=== PATIENT | male | born 1970 | race Caucasian/White ===

== ENCOUNTER 2017-10-02 14:09 | Emergency (ER) | payer OTHER ==
[~2017-10-02] VITALS: Ht 175.3 cm; Wt 104.3 kg
[~2017-10-02 14:09] MED LIST: ALBU90OI INH; AMOCLA875 PO; ASPI81CH PO; ASPI81EC PO; ATOR10 PO; Augmentin 875-1 EACH PO; BENZ100A PO; Bactrim Ds Tab1 EACH PO; CEPH500 PO; CHOLESTEROL MED; CLOP75; CLOP75 PO; CYCL10 PO; Cyclobenzaprine5 MG PO; DELTASONE20 MG PO; DOXY100 PO; FAMO20 PO; FOLI1 PO; HYDACE5 PO; HYDR1TAB94 PO; HYDSUL200 PO; IBUP600 PO; IBUP800 PO; LISI10 PO; LISI5; LISI5 PO; LOVA40 PO; METO25; METO25ER; METO25ER PO; METO50 PO; METOPROLOL ER-1 EAC1 PO; Mobic15 MG PO; Monodox100 MG PO; NAPR500 PO; NITR.6SL SL; Naprosyn500 MG PO; Norco 5-325 Ta1 EACH PO; OXYACE5T PO; PRAV20 PO; Prednisone20 MG PO; Protonix40 MG PO; Pulmicort Flex90 MCG INH; Robaxin-750750 MG PO; THERA M PLUS T1 EACH PO; THIA100 PO; TIOT18 INH; TRAM50 PO; Ultram50 MG PO
[2017-10-02 14:55] LABS: BASOPHILS ABSOLUTE AUTO 0.07 K/mm3 (0.00-0.23); BASOPHILS PERCENT AUTO 1 % (0-2); EOSINOPHILS PERCENT AUTO 6 % (0-6); Hematocrit 46.7 % (37.0-53.0); Hemoglobin 15.6 g/dL (13.5-17.5); IMMATURE GRAN ABSOLUTE AUTO 0.07 K/mm3 (0.00-0.10); IMMATURE GRAN PERCENT AUTO 1 % (0-1); LYMPHOCYTES ABSOLUTE AUTO 2.85 K/mm3 (0.84-5.20); LYMPHOCYTES PERCENT AUTO 22 % (21-46); MONOCYTES ABSOLUTE AUTO 1.03 K/mm3 (0.16-1.47); MONOCYTES PERCENT AUTO 8 % (4-13); Mean Corpuscular HGB 31.3 pg (26.0-34.0); Mean Corpuscular HGB Conc 33.4 g/dL (31.5-36.5); Mean Corpuscular Volume 94 fL (80-100); Mean Platelet Volume 9.7 fL (9.1-12.4); NEUTROPHILS ABSOLUTE AUTO 8.11 K/mm3 (1.96-9.15); NEUTROPHILS PERCENT AUTO 63 % (41-73); Platelet Count 353 K/mm3 (150-400); RDW Coefficient Variation 13.9 % (11.7-14.2); RDW Standard Deviation 47.6 fL (35.1-46.3); Red Blood Cell Count 4.99 M/mm3 (4.30-5.90); White Blood Cell Count 12.93 K/mm3 (4.00-11.30)
[2017-10-02 15:04] LABS: Alanine Aminotransfer (ALT/SGP 27 U/L (12-78); Albumin, Blood 3.5 g/dL (3.4-5.0); Albumin/Globulin Ratio 0.9 (0.8-1.8); Alk Phos 82 U/L (50-136); Anion Gap 8 mmol/L (6-16); Aspartate Aminotrans (AST/SGOT 14 U/L (12-37); Bilirubin, Total 0.2 mg/dL (0.1-1.0); Blood Urea Nitrogen 28 mg/dL (8-24); Bun/Creatinine Ratio 26.9 (12.0-20.0); CO2, Blood 26 mmol/L (21-32); Calcium, Blood 8.7 mg/dL (8.5-10.1); Chloride, Blood 105 mmol/L (98-108); Creatinine, Blood 1.04 mg/dL (0.60-1.20); Globulin, Blood 4.1 g/dL (2.2-4.0); Glomerular Filtration Rate >60 (60-); Glucose, Blood 95 mg/dL (70-99); Potassium, Blood 4.8 mmol/L (3.5-5.5); Sodium, Blood 139 mmol/L (136-145); Total Protein, Blood 7.6 g/dL (6.4-8.2); Troponin I <0.015 ng/mL (0.000-0.040)
[2017-10-02 15:20] LABS: International Normalized Ratio 0.97; Prothrombin Time Results 10.1 Sec (9.7-11.5)
[2018-02-01] MEDS ORDERED: CRUTCH3 XX (16:52)
[2018-02-01] MEDS ORDERED: Norco 5-325 Ta1 EACH PO (16:52)
[2018-02-10] MEDS ORDERED: Acetaminophen-1 EAC1 PO (21:34)
[2018-02-10] MEDS ORDERED: Robaxin-750750 MG PO (21:34)
[2018-02-10] MEDS ORDERED: CRUTCH3 XX (21:37)
[2018-07-03] MEDS ORDERED: METO25ER (16:17)
[2018-07-03] MEDS ORDERED: KETO10 PO (18:42)
[2018-07-03] MEDS ORDERED: Zofran Odt4 MG SL (18:42)
[2018-07-11] MEDS ORDERED: CLOP75 PO (23:56)
[2018-07-11] MEDS ORDERED: Toprol Xl25 MG PO (23:57)
[2018-07-11] MEDS ORDERED: NITR.6SL SL (23:58)
[2018-07-11] MEDS ORDERED: ASPI81CH PO (23:58)
[2018-07-15] MEDS ORDERED: DULERA 100 MCG/13 GM INH (15:41)
[2018-07-15] MEDS ORDERED: Rocephin 1g1 G/50 ML IV (15:41)
[2018-07-15] MEDS ORDERED: PRAV20 PO (15:42)
[2018-07-15] MEDS ORDERED: OXYC5 PO (15:42)
[2018-08-03] MEDS ORDERED: CEFP200 PO (13:31)
[2018-08-03] MEDS ORDERED: ACET325 PO (13:38)
[2018-08-03] MEDS ORDERED: ALBU90OI INH (13:39)
[2018-08-03] MEDS ORDERED: CALCA400CH PO (13:40)
[2018-08-03] MEDS ORDERED: NICO21TP TOP (13:41)
[2018-08-03] MEDS ORDERED: ONDA4ODT PO (13:44)
[2018-08-03] MEDS ORDERED: PANT40 PO (13:45)
[2018-08-03] MEDS ORDERED: SACC250C PO (13:46)
[2018-08-09] MEDS ORDERED: IBUP800 PO (19:06)
[2018-08-18] MEDS ORDERED: OXYC5 PO (21:47)
[2018-08-18] MEDS ORDERED: ALBU90OI INH (22:07)
[2018-08-18] MEDS ORDERED: TIOT18 INH (22:07)
[2018-08-18] MEDS ORDERED: Prednisone50 MG PO (22:07)
[2018-08-18] MEDS ORDERED: LEVO750 PO (22:07)
[2018-08-18] MEDS ORDERED: BENZ100A PO (23:07)
== END 2017-10-02 17:51 | disposition left against medical advice (07) ==
LOC: ER 14:09
PROVIDERS: Emergency Medicine
DX: R07.2 Precordial pain (principal); I10 Essential (primary) hypertension; I25.10 Atherosclerotic heart disease of native coronary artery without angina pectoris; I25.2 Old myocardial infarction; F17.200 Nicotine dependence, unspecified, uncomplicated; Z79.899 Other long term (current) drug therapy; Z79.82 Long term (current) use of aspirin; Z79.52 Long term (current) use of systemic steroids; Z86.73 Personal history of transient ischemic attack (TIA), and cerebral infarction without residual deficits; Z95.5 Presence of coronary angioplasty implant and graft
CPT/HCPCS: 36415; 71046; 80053; 84484; 85025; 85610; 93005; 93010; 99283

== ENCOUNTER 2017-10-08 21:13 | Emergency (ER) | payer OTHER ==
[~2017-10-08] VITALS: Ht 177.8 cm; Wt 77.1 kg
[2018-02-01] MEDS ORDERED: CRUTCH3 XX (16:52)
[2018-02-01] MEDS ORDERED: Norco 5-325 Ta1 EACH PO (16:52)
[2018-02-10] MEDS ORDERED: Robaxin-750750 MG PO (21:34)
[2018-02-10] MEDS ORDERED: Acetaminophen-1 EAC1 PO (21:34)
[2018-02-10] MEDS ORDERED: CRUTCH3 XX (21:37)
[2018-07-03] MEDS ORDERED: METO25ER (16:17)
[2018-07-03] MEDS ORDERED: Zofran Odt4 MG SL (18:42)
[2018-07-03] MEDS ORDERED: KETO10 PO (18:42)
[2018-07-11] MEDS ORDERED: CLOP75 PO (23:56)
[2018-07-11] MEDS ORDERED: Toprol Xl25 MG PO (23:57)
[2018-07-11] MEDS ORDERED: NITR.6SL SL (23:58)
[2018-07-11] MEDS ORDERED: ASPI81CH PO (23:58)
[2018-07-15] MEDS ORDERED: Rocephin 1g1 G/50 ML IV (15:41)
[2018-07-15] MEDS ORDERED: DULERA 100 MCG/13 GM INH (15:41)
[2018-07-15] MEDS ORDERED: OXYC5 PO (15:42)
[2018-07-15] MEDS ORDERED: PRAV20 PO (15:42)
[2018-08-03] MEDS ORDERED: CEFP200 PO (13:31)
[2018-08-03] MEDS ORDERED: ACET325 PO (13:38)
[2018-08-03] MEDS ORDERED: ALBU90OI INH (13:39)
[2018-08-03] MEDS ORDERED: CALCA400CH PO (13:40)
[2018-08-03] MEDS ORDERED: NICO21TP TOP (13:41)
[2018-08-03] MEDS ORDERED: ONDA4ODT PO (13:44)
[2018-08-03] MEDS ORDERED: PANT40 PO (13:45)
[2018-08-03] MEDS ORDERED: SACC250C PO (13:46)
[2018-08-09] MEDS ORDERED: IBUP800 PO (19:06)
[2018-08-18] MEDS ORDERED: OXYC5 PO (21:47)
[2018-08-18] MEDS ORDERED: LEVO750 PO (22:07)
[2018-08-18] MEDS ORDERED: Prednisone50 MG PO (22:07)
[2018-08-18] MEDS ORDERED: ALBU90OI INH (22:07)
[2018-08-18] MEDS ORDERED: TIOT18 INH (22:07)
[2018-08-18] MEDS ORDERED: BENZ100A PO (23:07)
== END 2017-10-08 22:54 | disposition home or self-care (01) ==
LOC: ER 21:13
DX: S20.212A Contusion of left front wall of thorax, initial encounter (principal); S09.90XA Unspecified injury of head, initial encounter; I25.2 Old myocardial infarction; F17.200 Nicotine dependence, unspecified, uncomplicated; Z79.899 Other long term (current) drug therapy; Z79.82 Long term (current) use of aspirin; Z79.52 Long term (current) use of systemic steroids; Z86.73 Personal history of transient ischemic attack (TIA), and cerebral infarction without residual deficits; Z95.5 Presence of coronary angioplasty implant and graft; Z98.52 Vasectomy status; W01.0XXA Fall on same level from slipping, tripping and stumbling without subsequent striking against object, initial encounter
CPT/HCPCS: 70450; 71101; 99284

== ENCOUNTER 2017-10-11 10:53 | Emergency (ER) | payer OTHER ==
[~2017-10-11] VITALS: Ht 175.3 cm; Wt 117.9 kg
[2017-10-11 12:46] LABS: BASOPHILS ABSOLUTE AUTO 0.07 K/mm3 (0.00-0.23); BASOPHILS PERCENT AUTO 1 % (0-2); EOSINOPHILS ABSOLUTE AUTO 0.36 K/mm3 (0.00-0.68); EOSINOPHILS PERCENT AUTO 3 % (0-6); Hemoglobin 15.7 g/dL (13.5-17.5); IMMATURE GRAN ABSOLUTE AUTO 0.05 K/mm3 (0.00-0.10); IMMATURE GRAN PERCENT AUTO 0 % (0-1); LYMPHOCYTES ABSOLUTE AUTO 1.53 K/mm3 (0.84-5.20); LYMPHOCYTES PERCENT AUTO 13 % (21-46); MONOCYTES ABSOLUTE AUTO 1.08 K/mm3 (0.16-1.47); MONOCYTES PERCENT AUTO 9 % (4-13); Mean Corpuscular HGB 31.2 pg (26.0-34.0); Mean Corpuscular HGB Conc 33.4 g/dL (31.5-36.5); Mean Corpuscular Volume 93 fL (80-100); Mean Platelet Volume 9.9 fL (9.1-12.4); NEUTROPHILS ABSOLUTE AUTO 8.94 K/mm3 (1.96-9.15); NEUTROPHILS PERCENT AUTO 74 % (41-73); Platelet Count 344 K/mm3 (150-400); RDW Coefficient Variation 13.7 % (11.7-14.2); RDW Standard Deviation 47.2 fL (35.1-46.3); Red Blood Cell Count 5.04 M/mm3 (4.30-5.90); White Blood Cell Count 12.03 K/mm3 (4.00-11.30)
[2017-10-11 13:12] LABS: Alanine Aminotransfer (ALT/SGP 28 U/L (12-78); Albumin, Blood 3.9 g/dL (3.4-5.0); Alk Phos 79 U/L (50-136); Anion Gap 9 mmol/L (6-16); Aspartate Aminotrans (AST/SGOT 21 U/L (12-37); Bilirubin, Total 0.6 mg/dL (0.1-1.0); Blood Urea Nitrogen 21 mg/dL (8-24); Bun/Creatinine Ratio 17.2 (12.0-20.0); CO2, Blood 26 mmol/L (21-32); Calcium, Blood 8.8 mg/dL (8.5-10.1); Chloride, Blood 106 mmol/L (98-108); Creatinine, Blood 1.22 mg/dL (0.60-1.20); Globulin, Blood 3.9 g/dL (2.2-4.0); Glomerular Filtration Rate >60 (60-); Glucose, Blood 88 mg/dL (70-99); Potassium, Blood 4.3 mmol/L (3.5-5.5); Sodium, Blood 141 mmol/L (136-145); Total Protein, Blood 7.8 g/dL (6.4-8.2); Troponin I <0.015 ng/mL (0.000-0.040)
[2017-10-11 15:09] LABS: Source, Urine Clean Catch
[2017-10-11 15:17] LABS: Appearance, Urine Clear (Clear); Bilirubin, Urine Neg (Neg); Blood, Urine 1+ (Neg); Color, Urine Amber (P-Yellow); Glucose Qualitative, Urine Neg (Neg); Ketones, Urine 1+ (Neg); Leukocyte Esterase, Urine 1+ (Neg); Nitrite, Urine Neg (Neg); Protein, Urine 1+ (Neg); Specific Gravity, Urine 1.025 (1.003-1.022); Urobilinogen, Urine 1+ (Normal)
[2017-10-11 15:37] LABS: Bacteria Few /hpf; Hyaline Casts 0-2 /lpf (0-2); Mucus Light (0-Heavy); Squamous Epithelial Cells Rare /hpf (Few)
[2017-10-11 15:52] LABS: U Amphetamine Screen DETECTED; U Barbituate Screen Not Detected; U Benzodiazapine Screen Not Detected; U Buprenorphine Screen Not Detected; U Cannabinoids Screen Not Detected; U Cocaine Screen Not Detected; U Methadone Screen Not Detected; U Methamphetamine Screen DETECTED; U Opiates Screen Not Detected; U Oxycodone Screen Not Detected; U Phencyclidine Screen Not Detected; U Propoxyphene Screen Not Detected
[2017-10-11 15:59] LABS: Troponin I <0.015 ng/mL (0.000-0.040)
[2018-02-01] MEDS ORDERED: Norco 5-325 Ta1 EACH PO (16:52)
[2018-02-01] MEDS ORDERED: CRUTCH3 XX (16:52)
[2018-02-10] MEDS ORDERED: Robaxin-750750 MG PO (21:34)
[2018-02-10] MEDS ORDERED: Acetaminophen-1 EAC1 PO (21:34)
[2018-02-10] MEDS ORDERED: CRUTCH3 XX (21:37)
[2018-07-03] MEDS ORDERED: METO25ER (16:17)
[2018-07-03] MEDS ORDERED: Zofran Odt4 MG SL (18:42)
[2018-07-03] MEDS ORDERED: KETO10 PO (18:42)
[2018-07-11] MEDS ORDERED: CLOP75 PO (23:56)
[2018-07-11] MEDS ORDERED: Toprol Xl25 MG PO (23:57)
[2018-07-11] MEDS ORDERED: ASPI81CH PO (23:58)
[2018-07-11] MEDS ORDERED: NITR.6SL SL (23:58)
[2018-07-15] MEDS ORDERED: Rocephin 1g1 G/50 ML IV (15:41)
[2018-07-15] MEDS ORDERED: DULERA 100 MCG/13 GM INH (15:41)
[2018-07-15] MEDS ORDERED: PRAV20 PO (15:42)
[2018-07-15] MEDS ORDERED: OXYC5 PO (15:42)
[2018-08-03] MEDS ORDERED: CEFP200 PO (13:31)
[2018-08-03] MEDS ORDERED: ACET325 PO (13:38)
[2018-08-03] MEDS ORDERED: ALBU90OI INH (13:39)
[2018-08-03] MEDS ORDERED: CALCA400CH PO (13:40)
[2018-08-03] MEDS ORDERED: NICO21TP TOP (13:41)
[2018-08-03] MEDS ORDERED: ONDA4ODT PO (13:44)
[2018-08-03] MEDS ORDERED: PANT40 PO (13:45)
[2018-08-03] MEDS ORDERED: SACC250C PO (13:46)
[2018-08-09] MEDS ORDERED: IBUP800 PO (19:06)
[2018-08-18] MEDS ORDERED: OXYC5 PO (21:47)
[2018-08-18] MEDS ORDERED: ALBU90OI INH (22:07)
[2018-08-18] MEDS ORDERED: TIOT18 INH (22:07)
[2018-08-18] MEDS ORDERED: Prednisone50 MG PO (22:07)
[2018-08-18] MEDS ORDERED: LEVO750 PO (22:07)
[2018-08-18] MEDS ORDERED: BENZ100A PO (23:07)
== END 2017-10-11 16:55 | disposition home or self-care (01) ==
LOC: ER 10:53
PROVIDERS: Emergency Medicine
DX: R07.89 Other chest pain (principal); Z91.19 Patient's noncompliance with other medical treatment and regimen; Z79.899 Other long term (current) drug therapy; Z79.82 Long term (current) use of aspirin; Z79.52 Long term (current) use of systemic steroids; F17.200 Nicotine dependence, unspecified, uncomplicated
CPT/HCPCS: 36415; 71046; 80053; 81001; 83690; 84484; 85025; 87086; 93005; 93010; 96361; 96374; 99283; J1885; J7030

== ENCOUNTER 2017-10-13 10:42 | Emergency (ER) | payer OTHER ==
[~2017-10-13] VITALS: Ht 175.3 cm; Wt 90.7 kg
[2017-10-13 11:06] LABS: BASOPHILS ABSOLUTE AUTO 0.08 K/mm3 (0.00-0.23); BASOPHILS PERCENT AUTO 1 % (0-2); EOSINOPHILS ABSOLUTE AUTO 0.89 K/mm3 (0.00-0.68); EOSINOPHILS PERCENT AUTO 9 % (0-6); Hematocrit 47.8 % (37.0-53.0); Hemoglobin 15.9 g/dL (13.5-17.5); IMMATURE GRAN ABSOLUTE AUTO 0.02 K/mm3 (0.00-0.10); IMMATURE GRAN PERCENT AUTO 0 % (0-1); LYMPHOCYTES ABSOLUTE AUTO 2.04 K/mm3 (0.84-5.20); LYMPHOCYTES PERCENT AUTO 21 % (21-46); MONOCYTES ABSOLUTE AUTO 0.88 K/mm3 (0.16-1.47); MONOCYTES PERCENT AUTO 9 % (4-13); Mean Corpuscular HGB 31.3 pg (26.0-34.0); Mean Corpuscular HGB Conc 33.3 g/dL (31.5-36.5); Mean Corpuscular Volume 94 fL (80-100); Mean Platelet Volume 9.5 fL (9.1-12.4); NEUTROPHILS ABSOLUTE AUTO 5.78 K/mm3 (1.96-9.15); NEUTROPHILS PERCENT AUTO 60 % (41-73); Platelet Count 309 K/mm3 (150-400); RDW Coefficient Variation 13.6 % (11.7-14.2); RDW Standard Deviation 47.6 fL (35.1-46.3); Red Blood Cell Count 5.08 M/mm3 (4.30-5.90); White Blood Cell Count 9.69 K/mm3 (4.00-11.30)
[2017-10-13 11:27] LABS: Alanine Aminotransfer (ALT/SGP 24 U/L (12-78); Albumin, Blood 3.5 g/dL (3.4-5.0); Albumin/Globulin Ratio 0.9 (0.8-1.8); Alk Phos 81 U/L (50-136); Anion Gap 4 mmol/L (6-16); Aspartate Aminotrans (AST/SGOT 17 U/L (12-37); Bilirubin, Total 0.3 mg/dL (0.1-1.0); Blood Urea Nitrogen 11 mg/dL (8-24); Bun/Creatinine Ratio 12.4 (12.0-20.0); CO2, Blood 29 mmol/L (21-32); Calcium, Blood 8.5 mg/dL (8.5-10.1); Chloride, Blood 106 mmol/L (98-108); Creatinine, Blood 0.89 mg/dL (0.60-1.20); Globulin, Blood 3.9 g/dL (2.2-4.0); Glomerular Filtration Rate >60 (60-); Glucose, Blood 87 mg/dL (70-99); Potassium, Blood 4.1 mmol/L (3.5-5.5); Sodium, Blood 139 mmol/L (136-145); Total Protein, Blood 7.4 g/dL (6.4-8.2); Troponin I <0.015 ng/mL (0.000-0.040)
[2017-10-13 11:29] LABS: Influenza A Negative (NEGATIVE); Influenza B Negative (NEGATIVE)
[2017-10-13] MEDS ORDERED: Prednisone20 MG PO (13:10)
[2017-10-13] MEDS ORDERED: ALBU90OI INH (13:10)
[2017-10-13] MEDS ORDERED: AZIT250 PO (13:10)
[2018-02-01] MEDS ORDERED: Norco 5-325 Ta1 EACH PO (16:52)
[2018-02-01] MEDS ORDERED: CRUTCH3 XX (16:52)
[2018-02-10] MEDS ORDERED: Robaxin-750750 MG PO (21:34)
[2018-02-10] MEDS ORDERED: Acetaminophen-1 EAC1 PO (21:34)
[2018-02-10] MEDS ORDERED: CRUTCH3 XX (21:37)
[2018-07-03] MEDS ORDERED: METO25ER (16:17)
[2018-07-03] MEDS ORDERED: Zofran Odt4 MG SL (18:42)
[2018-07-03] MEDS ORDERED: KETO10 PO (18:42)
[2018-07-11] MEDS ORDERED: CLOP75 PO (23:56)
[2018-07-11] MEDS ORDERED: Toprol Xl25 MG PO (23:57)
[2018-07-11] MEDS ORDERED: NITR.6SL SL (23:58)
[2018-07-11] MEDS ORDERED: ASPI81CH PO (23:58)
[2018-07-15] MEDS ORDERED: Rocephin 1g1 G/50 ML IV (15:41)
[2018-07-15] MEDS ORDERED: DULERA 100 MCG/13 GM INH (15:41)
[2018-07-15] MEDS ORDERED: OXYC5 PO (15:42)
[2018-07-15] MEDS ORDERED: PRAV20 PO (15:42)
[2018-08-03] MEDS ORDERED: CEFP200 PO (13:31)
[2018-08-03] MEDS ORDERED: ACET325 PO (13:38)
[2018-08-03] MEDS ORDERED: ALBU90OI INH (13:39)
[2018-08-03] MEDS ORDERED: CALCA400CH PO (13:40)
[2018-08-03] MEDS ORDERED: NICO21TP TOP (13:41)
[2018-08-03] MEDS ORDERED: ONDA4ODT PO (13:44)
[2018-08-03] MEDS ORDERED: PANT40 PO (13:45)
[2018-08-03] MEDS ORDERED: SACC250C PO (13:46)
[2018-08-09] MEDS ORDERED: IBUP800 PO (19:06)
[2018-08-18] MEDS ORDERED: OXYC5 PO (21:47)
[2018-08-18] MEDS ORDERED: ALBU90OI INH (22:07)
[2018-08-18] MEDS ORDERED: LEVO750 PO (22:07)
[2018-08-18] MEDS ORDERED: TIOT18 INH (22:07)
[2018-08-18] MEDS ORDERED: Prednisone50 MG PO (22:07)
[2018-08-18] MEDS ORDERED: BENZ100A PO (23:07)
== END 2017-10-13 13:32 | disposition home or self-care (01) ==
LOC: ER 10:42
PROVIDERS: Emergency Medicine
DX: S20.219A Contusion of unspecified front wall of thorax, initial encounter (principal); J44.1 Chronic obstructive pulmonary disease with (acute) exacerbation; I25.2 Old myocardial infarction; F17.210 Nicotine dependence, cigarettes, uncomplicated; Z95.5 Presence of coronary angioplasty implant and graft; Z86.73 Personal history of transient ischemic attack (TIA), and cerebral infarction without residual deficits; Y08.89XA Assault by other specified means, initial encounter
CPT/HCPCS: 36415; 71046; 80053; 84484; 85025; 87804; 93005; 93010; 94640; 96361; 96374; 99284; J2930; J7030

== ENCOUNTER 2017-10-21 05:26 | Observation (INO) | payer OTHER ==
[~2017-10-21] VITALS: Ht 177.8 cm; Wt 75.9 kg
[~2017-10-21 05:26] MED LIST changes: +AZIT250 PO
[2017-10-21 06:44] LABS: BASOPHILS ABSOLUTE AUTO 0.07 K/mm3 (0.00-0.23); BASOPHILS PERCENT AUTO 0 % (0-2); EOSINOPHILS ABSOLUTE AUTO 0.02 K/mm3 (0.00-0.68); EOSINOPHILS PERCENT AUTO 0 % (0-6); Hematocrit 44.2 % (37.0-53.0); IMMATURE GRAN ABSOLUTE AUTO 0.16 K/mm3 (0.00-0.10); IMMATURE GRAN PERCENT AUTO 1 % (0-1); LYMPHOCYTES ABSOLUTE AUTO 1.74 K/mm3 (0.84-5.20); LYMPHOCYTES PERCENT AUTO 8 % (21-46); MONOCYTES ABSOLUTE AUTO 1.46 K/mm3 (0.16-1.47); MONOCYTES PERCENT AUTO 7 % (4-13); Mean Corpuscular HGB 31.4 pg (26.0-34.0); Mean Corpuscular HGB Conc 33.9 g/dL (31.5-36.5); Mean Corpuscular Volume 93 fL (80-100); Mean Platelet Volume 9.9 fL (9.1-12.4); NEUTROPHILS ABSOLUTE AUTO 17.28 K/mm3 (1.96-9.15); NEUTROPHILS PERCENT AUTO 83 % (41-73); Platelet Count 363 K/mm3 (150-400); RDW Coefficient Variation 13.5 % (11.7-14.2); RDW Standard Deviation 46.4 fL (35.1-46.3); Red Blood Cell Count 4.78 M/mm3 (4.30-5.90); White Blood Cell Count 20.73 K/mm3 (4.00-11.30)
[2017-10-21 06:45] LABS: Calcium, Ionized (POC) 1.08 mmol/L (1.10-1.46); Chloride (POC) 99 mmol/L (98-108); Glucose (ISTAT POC) 93 mg/dL (70-99); Hemoglobin (POC) 13.9 g/dL (13.5-17.5); Potassium (POC) 4.8 mmol/L (3.5-5.5); Sodium (POC) 134 mmol/L (135-148); Total CO2 (POC) 25 mmol/L (21-32)
[2017-10-21 06:55] LABS: Alanine Aminotransfer (ALT/SGP 31 U/L (12-78); Albumin, Blood 3.7 g/dL (3.4-5.0); Albumin/Globulin Ratio 0.8 (0.8-1.8); Alk Phos 111 U/L (50-136); Anion Gap 10 mmol/L (6-16); Aspartate Aminotrans (AST/SGOT 32 U/L (12-37); Bilirubin, Total 0.7 mg/dL (0.1-1.0); Blood Urea Nitrogen 25 mg/dL (8-24); CO2, Blood 24 mmol/L (21-32); Calcium, Blood 8.9 mg/dL (8.5-10.1); Chloride, Blood 99 mmol/L (98-108); Creatinine, Blood 0.93 mg/dL (0.60-1.20); Ethanol (Alcohol), Blood, Med <3 mg/dL; Globulin, Blood 4.6 g/dL (2.2-4.0); Glomerular Filtration Rate >60 (60-); Glucose, Blood 90 mg/dL (70-99); Potassium, Blood 4.5 mmol/L (3.5-5.5); Sodium, Blood 133 mmol/L (136-145); Total Protein, Blood 8.3 g/dL (6.4-8.2)
[2017-10-21 08:57] LABS: Cryptococcus Neoformans/Gattii Not Detected (NOT DETECT); Enterovirus Not Detected (NOT DETECT); Escherichia Coli K1 Not Detected (NOT DETECT); Haemophilus Influenza Not Detected (NOT DETECT); Herpes Simplex Virus 1 Not Detected (NOT DETECT); Herpes Simplex Virus 2 Not Detected (NOT DETECT); Human Herpesvirus 6 Not Detected (NOT DETECT); Human Parechovirus Not Detected (NOT DETECT); Listeria Monocytogenes Not Detected (NOT DETECT); Neisseria Meningitidis Not Detected (NOT DETECT); Streptococcus Agalactiae Not Detected (NOT DETECT); Streptococcus Pneumoniae Not Detected (NOT DETECT); Varicella Zoster Virus Not Detected (NOT DETECT)
[2017-10-21 09:10] LABS: Appearance, CSF Clear (Clear); Color, CSF No Color (No Color)
[2017-10-21 09:14] LABS: Appearance, CSF Clear (Clear); Color, CSF No Color (No Color)
[2017-10-21 09:15] LABS: WBC Count, CSF 0 /mm3 (0-5)
[2017-10-21 09:16] LABS: RBC Count, CSF 0 /mm3 (0-0)
[2017-10-21 09:17] LABS: RBC Count, CSF 502 /mm3 (0-0); WBC Count, CSF 2 /mm3 (0-5)
[2017-10-21 09:28] LABS: Glucose, CSF 57 mg/dL (40-70)
[2017-10-21 10:29] LABS: Source, Urine Catheter
[2017-10-21 10:51] LABS: Bilirubin, Urine Neg (Neg); Blood, Urine 2+ (Neg); Glucose Qualitative, Urine Neg (Neg); Ketones, Urine 3+ (Neg); Leukocyte Esterase, Urine Neg (Neg); Nitrite, Urine Neg (Neg); Protein, Urine Neg (Neg); Specific Gravity, Urine 1.025 (1.003-1.022); Urobilinogen, Urine NORM (Normal)
[2017-10-21 11:06] LABS: U Amphetamine Screen Not Detected; U Barbituate Screen Not Detected; U Benzodiazapine Screen Not Detected; U Buprenorphine Screen Not Detected; U Cannabinoids Screen Not Detected; U Cocaine Screen Not Detected; U Methadone Screen Not Detected; U Methamphetamine Screen Not Detected; U Opiates Screen Not Detected; U Oxycodone Screen Not Detected; U Phencyclidine Screen Not Detected; U Propoxyphene Screen Not Detected
[2017-10-21 11:17] LABS: Appearance, Urine Clear (Clear); Bacteria Not Seen /hpf; Color, Urine Yellow (P-Yellow); Hyaline Casts 0-2 /lpf (0-2); Squamous Epithelial Cells Few /hpf (Few); White Blood Cells, Urine Not Seen /hpf (0-5)
[2017-10-21] MEDS ORDERED: PRAV20 PO (13:37)
[2017-10-22 05:55] LABS: Hematocrit 41.6 % (37.0-53.0); Hemoglobin 14.2 g/dL (13.5-17.5); Mean Corpuscular HGB 31.3 pg (26.0-34.0); Mean Corpuscular HGB Conc 34.1 g/dL (31.5-36.5); Mean Corpuscular Volume 92 fL (80-100); Mean Platelet Volume 9.7 fL (9.1-12.4); Platelet Count 299 K/mm3 (150-400); RDW Coefficient Variation 13.7 % (11.7-14.2); RDW Standard Deviation 46.8 fL (35.1-46.3); Red Blood Cell Count 4.53 M/mm3 (4.30-5.90); White Blood Cell Count 16.34 K/mm3 (4.00-11.30)
[2017-10-22 06:17] LABS: Anion Gap 7 mmol/L (6-16); Blood Urea Nitrogen 16 mg/dL (8-24); Bun/Creatinine Ratio 21.6 (12.0-20.0); CO2, Blood 25 mmol/L (21-32); Calcium, Blood 8.4 mg/dL (8.5-10.1); Chloride, Blood 106 mmol/L (98-108); Creatinine, Blood 0.74 mg/dL (0.60-1.20); Glomerular Filtration Rate >60 (60-); Glucose, Blood 119 mg/dL (70-99); Potassium, Blood 3.9 mmol/L (3.5-5.5); Sodium, Blood 138 mmol/L (136-145)
[2017-10-23] MEDS ORDERED: AMOX875 PO (10:31)
[2017-10-23] MEDS ORDERED: ASPI81CH PO (10:32)
[2017-10-23] MEDS ORDERED: CLOP75 PO (10:32)
[2017-10-23] MEDS ORDERED: Q-Tussin100 MG/5 M PO (10:33)
[2017-10-23] MEDS ORDERED: DULERA 100 MCG/13 GM INH (10:34)
[2017-10-23] MEDS ORDERED: Thera-M1 EACH PO (10:35)
[2017-10-23] MEDS ORDERED: DELTASONE20 MG PO (10:35)
[2018-02-01] MEDS ORDERED: CRUTCH3 XX (16:52)
[2018-02-01] MEDS ORDERED: Norco 5-325 Ta1 EACH PO (16:52)
[2018-02-10] MEDS ORDERED: Acetaminophen-1 EAC1 PO (21:34)
[2018-02-10] MEDS ORDERED: Robaxin-750750 MG PO (21:34)
[2018-02-10] MEDS ORDERED: CRUTCH3 XX (21:37)
[2018-07-03] MEDS ORDERED: METO25ER (16:17)
[2018-07-03] MEDS ORDERED: KETO10 PO (18:42)
[2018-07-03] MEDS ORDERED: Zofran Odt4 MG SL (18:42)
[2018-07-11] MEDS ORDERED: CLOP75 PO (23:56)
[2018-07-11] MEDS ORDERED: Toprol Xl25 MG PO (23:57)
[2018-07-11] MEDS ORDERED: ASPI81CH PO (23:58)
[2018-07-11] MEDS ORDERED: NITR.6SL SL (23:58)
[2018-07-15] MEDS ORDERED: DULERA 100 MCG/13 GM INH (15:41)
[2018-07-15] MEDS ORDERED: Rocephin 1g1 G/50 ML IV (15:41)
[2018-07-15] MEDS ORDERED: PRAV20 PO (15:42)
[2018-07-15] MEDS ORDERED: OXYC5 PO (15:42)
[2018-08-03] MEDS ORDERED: CEFP200 PO (13:31)
[2018-08-03] MEDS ORDERED: ACET325 PO (13:38)
[2018-08-03] MEDS ORDERED: ALBU90OI INH (13:39)
[2018-08-03] MEDS ORDERED: CALCA400CH PO (13:40)
[2018-08-03] MEDS ORDERED: NICO21TP TOP (13:41)
[2018-08-03] MEDS ORDERED: ONDA4ODT PO (13:44)
[2018-08-03] MEDS ORDERED: PANT40 PO (13:45)
[2018-08-03] MEDS ORDERED: SACC250C PO (13:46)
[2018-08-09] MEDS ORDERED: IBUP800 PO (19:06)
[2018-08-18] MEDS ORDERED: OXYC5 PO (21:47)
[2018-08-18] MEDS ORDERED: ALBU90OI INH (22:07)
[2018-08-18] MEDS ORDERED: TIOT18 INH (22:07)
[2018-08-18] MEDS ORDERED: Prednisone50 MG PO (22:07)
[2018-08-18] MEDS ORDERED: LEVO750 PO (22:07)
[2018-08-18] MEDS ORDERED: BENZ100A PO (23:07)
== END 2017-10-23 13:49 | disposition home or self-care (01) ==
LOC: ER 05:26 → MEDS 05:27 → ENPENDDIS 10-22 10:39 → EDPENDDISTM 10-23 09:55 → EDPENDDISDT 10-23 09:55 → MEDS 10-23 13:49
PROVIDERS: Emergency Medicine; Internal Medicine
DX: G93.40 Encephalopathy, unspecified (principal); J18.9 Pneumonia, unspecified organism; I25.10 Atherosclerotic heart disease of native coronary artery without angina pectoris; J44.9 Chronic obstructive pulmonary disease, unspecified; D72.829 Elevated white blood cell count, unspecified; A41.9 Sepsis, unspecified organism; I25.2 Old myocardial infarction; F17.200 Nicotine dependence, unspecified, uncomplicated; I10 Essential (primary) hypertension; Z79.01 Long term (current) use of anticoagulants; Z79.52 Long term (current) use of systemic steroids; Z79.02 Long term (current) use of antithrombotics/antiplatelets; Z86.73 Personal history of transient ischemic attack (TIA), and cerebral infarction without residual deficits; Z95.5 Presence of coronary angioplasty implant and graft; Z98.52 Vasectomy status; Z79.82 Long term (current) use of aspirin; Z79.1 Long term (current) use of non-steroidal anti-inflammatories (NSAID); Z79.899 Other long term (current) drug therapy
CPT/HCPCS: 36415; 51701; 62270; 70450; 71046; 80047; 80048; 80053; 81001; 82945; 83605; 84157; 85014; 85025; 85027; 87040; 87070; 87205; 87483; 89051; 93005; 93010; 96361; 96365; 96366; 96367; 96372; 99285; G0378; G0480; J0456; J0696; J1650; J3370; J7030; J7050; J8499

== ENCOUNTER 2017-10-26 18:38 | Emergency (ER) | payer OTHER ==
[~2017-10-26] VITALS: Ht 175.3 cm; Wt 104.3 kg
[~2017-10-26 18:38] MED LIST changes: +AMOX875 PO; +DULERA 100 MCG/13 GM INH; +Q-Tussin100 MG/5 M PO; +Thera-M1 EACH PO
[2017-10-26 19:43] LABS: BASOPHILS PERCENT AUTO 1 % (0-2); EOSINOPHILS ABSOLUTE AUTO 0.68 K/mm3 (0.00-0.68); EOSINOPHILS PERCENT AUTO 6 % (0-6); Hemoglobin 14.5 g/dL (13.5-17.5); IMMATURE GRAN ABSOLUTE AUTO 0.09 K/mm3 (0.00-0.10); IMMATURE GRAN PERCENT AUTO 1 % (0-1); LYMPHOCYTES ABSOLUTE AUTO 3.35 K/mm3 (0.84-5.20); LYMPHOCYTES PERCENT AUTO 27 % (21-46); MONOCYTES ABSOLUTE AUTO 1.02 K/mm3 (0.16-1.47); MONOCYTES PERCENT AUTO 8 % (4-13); Mean Corpuscular HGB 31.3 pg (26.0-34.0); Mean Corpuscular HGB Conc 33.7 g/dL (31.5-36.5); Mean Corpuscular Volume 93 fL (80-100); Mean Platelet Volume 9.2 fL (9.1-12.4); NEUTROPHILS ABSOLUTE AUTO 7.08 K/mm3 (1.96-9.15); NEUTROPHILS PERCENT AUTO 58 % (41-73); Platelet Count 438 K/mm3 (150-400); RDW Coefficient Variation 13.2 % (11.7-14.2); RDW Standard Deviation 45.7 fL (35.1-46.3); Red Blood Cell Count 4.64 M/mm3 (4.30-5.90); White Blood Cell Count 12.32 K/mm3 (4.00-11.30)
[2017-10-26 19:53] LABS: Alanine Aminotransfer (ALT/SGP 44 U/L (12-78); Albumin, Blood 3.1 g/dL (3.4-5.0); Albumin/Globulin Ratio 0.7 (0.8-1.8); Alk Phos 95 U/L (50-136); Anion Gap 8 mmol/L (6-16); Aspartate Aminotrans (AST/SGOT 30 U/L (12-37); Bilirubin, Total 0.2 mg/dL (0.1-1.0); Blood Urea Nitrogen 26 mg/dL (8-24); Bun/Creatinine Ratio 28.8 (12.0-20.0); CO2, Blood 27 mmol/L (21-32); Calcium, Blood 8.8 mg/dL (8.5-10.1); Chloride, Blood 107 mmol/L (98-108); Globulin, Blood 4.3 g/dL (2.2-4.0); Glomerular Filtration Rate >60 (60-); Glucose, Blood 97 mg/dL (70-99); Sodium, Blood 142 mmol/L (136-145); Total Protein, Blood 7.4 g/dL (6.4-8.2)
[2017-10-26] MEDS ORDERED: Prednisone20 MG PO (22:27)
[2018-02-01] MEDS ORDERED: CRUTCH3 XX (16:52)
[2018-02-01] MEDS ORDERED: Norco 5-325 Ta1 EACH PO (16:52)
[2018-02-10] MEDS ORDERED: Robaxin-750750 MG PO (21:34)
[2018-02-10] MEDS ORDERED: Acetaminophen-1 EAC1 PO (21:34)
[2018-02-10] MEDS ORDERED: CRUTCH3 XX (21:37)
[2018-07-03] MEDS ORDERED: METO25ER (16:17)
[2018-07-03] MEDS ORDERED: Zofran Odt4 MG SL (18:42)
[2018-07-03] MEDS ORDERED: KETO10 PO (18:42)
[2018-07-11] MEDS ORDERED: CLOP75 PO (23:56)
[2018-07-11] MEDS ORDERED: Toprol Xl25 MG PO (23:57)
[2018-07-11] MEDS ORDERED: ASPI81CH PO (23:58)
[2018-07-11] MEDS ORDERED: NITR.6SL SL (23:58)
[2018-07-15] MEDS ORDERED: DULERA 100 MCG/13 GM INH (15:41)
[2018-07-15] MEDS ORDERED: Rocephin 1g1 G/50 ML IV (15:41)
[2018-07-15] MEDS ORDERED: OXYC5 PO (15:42)
[2018-07-15] MEDS ORDERED: PRAV20 PO (15:42)
[2018-08-03] MEDS ORDERED: CEFP200 PO (13:31)
[2018-08-03] MEDS ORDERED: ACET325 PO (13:38)
[2018-08-03] MEDS ORDERED: ALBU90OI INH (13:39)
[2018-08-03] MEDS ORDERED: CALCA400CH PO (13:40)
[2018-08-03] MEDS ORDERED: NICO21TP TOP (13:41)
[2018-08-03] MEDS ORDERED: ONDA4ODT PO (13:44)
[2018-08-03] MEDS ORDERED: PANT40 PO (13:45)
[2018-08-03] MEDS ORDERED: SACC250C PO (13:46)
[2018-08-09] MEDS ORDERED: IBUP800 PO (19:06)
[2018-08-18] MEDS ORDERED: OXYC5 PO (21:47)
[2018-08-18] MEDS ORDERED: LEVO750 PO (22:07)
[2018-08-18] MEDS ORDERED: Prednisone50 MG PO (22:07)
[2018-08-18] MEDS ORDERED: TIOT18 INH (22:07)
[2018-08-18] MEDS ORDERED: ALBU90OI INH (22:07)
[2018-08-18] MEDS ORDERED: BENZ100A PO (23:07)
== END 2017-10-26 22:48 | disposition home or self-care (01) ==
LOC: ER 18:38
PROVIDERS: Emergency Medicine
DX: J44.1 Chronic obstructive pulmonary disease with (acute) exacerbation (principal); I25.2 Old myocardial infarction; Z79.82 Long term (current) use of aspirin; Z79.02 Long term (current) use of antithrombotics/antiplatelets; Z79.899 Other long term (current) drug therapy; Z95.5 Presence of coronary angioplasty implant and graft; Z79.51 Long term (current) use of inhaled steroids
CPT/HCPCS: 36415; 71046; 80053; 85025; 96374; 99283; J2930

== ENCOUNTER 2018-03-18 19:36 | Emergency (ER) | payer MEDICAID ==
[~2018-03-18] VITALS: Ht 175.3 cm; Wt 90.7 kg
[~2018-03-18 19:36] MED LIST changes: +Acetaminophen-1 EAC1 PO; +CRUTCH3 XX
[2018-03-18] MEDS ORDERED: IBUP600 PO (20:38)
== END 2018-03-18 20:45 | disposition home or self-care (01) ==
LOC: ER 19:36
DX: S82.001A Unspecified fracture of right patella, initial encounter for closed fracture (principal); W01.0XXA Fall on same level from slipping, tripping and stumbling without subsequent striking against object, initial encounter; Z79.899 Other long term (current) drug therapy; Z79.82 Long term (current) use of aspirin; I25.2 Old myocardial infarction; F17.210 Nicotine dependence, cigarettes, uncomplicated
CPT/HCPCS: 29505; 73502; 73560-RT; 99283-25

== ENCOUNTER 2018-09-04 20:08 | Inpatient (IN) | payer OTHER ==
[~2018-09-04] VITALS: Ht 175.3 cm; Wt 71.9 kg
[~2018-09-04 20:08] MED LIST changes: +ACET325 PO; +CALCA400CH PO; +CEFP200 PO; +KETO10 PO; +LEVO750 PO; +NICO21TP TOP; +ONDA4ODT PO; +OXYC5 PO; +PANT40 PO; +Prednisone50 MG PO; +Rocephin 1g1 G/50 ML IV; +SACC250C PO; +Toprol Xl25 MG PO; +Zofran Odt4 MG SL
[2018-09-04] MEDS ORDERED: LISI5 PO (20:19)
[2018-09-04] MEDS ORDERED: CLOP75 PO (20:19)
[2018-09-04] MEDS ORDERED: NITR.6SL SL (20:20)
[2018-09-04] MEDS ORDERED: METO25 PO (20:21)
[2018-09-04 20:32] LABS: BASOPHILS ABSOLUTE AUTO 0.07 K/mm3 (0.00-0.23); BASOPHILS PERCENT AUTO 1 % (0-2); EOSINOPHILS PERCENT AUTO 3 % (0-6); Hematocrit 39.8 % (37.0-53.0); Hemoglobin 13.1 g/dL (13.5-17.5); IMMATURE GRAN ABSOLUTE AUTO 0.04 K/mm3 (0.00-0.10); IMMATURE GRAN PERCENT AUTO 0 % (0-1); LYMPHOCYTES ABSOLUTE AUTO 3.06 K/mm3 (0.84-5.20); LYMPHOCYTES PERCENT AUTO 28 % (21-46); MONOCYTES ABSOLUTE AUTO 0.91 K/mm3 (0.16-1.47); MONOCYTES PERCENT AUTO 8 % (4-13); Mean Corpuscular HGB 31.9 pg (26.0-34.0); Mean Corpuscular HGB Conc 32.9 g/dL (31.5-36.5); Mean Corpuscular Volume 97 fL (80-100); NEUTROPHILS ABSOLUTE AUTO 6.52 K/mm3 (1.96-9.15); NEUTROPHILS PERCENT AUTO 60 % (41-73); Platelet Count 376 K/mm3 (150-400); RDW Standard Deviation 53.7 fL (35.1-46.3); Red Blood Cell Count 4.11 M/mm3 (4.30-5.90)
[2018-09-04 20:48] LABS: Alanine Aminotransfer (ALT/SGP 23 U/L (12-78); Albumin/Globulin Ratio 0.7 (0.8-1.8); Alk Phos 99 U/L (50-136); Anion Gap 6 mmol/L (6-16); Aspartate Aminotrans (AST/SGOT 26 U/L (12-37); Bilirubin, Total 0.3 mg/dL (0.1-1.0); Blood Urea Nitrogen 14 mg/dL (8-24); Bun/Creatinine Ratio 17.9 (12.0-20.0); CO2, Blood 25 mmol/L (21-32); Calcium, Blood 8.3 mg/dL (8.5-10.1); Chloride, Blood 109 mmol/L (98-108); Creatinine, Blood 0.78 mg/dL (0.60-1.20); Globulin, Blood 4.4 g/dL (2.2-4.0); Glomerular Filtration Rate >60 (60-); Glucose, Blood 113 mg/dL (70-99); Potassium, Blood 4.2 mmol/L (3.5-5.5); Sodium, Blood 140 mmol/L (136-145); Total Protein, Blood 7.4 g/dL (6.4-8.2)
[2018-09-05 00:51] LABS: International Normalized Ratio 0.94; Prothrombin Time Results 9.7 Sec (9.7-11.5)
--- NOTE | 2018-09-05 06:47 | NUR ---
SHIFT SUMMARY PT HAS BEEN SLEEPING WELL SINCE ROUGHLY 0300. AOX4. VSS. DENIES SOB, N/V. REPORTS 10/10 PAIN IN R. KNEE, MEDICATED 1X W/25 FENTANYL PER ORDERS. CIWA HAS RANGED 6-7 T/O NIGHT DUE TO NOTICABLE TREMORS, MILD HEADACHE & PT FEELING A LITTLE AGITATED. LUNGS HAVE INSPIRATORY WHEEZES T/O W/ E/U BREATHING. KEVEN FROM LAB CALLED ROUGHLY AROUND 0600 & STATED THEY STILL HAD FLUID FROM DRAINAGE & WAS WONDERING IF PHYSICIAN WANTED CULTURES DRAWN. TALKED TO DR. BANG & HE ORDERED A GRAM STAIN & BACTERIAL CULTURE. CALL LIGHT IS IN REACH & BED IS IN LOWEST POSITION.
--- NOTE | 2018-09-05 08:00 | NUR ---
PT IRRITABLE RE NO FOOD YET. EXPLAINED IN CAREFUL DETAIL ASPIRATION RISK RELATES TO PENDING SURGERY. CONTINUED TO USE ABUSIVE LANGUAGE WITH ME. EXPLAINED HIS OPTIONS. IF EATS, CAN ASPIRATE UNDER ANESTHESIA. EXPLAINED IF DR AWARE, WILL NOT DO SURGERY, RISK TOO HIGH. IF HE DOES NOT LIKE, HE MAY EAT AND DR WOULD NOT DO SURGERY. LIKELY DISCHARGE. IF WANTS, MAY GO AMA AND EXPECT TWO POSSIBILITES. MAY LOSE LEG FROM INFECTION, AND MAY FROM INFECTION. PT STILL LOUDLY COMPLAINING. OPTIONS TO LEAVE GIVEN. PT AGREED TO STAY AND ACCEPT DR ORDERS.
--- NOTE | 2018-09-05 08:00 | NUR ---
PT IRRITABLE ABOUT NPO. AGREEABLE TO STAY. SEE PRIOR NOTES. PAIN IN LEG, BUT SO TIRED, CAN BARELY STAY AWAKE. FELL ASLEEP DURING EACH AND EVERY QUESTION AND ANSWER OF ASSESSMENT. MOST QUESTIONS NEEDING TWO AND THREE TRIES TO ANSWER THEN FALLS ASLEEP AGAIN. MUST CONTINUOUSLY ROUSE TO CONTINUE. DISCUSSED WITH DR ROBERSON WHEN IN ROOM. PT DENIES ANY ILLICIT DRUGS. STATES ONLY ONE OR TWO BEERS DAILY. STATES NEVER HAD WITHDRAWLS BEFORE. STATES HAND TREMORS ALL THE TIME. H/R REG, NO MURMER NOTED. PER TELE: NSR AT 72. LUNGS DIM WHEEZY BILAT LOWER. RESP EASY, UNLABORED. ON R/A. VSS. BT X4 LST BM TODAY. VOIDS URINAL AND SBA TO BATHROOM. BED IN LOW POSITION, CALL LITE IN REACH, CALLS APPROP LITE TREMORS, NORM FOR PT. NO HALUCINATINS, NO ANXIETY OR DISTRESS NOTED.
[2018-09-05 08:27] LABS: Hemoglobin 12.5 g/dL (13.5-17.5); Mean Corpuscular HGB 31.3 pg (26.0-34.0); Mean Corpuscular HGB Conc 32.9 g/dL (31.5-36.5); Mean Corpuscular Volume 95 fL (80-100); Platelet Count 356 K/mm3 (150-400); RDW Coefficient Variation 14.9 % (11.7-14.2); RDW Standard Deviation 52.8 fL (35.1-46.3); Red Blood Cell Count 3.99 M/mm3 (4.30-5.90); White Blood Cell Count 8.06 K/mm3 (4.00-11.30)
[2018-09-05 09:04] LABS: U Amphetamine Screen Not Detected; U Barbituate Screen Not Detected; U Benzodiazapine Screen Not Detected; U Buprenorphine Screen Not Detected; U Cannabinoids Screen Not Detected; U Cocaine Screen Not Detected; U Methadone Screen Not Detected; U Methamphetamine Screen Not Detected; U Opiates Screen Not Detected; U Oxycodone Screen Not Detected; U Phencyclidine Screen Not Detected; U Propoxyphene Screen Not Detected
[2018-09-05 09:05] LABS: Alanine Aminotransfer (ALT/SGP 16 U/L (12-78); Albumin, Blood 2.8 g/dL (3.4-5.0); Albumin/Globulin Ratio 0.8 (0.8-1.8); Alk Phos 82 U/L (50-136); Anion Gap 7 mmol/L (6-16); Aspartate Aminotrans (AST/SGOT 14 U/L (12-37); Bilirubin, Total 0.4 mg/dL (0.1-1.0); Blood Urea Nitrogen 11 mg/dL (8-24); Bun/Creatinine Ratio 13.2 (12.0-20.0); CO2, Blood 24 mmol/L (21-32); Chloride, Blood 110 mmol/L (98-108); Creatinine, Blood 0.83 mg/dL (0.60-1.20); Globulin, Blood 3.6 g/dL (2.2-4.0); Glomerular Filtration Rate >60 (60-); Glucose, Blood 82 mg/dL (70-99); Potassium, Blood 4.2 mmol/L (3.5-5.5); Sodium, Blood 141 mmol/L (136-145); Total Protein, Blood 6.4 g/dL (6.4-8.2)
--- NOTE | 2018-09-05 10:28 | NUR ---
CALLED DR ROBERSON FOR CONSULT VERIFICATION, ANS SVC, ANS SVC STATES DID TET AT 11:27 LAST NITE. REQUESTED CALL ME RE NPO STATUS. CALLED BACK WIRE COILER MACHINE OPERATOR. KEEP NPO.
--- NOTE | 2018-09-05 14:35 | NUR ---
PT STATES PAIN QUITE MANAGABLE NOW.
--- NOTE | 2018-09-05 15:51 | NUR ---
PT IN WHEELCHAIR. STATES DOES NOT KNOW HOW IV DISCONNECTED. PUMP STOPPED, BUT BEEPING. PT STATES IV LINE LAYING LOOSE, SO PUT ON BEDSIDE STAND. IS IN WHEELCHAIR TO GO SMOKE. PRESENTS A/O , BUT STATES WANTS TO GO SMOKE. WILL TAKE WHEELCHAIR. LET HIM GO.
--- NOTE | 2018-09-05 15:55 | NUR ---
REPLACED ALL IV LINES IN PREPARATION FOR USE WHEN PT BACK FROM SMOKING
--- NOTE | 2018-09-05 17:03 | NUR ---
PT RESTINGAT THIS TIME. EYES CLOSED. DID NOT AWAKEN. HAS BEEN OUT TO SMOKE 4 TIMES TODAY. STATES WILL BE COOP TOMORROW FOR NPO AND PROCEDURE. AWARE WILL NOT BE ABLE TO GET PROCEDURE IF NOT NPO. PT TURNED OFF PUMP EARLIER THIS AFT, HAVE LOCKED OUT CONTROLS. NO OTHER CONCERNS AT THIS TIME. BED IN LOW POSITIN, CALL LITE IN REACH, CALLS APPROP
--- NOTE | 2018-09-06 05:42 | NUR ---
SHIFT SUMMARY PT HAS BEEN SLEEPING SOUNDLY SINCE 0130. AOX4. VSS. PT DENIES SOB. REPORTS 6/10 PAIN IN R. KNEE/HIP, MEDICATED 1X W/5MG NORCO & 1X W/TYLENOL PER ORDERS. NO FURTHER REPORTS OF PAIN/DISCOMFORT @THIS TIME. R. KNEE IS WARM TO TOUCH, RED & SWOLLEN. REPORTS MILD NAUSEA & WAS MEDICATED 1X W/ZOFRAN PER ORDERS. CIWA SCORE HAS RANGED 0-2 T/O SHIFT. PT HAS BEEN NPO SINCE MIDNIGHT EXCEPT FOR A SIP OF WATER W/MEDICATION. CALL LIGHT IS IN REACH.
--- NOTE | 2018-09-06 11:05 | NUR ---
PATIENT RETURNED FROM SURGERY. ABLE TO MAKE HIS NEEDS KNOWN A&OX3. GIVEN COFFEE, CHEESE AND CRACKERS.
[2018-09-06 12:08] LABS: Vancomycin, Trough 9.6 ug/mL (5.0-10.0)
--- NOTE | 2018-09-06 18:32 | NUR ---
SHIFT SUMMARY PATIENT WOUND VAC IN PLACE. MEDICATED PER EMAR FOR KNEE/THIGH PAIN. CURRENTLY IN BED READING HIS BIBLE. ABLE TO MAKE HIS NEEDS KNOWN. INDEPENDENT IN THE ROOM. GOES OUT TO SMOKE.
[2018-09-07 05:12] LABS: BASOPHILS ABSOLUTE AUTO 0.04 K/mm3 (0.00-0.23); BASOPHILS PERCENT AUTO 0 % (0-2); EOSINOPHILS ABSOLUTE AUTO 0.14 K/mm3 (0.00-0.68); EOSINOPHILS PERCENT AUTO 1 % (0-6); Hematocrit 37.8 % (37.0-53.0); Hemoglobin 12.3 g/dL (13.5-17.5); IMMATURE GRAN ABSOLUTE AUTO 0.06 K/mm3 (0.00-0.10); IMMATURE GRAN PERCENT AUTO 1 % (0-1); LYMPHOCYTES ABSOLUTE AUTO 3.34 K/mm3 (0.84-5.20); LYMPHOCYTES PERCENT AUTO 26 % (21-46); MONOCYTES ABSOLUTE AUTO 1.09 K/mm3 (0.16-1.47); MONOCYTES PERCENT AUTO 8 % (4-13); Mean Corpuscular HGB 30.8 pg (26.0-34.0); Mean Corpuscular HGB Conc 32.5 g/dL (31.5-36.5); Mean Corpuscular Volume 95 fL (80-100); Mean Platelet Volume 9.3 fL (9.1-12.4); NEUTROPHILS ABSOLUTE AUTO 8.31 K/mm3 (1.96-9.15); NEUTROPHILS PERCENT AUTO 64 % (41-73); Platelet Count 371 K/mm3 (150-400); RDW Coefficient Variation 14.6 % (11.7-14.2); RDW Standard Deviation 51.2 fL (35.1-46.3); White Blood Cell Count 12.98 K/mm3 (4.00-11.30)
[2018-09-07 05:35] LABS: Alanine Aminotransfer (ALT/SGP 18 U/L (12-78); Albumin, Blood 2.8 g/dL (3.4-5.0); Albumin/Globulin Ratio 0.7 (0.8-1.8); Alk Phos 74 U/L (50-136); Anion Gap 7 mmol/L (6-16); Aspartate Aminotrans (AST/SGOT 11 U/L (12-37); Bilirubin, Total 0.3 mg/dL (0.1-1.0); Blood Urea Nitrogen 15 mg/dL (8-24); Bun/Creatinine Ratio 17.2 (12.0-20.0); CO2, Blood 26 mmol/L (21-32); Calcium, Blood 8.6 mg/dL (8.5-10.1); Chloride, Blood 107 mmol/L (98-108); Creatinine, Blood 0.87 mg/dL (0.60-1.20); Globulin, Blood 3.9 g/dL (2.2-4.0); Glomerular Filtration Rate >60 (60-); Glucose, Blood 92 mg/dL (70-99); Potassium, Blood 4.1 mmol/L (3.5-5.5); Sodium, Blood 140 mmol/L (136-145); Total Protein, Blood 6.7 g/dL (6.4-8.2)
--- NOTE | 2018-09-07 06:27 | NUR ---
SHIFT SUMMARY: PATIENT IS A&OX4, VS ARE STABLE. TOOK A SHOWER LAST EVENING, AND TOLERATED ACTIVITY WELL. REPORTS PAIN IN R THIGH, MEDICATED WITH HYDROCODONE 1 TAB X 1 AND IV FENTANYL 50 MCG WITH GOOD EFFECT. PATIENT IS ABLE TO DO ALL ADLS, WITH ONLY SETUP.
--- NOTE | 2018-09-07 07:27 | NUR ---
GI: PATIENT IS INC. OF LOOSE STOOL. SAMPLE FOR C-DIFF IS SENT, PATIENT IS NOW IS CONTACT ISO TO R/O C-DIFF.
--- NOTE | 2018-09-07 14:31 | NUR ---
SPOKE TO DR COLE- PT HAS C/O NUMBNESS AND TINGLING THAT HE DID NOT STATE DURRING SHIFT ASSESSMENT. MEDICATED WITH NORCO TIBIAL AND PEDAL PULSES PALPABLE, DR EDUARDO.
--- NOTE | 2018-09-07 18:19 | NUR ---
SHIFT SUMMARY- PT HAS HAD ONE DOSE OF PAIN MEDICATION TODAY, ASKED ABOUT THE PAIN ON LAST ROUNDS AND PT STATED "IT'S OK I GUESS" ASKED IF THE PT NEEDED PAIN MEDICATION FOR IT HE STATED "NOT RIGHT NOW." WILL CONTINUE TO MONITOR. PT HAS TWO IVS AC IV IS SL RFA IV IS CURRENTLY RUNNING ABX. PT WANTS TO GO OUTSIDE FOR A SMOKE, ASKED HIM TO WAIT FOR ABX TO INFUSE. PT IS WAITING PATIENTLY AT THIS TIME, WILL PASS ON IN BEDSIDE REPORT TO NIGHT RN.
--- NOTE | 2018-09-08 06:37 | NUR ---
SHIFT SUMMARY: PATIENT IS A&OX4, CONTINUES TO REPORT PAIN IN RIGHT LEG FROM KNEE TO THIGH 7-9/10 A BURNING PAIN. TYLENOL AND HYDROCODONE ARE EFFECTIVE PAIN CONTROL. PATIENT REPEATEDLY REQUEST TO GO OUT SIDE TO SMOKE. MD DID MENTION TO PATIENT THAT OVER ACTIVITY MAY BE CAUSING PAIN IN RIGHT LEG TO INTENSIFY. PATIENT WAS IRRITATED WHEN HAVING THIS CONVERSATION. CYLINDER BLOCK MECHANIC SUGGESTED POSSIBLY GETTING AND ORDER FOR NICOTINE PATCH AND PATIENT AGREED. VEHICLE ASSEMBLER AMANDA SHEETMETAL PATTERNMAKER WAS CALLED AND ORDER WAS OBTAINED. PATIENT WAS TOLD NOT TO SMOKE WITH PATCH ON DUE TO POSSIBILITY OF ADVERSED SIDE EFFECTS. PATIENT VERBAILAZED UNDERSTANDING BUT CONTINUED TO GO OUT AFTER PATCH WAS PLACED. AT O400 PATIENT WAS MET AT DOOR OF ROOM, CYLINDER BLOCK MECHANIC WAS ENTERING TO DO VS AND THEY WERE DONE. PATIENT WAS ASKED IF HE HAD ANY BM DURING THE NIGHT, PATIENT STATED "YES IN THE BATHRROM AND IT WAS SOLID". PATIENT THEN LEFT UNIT IN WHEEL CHAIR TO GO OUT AND SMOKE. CYLINDER BLOCK MECHANIC THEN ENTERED ROOM TO FIND PATIENT HAS USEWD THE URINAL TO URINATE AND HAVE A LOOSE BM! THERE WAS STOOL ALL OVER FLOOR, BEDDING AND BEDSIDE TABLE. ENVIRONMENTAL SERVICES WERE CALLED AND FLOOR WAS CLEANED AND BEDDING CHANGED. WHEN PATIENT CAME BACK TO ROOM HE WAS ASKED AGAIN IF HE HAD ANY LOOSE OR LIQUID STOOL THRU THE NIGHT AND HE CONTINUED TO SAY NO.
--- NOTE | 2018-09-08 08:33 | NUR ---
PATIENT OUTSIDE FROM 0700 TILL ABOUT 5 MINUTES AGO.
--- NOTE | 2018-09-08 08:40 | NUR ---
DISCUSS WITH PATIENT NOT SMOKING WHILE ON NICOTINE PATCH. WRAPPED ALL 4 PORTS TO IV WITH TAMPER RESISTENT TAPE.
--- NOTE | 2018-09-08 11:48 | NUR ---
PATIENT WAS OUT AGAIN AROUND 9 SILVESTRE. HAS BEEN SLEEPING SINCE. WHEN THIS RN WENT IN TO DIRECTOR PRISON IV ANTIBIOTICS ONE CAP DID NOT HAVE ANY TAPE ON IT. WHEN ASKED PATIENT WHERE IT WENT, STS "I DON'T KNOW." ASKED PATIENT IF HE PUT ANYTHING IN IT, STS "WHAT WOULD I PUT IN IT?" ADVISED PATIENT IF HE PUT ANYTHING IN IT AND IT DID NOT DISOLVE AND I FLUSH IT , IT COULD KILL HIM. PATIENT DOES NOT SAY ANYTHING.
--- NOTE | 2018-09-08 12:07 | NUR ---
IV THAT WAS MISSING TAMPER RESISTENT TAPE TAKEN OUT PATIENT C/O PAIN WHEN FLUSHED.
--- NOTE | 2018-09-08 12:22 | NUR ---
NOTIFIED ABOUT IV TAPE NOT ON IV HUB. REQUEST URINE DRUG.
[2018-09-08 14:30] LABS: U Amphetamine Screen Not Detected; U Barbituate Screen Not Detected; U Benzodiazapine Screen Not Detected; U Buprenorphine Screen Not Detected; U Cannabinoids Screen Not Detected; U Cocaine Screen Not Detected; U Methadone Screen Not Detected; U Methamphetamine Screen Not Detected; U Opiates Screen DETECTED; U Oxycodone Screen Not Detected; U Phencyclidine Screen Not Detected; U Propoxyphene Screen Not Detected
--- NOTE | 2018-09-08 16:59 | NUR ---
PATIENT ALERT AND ORIENTED. PATIENT HAS GONE OUT TO SMOKE (?) ABOUT 3 TIMES ON THIS SHIFT. HAS DENIED PAIN. WAS MEDICATED FOR PAIN LATE ON MOBILE PATROL OFFICER. PATIENT INW/C AT THIS TIME AND STS "JUST BE BOPPING AROUND." IV PATENT. WOUND VAC W/GOOD SUCTION AND DRAINING RED FLUID. UNLABORED RESPIRATIONS. COOPERATIVE. AWARE WILL BE NPO AFTER MIDNITE FOR POSS SURGERY TO THIGH AGAIN. BED IN LOW POSITION. TELE ON AND PER TECH HAS BEEN SR. WILL CONTINUE TO MONITOR.
[2018-09-09 04:54] LABS: BASOPHILS PERCENT AUTO 1 % (0-2); EOSINOPHILS ABSOLUTE AUTO 0.51 K/mm3 (0.00-0.68); EOSINOPHILS PERCENT AUTO 5 % (0-6); Hematocrit 40.8 % (37.0-53.0); Hemoglobin 13.2 g/dL (13.5-17.5); IMMATURE GRAN ABSOLUTE AUTO 0.09 K/mm3 (0.00-0.10); IMMATURE GRAN PERCENT AUTO 1 % (0-1); LYMPHOCYTES ABSOLUTE AUTO 3.23 K/mm3 (0.84-5.20); LYMPHOCYTES PERCENT AUTO 31 % (21-46); MONOCYTES ABSOLUTE AUTO 1.17 K/mm3 (0.16-1.47); MONOCYTES PERCENT AUTO 11 % (4-13); Mean Corpuscular HGB 30.9 pg (26.0-34.0); Mean Corpuscular HGB Conc 32.4 g/dL (31.5-36.5); Mean Corpuscular Volume 96 fL (80-100); NEUTROPHILS ABSOLUTE AUTO 5.39 K/mm3 (1.96-9.15); NEUTROPHILS PERCENT AUTO 51 % (41-73); Platelet Count 418 K/mm3 (150-400); RDW Coefficient Variation 14.9 % (11.7-14.2); RDW Standard Deviation 52.2 fL (35.1-46.3); Red Blood Cell Count 4.27 M/mm3 (4.30-5.90); White Blood Cell Count 10.49 K/mm3 (4.00-11.30)
[2018-09-09 05:28] LABS: Anion Gap 8 mmol/L (6-16); Blood Urea Nitrogen 18 mg/dL (8-24); Bun/Creatinine Ratio 17.6 (12.0-20.0); CO2, Blood 24 mmol/L (21-32); Calcium, Blood 8.7 mg/dL (8.5-10.1); Chloride, Blood 108 mmol/L (98-108); Creatinine, Blood 1.02 mg/dL (0.60-1.20); Glomerular Filtration Rate >60 (60-); Glucose, Blood 88 mg/dL (70-99); Potassium, Blood 4.1 mmol/L (3.5-5.5); Sodium, Blood 140 mmol/L (136-145)
--- NOTE | 2018-09-09 07:23 | NUR ---
SHIFT SUMMARY: TELESHOWS NSR @ 92 BPM PER CALENDAR CONTROL CLERK BLOOD BANK. PT DOES C/O OF FEVER; CHILLS ONCE THIS SHIFT, HOWEVER VITALS DO NOT INDICATE EARLY SEPSIS. VITAL SIGNS ARE FOLLOWS AT TIME OF COMPLAINT: 97.5, 70 BPM, 16 RR, 119/85, AND 99% ON RA. PT C/O PAIN TO R LEG 2X THIS SHIFT, WELL CONTROLLED c PRN NORCO 10MG. NPO SINCE 09/09 0000 FOR IMPENDING I & D LATER TODAY, OF WHICH PT IS COOPERATIVE AND TOLERATES WELL. WOUND VAC TO R LEG ABSCESS DRAINING SMALL AMOUNT OF SEROSANG DRAINAGE. DRESSING C/D/I. NO OTHER ACUTE CHANGES TO REPORT. WILL CONT TO MONITOR AND PROVIDE CARE UNTIL PRESUMED BY ONCOMING RN.
--- NOTE | 2018-09-09 09:18 | NUR ---
PER DR.JAIN PARDO LOPRESSOR AND ZESTRIL BLD PRESS 103 SYSTOLIC. WILL RECHECK IN ABOUT ONE HOUR AND MAY GIVE IF B.P. IS HIGHER.
--- NOTE | 2018-09-09 10:43 | NUR ---
PATIENT BACK FROM OUTSIDE AT ABOUT 1020 WITH MOTOR TESTER TAKING V.S. RN WENT TO CHECK ON PATIENT TO TAKE OUT IV IN RT F.A. AT 1040 AND PATIENT AND W/C NOT IN ROOM.
--- NOTE | 2018-09-09 11:48 | NUR ---
History, Chart, Medications and Allergies reviewed before start of procedure. Patient confirms NPO status and agrees with scheduled surgery. Pre-Op teaching done. Pt verbalizes understanding. Lungs clear T/O to Auscultation.
--- NOTE | 2018-09-09 14:43 | NUR ---
PATIENT LEFT FLOOR FOR DAY SURGERY BETWEEN 11:15 AND 11:30AM. SCHEDULED 1200 AND 1400 MEDS SENT TO DAY SURGERY.
--- NOTE | 2018-09-09 15:42 | NUR ---
09/09/18 1542 Tamica Kapadia PATIENT IS ON SCHEDULED ANTIBIOTICS
--- NOTE | 2018-09-09 17:09 | NUR ---
PATIENT RETURNS FROM DAY SURGERY AND V.S. TAKEN. PUTS JACKET ON AND WANTS TO GO OUTSIDE. STS "NOT GOING TOO FAR." WHEN ADVISED HE SHOULD STAY IN HE JUST HAD ANESTHESIA. WHEELS HIMSELF OUT THE DOOR.
--- NOTE | 2018-09-09 17:56 | NUR ---
PATIENT BACK IN ROOM AFTER BEING TOLD NEEDED V.S. AT 540 PM.
--- NOTE | 2018-09-09 18:37 | NUR ---
WOUND VAC TAKEN OFF IN O.R. AND NOT BROUGHT BACK TO ROOM 304. ENVIRONMENTAL SERVICES NOTIFIED AND ALSO TOLD CORD FOR WOUND VAC IS IN SOILED UTILITY ROOM BY NURSES STATTION.
[2018-09-10 05:15] LABS: BASOPHILS ABSOLUTE AUTO 0.04 K/mm3 (0.00-0.23); BASOPHILS PERCENT AUTO 0 % (0-2); EOSINOPHILS ABSOLUTE AUTO 0.12 K/mm3 (0.00-0.68); EOSINOPHILS PERCENT AUTO 1 % (0-6); Hematocrit 38.8 % (37.0-53.0); Hemoglobin 12.9 g/dL (13.5-17.5); IMMATURE GRAN ABSOLUTE AUTO 0.06 K/mm3 (0.00-0.10); IMMATURE GRAN PERCENT AUTO 0 % (0-1); LYMPHOCYTES ABSOLUTE AUTO 2.51 K/mm3 (0.84-5.20); LYMPHOCYTES PERCENT AUTO 18 % (21-46); MONOCYTES ABSOLUTE AUTO 1.08 K/mm3 (0.16-1.47); MONOCYTES PERCENT AUTO 8 % (4-13); Mean Corpuscular HGB 31.5 pg (26.0-34.0); Mean Corpuscular HGB Conc 33.2 g/dL (31.5-36.5); Mean Corpuscular Volume 95 fL (80-100); Mean Platelet Volume 9.1 fL (9.1-12.4); NEUTROPHILS ABSOLUTE AUTO 9.97 K/mm3 (1.96-9.15); NEUTROPHILS PERCENT AUTO 72 % (41-73); Platelet Count 437 K/mm3 (150-400); RDW Coefficient Variation 14.7 % (11.7-14.2); White Blood Cell Count 13.78 K/mm3 (4.00-11.30)
[2018-09-10 05:42] LABS: Vancomycin, Trough 28.9 ug/mL (5.0-10.0)
--- NOTE | 2018-09-10 06:11 | NUR ---
SHIFT SUMMARY: CRITICAL LAB RECIEVED THIS AM @ 0531. CRITICAL HIGH VANCO TROUGH OF 28.9, CALL PLACED TO PHARMACY TO RE-AVALUATE CURRENT VANCO REGIMEN. SEE EMAR. R LEG ABSCESS TO R KNEE HAD I & D EARLIER IN THE DAY, HUSEYIN DRAIN IN PLACE. VERY LOW OUTPUT OF >15 mL BRIGHT RED BLOOD. TREATED 1X c 10 MG NORCO, WITH APPROPRIATE RELIEF. VSS. DENIES SOB. TELE NSR @ 86 BPM. INDEPENDENT IN ROOM, USING W/C FOR AMBULATION. WEIGHT BEARING ON R LEG TOLERATED. NO OTHER ACUTE CHANGES TO REPORT. WILL CONT TO MONITOR AND PROVIDE CARE UNTIL PRESUMED BY ONCOMING RN.
--- NOTE | 2018-09-10 08:27 | NUR ---
ADVISED DR. FLORES THAT NEXT AVAILABLE [facility] VISIT WAS 09/24. NO NEW ORDERS.
--- NOTE | 2018-09-10 08:30 | NUR ---
PATIENT IN W/C GOING OUTSIDE
--- NOTE | 2018-09-10 15:06 | NUR ---
Initial visit: Palliative Consult for readmission. Pt resting in bed and is A&O X 4. He reports 6/10 pain on his right leg and knee. He expresses concerns about becoming addicted to pain medication and states he waits until absolutely necassary to take pain medication. He reports tylenol intermittently will manage his pain. Pt states his pain is most severe at night and the pain interfers with his sleep. Pt reports when he does take norco the pain is well managed. Pt reports being homeless at this time and when discharged from the hospital he plans to stay with a friend. He reports he has plenty of support with his friends and are reliable to transport him to [facility] as needed. Discussion was made about advanced directives and Pt expresses interest. Delivered advance directive information to Pt and he states he will read it and fill out at his leisure. Instructed Pt this RN will be available for any questions or concerns about filling information out. Pt expressess his wishes to be transfered to SNF for rehabilitation. Spoke with Pt's nurse Purvi and she reports only concern at this time is pain management. Spoke with physical therapy and was given report that Pt does not meet criteria for physical therapy. Plan is monitor effectiveness of pain regimen and will remain available. Will address new symptoms or concerns as needed.
[2018-09-10 16:01] LABS: Vancomycin, Random 11.5 ug/mL
--- NOTE | 2018-09-10 18:01 | NUR ---
PATIENT ALERT AND ORIENTED. MEDICATED FOR PAIN WITH GOOD RESULTS. GOES IN W/C AND STS WHEELS HIMSELF AROUND TO LOOK AT THE PICTURES. DR. ROBERSON WAS IN TO LOOK AT WOUND AND DRAIN. ADVISED PATIENT HE WILL NEED TO CONTINUE TO USE WILBERT WRAP AROUND THIGH AND KNEE WHEN HE LEAVES. PER , WILL SEE PATIENT NEXT FEW DAYS. IV CHANGED TO POWERGLIDE OTHER ONE WAS LOOKING RED/IRRITATED. UNLABORED RESPIRATIONS. COOPERATIVE. GOOD APPETITE. J DRAIN EMPTIED Q 4 HOURS. MORE DRAINAGE DURING DAY THAN AT NIGHT W/ AWARE. BED IN LOW POSITION. CALL LIGHT WITHIN REACH. WILL CONTINUE TO MONITOR.
[2018-09-11 04:54] LABS: BASOPHILS ABSOLUTE AUTO 0.07 K/mm3 (0.00-0.23); BASOPHILS PERCENT AUTO 1 % (0-2); EOSINOPHILS ABSOLUTE AUTO 0.42 K/mm3 (0.00-0.68); EOSINOPHILS PERCENT AUTO 4 % (0-6); Hematocrit 38.3 % (37.0-53.0); Hemoglobin 12.6 g/dL (13.5-17.5); IMMATURE GRAN ABSOLUTE AUTO 0.08 K/mm3 (0.00-0.10); IMMATURE GRAN PERCENT AUTO 1 % (0-1); LYMPHOCYTES ABSOLUTE AUTO 3.19 K/mm3 (0.84-5.20); LYMPHOCYTES PERCENT AUTO 29 % (21-46); MONOCYTES ABSOLUTE AUTO 0.82 K/mm3 (0.16-1.47); MONOCYTES PERCENT AUTO 7 % (4-13); Mean Corpuscular HGB 31.2 pg (26.0-34.0); Mean Corpuscular HGB Conc 32.9 g/dL (31.5-36.5); Mean Corpuscular Volume 95 fL (80-100); Mean Platelet Volume 8.8 fL (9.1-12.4); NEUTROPHILS ABSOLUTE AUTO 6.43 K/mm3 (1.96-9.15); NEUTROPHILS PERCENT AUTO 59 % (41-73); Platelet Count 440 K/mm3 (150-400); RDW Coefficient Variation 14.7 % (11.7-14.2); RDW Standard Deviation 51.9 fL (35.1-46.3); Red Blood Cell Count 4.04 M/mm3 (4.30-5.90); White Blood Cell Count 11.01 K/mm3 (4.00-11.30)
[2018-09-11 05:20] LABS: Anion Gap 7 mmol/L (6-16); Blood Urea Nitrogen 24 mg/dL (8-24); Bun/Creatinine Ratio 23.5 (12.0-20.0); CO2, Blood 23 mmol/L (21-32); Calcium, Blood 8.7 mg/dL (8.5-10.1); Chloride, Blood 108 mmol/L (98-108); Creatinine, Blood 1.02 mg/dL (0.60-1.20); Glomerular Filtration Rate >60 (60-); Glucose, Blood 113 mg/dL (70-99); Potassium, Blood 4.2 mmol/L (3.5-5.5); Sodium, Blood 138 mmol/L (136-145)
--- NOTE | 2018-09-11 07:19 | NUR ---
SHIFT SUMMARY: PT A&O T/O THE SHIFT, VSS. WBC WNL c THIS AM LABS. INDEPENDENT IN ROOM, AMBULATES c W/C FOR HOURS AROUND THE HOSPITAL. HUSEYIN DRAIN MEASURMENTS Q4H. +/- 20 mL OF BLOODY OUTPUT EVERY 4 HRS. PT C/O PAIN 1X THIS SHIFT, TREATED c 10MG NORCO c RELIEF. SCDs APPLIED FOR DVT PROPHYLAXIS, PT TOLERATING WELL. PG TO SANDRA FLUSHING + PATENT, NO REDNESS, SWELLING, OR PAIN NOTED. PT STOPPED BY SECURITY FOR POTENTIAL STOLEN SWEATER FROM OTHER PT IN HOSPITAL. PT ADMITS TO STEALING SWEATER AND RETURNS IT TO SECURITY c LITTLE RESISTANCE. PT IS CALM AND COOPERATIVE c CARE WHILE ON UNIT. NO OTHER ACUTE CHANGES TO REPORT. WILL CONT TO MONITOR AND PROVIDE CARE UNTIL PRESUMED BY ONCOMING RN.
--- NOTE | 2018-09-11 08:15 | NUR ---
PT. RETURNED TO ROOM IN
--- NOTE | 2018-09-11 09:00 | NUR ---
pt. gone out of room again
[2018-09-11 15:28] LABS: Vancomycin, Trough 11.3 ug/mL (5.0-10.0)
--- NOTE | 2018-09-11 19:08 | NUR ---
PT. HAS BEEN IN AND OUT OF ROOM ALL DAY TODAY. TOTAL OF 50 CC OF SS FLUID OUT OF HUSEYIN DRAIN FOR THIS DAY SHIFT. NO NOTEABLE CHANGES THIS SHIFT.
--- NOTE | 2018-09-12 04:53 | NUR ---
*SHIFT SUMMARY* PATIENT ALERT AND ORIENTED TO TIME AND PLACE. PATIENT APPEARS ANXIOUS THROUGHOUT NIGHT, PACING BACK AND FORTH IN ROOM. PATIENT FREQUENTLY GOES OUTSIDE TO SMOKE. PATIENT USES WHEELCHAIR. PATIENT HAS HUSEYIN DRAIN. HUSEYIN DRAINING SERO SANGINOUS FLUID. PATIENT STATED HE DID NOT NEED HIS MIDNIGHT ANTIBIOTICS. THIS RN EDUCATED PATIENT TO WHY IT WAS IMPORTANT TO CONTINUE IV ANTIBIOTICS ORDERED. PATIENT THEN STATED HE WOULD LET ME GIVE THEM. I ASKED PATIENT WHY HE DID NOT WANT TO TAKE THEM. PATIENT STATED HE JUST DIDN'T NEED THEM ANYMORE. PATIENT IS COOPERATIVE IN CARE AT TIMES BUT NEEDS REORIENTING. PATIENT DID NOT SLEEP AT ALL DURING SHIFT. CALL LIGHT WITHIN REACH, BED LOWERED AND LOCKED. THIS RN ASKED PATIENT SEVERAL TIMES IF HE WAS IN PAIN HE STATED NO. ASKED PATIENT IF HE WAS FEELING OKAY, PATIENT STATED HE WAS FINE.
--- NOTE | 2018-09-12 05:20 | NUR ---
PATIENT DISCONNECTED HIMSELF FROM IV ANTIBIOTICS FROM POWER GLIDE. THIS NURSE ASKED IF HE OR A NURSE DISCONNECTED HIM PATIENT STATED SOMEONE ELSE DID. IV CORD WAS LEFT IN THE SINK WITH FLUIDS STILL RUNNING. NO NURSES REPORTED DISCONNECTING HIM. -THIS OCCURED AT MIDNIGHT. AT 0430 PATIENT RECONNECT WITH NEW ANTIBIOTIC AND EDUCATED THAT THIS RN WOULD DISCONNECT HIM FROM THE IV ONCE THE INFUSION IS COMPLETE. PATIENT STATES HE UNDERSTANDS. 10 MINUTES LATER PATIENT COMES TO THE POLISHER AND BUFFER ASKING FOR A SANDWICH, PATIENT WAS NOT CONNECTED TO IV ANTIBIOTICS. THIS RN ASKED PATIENT IF HE DISCONNECTED HIMSELF FROM THE IV. PATIENT STATES THAT "IT POPPED OFF". THIS RN CALLED HOSPITALIST TO NOTIFY HIM THAT THE PATIENT HAS CONTINUED TO DISCONTINUE HIMSELF FROM THE ANTIBIOTICS AND IS LETTING THEM RUN INTO THE SINK. WILL PASS ALONG TO DAYSHIFT RN THAT PATIENT HAS NOT RECIEVED ALL OF HIS ANTIBIOTICS.
--- NOTE | 2018-09-12 16:46 | NUR ---
WAS GOING TO HANG PT.S ANTIBIOTIC AND HE TOOK OFF AGAIN OUTSIDE WHILE I WAS GETTING THE ANTIBIOTIC AND PAIN MEDS WHICH HE REQUESTED.
--- NOTE | 2018-09-12 19:13 | NUR ---
PT. BACK IN ROOM AFTER GOING OUTSIDE WITH GIRLFRIEND. PT. SLEPT UNTIL AROUND 1130 AT WHICH TIME HE WANTED TO GO OUTSIDE. LET HIM KNOW HIS ANTIBIOTIC HAD TO FINISH FIRST. BECAME ANGRY AND STARTE TO CURSE. WAS DEMANDING TO BE UNHOOKED AND HED SAID HED ONLY BE GONE 15 MINUTES. I TOLD HIM THERE WAS ONLY 15 MINUTES LEFT ON THE IV AND I REFUSED TO UNHOOK HIM. SAID HE HAD RIGHTS. I ASKED HIM WHY HE WAS HERE AND HE SAID TO HEAL HIS KNEE, ASKED HIM WHAT WAS GOING TO HEAL HIS KNEE AND HE INDICATED THE ANTIBIOTIC, LET HIM KNOW IT WAS VERY IMPORTANT HE LET THE ANTIBIOTIC FINISH, STILL WANTED TO GO OUT. I CALLED JUSTUS PEÑA EVENTS TRAFFIC CONTROLLER TO COME TALK TO HIM. BY THE TIME SHE ARRIVED AND TALKED TO HIM THE ANTIBIOTIC WAS FINISHED. THIS MORNING WHEN CHECKING THE HUSEYIN DRAIN THE WILBERT WRAP AND COTTON UNDERNEATH WERE DOWN AROUNF THE PT'S ANKLE. REPLACED THE COTTON AND REWRAPPED THE WILBERT WRAP WHILE PT. WAS SLEEPING. PT.'S GIRLFRIEND NOW IN THE ROOM AND WANTS THE SAME BENEFITS THE PT. IS GETTING, WENT TO [place] AND TOLD THEM SHE WANTED FOOD ONLY TO FIND OUT SHE WOULD HAVE TO PAY FOR IT. ENDED UP GOING TO ER BECAUSE SHE THOUGHT SHE COULD GET ADMITTED AND GET HER OWN BED AND MEALS. PT, NOW STAYING IN PT.'S ROOM THEY DID NOT ADMIT HER.
--- NOTE | 2018-09-13 04:57 | NUR ---
*SHIFT SUMMARY* PATIENT IS ALERT AND ORIENTED. PATIENT INDEPENDENT IN ROOM. PATIENT'S GIRLFRIEND SLEPT IN PATIENTS BED THROUGHOUT THE NIGHT. PATIENT SAT IN THE CHAIR AND WENT OUTSIDE FREQUENTLY. PATIENT DID RECIEVE ANTIBIOTICS ORDERED. PATIENT CONTINUOUSLY ASKS FOR SANDWICHES AND FOOD THROUGHOUT SHIFT. WHEN PT IS TOLD HE CANNOT HAVE MULTIPLE SANDWICHES, CRACKERS AND CHEESE, AND CHOCOLATE MILK AND PEPSI PATIENT GETS UPSET. PATIENT PACES BACK AND FORTH IN ROOM, [facility] EYE CONTACT. PATIENT HAS A HUSEYIN DRAIN THAT IS DRAINING WELL WITH SEROSANGUINEOUS FLUID. CALL LIGHT WITHIN REACH.
[2018-09-13 08:56] LABS: BASOPHILS ABSOLUTE AUTO 0.07 K/mm3 (0.00-0.23); BASOPHILS PERCENT AUTO 1 % (0-2); EOSINOPHILS ABSOLUTE AUTO 0.47 K/mm3 (0.00-0.68); EOSINOPHILS PERCENT AUTO 5 % (0-6); Hematocrit 37.9 % (37.0-53.0); Hemoglobin 12.4 g/dL (13.5-17.5); IMMATURE GRAN ABSOLUTE AUTO 0.03 K/mm3 (0.00-0.10); IMMATURE GRAN PERCENT AUTO 0 % (0-1); LYMPHOCYTES ABSOLUTE AUTO 2.72 K/mm3 (0.84-5.20); LYMPHOCYTES PERCENT AUTO 30 % (21-46); MONOCYTES ABSOLUTE AUTO 0.99 K/mm3 (0.16-1.47); MONOCYTES PERCENT AUTO 11 % (4-13); Mean Corpuscular HGB 31.1 pg (26.0-34.0); Mean Corpuscular HGB Conc 32.7 g/dL (31.5-36.5); Mean Corpuscular Volume 95 fL (80-100); Mean Platelet Volume 8.9 fL (9.1-12.4); NEUTROPHILS ABSOLUTE AUTO 4.67 K/mm3 (1.96-9.15); NEUTROPHILS PERCENT AUTO 52 % (41-73); Platelet Count 441 K/mm3 (150-400); RDW Coefficient Variation 14.5 % (11.7-14.2); RDW Standard Deviation 50.5 fL (35.1-46.3); Red Blood Cell Count 3.99 M/mm3 (4.30-5.90); White Blood Cell Count 8.95 K/mm3 (4.00-11.30)
[2018-09-13 09:07] LABS: Anion Gap 7 mmol/L (6-16); Blood Urea Nitrogen 13 mg/dL (8-24); Bun/Creatinine Ratio 12.5 (12.0-20.0); CO2, Blood 24 mmol/L (21-32); Calcium, Blood 8.7 mg/dL (8.5-10.1); Chloride, Blood 109 mmol/L (98-108); Creatinine, Blood 1.04 mg/dL (0.60-1.20); Glomerular Filtration Rate >60 (60-); Glucose, Blood 88 mg/dL (70-99); Sodium, Blood 140 mmol/L (136-145)
[2018-09-13 09:32] LABS: Vancomycin, Trough 18.3 ug/mL (5.0-10.0)
--- NOTE | 2018-09-13 19:34 | NUR ---
PT. HAS BEEN MORE COOPERATIVE TODAY AND HAS ALLOWED IV ANTIBIOTICS TO RUN. HAS BEEN IN AND OUT WITH GIRLFRIEND SEVERAL TIMES TODAY BUT HAS BEEN COMPLIANT WITH MEDS.
--- NOTE | 2018-09-14 06:41 | NUR ---
*SHIFT SUMMARY* PATIENT ALERT AND ORIENTED. PATIENT GOES OUTSIDE FREQUENTLY, SOMETIMES HE WALKS OUTSIDE AND USES WHEELCHAIR. PATIENT RECIEVED ALL ORDERED ANTIBIOTICS. ANTIBIOTICS WERE GIVEN LATE, PATIENT INSISTED HE GO OUT TO SMOKE BEFORE. NO NEW CHANGES TO PATIENTS STATUS. HUSEYIN DRAINING SEROSANGUINEOUS FLUID. CALL LIGHT WITHIN REACH, BED LOWERED AND LOCKED.
--- NOTE | 2018-09-14 11:14 | NUR ---
Pt known from previous admittance. Pt laying in bed with covers. He appeared to be attempting to sleep. Greetings were exchanged and I explored pt's overall well-being. Pt unsure if or when he will be having a procedure. I excused this person to allow him rest. I will remain available.
--- NOTE | 2018-09-14 18:20 | NUR ---
SHIFT SUMMARY PT WAS OUTSIDE A LOT OF THE SHIFT AND THIS RN UNABLE TO ADMINISTER IV ANTIBIOTICS ON TIME FOR THIS REASON. NO COMPLAINTS OF PAIN THIS SHIFT. DR. KAN IN TO SEE PT THIS AFTERNOON AND CHANGED DRESSING TO RIGHT KNEE. HUSEYIN DRAIN STILL IN DUE TO THE AMOUNT OF DRAINAGE. NO ACUTE CHANGES THIS SHIFT. PT SLEEPING AT THIS TIME. CALL LIGHT IN REACH. WILL CONTINUE TO MONITOR AND REPORT TO ONCOMING RN.
--- NOTE | 2018-09-15 07:08 | NUR ---
up adlib dispite pain to knee, drained tube, ss clear red liquid, abx infused well with no s/sx of infection or infiltration at site, room air call light in reach able to make needs known
[2018-09-15 09:38] LABS: Vancomycin, Trough 14.3 ug/mL (5.0-10.0)
--- NOTE | 2018-09-15 18:21 | NUR ---
SHIFT SUMMARY PT HAS BEEN OUTSIDE OR NOT IN ROOM A LOT OF THE SHIFT. PT HAS BEEN ANGRY MOST OF THE SHIFT AND WOULD NOT ALLOW THIS RN TO START HIS AFTERNOON IV ANTIBIOTIC. THIS RN WOULD TRY TO AND PT WOULD STATE "NOT YET." THIS RN EXPLAINED IMPORTANCE OF RECEIVING ALL OF HIS ANTIBIOTICS BUT PT WANTED TO GO OUTSIDE. PT HAS BEEN MORE COOPERATIVE THIS EVENING. IV ANTIBIOTIC INFUSING. PT TOOK SHOWER THIS AFTERNOON. HUSEYIN DRAIN CONTINUES TO HAVE QUITE A BIT OF DRAINAGE. 60 ML WAS EMPTIED THIS AFTERNOON. NO COMPLAINTS OF PAIN THIS SHIFT. NO ACUTE CHANGES THIS SHIFT. WILL CONTINUE TO MONITOR AND REPORT TO ONCOMING RN. CALL LIGHT IN REACH.
[2018-09-16 06:41] LABS: BASOPHILS PERCENT AUTO 1 % (0-2); EOSINOPHILS ABSOLUTE AUTO 0.62 K/mm3 (0.00-0.68); EOSINOPHILS PERCENT AUTO 6 % (0-6); Hematocrit 39.3 % (37.0-53.0); Hemoglobin 12.9 g/dL (13.5-17.5); IMMATURE GRAN ABSOLUTE AUTO 0.07 K/mm3 (0.00-0.10); IMMATURE GRAN PERCENT AUTO 1 % (0-1); LYMPHOCYTES ABSOLUTE AUTO 2.77 K/mm3 (0.84-5.20); LYMPHOCYTES PERCENT AUTO 26 % (21-46); MONOCYTES ABSOLUTE AUTO 0.89 K/mm3 (0.16-1.47); MONOCYTES PERCENT AUTO 8 % (4-13); Mean Corpuscular HGB 31.4 pg (26.0-34.0); Mean Corpuscular HGB Conc 32.8 g/dL (31.5-36.5); Mean Corpuscular Volume 96 fL (80-100); Mean Platelet Volume 8.8 fL (9.1-12.4); NEUTROPHILS ABSOLUTE AUTO 6.32 K/mm3 (1.96-9.15); NEUTROPHILS PERCENT AUTO 59 % (41-73); Platelet Count 462 K/mm3 (150-400); RDW Coefficient Variation 14.6 % (11.7-14.2); RDW Standard Deviation 51.4 fL (35.1-46.3); Red Blood Cell Count 4.11 M/mm3 (4.30-5.90); White Blood Cell Count 10.77 K/mm3 (4.00-11.30)
[2018-09-16 06:59] LABS: Anion Gap 6 mmol/L (6-16); Blood Urea Nitrogen 17 mg/dL (8-24); Bun/Creatinine Ratio 18.6 (12.0-20.0); CO2, Blood 24 mmol/L (21-32); Calcium, Blood 8.8 mg/dL (8.5-10.1); Chloride, Blood 111 mmol/L (98-108); Creatinine, Blood 0.91 mg/dL (0.60-1.20); Glomerular Filtration Rate >60 (60-); Glucose, Blood 99 mg/dL (70-99); Potassium, Blood 4.2 mmol/L (3.5-5.5); Sodium, Blood 141 mmol/L (136-145)
--- NOTE | 2018-09-16 07:19 | NUR ---
out of room frequently, no s/sx of tampering with picc line, medicatied as prescribed but it requires a finesse, luck and timing to keep the meds coming on time since he states he does not want them, have discussed importance of medication but he states he has heard it all before and is tired of it, saline locked, room air, out of room during SBAR handoff to day shift
--- NOTE | 2018-09-16 09:16 | NUR ---
TALKING TO SELF PT HAS BEEN MUMBLING TO HIMSELF IN HIS ROOM THIS MORNING. JOSE DANIEL OCAMPO SAID THIS WAS DIFFERENT THAT YESTERDAY. WILL CONTINUE TO MONITOR.
--- NOTE | 2018-09-16 17:30 | NUR ---
SHIFT SUMMARY NO CHANGES IN ASSESSMENT AT THIS TIME. PT ACCEPTED IV ANTIBIOTICS AND POWERGLIDE DRESSING CHANGE. VSS. PT CONTINUES TO WALK OUTSIDE FREQUENTLY & MUMBLES TO SELF IN ROOM. DR ZULETA AWARE. HUSEYIN DRAINING CLEAR/RED TINGED FLUID. KNEE DRESSING C/D/I. NO OTHER COMPLAINTS AT THIS TIME. PT MEDICATED FOR PAIN TWICE THIS SHIFT. WILL CONTINUE TO MONITOR UNTIL TURNOVER IS COMPLETE.
--- NOTE | 2018-09-17 07:18 | NUR ---
up adlib, frequently out to smoke, cooperative mostly, call lightin reach, saline locked, room air, walks with cane, walking rounds completed with day staff
--- NOTE | 2018-09-17 17:58 | NUR ---
SHIFT SUMMARY. A&OX4, PLEASANT, INDEPENDENT IN ROOM. PT DENIES NEED FOR PAIN MEDICATION, ALTHOUGH PAINFULL AT TIMES. NO N/V, SOB. CONTINUES TO GO OUTSIDE TO SMOKE PERIODICALLY WHICH MAKES IV ABX ADMINISTRATION ON TIME DIFFICULT TO MANAGE. HUSEYIN DRAIN TO R KNEE CONTINUES TO DRAIN SEROSANGANEOUS FLUID, 60ML IN 24 HOURS. PT SHOWERED. ORTHO IN TO EVALUATE PT TODAY. NO NEW CHANGES.
--- NOTE | 2018-09-17 18:07 | NUR ---
KNEE IMMOBILIZER IN PLACE PER ORDERS.
--- NOTE | 2018-09-17 21:25 | NUR ---
PT AGITATED, REFUSING TO WEAR KNEE IMMOBILZER. PT TOOK IMMOBILIZER OFF AND WENT OUTSIDE.
--- NOTE | 2018-09-18 04:26 | NUR ---
SHIFT SUMMARY PT HAS NOT SLEPT MUCH DURING THE NIGHT, HAS GONE OUTSIDE SEVERAL TIMES TO SMOKE. NO ACUTE CHANGES NOTED, WILL CONTINUE TO MONITOR.
[2018-09-18 09:31] LABS: Creatinine, Blood 0.96 mg/dL (0.60-1.20); Vancomycin, Trough 17.5 ug/mL (5.0-10.0)
--- NOTE | 2018-09-18 16:08 | NUR ---
SHIFT SUMMARY. A&OX4, INDEPENDENT IN ROOM. PT CONTINUES TO HAVE GREATER THAN 60ML/24 HOUR DRAINAGE FROM HUSEYIN DRAIN. ORTHO IN TO SEE PT THIS AM. PT REQUESTED TO GO OUT TO SMOKE THIS AFTERNOON SHORTLY AFTER ZOSYN WAS STARTED. PT DID NOT RETURN FOR ALMOST TWO HOURS. PT SOON DEPARTED AGAIN ABOUT 45 LATER. DOSE NOT GIVEN. NO NEW CHANGES.
--- NOTE | 2018-09-19 00:42 | NUR ---
PT HAS BEEN OUT OF HIS ROOM MOST OF THE SHIFT, WHILE IN STAFF PRESENCE PT MUMBLING AND TALKING TO SELF. WAVING HIS FINGERS IN THE AIR WHILE LOOKING IN THE WINDOWS BY THE ELEVATORS WAITING TO GO DOWN. ALSO HAS ASKED TO BE UNHOOKED EARLY FROM [facility] SO THAT HE CAN GO OUTSIDE. WILL CONTINE TO MONITOR THE BEHAVIOURS.
--- NOTE | 2018-09-19 01:31 | NUR ---
PT WILBERT WRAP ON RIGHT LEG SATURATED WITH BLOODY DRAINAGE, HUSEYIN DRAIN APPEARS TO BE IN PLACE AND WAS EMPTIED OF 30ML'S BLOODY DRAINAGE. STERILE 4X4'S PLACED AND NEW WILBERT WRAP APPLIED. WILL CONTINUE TO MONITOR.
--- NOTE | 2018-09-19 04:45 | NUR ---
SHIFT SUMMARY NO NEW CHANGES SINCE LAST NOTE. PT HAS STAYED IN ROOM FOR A LITTLE OVER AN HOUR TRYING TO SLEEP. AWAKE AT THIS TIME PREPARING TO GO BACK OUTSIDE. WILL CONTINUE TO MONITOR.
--- NOTE | 2018-09-19 17:00 | NUR ---
SUMMARY PT IS A/O X3, SOMEWHAT IRRITABLE THIS AM, BECOME ANGRY WHEN ASK FOR URINE SAMPLE, STATE THAT DR & SOME STAFF JUDGEMENTAL R/T HIM GOING OUTSIDE TO SMOKE, REFUSES. DR CRUMP IN WHILE PT OUTSIDE THIS AM, STATE WE WILL CONTINUE HUSEYIN DRAIN, GIVE INSTRUCT TO CLEANSE INSERT SITE WITH PEROXIDE & WRAP WITH WILBERT BANDAGE. INSERT SITE R KNEE AREA IS DRY, SURG SITE R THIGH WITH STERI STRIPS, APPEARS TO BE HEALING WELL, DRY, NO REDNESS. EMPTIED 50 ML LIGHT RED SERSANGUINOUS FLUID FROM HUSEYIN DRAIN THIS AM. SM AMT DRAINAGE IN BULB THIS AFTERNOON. PT HAS AMBULATED IN & OUT INTERMITTANTLY TODAY TO SMOKE. AFFECT HAS BEEN SOMEWHAT FLAT, @ X'S PT APPEARS TO BE TALKING TO HIMSELF OR UNSEEN OTHERS, WHEN ASKED IF HE IS HEARING VOICES HE RESPONDS EMPHATICALLY "NO", WILL CONTINUE TO MX. VSS.
--- NOTE | 2018-09-20 04:55 | NUR ---
SHIFT SUMMARY NO CHANGES THIS SHIFT. PT MOOD FLAT AND WITHDRAWN CONVERSES MINIMALLY WITH STAFF. PT FOUND TO BE POCKETING MEDS THIS SHIFT. FOUND WHAT LOOK TO BE A LACTOBACILLUS ON BEDSIDE TABLE HOURS AFTER 2100 MEDICATION ADMINISTRATION. ESTHETICIAN/SPA COORDINATOR MADE AWARE OF THIS. IV ABX INFUSED ORDERED. HUSEYIN DRAIN IN PLACE. ASSESSMENT HAS REMAINED UNCHANGED. PT SLEEPS FOR MOST OF THE SHIFT. WILL CONTINUE TO MONITOR AND REPORT TO ONCOMING RN.
--- NOTE | 2018-09-20 16:48 | NUR ---
SUMMARY PT CONTINUES TO GO OUTSIDE FREQUENTLY DELAYING ADMINISTRATION OF IV ANTIBX. HE IS COMPLIANT WITH MEDS & WOUND CARE LONG IT DOES NOT INTERFERE WITH HIS FREQUENT TRIPS OUTSIDE. THIS AM DR CRUMP ATTEMPTED TO ASSESS & PROVIDE WOUND CARE HOWEVER PT BECAME IRRITATED/ANGRY BECAUSE HE WANTED TO GO OUT, STORMED PAST OUT OF ROOM. AFFECT IS SOMEWHAT FLAT, DEFENSIVE TOWARDS STAFF, INDIFFERENT TO SCHEDULED ANTIBX TIMES, NON REDIRECTABLE. HAVE NOTED THAT HE @ X'S APPEARS TO BE TALKING TO UNSEEN OTHERS, HOWEVER DENIES VOICES. HAVE REPORTED THIS BEHAVIOR TO DR ZULETA. H&P DOES NOT REVEAL PSYCHE HX OR MEDS. WILL CONTINUE TO MX. DR ZULETA STATE TO AVOID CONFRONTATION. WOUND CARE TO HUSEYIN INSERT SITE PROVIDED/DR CRUMP INSTRUCT. DRAINAGE LIGHT PINK SEROSANGUINOUS, SO FAR THIS SHIFT 65ML OUTPUT. GOOD APPETITE, VSS. AMBULATES WITH LIMP, GAIT STEADY.
--- NOTE | 2018-09-21 04:39 | NUR ---
SHIFT SUMMARY NO CHANGES THIS SHIFT. PT REMAINS AT HIS BASELINE. AFFECT IS LABILE. PT IS AGIATED ABOUT BEING HOOKED UP TO THE IV FOR HIS ABX. STATES THAT "KARINA BEEN HOOKED TO THAT ALL DAY". PT TAKES LONG SMOKE BREAKS AND ANGRILY REQUEST TO GO OUT TO SMOKE BEFORE HE HIS HOOKED UP TO HIS ABX. HUSEYIN DRAIN IN PLACE WITH SMALL TO MODERATE AMOUNTS OF SEROSANGINOUS DRAINAGE. PT MEDICATED FOR PAIN X1. PT MUMBLES TO HIMSELF IF HE IS HEARING VOICES. ASSESSMENT AT BASELINE. WILL CONTINUE TO MONITOR AND REPORT TO ONCOMING.
[2018-09-21 10:11] LABS: Hematocrit 41.9 % (37.0-53.0); Hemoglobin 13.8 g/dL (13.5-17.5); Mean Corpuscular HGB 31.4 pg (26.0-34.0); Mean Corpuscular HGB Conc 32.9 g/dL (31.5-36.5); Mean Corpuscular Volume 95 fL (80-100); Mean Platelet Volume 9.2 fL (9.1-12.4); Platelet Count 454 K/mm3 (150-400); RDW Coefficient Variation 14.6 % (11.7-14.2); RDW Standard Deviation 51.6 fL (35.1-46.3); Red Blood Cell Count 4.39 M/mm3 (4.30-5.90); White Blood Cell Count 9.28 K/mm3 (4.00-11.30)
[2018-09-21 10:28] LABS: Creatinine, Blood 1.05 mg/dL (0.60-1.20); Vancomycin, Trough 15.6 ug/mL (5.0-10.0)
[2018-09-21 10:34] LABS: Anion Gap 6 mmol/L (6-16); Blood Urea Nitrogen 20 mg/dL (8-24); CO2, Blood 27 mmol/L (21-32); Chloride, Blood 107 mmol/L (98-108); Creatinine, Blood 1.05 mg/dL (0.60-1.20); Glomerular Filtration Rate >60 (60-); Glucose, Blood 83 mg/dL (70-99); Sodium, Blood 140 mmol/L (136-145)
--- NOTE | 2018-09-21 18:39 | NUR ---
SHIFT SUMMARY GENE COMPLAINED OF MILD PAIN FROM HIS LEG BUT DECLINED PAIN MEDS. WALKED OFF FLOOR FREQUENTLY FOR SMOKE BREAK. WHEN I COMMUNICATED CLEARLY ABOUT WHAT TIME HIS NEXT ABX WAS DUE, HE USUALLY WAS BACK IN TIME. R POWERGLIDE NOT DRAWING BLOOD. SECOND PIV STARTED. DR KAN CAME BY BUT PT NOT IN ROOM AT THAT TIME. HUSEYIN DRAIN PUT OUT QUITE A BIT --ABOUT 60ML THIS SHIFT. REFUSES TO WEAR LEG BRACE. SOMETIMES VERY ANGRY AND CURSES IF HE FEELS LIKE HE IS BEING FORCED INTO DOING THINGS. WCTM
--- NOTE | 2018-09-21 20:06 | NUR ---
09/21/182004 RT THIGH DRESSING CHANGED AFTER CLEANSED SITE WITH SALINE AND GAUZE. RE-WRAPPED WILBERT WRAP AROUND SITE. INCISION WITH STERISTRIPS INTACT. HUSEYIN DRAIN WITH 1 ML CLEAR YELLOW DRAINAGE AND EMPTIED. SITE BENIGN.
--- NOTE | 2018-09-21 22:25 | NUR ---
09/21/18 3851 PT NOT IN ROOM FOR IV ANTIBIOTIC EVEN WHEN RN HAD ASKED HIM TO BE THERE EARLIER. PT OUTSIDE TO SMOKE.
--- NOTE | 2018-09-22 00:02 | NUR ---
09/21/18 2350 PT CONTINUES TO BE UP IN W/C ROAMING THE HALLS AND STATES HE IS GOING FOR "ANOTHER SMOKE". STRESSED IMPORTANCE OF TIMELY IV ANTIBIOTICS BUT HE INSISTS ON SMOKING NOW. FEMALE FRIEND IS FRUSTRATED BY THIS BEHAVIOR WELL AND TRYS TO CONVINCE HIM TO GET MEDS NOW BUT IS UNABLE.
--- NOTE | 2018-09-22 05:10 | NUR ---
09/22/18 0510 PT OUT OF ROOM AGAIN TO SMOKE VIA W/C. VITALS REMAIN STABLE. MED ADMINISTRATION IS HAMPERED BY HIS FREQUENT VENTURES OUTSIDE TO SMOKE. HAS GOOD APPETITE. HUSEYIN DRAIN WITH MINIMAL DRAINAGE.
--- NOTE | 2018-09-22 07:29 | NUR ---
09/22/17 0705 PT INSISTED TO HAVE IV DISCONNECTED IN MIDDLE OF IV ANTIBIOTIC INFUSING SO HE COULD HAVE BM AND THEN SMOKE. IV DISCONNECTED. NOTIFIED DAY SHIFT RN OF EVENTS.
--- NOTE | 2018-09-22 09:07 | NUR ---
IN GOOD SPIRITS THIS AM. COOPERATIVE WITH CARE. GOES OUT TO SMOKE FREQUENTLY SO ENCOURAGING PT TO STAY IN ROOM FOR IV ABX.
--- NOTE | 2018-09-22 11:43 | NUR ---
AT THIS TIME PT IRRITABLE/ARGUMENTATIVE. HE'S REFUSING TO BE HOOKED UP TO HIS IV ABX. HE'S BEHIND ON ABX. DEMANDS TO BE DISCONNECTED FROM IV ABX WITHIN A FEW MINUTES OF BEING HOOKED UP. ALSO REFUSING RT TREATMENTS/INHALERS. HE GOES OUTDOORS FOR LONG PERIODS. HE GOES OUT AND UPON RETURNING IS RESISTANT TO BEING PLACED BACK ON IV MEDS. I WILL LET THE KNOW OF NON-COMPLIANCE TO CARE.
--- NOTE | 2018-09-22 11:49 | NUR ---
LAB IS NOW IN ROOM AND PATIENT REFUSING TO HAVE LABS DRAWN.
--- NOTE | 2018-09-22 11:56 | NUR ---
CHANGED ALL IV TO PO ABX. ORTHO TO SEE AND EVALUATE FOR REMOVAL OF HUSEYIN DRAIN AND PLANS TO DISCHARGE SOON POSSIBLE R/T NON-COMPLIANCE TO CARE.
--- NOTE | 2018-09-22 15:23 | NUR ---
Royal was alert, fidgety, and distracted. No indications physical discomfort or pain noted, and no concerns expressed. Stephenie social output was limited and suspicious. His responses were terse and guarged. No pastoral service or attention was desired at this time. He requests that I check in tomorrow. I agreed.
--- NOTE | 2018-09-22 16:20 | NUR ---
COOPERATIVE T/O AFTERNOON. HUSEYIN DRAIN REMOVED BY AND NEW DRESSING PLACED. SHOWERED. MOVING ABOUT ROOM. REQUESTED OYSTER BUYER VISIT. ALL MEDS NOW PO.
--- NOTE | 2018-09-22 18:24 | NUR ---
A/O/MUCH MORE COOPERATIVE T/O DAY. PT PLEASED THAT MEDS ARE PO AND HUSEYIN DRAIN OUT. POSSIBLE D/C TOMORROW. AFEBRILE AND VSS.
--- NOTE | 2018-09-23 06:53 | NUR ---
09/23/18 0630 PT C/O RT LEG DISCOMFORT AND MEDICATED PER NOV. PT NOW OUTSIDE SMOKING. SLEPT WELL THIS SHIFT. VITALS STABLE.
--- NOTE | 2018-09-23 09:51 | NUR ---
PATIENT UPSET ABOUT BEING D/C, DR. SINGH IS AWARE. PATIENT HAS BEEN OUT OF HIS ROOM MOST OF THE MORNING GOING OUTSIDE TO SMOKE. AMBULATION IS WEAK, BUT STEADY. PATIENT STATES "I HAVE AN WALLPAPER INSPECTOR COMING." DISCUSSED WITH PATIENT THAT HE IS STABLE AND NOW ON ORAL ABX AND THE DOCTOR FEELS THAT HE IS READY FOR D/C.
[2018-09-23] MEDS ORDERED: CEPH500 PO ×2 (10:47→19:10)
--- NOTE | 2018-09-23 11:30 | NUR ---
PATIENT REFUSED TO REVIEW D/C INSTRUCTIONS OR TAKE COPIES. TOLD PATIENT BEFORE HE LEFT THAT HIS MEDICATIONS WERE FAXED TO [facility] AND THAT HE WOULD NEED TO TAKE HIS ABX 4 TIMES DAILY X4 WEEKS AND ESTABLISH A PRIMARY CARE DOCTOR. PATIENT STORMED OUT OF ROOM SAYING THAT HE WOULD BE BACK IN 10 MINUTES WITH A CAMP RECREATION SPECIALIST. POWERGLIDE AND IV REMOVED PRIOR TO D/C.
[2018-10-12] MEDS ORDERED: ASPI81CH PO (16:30)
== END 2018-09-23 11:37 | disposition home or self-care (01) | DRG 488 ==
LOC: ER 20:08 → MEDS 09-05 00:23 → ENPENDDIS 09-23 11:03 → MEDS 09-23 11:37
PROVIDERS: Emergency Medicine; Internal Medicine; Orthopaedic Surgery; Pharmacist; Pharmacist Pharmacotherapy; ADMIT Internal Medicine
PROC: 0Y9 Anatomical Regions, Lower Extremities, Drainage (ICD-10-PCS; 2018-09-04)
PROC: 0JDL0ZZ Extraction of Right Upper Leg Subcutaneous Tissue and Fascia, Open Approach (ICD-10-PCS; 2018-09-06)
PROC: 0SBC0ZZ Excision of Right Knee Joint, Open Approach (ICD-10-PCS; principal; 2018-09-06 09:00)
PROC: 0JDL0ZZ Extraction of Right Upper Leg Subcutaneous Tissue and Fascia, Open Approach (ICD-10-PCS; 2018-09-09)
PROC: 0JQL0ZZ Repair Right Upper Leg Subcutaneous Tissue and Fascia, Open Approach (ICD-10-PCS; 2018-09-09)
PROC: 0KBQ0ZZ Excision of Right Upper Leg Muscle, Open Approach (ICD-10-PCS; 2018-09-12)
DX: M00.9 Pyogenic arthritis, unspecified (principal); J44.1 Chronic obstructive pulmonary disease with (acute) exacerbation; L03.115 Cellulitis of right lower limb; M72.8 Other fibroblastic disorders; I10 Essential (primary) hypertension; F17.210 Nicotine dependence, cigarettes, uncomplicated; I25.10 Atherosclerotic heart disease of native coronary artery without angina pectoris; D72.829 Elevated white blood cell count, unspecified; I73.9 Peripheral vascular disease, unspecified; S82.041 Displaced comminuted fracture of right patella; W19.XXXD Unspecified fall, subsequent encounter; I25.2 Old myocardial infarction; S70.11XD Contusion of right thigh, subsequent encounter; Z28.20 Immunization not carried out because of patient decision for unspecified reason; Z91.19 Patient's noncompliance with other medical treatment and regimen; Z79.899 Other long term (current) drug therapy; Z79.01 Long term (current) use of anticoagulants; Z86.73 Personal history of transient ischemic attack (TIA), and cerebral infarction without residual deficits; Z95.5 Presence of coronary angioplasty implant and graft; Z87.01 Personal history of pneumonia (recurrent); Z59.0 Homelessness
CPT/HCPCS: 20610; 36415; 73701; 80048; 80053; 80202; 82565; 83605; 84145; 85025; 85027; 85610; 85651; 86140; 87040; 87070; 87071; 87075; 87205; 94640; 94760; 96361; 96365; 96367; 96375; 99285-25; J1100; J1885; J2250; J2370; J2405; J2543; J3010; J3370; J7030; J7050; J7120; Q9967

== ENCOUNTER 2018-09-23 17:37 | Emergency (ER) | payer OTHER ==
[~2018-09-23] VITALS: Ht 175.3 cm; Wt 95.2 kg
[~2018-09-23 17:37] MED LIST changes: +METO25 PO
[2018-09-23] MEDS ORDERED: CEPH500 PO (19:10)
[2018-10-12] MEDS ORDERED: ASPI81CH PO (16:30)
== END 2018-09-23 19:11 | disposition home or self-care (01) ==
LOC: ER 17:37
DX: M79.669 Pain in unspecified lower leg (principal); M00.9 Pyogenic arthritis, unspecified; J44.9 Chronic obstructive pulmonary disease, unspecified; I10 Essential (primary) hypertension; F17.200 Nicotine dependence, unspecified, uncomplicated; Z86.73 Personal history of transient ischemic attack (TIA), and cerebral infarction without residual deficits
CPT/HCPCS: 99283

== ENCOUNTER 2018-10-12 13:21 | Inpatient (IN) | payer OTHER ==
[~2018-10-12] VITALS: Ht 175.3 cm; Wt 80.8 kg
[2018-10-12 13:59] LABS: BASOPHILS ABSOLUTE AUTO 0.05 K/mm3 (0.00-0.23); BASOPHILS PERCENT AUTO 0 % (0-2); EOSINOPHILS ABSOLUTE AUTO 0.11 K/mm3 (0.00-0.68); EOSINOPHILS PERCENT AUTO 1 % (0-6); Hematocrit 43.1 % (37.0-53.0); Hemoglobin 14.4 g/dL (13.5-17.5); IMMATURE GRAN ABSOLUTE AUTO 0.06 K/mm3 (0.00-0.10); IMMATURE GRAN PERCENT AUTO 0 % (0-1); LYMPHOCYTES ABSOLUTE AUTO 1.75 K/mm3 (0.84-5.20); LYMPHOCYTES PERCENT AUTO 11 % (21-46); MONOCYTES ABSOLUTE AUTO 1.88 K/mm3 (0.16-1.47); MONOCYTES PERCENT AUTO 12 % (4-13); Mean Corpuscular HGB 30.7 pg (26.0-34.0); Mean Corpuscular HGB Conc 33.4 g/dL (31.5-36.5); Mean Corpuscular Volume 92 fL (80-100); Mean Platelet Volume 10.2 fL (9.1-12.4); NEUTROPHILS ABSOLUTE AUTO 11.46 K/mm3 (1.96-9.15); NEUTROPHILS PERCENT AUTO 75 % (41-73); Platelet Count 316 K/mm3 (150-400); RDW Coefficient Variation 13.5 % (11.7-14.2); RDW Standard Deviation 45.4 fL (35.1-46.3); Red Blood Cell Count 4.69 M/mm3 (4.30-5.90); White Blood Cell Count 15.31 K/mm3 (4.00-11.30)
[2018-10-12 14:17] LABS: Alanine Aminotransfer (ALT/SGP 26 U/L (12-78); Albumin, Blood 3.5 g/dL (3.4-5.0); Albumin/Globulin Ratio 0.8 (0.8-1.8); Alk Phos 102 U/L (50-136); Anion Gap 7 mmol/L (6-16); Aspartate Aminotrans (AST/SGOT 11 U/L (12-37); Bilirubin, Total 0.7 mg/dL (0.1-1.0); Blood Urea Nitrogen 13 mg/dL (8-24); Bun/Creatinine Ratio 13.1 (12.0-20.0); CO2, Blood 25 mmol/L (21-32); Calcium, Blood 8.8 mg/dL (8.5-10.1); Chloride, Blood 103 mmol/L (98-108); Creatinine, Blood 0.99 mg/dL (0.60-1.20); Globulin, Blood 4.4 g/dL (2.2-4.0); Glomerular Filtration Rate >60 (60-); Glucose, Blood 110 mg/dL (70-99); Potassium, Blood 3.9 mmol/L (3.5-5.5); Sodium, Blood 135 mmol/L (136-145); Total Protein, Blood 7.9 g/dL (6.4-8.2)
[2018-10-12] MEDS ORDERED: ASPI81CH PO ×2 (16:30)
[2018-10-12 18:57] LABS: Appearance, Synovial Fluid Cloudy (Clear); Color, Synovial Fluid Yellow (None-P Yel)
[2018-10-12 19:13] LABS: BODY FLUID RBC 0.008 (0-0); RBC Count, Synovial Fluid 8000 /mm3 (0-0)
[2018-10-12 19:19] LABS: Lymphs, Synovial Fluid 2 % (0-15); Monocytes/Macrophages, Synovia 5 % (0-65); Neutrophils, Synovial Fluid 93 % (0-24)
[2018-10-12 19:21] LABS: WBC Count, Synovial Fluid 32055 /mm3 (0-180)
[2018-10-13 01:47] LABS: U Amphetamine Screen Not Detected; U Barbituate Screen Not Detected; U Benzodiazapine Screen Not Detected; U Buprenorphine Screen Not Detected; U Cannabinoids Screen Not Detected; U Cocaine Screen Not Detected; U Methadone Screen Not Detected; U Methamphetamine Screen Not Detected; U Opiates Screen DETECTED; U Oxycodone Screen Not Detected; U Phencyclidine Screen Not Detected; U Propoxyphene Screen Not Detected
[2018-10-13 05:03] LABS: Hematocrit 39.2 % (37.0-53.0); Hemoglobin 13.2 g/dL (13.5-17.5); Mean Corpuscular HGB 31.4 pg (26.0-34.0); Mean Corpuscular HGB Conc 33.7 g/dL (31.5-36.5); Mean Corpuscular Volume 93 fL (80-100); Mean Platelet Volume 10.5 fL (9.1-12.4); Platelet Count 314 K/mm3 (150-400); RDW Coefficient Variation 13.5 % (11.7-14.2); RDW Standard Deviation 45.8 fL (35.1-46.3); Red Blood Cell Count 4.21 M/mm3 (4.30-5.90)
--- NOTE | 2018-10-13 05:19 | NUR ---
RN NOC SHIFT SUMMARY THIS PT WAS ADMITTED IN THE NIGHT. HE HAS BEEN LARGELY COMPLIANT WITH CARE AND LISTENS TO INSTRUCTIONS. HE IS AAOX4, RESP EVEN AND UNLABORED. HAS HAD QUITE A LOT OF PAIN IN THE RIGHT KNEE/THY AREA FOR WHICH THE FENTYNAL WAS NOT ENTIRELY EFFECTVIE. CALL TO DR. NG AND RECIEVED ORDER FOR PRN DILAUDID. PT RESTED WELL AFTER RECIEVINGN DILAUDED. HE DID AWAKEN EARLY THIS MORNING AROUND 0500 AND WANTED TO GO OUTSIDE. FRANCHESCA WAS BROUGHT TO HIM AND HE HAS WHEELED HIMSELF OUT. PAIN STILL CONTROLABLE AT THIS TIME. PT ADFISED TO [facility]URN TO [facility]. /TEA
[2018-10-13 05:35] LABS: Alanine Aminotransfer (ALT/SGP 21 U/L (12-78); Albumin, Blood 3.1 g/dL (3.4-5.0); Albumin/Globulin Ratio 0.7 (0.8-1.8); Alk Phos 91 U/L (50-136); Anion Gap 10 mmol/L (6-16); Aspartate Aminotrans (AST/SGOT 16 U/L (12-37); Bilirubin, Total 0.8 mg/dL (0.1-1.0); Blood Urea Nitrogen 13 mg/dL (8-24); Bun/Creatinine Ratio 12.9 (12.0-20.0); CO2, Blood 24 mmol/L (21-32); Calcium, Blood 8.6 mg/dL (8.5-10.1); Chloride, Blood 104 mmol/L (98-108); Creatinine, Blood 1.01 mg/dL (0.60-1.20); Globulin, Blood 4.4 g/dL (2.2-4.0); Glomerular Filtration Rate >60 (60-); Glucose, Blood 98 mg/dL (70-99); Potassium, Blood 4.5 mmol/L (3.5-5.5); Sodium, Blood 138 mmol/L (136-145); Total Protein, Blood 7.5 g/dL (6.4-8.2)
--- NOTE | 2018-10-13 10:49 | NUR ---
Patient was sitting in a wheel chair in his room when I walked in and after I introduced myself and the department I am from, he welcomed me in. Therapeutic alliance was easily established and so patient shared freely about his addiction, family unit complications and plans for change in the future. Patient stated that he was 10 months clean and sober. I listened empathically, provided spiritual direction, encouraged self-care, reinforced helpful attitudes and practices and provided prayer. Patient was clearly moved by the prayer and displayed evidence of catharsis and restored boston. Patient expressed gratitude for my time and care.
--- NOTE | 2018-10-13 12:54 | NUR ---
RECEIVED REPORT FROM RO OG. PT INTO SDS VIA [facility]. HISTORY AND ALLERGIES REVIEWED. NPO STATUS CONFIRMED. LUNGS DIMNINSHED IN BASES, BUT SATS>90% ON RA. PT APPEARS TO SLEEP INTERMITTENTLY WHEN NOT DISTURBED. HOWEVER, PT REPORTS RIGHT THIGH AND KNEE PAIN 9/10 WHEN ASKED.
[2018-10-13 15:49] LABS: BODY FLUID RBC 0.217 (0-0); RBC Count, Synovial Fluid 217000 /mm3 (0-0)
[2018-10-13 16:45] LABS: WBC Count, Synovial Fluid 45470 /mm3 (0-180)
[2018-10-13 16:58] LABS: Lymphs, Synovial Fluid 1 % (0-15); Neutrophils, Synovial Fluid 99 % (0-24)
[2018-10-13 16:59] LABS: Appearance, Synovial Fluid Bloody (Clear); Color, Synovial Fluid Red (None-P Yel)
--- NOTE | 2018-10-13 17:19 | NUR ---
SHIFT SUMMARY PT HAD AN I&D ON RIGHT THIGH THIS AFTERNOON WITH WOUND VAC PLACED. PT HAS BEEN BACK SINCE LATE AFTERNOON AND VERY SLEEPY, CONFUSED. VITAL SIGNS WNL. ICE PLACED TO RIGHT THIGH PER MD ORDERS. NO ACUTE DISTRESS AT THIS TIME. CALL LIGHT IN REACH AND BED ALARM ON FOR SAFETY. WILL CONTINUE TO MONITOR FOR CHANGES.
[2018-10-13 20:27] LABS: Vancomycin, Random 13.6 ug/mL
[2018-10-14 04:28] LABS: BASOPHILS ABSOLUTE AUTO 0.05 K/mm3 (0.00-0.23); BASOPHILS PERCENT AUTO 1 % (0-2); EOSINOPHILS ABSOLUTE AUTO 0.21 K/mm3 (0.00-0.68); EOSINOPHILS PERCENT AUTO 2 % (0-6); Hematocrit 33.7 % (37.0-53.0); Hemoglobin 11.1 g/dL (13.5-17.5); IMMATURE GRAN ABSOLUTE AUTO 0.02 K/mm3 (0.00-0.10); IMMATURE GRAN PERCENT AUTO 0 % (0-1); LYMPHOCYTES ABSOLUTE AUTO 1.25 K/mm3 (0.84-5.20); LYMPHOCYTES PERCENT AUTO 13 % (21-46); MONOCYTES ABSOLUTE AUTO 1.22 K/mm3 (0.16-1.47); MONOCYTES PERCENT AUTO 13 % (4-13); Mean Corpuscular HGB 31.3 pg (26.0-34.0); Mean Corpuscular HGB Conc 32.9 g/dL (31.5-36.5); Mean Corpuscular Volume 95 fL (80-100); Mean Platelet Volume 10.3 fL (9.1-12.4); NEUTROPHILS ABSOLUTE AUTO 7.01 K/mm3 (1.96-9.15); NEUTROPHILS PERCENT AUTO 72 % (41-73); Platelet Count 262 K/mm3 (150-400); RDW Coefficient Variation 13.5 % (11.7-14.2); RDW Standard Deviation 47.7 fL (35.1-46.3); Red Blood Cell Count 3.55 M/mm3 (4.30-5.90); White Blood Cell Count 9.76 K/mm3 (4.00-11.30)
[2018-10-14 04:46] LABS: Anion Gap 7 mmol/L (6-16); Blood Urea Nitrogen 18 mg/dL (8-24); Bun/Creatinine Ratio 14.4 (12.0-20.0); CO2, Blood 25 mmol/L (21-32); Chloride, Blood 105 mmol/L (98-108); Creatinine, Blood 1.25 mg/dL (0.60-1.20); Glomerular Filtration Rate >60 (60-); Glucose, Blood 85 mg/dL (70-99); Magnesium, Blood 2.2 mg/dL (1.6-2.4); Potassium, Blood 4.1 mmol/L (3.5-5.5); Sodium, Blood 137 mmol/L (136-145)
--- NOTE | 2018-10-14 06:31 | NUR ---
SHIFT SUMMARY PT IS A 48 Y/O MALE, ADMITTED FOR AN ABSCESS ON HIS R THIGH. HE HAD A SURGICAL I&D OF THE SITE YESTERDAY, WITH A WOUND VAC CURRENTLY ON THE SITE DRAINING RED DRAINAGE. THE PT DID REPORT BURNING PAIN IN THE SITE, AND WAS MEDICATED ONCE WITH PRN TORADOL. HE IS CURRENTLY ON A FULL LIQUID DIET, AND TRIED TO ADVANCE TO A REGULAR DIET, BUT REPORTED SOME NAUSEA DURING THE NIGHT, FOR WHICH HE WAS MEDICATED ONCE WITH PRN ZOFRAN. VITAL SIGNS STABLE. NO OTHER ACUTE CHANGES IN PT CONDITION NOTED. WILL CONTINUE TO MONITOR AND TREAT PER EMAR UNTIL HAND OFF TO DAY SHIFT.
--- NOTE | 2018-10-14 16:31 | NUR ---
10/14/18 1631 Kelly Queen VERIFICATIONS, EDITS.
--- NOTE | 2018-10-14 17:38 | NUR ---
SHIFT SUMMARY PT HAS BEEN OUT TO SMOKE TWICE TODAY BUT HAS RETURNED IN REASONABLE TIMES. SHOWER TAKEN THIS AFTERNOON AND REPORTS HE FEELS BETTER. WOUND VAC IN PLACE AND FUNCTIONING WELL WITH SEROSANGUINESS DRAINAGE. INDEPENDENT IN ROOM. DR. CRUMP IN TO SEE PT THIS MORNING. BP AT NOONTIME LOW AND MD NOTIFIED WITH FLUID BOLUS GIVEN. IMPROVED BP AFTER BOLUS. WAS SYMPTOMATIC OF HYPOTENSION.
--- NOTE | 2018-10-15 05:01 | NUR ---
SHIFT SUMMARY PT RESTING QUIETLY WATCHING TV DURING SHIFT REPORT. PER DAY SHIFT REPORT, PT WAS A LITTLE MORE PLEASANT AND CO-OP IN THE AFTERNOON. PT HAS CONTINUED TO BE COMPLIANT WITH CARE THRU OUT THE SHIFT. WENT OUT TO [facility] ONCE BEFORE HS AND REPORTED DIFFICULTY GETTING BACK TO [facility]. PT STATED THAT WOULD BE HIS LAST TIME OUT AND WOULD LIKE A NICOTINE PATCH FROM NOW ON. AMANDA ENAMEL SPRAYER NOTIFIED AND NEW ORDERS RECEIVED. NEW IV PLACED TO LFA LAST NIGHT, D/T RW LEAKING. PT C/O NAUSEA AFTER DINNER LAST NIGHT; ZOFRAN GIVEN AND PT REPORTED IT EFFECTIVE. WOUND VAC TO R THIGH, PATENT AND DRAINING SEROSANGUINOUS FLUID. WOUND VAC CANISTER BECAME FULL @ 500cc DURING THE SHIFT AND THEREFORE, CHANGED EARLIER TONIGHT. MEDICATED X1 WITH TORADOL PER PT REQUEST. PT THEN ABLE TO GO TO SLEEP FOR A WHILE. HX OF ETOH, METH, CAD, PVD, AND HTN. PT HAS NOT NEEDED BP MEDICATION RECENTLY. USES URINAL AT BS. ABLE TO TX SELF TO W/C AND BED SELF. HAS REQUESTED BROTH AND SANDWICHES THRU OUT THE SHIFT. CALL LT IN REACH. ABLE TO MAKE NEEDS KNOWN.
[2018-10-15 09:12] LABS: Vancomycin, Trough 16.1 ug/mL (5.0-10.0)
[2018-10-15 09:13] LABS: Anion Gap 8 mmol/L (6-16); Blood Urea Nitrogen 18 mg/dL (8-24); CO2, Blood 25 mmol/L (21-32); Calcium, Blood 8.1 mg/dL (8.5-10.1); Chloride, Blood 108 mmol/L (98-108); Creatinine, Blood 1.06 mg/dL (0.60-1.20); Glomerular Filtration Rate >60 (60-); Glucose, Blood 82 mg/dL (70-99); Potassium, Blood 4.1 mmol/L (3.5-5.5); Sodium, Blood 141 mmol/L (136-145)
--- NOTE | 2018-10-15 18:08 | NUR ---
SHIFT SUMMARY PT TO BE NPO AT [facility] FOR FURTHER SURGICAL TREATMENT OF R THIGH WOUND. HAS BEEN UP IN W/C AND MOVING ABOUT IN HOSPITAL WHEN ANTIBIOTICS NOT BEING GIVEN. DR. SPANGLER IN TO SEE PT THIS AFTERNOON. REPORTS R THIGH IS BEGINNING TO FEEL BETTER. REQUESTING TO USE SCDS FOR DVT PROPHOLAXIS RATHER THAN LOVENOX DUE TO ANXIETY WITH NEEDLES. AGREEABLE.
--- NOTE | 2018-10-16 06:34 | NUR ---
SHIFT SUMMARY: PT NPO SINCE MIDNIGHT FOR IMPENDING I&D TODAY c DR SPANGLER. WOUND VAC IN PLACE TO R THIGH; CANNISTER CHANGED AND OUTPUT OF OTHER CANNISTER CHARTED. 375 mL OF SS DRAINAGE. PT DENIES PAIN. INDEPENDENT IN ROOM, W/C BOUND AT THIS TIME FOR LONG DISTANCES. NICOTINE PATCH IN PALCE AND PT DENIES GOING OUTSIDE TO SMOKE. A&O X 4, RESPIRATIONS E/U ON ROOM AIR. PT FLAT AND WITHDRAWN TONIGHT. NO OTHER ACUTE CHANGES TO REPORT. WILL CONT TO MONITOR AND PROVIDE CARE UNTIL PRESUMED BY ONCOMING RN.
--- NOTE | 2018-10-16 10:18 | NUR ---
Patient was lying in bed and alert when I entered the room. Patient is known to me from prior visits. Patient shared his concern for upcoming surgery that is scheduled for this day. Patient was showing signs of stress and was not very conversive. I listened empathically, provided inspirational quotes that are in-line with patient's belief system and provided prayer. Patient responded well to all interventions and showed signs of reduced stress.
--- NOTE | 2018-10-16 11:11 | NUR ---
PATIENT WENT DOWN TO DAY SURGERY FOR I&D.
--- NOTE | 2018-10-16 11:15 | NUR ---
History, Chart, Medications and Allergies reviewed before start of procedure. Patient confirms NPO status and agrees with scheduled surgery. Lungs clear T/O to Auscultation.
--- NOTE | 2018-10-16 11:16 | NUR ---
PATIENT DECLINES ANALGESIC AT THIS TIME.
--- NOTE | 2018-10-16 13:22 | NUR ---
RECEIVED PATIENT TO PACU VIA GURNEY IN STABLE CONDITION, VERY SLEEPY. FACE TENT PLACED. PATIENT WITH SLIGHT OBSTRUCTION, CHIN LIFT FOR SUPPORT, REPOSITIONED AND HOB TO 30 DEGREES WITH GOOD RESULT. BREATHING EVEN AND UNLABORED, RESTING WELL WITH 100% ON FACE TENT 10 L WHILE SLEEPY.
--- NOTE | 2018-10-16 14:12 | NUR ---
PATIENT ARRIVED BACK FROM PACU. VSS. PATIENT REMAINS VERY DROWSY, BUT DENIES ANY PAIN. MAINTAINING SATS ON RA. WOUND VAC WITH SEROSANG DRAINAGE. KNEE IMMOBILIZER IN PLACE. FALL PRECAUTIONS IN PLACE PER UNIT PROTOCOL. INSTRUCTED PATIENT TO CALL FOR ASSISTANCE.
--- NOTE | 2018-10-16 22:11 | NUR ---
PT INSISTING ON GOING OUTSIDE TO SMOKE REGARDLESS OF ADVISING TO STAY IN ROOM AND REST. REFUSING THIS ADVISE, AND GOING OUTSIDE.
--- NOTE | 2018-10-16 22:19 | NUR ---
WOUND VAC POCKET OF BLOOD/CLOT AROUND WOUND VAC SEAL; SEAL IS STILL INTACT. REINFORCED DRESSING OVER THE CLOT. NOTIFIED MECHANICAL ENERGY ENGINEER. MECHANICAL ENERGY ENGINEER ADVISED TO REINFORCE AND CONT TO MONITOR.
[2018-10-17 04:56] LABS: BASOPHILS ABSOLUTE AUTO 0.02 K/mm3 (0.00-0.23); BASOPHILS PERCENT AUTO 0 % (0-2); EOSINOPHILS ABSOLUTE AUTO 0.03 K/mm3 (0.00-0.68); EOSINOPHILS PERCENT AUTO 0 % (0-6); Hematocrit 32.7 % (37.0-53.0); Hemoglobin 10.7 g/dL (13.5-17.5); IMMATURE GRAN ABSOLUTE AUTO 0.05 K/mm3 (0.00-0.10); IMMATURE GRAN PERCENT AUTO 0 % (0-1); LYMPHOCYTES PERCENT AUTO 14 % (21-46); MONOCYTES PERCENT AUTO 6 % (4-13); Mean Corpuscular HGB 30.8 pg (26.0-34.0); Mean Corpuscular HGB Conc 32.7 g/dL (31.5-36.5); Mean Corpuscular Volume 94 fL (80-100); Mean Platelet Volume 9.8 fL (9.1-12.4); NEUTROPHILS PERCENT AUTO 79 % (41-73); Platelet Count 396 K/mm3 (150-400); RDW Coefficient Variation 13.7 % (11.7-14.2); Red Blood Cell Count 3.47 M/mm3 (4.30-5.90)
--- NOTE | 2018-10-17 06:09 | NUR ---
SHIFT SUMMARY: PT OUT TO SMOKE SEVERAL TIMES TONIGHT REGARDLESS OF ADVICE TO NOT AMBULATE AND PROVIDE REST FOR R LEG, AND THE EFFECTS OF SMOKING ON WOUND HEALING. PT DECLINES AND GOES OUTSIDE. WOUND VAC IN PLACE TO R THIGH; SEE PRIOR NOTES. CANNISTER CHANGED 1X FOR BRIGHT RED, BLOODY OUTPUT OF 325 ML. PT OBSERVED HAVING CONVERSATIONS c SELF IN ROOM. PT USES W/C TO AMBULATE LONG DISTANCE. NS RUNNING @ 80 ML/HR. NO OTHER ACUTE CHANGES TO REPORT. WILL CONT TO MONITOR AND PROVIDE CARE UNTIL PRESUMED BY ONCOMING RN.
--- NOTE | 2018-10-17 17:57 | NUR ---
NO ACUTE CHANGES THIS SHIFT. WOUND VAC TO RLE HAS A GOOD SEAL, MODERATE AMOUNT OF SEROSANG DRAINAGE. VSS. PAIN WELL CONTROLLED WITH NORCO. 18G IV TO L HAND AND 20G IV TO L AC WNL. NS INFUSING AT 80ML/HR. TOLERATING DIET. UP TO W/C INDEPENDENTLY. WHEELS HIMSELF OUTSIDE TO SMOKE. LUNGS CLEAR/DIM, NO COUGH, ON RA. CALLS APPROPRIATELY FOR ASSISTANCE.
--- NOTE | 2018-10-18 07:03 | NUR ---
SHIFT SUMMARY: NO ACUTE CHANGES THIS SHIFT. DRESSING C/D/I TO R UPPER THIGH AND SEAL INTACT. SMALL AMOUNT OF RED DRAINAGE. PT INDEPENDENT IN ROOM AND WHEELS SELF OUTSIDE TO SMOKE. PT TOOK A SHOWER THIS SHIFT. NO OTHER ACUTE CHANGES TO REPORT. WILL CONT TO MONITOR AND PROVIDE CARE UNTIL PRESUMED BY ONCOMING RN.
--- NOTE | 2018-10-18 17:34 | NUR ---
PATIENT A/OX3, UP INDEPENDENTLY TO W/C. CONTINUES TO WHEEL SELF OUTSIDE TO SMOKE. WOUND VAC TO R LEG WNL, CANISTER CHANGED. MEDICATING WITH NORCO TO TREAT PAIN. TOLEATING REGULAR DIET. VOIDS IN URINAL. PATIENT ON RA, LUNGS WITH WHEEZES IN BASES, NO COUGH. 2 IV SITES WNL AND SL BETWEEN ABX. SCD'S FOR DVT PROPHYLAXIS. NO ACUTE CHANGES THIS SHIFT.
--- NOTE | 2018-10-19 07:26 | NUR ---
SHIFT SUMMARY: NO ACUTE CHANGES. WOUND VAC TO R LEG PATENT AND SEAL INTACT. DENIES PAIN. S/O AT BEDSIDE, STAYED OVER NIGHT WITH PT. PT INDEPENDENT IN ROOM, USES W/C FOR AMBULATION. WILL CONT TO MONITOR AND PROVIDE CARE UNTIL PRESUMED BY ONCOMING RN.
--- NOTE | 2018-10-19 15:00 | NUR ---
Spiritual care visit conducted. I provided companionship, emotional support and prayer. Patient engaged well and verbalized appreciation. Patient displayed evidence of stabilization.
--- NOTE | 2018-10-19 18:19 | NUR ---
SHIFT SUMMARY GENE WAS IN HIS WHEELCHAIR FOR MOST OF THE DAY. WENT OFF FLOOR TO SMOKE OCCASIONALLY. WOUND VAC DRESSING CHANGED BY DR SPANGLER, NOW WILL NEED CHANGED M, W, F PER ORDER. DENIED PAIN MEDS. GF IN ROOM IN THE MORNING. HR WAS IN 120S IN THE AFTERNOON WITH A COUPLE OF CHECKS, CALLED DR FLORES AND SHE ORDERED 1L BOLUS WITH TELE BOX. AFTER 1L BOLUS, TELE IS SHOWING NSR. PT ASYMPTOMATIC THE ENTIRE TIME. VOIDS IN URINAL. WCTM
[2018-10-20 05:32] LABS: BASOPHILS ABSOLUTE AUTO 0.08 K/mm3 (0.00-0.23); BASOPHILS PERCENT AUTO 1 % (0-2); EOSINOPHILS ABSOLUTE AUTO 0.58 K/mm3 (0.00-0.68); EOSINOPHILS PERCENT AUTO 4 % (0-6); Hematocrit 34.1 % (37.0-53.0); IMMATURE GRAN ABSOLUTE AUTO 0.12 K/mm3 (0.00-0.10); IMMATURE GRAN PERCENT AUTO 1 % (0-1); LYMPHOCYTES ABSOLUTE AUTO 3.39 K/mm3 (0.84-5.20); LYMPHOCYTES PERCENT AUTO 24 % (21-46); MONOCYTES ABSOLUTE AUTO 1.01 K/mm3 (0.16-1.47); MONOCYTES PERCENT AUTO 7 % (4-13); Mean Corpuscular HGB 30.8 pg (26.0-34.0); Mean Corpuscular HGB Conc 32.3 g/dL (31.5-36.5); Mean Corpuscular Volume 96 fL (80-100); Mean Platelet Volume 9.1 fL (9.1-12.4); NEUTROPHILS PERCENT AUTO 63 % (41-73); Platelet Count 537 K/mm3 (150-400); RDW Coefficient Variation 13.6 % (11.7-14.2); RDW Standard Deviation 48.1 fL (35.1-46.3); Red Blood Cell Count 3.57 M/mm3 (4.30-5.90); White Blood Cell Count 13.98 K/mm3 (4.00-11.30)
[2018-10-20 06:05] LABS: Anion Gap 8 mmol/L (6-16); Blood Urea Nitrogen 22 mg/dL (8-24); Bun/Creatinine Ratio 21.4 (12.0-20.0); CO2, Blood 23 mmol/L (21-32); Calcium, Blood 8.4 mg/dL (8.5-10.1); Chloride, Blood 107 mmol/L (98-108); Creatinine, Blood 1.03 mg/dL (0.60-1.20); Glomerular Filtration Rate >60 (60-); Glucose, Blood 94 mg/dL (70-99); Potassium, Blood 4.1 mmol/L (3.5-5.5); Sodium, Blood 138 mmol/L (136-145)
--- NOTE | 2018-10-20 08:21 | NUR ---
NOC SHIFT SUMMARY IT WAS NECCESSARY TO CHANGE PT'S WOUND VAC TWICE THIS NIGHT IT BECAME BLOCKED AND FLUID BEGAN ACCUMULATING UNDER THE DRESSING. THE FIRST TIME WAS AROUND 2200, THE SECOND TIME WAS AT APPROX 0625. WOUND VAC WAS CHANGED FROM A SINGLE TUBE TO DOUBLE WITH A Y CONNECTOR TO HELP IMPROVE FUNTION OF VACCUME. PT LEFT ROOM OFTEN THIS NIGHT TO SMOKE OUTSIDE. AT ONE POINT PT DELAYED ABX ADMINISTRATION IN ORDER TO LEAVE AND SMOKE. OTHER THAN THAN HE HAS BEEN LARGLEY COMPLIANT WITH CARE. DOES NOT NOW APPEAR TO BE IN ANY ACUTE DISTRESS.
--- NOTE | 2018-10-20 13:00 | NUR ---
WOUND VAC REMOVED THIS MORNING APPROX 1130 AND PRESSURE DRESSING APPLIED TO DECREASE BLEEDING TO WOUND SITE PER DR. KAN. SITE HAS HAD NO STRIKE THROUGH DRAINAGE. HAS BEEN KEPT ELEVATED ON PILLOW. PT HAS BEEN SLEEPING MOST OF MORNING EXCEPT WHEN EATING.
--- NOTE | 2018-10-20 18:17 | NUR ---
SHIFT SUMMARY DR. KAN STOPPED BY BRIEFLY BUT PT SLEEPING SO HE DIDN'T WAKE HIM. PT HAS REMANINED IN BED MOST OF DAY SLEEPING WITH LEG ELEVATED. PULSES INTACT AND NO STRIKE THROUGH DRAINAGE. UP TO BATHROOM INDEPENDENTLY WHEN AWAKE AND AWAKE FOR MEALS.
--- NOTE | 2018-10-20 19:59 | NUR ---
Patient gave consent for nursing assoc to care from them on 10/21/2018
--- NOTE | 2018-10-21 04:41 | NUR ---
NOC SHIFT SUMMARY THIS PT HAS BEEN UP AND ABOUT FOR LARGE PORTIONS OF THE NIGHT. HE GETS IN HIS WHEELCHAIR AND GOES OUT. HE HAS BEEN COOPERATIVE WITH CARE. I DID CHANGE THE PRESSURE DRESSING ON HIS R THIGH THE OLD ONE WAS BECOMING SATURATED. HE TOLERATED PROCEEDURE WELL. VS HAVE BEEN STABLE. PT ALTON APPEARS TO BE SLEEPING RESTFULLY IN BED. WILL CONTINUE TO MONITOR.
[2018-10-21 04:55] LABS: BASOPHILS ABSOLUTE AUTO 0.06 K/mm3 (0.00-0.23); BASOPHILS PERCENT AUTO 0 % (0-2); EOSINOPHILS ABSOLUTE AUTO 0.57 K/mm3 (0.00-0.68); EOSINOPHILS PERCENT AUTO 4 % (0-6); Hematocrit 32.2 % (37.0-53.0); Hemoglobin 10.8 g/dL (13.5-17.5); IMMATURE GRAN ABSOLUTE AUTO 0.17 K/mm3 (0.00-0.10); IMMATURE GRAN PERCENT AUTO 1 % (0-1); LYMPHOCYTES ABSOLUTE AUTO 2.92 K/mm3 (0.84-5.20); LYMPHOCYTES PERCENT AUTO 19 % (21-46); MONOCYTES ABSOLUTE AUTO 1.18 K/mm3 (0.16-1.47); MONOCYTES PERCENT AUTO 8 % (4-13); Mean Corpuscular HGB 31.1 pg (26.0-34.0); Mean Corpuscular HGB Conc 33.5 g/dL (31.5-36.5); Mean Corpuscular Volume 93 fL (80-100); Mean Platelet Volume 9.1 fL (9.1-12.4); NEUTROPHILS ABSOLUTE AUTO 10.75 K/mm3 (1.96-9.15); NEUTROPHILS PERCENT AUTO 69 % (41-73); Platelet Count 582 K/mm3 (150-400); RDW Coefficient Variation 13.8 % (11.7-14.2); RDW Standard Deviation 46.7 fL (35.1-46.3); Red Blood Cell Count 3.47 M/mm3 (4.30-5.90); White Blood Cell Count 15.65 K/mm3 (4.00-11.30)
[2018-10-21 05:16] LABS: Anion Gap 7 mmol/L (6-16); Blood Urea Nitrogen 24 mg/dL (8-24); CO2, Blood 26 mmol/L (21-32); Calcium, Blood 8.7 mg/dL (8.5-10.1); Chloride, Blood 105 mmol/L (98-108); Glomerular Filtration Rate >60 (60-); Glucose, Blood 106 mg/dL (70-99); Sodium, Blood 138 mmol/L (136-145)
--- NOTE | 2018-10-21 14:37 | NUR ---
Initial Visit: Palliative Care Consult for goals of care. Pt is sleepy during visit but is A&O. Difficult to carry on a conversation due to Pt drifting off to sleep. He reports 10/10 pain in his right knee. He reports current regimen is managing his pain. Pt reports he is worship and attends yazdanism on a regular bases. He reports his goals are for his knee to heal. Pt lives with a friend and reports the friend is supportive with needs he may have. Discussion was made about the importance of continuing antibiotics if needed and Pt V/U of importance to adhere to any plan the Dr may have. Engaged in discussion about POLST and educated Pt on each section of POLST. Pt reports he will spend some time on deciding his wishes before completing POLST. Plan is to obtain copy of POLST once completed. Will remain available.
--- NOTE | 2018-10-21 14:43 | NUR ---
Spiritual care visit conducted. Patient was lying in bed and alert when I entered the room. I reintroduced myself to the patient (he is known to me from prior visits). Patient expressed a need for spiritual encouragement. I listened empathically to patient, provided companionship and emotional support, I provided spiritual direction and prayer. Patient responded well to all interventions and displayed evidence of resoted boston and an elevated mood.
--- NOTE | 2018-10-21 16:47 | NUR ---
SHIFT SUMMARY PT OUT OF ROOM 2-3 TIMES OF NOW TODAY. THIS MORNING WHEN HE RETURNED AT BREAKFAST TIME HE APPEARED TO BE IN ANOTHER WORLD. WOULD ANSWER QUESTIONS APPROPRIATELY BUT SEEMED OFF AND SLOW WHEN ANSWERING. DRESSING CHANGED APPROX 1140 THIS MORNING AND PT ROLLED OVER AND WENT TO SLEEP AFTERWARD. SLEPT PART OF AFTERNOON AND THEN WENT OUT OF ROOM AGAIN. WHEN HE RETURNED AND LIMPED OVER TO BED APPEARED MORE UNSTEADY THAN HE DID THIS MORNING PRIOR TO TAKING A SHOWER. AFFECT FLAT TODAY.
[2018-10-22 04:36] LABS: BASOPHILS ABSOLUTE AUTO 0.06 K/mm3 (0.00-0.23); BASOPHILS PERCENT AUTO 1 % (0-2); EOSINOPHILS ABSOLUTE AUTO 0.47 K/mm3 (0.00-0.68); EOSINOPHILS PERCENT AUTO 4 % (0-6); IMMATURE GRAN ABSOLUTE AUTO 0.15 K/mm3 (0.00-0.10); IMMATURE GRAN PERCENT AUTO 1 % (0-1); LYMPHOCYTES ABSOLUTE AUTO 2.55 K/mm3 (0.84-5.20); LYMPHOCYTES PERCENT AUTO 21 % (21-46); MONOCYTES ABSOLUTE AUTO 1.11 K/mm3 (0.16-1.47); MONOCYTES PERCENT AUTO 9 % (4-13); Mean Corpuscular HGB 30.9 pg (26.0-34.0); Mean Corpuscular HGB Conc 32.4 g/dL (31.5-36.5); Mean Platelet Volume 8.8 fL (9.1-12.4); NEUTROPHILS ABSOLUTE AUTO 8.08 K/mm3 (1.96-9.15); NEUTROPHILS PERCENT AUTO 65 % (41-73); Platelet Count 570 K/mm3 (150-400); RDW Coefficient Variation 13.7 % (11.7-14.2); RDW Standard Deviation 48.5 fL (35.1-46.3); Red Blood Cell Count 3.56 M/mm3 (4.30-5.90); White Blood Cell Count 12.42 K/mm3 (4.00-11.30)
[2018-10-22 04:38] LABS: Mean Corpuscular Volume 96 fL (80-100)
[2018-10-22 04:57] LABS: Albumin, Blood 2.8 g/dL (3.4-5.0); Anion Gap 7 mmol/L (6-16); Blood Urea Nitrogen 22 mg/dL (8-24); Bun/Creatinine Ratio 21.2 (12.0-20.0); CO2, Blood 26 mmol/L (21-32); Calcium, Blood 8.8 mg/dL (8.5-10.1); Chloride, Blood 105 mmol/L (98-108); Creatinine, Blood 1.04 mg/dL (0.60-1.20); Glomerular Filtration Rate >60 (60-); Glucose, Blood 90 mg/dL (70-99); Phosphorus, Blood 3.2 mg/dL (2.5-4.9); Potassium, Blood 4.3 mmol/L (3.5-5.5); Sodium, Blood 138 mmol/L (136-145)
--- NOTE | 2018-10-22 05:12 | NUR ---
SHIFT SUMMARY PT ONLY OUTSIDE X2 THIS SHIFT, SLEPT WELL. NEW IV PLACED IN LEFT FOREARM, OTHER IV LEAKING. PT TOLERATED WELL. DRESSING REMAINS INTACT ON RIGHT THIGH, NO DRAINAGE NOTED TO BE SEEPING. NO ACUTE CHANGES NOTED, WILL CONTINUE TO MONITOR.
--- NOTE | 2018-10-22 09:44 | NUR ---
Pt visit this AM. Pt states that he plans to complete POLST form today and denies any need for assistance in completing form. He reports 7/10 pain and states he is doing better in managing his pain without pain medications. Spoke with Pt's nurse Cindi and she report that she will contact palliative care when POLST form is complete and signed by hospitalist. Will remain available.
--- NOTE | 2018-10-22 18:07 | NUR ---
SHIFT SUMMARY PT AXO, COOPERATIVE WITH CARE. PT UP TO WHEELCHAIR AND TAKES HIMSELF OUTSIDE TO SMOKE. WOUND VAC APPLIED THIS SHIFT VIA PROCEDURE NURSE RO COOPER. PT MEDICATED FOR LOW-GRADE TEMP PER EMAR. AFEBRILE AT THIS TIME. PT MEDICATED FOR PAIN PER EMAR THOUGH AT THIS TIME RATES HIS PAIN A 6 BUT REQUESTS FENTANYL. BED IN LOW POISITON, CALL LIGHT WITHIN REACH.
[2018-10-23 04:28] LABS: BASOPHILS ABSOLUTE AUTO 0.07 K/mm3 (0.00-0.23); BASOPHILS PERCENT AUTO 1 % (0-2); EOSINOPHILS PERCENT AUTO 5 % (0-6); Hematocrit 34.4 % (37.0-53.0); Hemoglobin 11.4 g/dL (13.5-17.5); IMMATURE GRAN ABSOLUTE AUTO 0.18 K/mm3 (0.00-0.10); IMMATURE GRAN PERCENT AUTO 2 % (0-1); LYMPHOCYTES ABSOLUTE AUTO 2.84 K/mm3 (0.84-5.20); LYMPHOCYTES PERCENT AUTO 24 % (21-46); MONOCYTES ABSOLUTE AUTO 1.08 K/mm3 (0.16-1.47); MONOCYTES PERCENT AUTO 9 % (4-13); Mean Corpuscular HGB 30.8 pg (26.0-34.0); Mean Corpuscular HGB Conc 33.1 g/dL (31.5-36.5); NEUTROPHILS ABSOLUTE AUTO 7.13 K/mm3 (1.96-9.15); NEUTROPHILS PERCENT AUTO 60 % (41-73); Platelet Count 637 K/mm3 (150-400); RDW Coefficient Variation 13.5 % (11.7-14.2); RDW Standard Deviation 46.2 fL (35.1-46.3)
[2018-10-23 04:29] LABS: Mean Corpuscular Volume 93 fL (80-100)
[2018-10-23 04:42] LABS: Albumin, Blood 2.8 g/dL (3.4-5.0); Anion Gap 7 mmol/L (6-16); Blood Urea Nitrogen 19 mg/dL (8-24); Bun/Creatinine Ratio 20.1 (12.0-20.0); CO2, Blood 26 mmol/L (21-32); Calcium, Blood 8.9 mg/dL (8.5-10.1); Chloride, Blood 103 mmol/L (98-108); Creatinine, Blood 0.95 mg/dL (0.60-1.20); Glomerular Filtration Rate >60 (60-); Glucose, Blood 91 mg/dL (70-99); Phosphorus, Blood 2.8 mg/dL (2.5-4.9); Potassium, Blood 4.2 mmol/L (3.5-5.5); Sodium, Blood 136 mmol/L (136-145)
--- NOTE | 2018-10-23 05:21 | NUR ---
SHIFT SUMMARY PT SLEPT FAIR, OUTSIDE A FEW TIMES DURING THE NIGHT. MEDICATED X1 FOR PAIN WITH IV FENTANYL. WOUND VAC IN PLACE. NO ACUTE CHANGES NOTED, WILL CONTINUE TO MONITOR.
--- NOTE | 2018-10-23 18:02 | NUR ---
SHIFT SUMMARY NO CHANGES IN ASSESSMENT AT THIS TIME. VSS. PT HAS BEEN IND IN ROOM & TO THE BATHROOM. PT HAS REFUSED TO VOID FOR A UA THIS SHIFT. PT HAS BEEN OUT TO SMOKE THROUGHTOUT THE SHIFT. WOUND VAC SECURE WITH SCANT DRAINAGE. NO LEAKAGE INDICATED. PT MEDICATED FOR PAIN ONE THIS SHIFT. WILL CONTINUE TO MONITOR UNTIL TURNOVER IS COMPLETE.
--- NOTE | 2018-10-24 07:35 | NUR ---
a+o motates in own wc, call light in reach when in room, walking rounds completed with day staff, dawson lord
--- NOTE | 2018-10-24 19:16 | NUR ---
SHIFT SUMMARY: NO ACUTE CHANGES TO REPORT THIS SHIFT. PT A&O; IRRITABLE; COOPERATIVE WITH CARE. PT OUTSIDE TO SMOKE SEVERAL TIMES THIS SHIFT. WOUND VAC IN PLACE TO R ANTERIOR THIGH; DRESSING CHANGE THIS SHIFT; PUMP CHANGE THIS SHIFT; VACUUM @ 125 MMHG. REPORT GIVEN TO ONCOMING RN.
--- NOTE | 2018-10-24 19:58 | NUR ---
PT OUTSIDE TO SMOKE FREQUENTLY. WOUND VAC IS ALARMING THAT THERE IS A LEAK IN THE DRESSING. PT REFUSES TO REMOVE HIS PANTS SO THAT THE DRESSING CAN BE ADJUSTED BECAUSE HE WANTS TO GO BACK OUTSIDE [facility]. CONSEQUENTLY, THE WOUND VAC IS NOT FUNCTIONING AT THIS TIME. PT OUTSIDE DURING ROUTINE VS CHECK AT CHANGE OF SHIFT. PT'S NON-COMPLIANCE AND LACK OF COOPERATION MAKE THIS ADMISSION POINTLESS BECAUSE APPROPRIATE CARE IS NOT POSSIBLE.
--- NOTE | 2018-10-25 05:42 | NUR ---
VSS, AFEBRILE, A/O, USES W/C TO GO OUTSIDE BUT CAN WALK SHORT DISTANCES, WOUND VAC TO R LE, REFUSES MEDS/TREATMENTS AT TIMES, 20G L FA, WITHDRAWN/DEPRESSED, ANXIOUS TO BE OUTSIDE UNTIL ALMOST MIDNOC, SLEPT WELL, NO COMPLAINTS
--- NOTE | 2018-10-25 15:52 | NUR ---
WOUND VAC CANISTER CHANGE: WOUND VAC CANISTER CHANGE ACCOMPLISHED THIS SHIFT AT 1500. SHIFT DRAINAGE DOCUMENTED IN I&Os.
--- NOTE | 2018-10-25 19:08 | NUR ---
SHIFT SUMMARY: NO ACUTE CHANGES TO REPROT THIS SHIFT. PT ALERT; IRRITABLE; APATHETIC; UNCOOPERATIVE WITH CARE. WOUND VAC IN PLACE TO RIGHT ANTERIOR THIGH; DRESSING C/D/I; PT OUTSIDE TO SMOKE WITH WOUND VAC SEVERAL TIMES THIS SHIFT; WOUND VAC DRAINAGE CARTRIDGE CHANGED THIS SHIFT. PT NPO AFTER MIDNIGHT. IV ABX CONTINUING. REPORT GIVEN TO ONCOMING RN.
--- NOTE | 2018-10-26 05:40 | NUR ---
VSS, AFEBRILE, A/O, AMBULATES BUT USES W/C FOR LONG DISTANCES, WOUND VAC ON R LE, OUTSIDE FREQ, NO INTEREST IN COOPERATING WITH TREATMENTS, LEAVES WOUND VAC UNPLUGGED UNTIL MIDNOC, NPO AFTER MIDNOC FOR POSS. SURGICAL INTERVENTION TODAY, FRIEND AT THE BEDSIDE
--- NOTE | 2018-10-26 07:36 | NUR ---
PROCEDURE REFUSED PATIENT INFORMED RN THAT HIS GIRLFRIEND IS HAVING SURGERY OF HER OWN TODAY AND HE WANTS TO POSTPONE HIS OWN PROCEDURE(IRRIGATE AND DEBRIDE) TO A LATER TIME. DR. ZULETA INFORMED, ORDERS TO RESUME REGULAR ADULT DIET GIVEN.
--- NOTE | 2018-10-26 17:32 | NUR ---
SHIFT SUMMARY NO ACUTE CHANGES. PATIENT CAN BE IRRITABLE AND UNCOOPERATIVE WITH CARE THEN APOLOGIZES FOR HIS BEHAVIOR. PATIENT'S WOUND VAC WAS CHANGED TODAY. PATIENT NPO AFTER MIDNIGHT, ATTEMPT TO IRRIGATE AND DEBRIDE WILL BE TRIED AGAIN TOMORROW. PATIENT REFUSED THIS MORNING BUT ASKED TO BE RESCHEDULED. PATIENT'S GIRLFRIEND HAS BEEN STAYING IN THE ROOM WITH HIM. CALL LIGHT IN REACH, WILL CONTINUE TO MONITOR.
--- NOTE | 2018-10-27 06:28 | NUR ---
SHIFT SUMMARY NO ACUTE CHANGES THIS SHIFT. PT AOX4, IRRITABLE @TIMES W/STAFF YET COOPERATIVE. VSS. DENIES SOB OR N/V. REPORTED 9/10 PAIN IN R THIGH & WAS MEDICATED 1X W/NORCO PER ORDERS & HAS HAD NO FURTHER DISCOMFORT SINCE. WOUND VAC DRESSING CHANGED YESTERDAY PER DAY SHIFT RN & DRESSING IS C/D/I. PER DAY SHIFT RN PT WAS SUPPOSE TO BE NPO OF MIDNIGHT DUE TO REFUSAL OF I&D YESTERDAY & PT WAS NPO UNTIL AROUND 0500 THIS AM WHEN I NOTICED DR PASTRANA NOTE STATING "NO NEED FOR SURGERY." PT WHEELS SELF FREQUENTLY OUTSIDE TO SMOKE & GIRLFRIEND HAS BEEN AT BEDSIDE ALL NIGHT. CALL LIGHT IS IN REACH & I WILL CONT TO MONITOR PT UNTIL DAY SHIFT RN ASSUMES CARE.
--- NOTE | 2018-10-27 07:29 | NUR ---
Received permission to care for patient.
[2018-10-27 17:48] LABS: U Amphetamine Screen Not Detected; U Barbituate Screen Not Detected; U Benzodiazapine Screen Not Detected; U Buprenorphine Screen Not Detected; U Cannabinoids Screen Not Detected; U Cocaine Screen Not Detected; U Methadone Screen Not Detected; U Methamphetamine Screen Not Detected; U Opiates Screen Not Detected; U Oxycodone Screen Not Detected; U Phencyclidine Screen Not Detected; U Propoxyphene Screen Not Detected
--- NOTE | 2018-10-27 19:36 | NUR ---
SHIFT SUMMARY NO ACUTE CHANGES. PATIENT MUCH MORE COOPERATIVE WITH CARE TODAY. PATIENT GOES OUTSIDE VIA WHEELCHAIR SEVERAL TIMES A DAY. PATIETN TRANSFERS INDEPENDENTLY. WOUND VAC DRAINING WELL. REPORT GIVEN TO LUZ MARINA STARR.
--- NOTE | 2018-10-27 23:33 | NUR ---
PT UP ROAMING THE HOSPITAL FREQUENTLY. WHEN PT LEAVES HIS ROOM HE UNPLUGS HIS WOUNDVAC FROM THE POWER SOURCE. PT'S WOUND VAC ALARMING IN ROOM DUE TO LOW BATTERY. WENT INTO ROOM AND ASSISTED WITH PLUGGING IT BACK IT. TOLD PT HE NEEDED TO STAY IN HIS ROOM FOR AWHILE TO LET IT RECHARGE. NOT EVEN 5 MINUTES LATER PT SEEN WANDERING THE BHANDARI WITH WOUND VAC ALARMING LOW BATTERY. PT WENT BACK TO ROOM AND PLUGGED IT IN AGAIN. EDUCATED PT ON IMPORTANCE OF WOUND VAC. PT JUST LAUGHED AND SAID, "IM DOING MY THERAPY".
--- NOTE | 2018-10-28 05:44 | NUR ---
SHIFT SUMMARY PT NONCOMPLIANT. OUTSIDE OF ROOM MORE OFTEN THAN IN ROOM. WHEELS SELF AROUND THE HOSPITAL AND OUTSIDE TO SMOKE. UNPLUGS WOUND VAC SEE NOTE. PT TALKS TO SELF FREQUENTLY. WHISPERS THINGS VERY QUIETLY REPEATEDLY AT TIMES. ASKED PT NOT TO LEAVE ROOM AND PT LEFT BEING GONE FOR OVER AN HOUR. MIDNIGHT ANTIBIOTIC LATE DUE TO PT NOT BEING IN HIS ROOM. PANTS ON AND BRACE TO R LEG. PT UNWILLING TO REMOVE PANTS TO VISUALIZE WOUND SITE. OTHERWISE NO ACUTE CHANGES. VSS.
--- NOTE | 2018-10-28 08:27 | NUR ---
pt laying in bed wrapped up in covers, will not respond to questions or waking up, did allow nurse to rigging up worker abx, and partial assessment, but certainly not helping. seems a bit irritable, lungs are dim, but not taking deep breaths, with some possible throat noise, is currently on r/a, resp even and unlabored, no cough noted, hrr, trace edema noted to right ft, ppp+1, cap refill <3sec, vs stable, afebrile, iv site to rfa, site is clear and patent, btx4, abd flat soft nontender, voids without diff, skin has wound vac to rinner thigh, maew, leaves room regularly, call light in reach.
--- NOTE | 2018-10-28 12:04 | NUR ---
pt woke up this afternoon and ate his breakfast, is currently sitting up in a wheelchair looking out the window, states he is doing ok. no complaints. call light in reach.
--- NOTE | 2018-10-28 19:29 | NUR ---
SHIFT SUMMARY NO ACUTE CHANGES. WOUND VAC DRESSING CHANGED TODAY. PATIENT WAS OUT OF ROOM OR NAPPING MOST OF SHIFT. PATIENT DENIED PAIN, NAUSEA, OR SHORTNESS OF BREATH. REPORT GIVEN TO LUZ MARINA STARR.
--- NOTE | 2018-10-29 07:25 | NUR ---
SHIFT SUMMARY A/O X3, ABLE TO MAKE NEEDS KNOWN; SLOW TO RESPOND AT TIMES. COOPERATIVE WITH CARE. ANSWERS QUESTIONS AND CALLS APPROPRIATELY. C/O PAIN X1; MEDICATED PER EMAR. WOUND VAC DRESSING CHANGED 10/28/18 AND PATENT WITHOUT COMPLICATION. OUT TO SMOKE SEVERAL TIMES OVERNIGHT; TRANSFERS SELF TO WHEELCHAIR. NEW IV PLACED; 20G TO R WRIST. VSS/AFEBRILE. DID NOT APPEAR TO REST OVERNIGHT. CONTINUED TO MONITOR. BED IN LOWEST POSITION. CALL LIGHT AND BELONGINGS WITHIN REACH. REPORT GIVEN TO DAY SHIFT RN.
--- NOTE | 2018-10-29 08:31 | NUR ---
PATIENT YELLED AT THIS RN TO DISCONTINUE IV ANTIBIOTICS, STATED THE MACHINE WAS BROKEN AND THE ANTIBIOTICS WERE COMPLETE. COULD NOT EXPLAIN TO PATIENT THAT ANTIBIOTICS WERE STILL RUNNING. REQUESTED TO BE DISCONNECTED TO GO OUT TO SMOKE. PATIENT STATED HIS BREAKFAST TRAY DID NOT HAVE ENOUGH FOOD AND THAT HE REFUSED TO EAT TRAY. THIS RN REMOVED TRAY. PATIENT THEN GOT IN W/C TO GO OUT TO SMOKE.
--- NOTE | 2018-10-29 10:55 | NUR ---
Spiritual care visit conducted. Patient was sitting in a wheel chair when I entered the room. Patient said that today was a very busy day and that he had to go outside immediately. When I asked why he said that he was just very busy today. Patient declined a spiritual care visit and prayer which patient has not ever done with this mobile device engineer. I left the room and allowed patient to continue gathering his things. I will follow up with his nurse.
--- NOTE | 2018-10-29 18:38 | NUR ---
SHIFT SUMMARY DR. SPANGLER CAME TO ROOM. ENCOURAGED USE OF IV ANTIBIOTICS. TOOK EVENING ANTIBIOTICS. PATIENT HAS BEEN IN AND OUT OF THE ROOM TO SMOKE MOST OF THE DAY.
--- NOTE | 2018-10-30 06:11 | NUR ---
SHIFT SUMMARY A/O X3, ABLE TO MAKE NEEDS KNOWN. COOPERATIVE WITH CARE THIS SHIFT. CALLS AND ANSWERS QUESTIONS APPROPRIATELY. APPEARS TO STARE OFF INTO SPACE AT TIMES; RE-ORIENTS QUICKLY. REPLACED SUCTION CUP TO WOUND VAC D/T SEAL LEAK. NO ACUTE CHANGES OVERNIGHT. TRANSFERS FROM WHEELCHAIR TO BED WITHOUT ASSISTANCE. OUT TO SMOKE PERIODICALLY. VSS/AFEBRILE. NO ACUTE CHANGES OVERNIGHT. BED IN LOWEST POSITION. CALL LIGHT IN REACH. WCTM. REPORT TO ONCOMING RN.
[2018-10-30 08:10] LABS: Hematocrit 34.6 % (37.0-53.0); Hemoglobin 11.3 g/dL (13.5-17.5); Mean Corpuscular HGB 30.3 pg (26.0-34.0); Mean Corpuscular HGB Conc 32.7 g/dL (31.5-36.5); Mean Corpuscular Volume 93 fL (80-100); Mean Platelet Volume 8.8 fL (9.1-12.4); Platelet Count 646 K/mm3 (150-400); RDW Coefficient Variation 13.6 % (11.7-14.2); RDW Standard Deviation 46.2 fL (35.1-46.3); Red Blood Cell Count 3.73 M/mm3 (4.30-5.90); White Blood Cell Count 10.79 K/mm3 (4.00-11.30)
[2018-10-30 08:32] LABS: Anion Gap 7 mmol/L (6-16); Blood Urea Nitrogen 24 mg/dL (8-24); Bun/Creatinine Ratio 29.7 (12.0-20.0); CO2, Blood 26 mmol/L (21-32); Calcium, Blood 8.9 mg/dL (8.5-10.1); Chloride, Blood 107 mmol/L (98-108); Creatinine, Blood 0.81 mg/dL (0.60-1.20); Glomerular Filtration Rate >60 (60-); Glucose, Blood 93 mg/dL (70-99); Potassium, Blood 4.2 mmol/L (3.5-5.5); Sodium, Blood 140 mmol/L (136-145)
--- NOTE | 2018-10-30 18:46 | NUR ---
SHIFT SUMMARY: NO ACUTE CHANGES TO REPORT THIS SHIFT. PT A&O; HALLUCINATIONS; IRRITABLE; UNCOOPERATIVE WITH CARE. PT OUTSIDE TO SMOKE FREQUENTLY THIS SHIFT. NO C/O PAIN. WOUND VAC DRESSING CHANGED THIS SHIFT. IV ABX CONTINUING. WCTM.
--- NOTE | 2018-10-30 22:43 | NUR ---
ANTIBIOTICS THE PT CONTINUED REFUSING HIS 1600 DOSE OF ANTIBIOTICS UNTIL 2200, AND PER THE PHARMACY HIS MIDNIGHT DOSE WAS HELD. WHEN THIS RN FLUSHED THE IV, THE PT REPORTED PAIN IN THAT SITE, AND WAS SQUIRMING ON THE BED. THE IV SITE DID LOOK POSSIBLY INFILTRATED, BUT WHEN THIS RN WENT BACK INTO THE PT'S ROOM TO ATTEMPT A NEW IV SITE, HE REFUSED, SAYING THAT THE IV WAS "FINE" AND THAT HE WAS TIRED OF GETTING A NEW IV "EVERY TIME I TURN AROUND". HE THEN INSISTED THAT THE ABX BE ATTACHED TO THE OLD IV SITE. THIS RN KEPT AN EYE ON THE SITE DURING THE INFUSION, BUT THE PT REPEATED THAT HE WAS FINE. THE PT RECEIVED APPROXIMATELY 40 MLS OF THE ABX BEFORE HE INSISTED THAT IT WAS DONE AND THAT HE BE UNHOOKED. THE SITE DID APPEAR MORE SWOLLEN THAN THE PREVIOUS, BUT THE PT IS STILL REFUSING A NEW IV SITE AT THIS TIME.
--- NOTE | 2018-10-31 06:44 | NUR ---
SHIFT SUMMARY PT IS A 48 Y/O MALE, ADMITTED FOR A R THIGH ABSCESS. WOUND VAC IS CURRENTLY IN PLACE. THE PT HAS BEEN VERY IRRITABLE THROUGH THE NIGHT, SNAPPING AT STAFF AND REFUSING TO BE CONNECTED FOR HIS IV ABX (SEE PREVIOUS NOTE). HE ALSO HAD APPARENT HALLUCINATIONS, HE WOULD REACH FOR THINGS AND TALK TO HIMSELF IN THE ROOM. PT DENIED ANY ACUTE PAIN, NAUSEA OR SOB. VITALS WERE STABLE. NO OTHER ACUTE CHANGES IN PT CONDITION NOTED. WILL CONTINUE TO MONITOR.
--- NOTE | 2018-10-31 10:51 | NUR ---
PT'S IV WAS LEAKING THIS MORNING. IV WAS DC'D. RN ATTEMPTED INSERTION TWICE WITH NO LUCK. PT BECAME IRRITABLE WITH IV INSERTION ATTEMPTS. CHARGE NURSE NOTIFIED. WILL NOTIFY PROCEDURE NURSE.
--- NOTE | 2018-10-31 13:59 | NUR ---
PT HAS BEEN OUT OF HIS ROOM ON AND OFF THIS AM, PT HAS BEEN OUT THIS TIME FOR APROX 1.5 HRS. PT REFUSED AN IV CHANGE THROUGHOUT THE NIGHT PER NIGHT NURSE. 2 FAILED IV ATTEMPTS THIS AM WERE ATTEMPTED AND HAVE NOT BEEN ABLE TO GET A NEW IV IN PLACE DUE TO PT NOT IN ROOM. SECURITY CALLED AND FOUND PT, SECURITY REPORTS PT STATED HE WAS GOING TO STAY OUTSIDE AND TO GET OUT OF HIS WAY. DR ZULETA NOTIFIED WHO REPORTS NOTIFY PT OF HOSPITAL POLICY AND THAT IF HE IS OUT OF HIS ROOM LONGER THAN 1HR IT IS CONSIDERED AMA AND HE WILL BE DISCHARGED. NURSING HEAD STRENGTH AND CONDITIONING COACH TASHA ALSO NOTIFIED AND REPORTS THAT PT WILL BE DC'D AMA IF HE IS OUT OF ROOM FOR 1HR OR MORE. PT NOTIFIED OF THIS.
--- NOTE | 2018-10-31 17:59 | NUR ---
PT HAS IV ANTIBIOTICS ORDERED. HE MISSED HIS MORNING DOSE BECAUSE HE SPENT SO MUCH TIME OUT OF HIS ROOM AND REFUSED TO ALLOW IV INSERTIONS UNTIL THE PROCEDURE NURSE CAUGHT UP WITH HIM THIS AFTERNOON. THE PT NOT HAS A POWERGLIDE IN HIS LEFT ARM AND HIS SECOND DOSE OF CEFAZOLIN HAS BEEN ADMINISTERED. THE PT'S GIRLFRIEND IS AT HIS BEDSIDE. WOUND VAC IS IN PLACE. NO ACUTE CHANGES. WILL CONTINUE TO MONITOR.
--- NOTE | 2018-11-01 06:49 | NUR ---
SHIFT SUMMARY PT IS A 48 Y/O MALE, ADMITTED FOR A R THIGH ABSCESS. THE SITE IS CURRENTLY DRESSED WITH A WOUND VAC. PT IS INDEPENDENT IN HIS WHEELCHAIR, AND GOES OUT FREQUENTLY TO SMOKE. HIS S.O. IS IN THE ROOM WITH HIM, AND THE PT HAS BEEN MORE PLEASANT AND COOPERATIVE WITH HIS CARE COMPARED WITH THE PREVIOUS NIGHT. HE COMPLAINED OF PAIN IN HIS R THIGH, AND WAS MEDICATED X 1 WITH PRN TYLENOL. VITALS REMAINED STABLE. NO OTHER ACUTE CHANGES IN PT CONDITION NOTED. WILL CONITNUE TO MONITOR AND TREAT.
--- NOTE | 2018-11-01 17:50 | NUR ---
PT'S GIRLFRIEND HAS BEEN AT THE BEDSIDE ALL DAY. PT HAS BEEN IN AND OUT OF HIS ROOM. MORNING AND EVENING DOSES OF ANTIBIOTICS WERE ADMINISTERED. WOUND VAC IN PLACE. PT IS ON A REGULAR DIET. HE IS INDEPENDENT IN HIS ROOM, USES HIS WHEELCHAIR TO GET AROUND. A [facility] CONSULT WAS ORDERED BY DR. ZULETA, AND NEEDS TO BE RESENT ON 11/02/18. WILL CONTINUE TO MONITOR.
--- NOTE | 2018-11-02 06:46 | NUR ---
SHIFT SUMMARY PT IS A 48 Y/O MALE, ADMITTED FOR A R THIGH ABSCESS. WOUND VAC IS STILL IN PLACE. THE PT DID REPORT PAIN IN HIS THIGH, FOR WHICH HE WAS MEDICATED X 1 WIHT PRN TYLENOL. HE DENIED ANY SOB OR NAUSEA. THE PT DID GO OUT OF THE ROOM SEVERAL TIMES IN THE WHEELCHAIR TO SMOKE. VITAL SIGNS REMAINED STABLE. NO OTHER ACUTE CHANGES IN PT CONDITION NOTED. WILL CONTINUE TO MONITOR AND TREAT. THE PT'S S.O. REMAINED IN THE ROOM DURING THE NIGHT, AND APPEARED TO AGGRAVATE THE PT DURING THE NIGHT SEVERAL ARGUMENTS WERE HEARD BY STAFF. SHE ALSO CONTINUED TO ASK FOR FOOD AND DURING THE NIGHT, EVEN AFTER SHE WAS SPOKEN WITH BY STAFF AND TOLD THAT IT WAS NOT APPROPRIATE.
--- NOTE | 2018-11-02 09:50 | NUR ---
PT KEEPS LEAVING ROOM AND WILL NOT AT THIS POINT LET THIS MOTOR OPERATOR SET UP HIS IV ANTIBOTIC. MULTIPLE TIMES HE BEEN ASKED GO INTO ROOM SO IT CAN BE STARTED. PT JUST WHEELS AWAY. WILL CONTINUE TO TRY TO GET HIM TO LET ANTIBOTICS BE RUN.
--- NOTE | 2018-11-02 18:09 | NUR ---
PT AOX4 AND WAS NOT COOPERATIVE MOST OF THE DAY WITH HIS CARE. PT REFUSED ALL AM MEDICATION AND REQUESTED TO HAVE THIS WIND ENERGY MECHANIC FIRED FROM HIS CARE. THIS WIND ENERGY MECHANIC SPOKE WITH CHARGE AND IS WAS FELT WITH HIS HISTORY NO CHANGE IN HIS NURSE WOULD BENEFIT PT HE WAS BEING TREATED KINDLY. PT CONTINUED TO BE VERBALLY ANGRY ANY TIME CONVERSATION WAS ATTEMPTED. LATE IN THE AFTERNOON CHARGE NURSE CHANGED WOUND VAC, PT HAD A SHOWER AND HE ALLOWED ANTIBOTIC TO BE RUN. BEHAVIOR AT THIS TIME WAS POLITE AND KIND. WILL CONTINUE TO MONITOR. WOUND VAC RUNNING WELL.
--- NOTE | 2018-11-03 07:05 | NUR ---
self transfering to and traveling off floor, forgets to plug in wound vac when in room even when it is alarming, cooperative with staff, abx infused with no s/sx of infection or infiltration at site, room air, walking rounds completed with returning day staff
--- NOTE | 2018-11-03 17:32 | NUR ---
PT AOX4 TODAY AND PLEASANT WITH ALL CARE. PT HAS MADE PLEASANT REQUEST. PT HAS ALLOWED ALL NEEDED CARE TODAY. PT STILL GOES OUT TO SMOKE INDEPENDENTLY. NO DISTRESS NOTED AT THIS TIME.
--- NOTE | 2018-11-04 07:24 | NUR ---
up and moving in wc, wound vac working well, cooperative with staff, call light in reach, picc saline locked, room air, walking rounds completed with day staff
--- NOTE | 2018-11-04 19:21 | NUR ---
SHIFT SUMMARY PT OUT TO SMOKE SEVERAL TIMES TODAY BUT RETURNS IN REASONABLE TIME. WOUND VAC DRESSING CHANGED AND MEDICATED FOR PAIN. WAS DEMANDING A CULTURE OF WOUND STATING IT WASN'T IMPROVING AND HE WANTED IT CHECKED FOR CANCER AND ANYTHING ELSE THAT COULD BE WRONG WITH A CULTURE. STATED HE KNEW HIS RIGHTS AND HE WANTED IT DONE. WHILE ATTEMPTING TO SPEAK WITH PT ABOUT HIS REQUESTS HE KEPT INTERUPTING AND SAYING I KNOW MY RIGHTS. SHOWED PT PICTURES OF THE PROGRESS OF HIS HEALING AND HE SAID FINE TAKE A PICTURE OF THE WOUND. TOOK AN UPDATED PICTURE AND GAVE HIM PICTURES FROM TODAY AND A COPY FROM 10/24. PT CALMER AND MORE REASONABLE AFTER PAIN MEDS GIVEN. STATES HE IS SO TIRED OF BEING HERE AND NOT KNOWING WHEN HE MAY LEAVE.
--- NOTE | 2018-11-05 06:14 | NUR ---
SHIFT SUMMARY: NO ACUTE CHANGES THIS SHIFT. PT IS A&O, COOPERATIVE/PLEASANT. INDEPENDENT c W/C. TREATED FOR PAIN 1X c 5 MG NORCO. WOUND VAC TO R THIGH; SUCTION SEAL INTACT. PURULENT DRAINAGE. NO OTHER CHANGES TO REPORT. WILL CONT TO MONITOR AND PROVIDE CARE UNTIL PRESUMED BY ONCOMING RN.
--- NOTE | 2018-11-05 18:16 | NUR ---
SHIFT SUMMARY PT OUT TO SMOKE SEVERAL TIMES TODAY. HAS BEEN AGREEABLE AND CHATTY WITH STAFF. POWERGLIDE NO LONGER FUNCTIONING AND REMOVED THIS A.M. WITH PERIPHERAL PLACED. WOUND VAC FUNCTIONING WELL THROUGH DAY. GOOD APPETITE.
--- NOTE | 2018-11-06 06:17 | NUR ---
SHIFT SUMMARY: NO ACUTE CHANGES THIS SHIFT. PT A&O, COOPERATIVE/PLEASANT c CARE, INDEPENDENT IN RM. OUT TO SMOKE SEVERAL TIMES THIS SHIFT. IV PATENT & SALINE LOCKED AT THIS TIME. C/O PAIN 1X; ADMINISTERED 5MG PRN NORCO. NO OTHER CHANGES TO REPORT. WILL CONT TO MONITOR AND PROVIDE CARE UNTIL PRESUMED BY ONCOMING RN.
--- NOTE | 2018-11-06 17:21 | NUR ---
SUMMARY PT HAS BEEN IN AND OUT OF HIS ROOM T/O THE DAY, OFTEN DELAYING CARE, AND OFTEN REFUSING CARE, PT REFUSED AFTERNOON VITAL SIGNS, PT OCC TALKING TO HIMSELF, PT MED FOR PAIN PER EMAR, WOUND VAC CHANGED BY THIS RN AND DR SPANGLER, WOUND BED IS PINK WITH BEEFY RED GRANULATION, EDGES ARE NOT REDDENDED AND THERE ARE NO SIGNS OF INFECTION, NO PURULENT DRAINAGE, JUST SCANT SEROUS DRAINAGE, CULTURE SENT, PT SANAM WELL, WILL CONT TO MONITOR
--- NOTE | 2018-11-06 20:11 | NUR ---
brief supportive visit with patient.
--- NOTE | 2018-11-07 04:33 | NUR ---
SHIFT SUMMARY NO ACUTE CHANGES. PATIENT PLEASANT AND COOPERATIVE. PATIENT WENT OUTSIDE IN [facility]. NEW IV PLACED. PATIENT RESTED IN BED MOST OF NIGHT. NO COMPLAINTS OF PAIN, NAUSEA, OR SHORTNESS OF BREATH. CALL LIGHT IN REACH, WILL CONTINUE TO MONITOR.
--- NOTE | 2018-11-07 18:45 | NUR ---
PT. SLEEPING HAS BEEN IN AND OUT TO SMOKE SEVERAL TIMES TO DAY. HAS REQUESTED PAIN MEDS ONCE TODAY. NO NOTEABLE CHANGES THIS SHIFT
--- NOTE | 2018-11-08 05:48 | NUR ---
SHIFT SUMMARY PT ADMITTED TO ED WITH ABCESS TO R THIGH. FULL CODE. REGULAR DIET. WEIGHT BEARING TOLLERATED TO R LEG. AMBULATE WITH ASSIST 3 TIMES PER DAY WITH KNEE IMMOBILIZER ON R KNEE AT ALL TIMES. SCDS. DRAIN MANAGMENT Q 12HRS. R THIGH WOUND VAC CHANGE Q MON, WE, AND FRI. BLACK FOAM, 125 MMHG CONT THERAPY. 20G IV TO R WRIST. INDEPENDENT WITH WC. MEDS WHOLE WITH WATER. NO APPARENT ACUTE CHANGES. APPRENTLY PT HAS BEEN IN PATIENT FOR QUITE A WHILE SECONDARY TO NON-COMPLIANT MANAGEMENT OF INFECTION OUTPATIENT. THE PT COMES AND GOES FROM ROOM FOR MUCH OF THE SHIFT AND IS GONE AT TIMES OVER AN HR. IT IS VERY DIFFICULT TO PROVIDE ADEQUATE CARE FOR PT IT IS DIFFICULT TO TIME PT IN ROOM. THIS NURSE SPOKE WITH PT TO DISCUSS TIME TO ADMINISTER 0000 DOSE OF ANTIBIOTIC AND THE PT AGREED THAT 2300 WOULD BE THE BEST TIME TO START THIS BUT PT OUT OF ROOM FROM 2230 UNTIL AFTER 0000. STILL ABLE TO ADMINISTER MEDICATION AND ON TIME, BUT UNABLE TO PLAN CARE AROUND PTS OUTINGS. THE PT IS AGAIN NOT IN ROOM AT THIS TIME. HAS PRESENTED WITH NO APPARENT ACUTE SIGNS OF DISTRESS. ABLE TO MAKE NEEDS KNOWN AND CALL LIGHT IN REACH.
--- NOTE | 2018-11-08 19:13 | NUR ---
PT. BACK IN ROOM AFTEER GOING OUT TO SMOKE. NEED TO WATCH AND MAKE SURE WOUND VAC IS PLUGGED IN. NO NOTEABLE CHANGES THIS SHIFT.
--- NOTE | 2018-11-09 04:27 | NUR ---
SHIFT SUMMARY NO APPARENT ACUTE CHANGES NOTED SO FAR THIS SHIFT. THE PT WENT OUTSIDE TO SMOKE SEVERAL TIMES AND SPOKE OF HOW NICE THE SNOW WAS. AFTER THE POWER WENT OUT AND THE DOORS BEGAN TO CLOSE THE PT BECAME PARANOID THAT THE HOSPITAL WAS ATTEMPTING TO LOCK THE PT IN ROOM. THE PT ALSO STATED THAT HE WOULD BE CONTACTING A STEREOTYPE CASTER IN THE AM BECAUSE WE WERE HOLDING THE PT HOSTAGE. THE PT WAS EDUCATED REGARDING THE ELEVATORS NOT WORKING DURING A POWER OUTAGE AND THAT IT WAS OUT OF THE CONTROL OF STAFF. THE PT WAS EDUCATED THAT HE WOULD NEED TO WAIT TO GO SMOKE UNTIL ELEVATORS WERE WORKING AGAIN. THE PT IS VERY AGITATED BY THIS. THE PT APPEARS TO BE SLEEPING COMFORTABLY AT THIS TIME WITH NO APPARENT SIGNS OF ACUTE DISTRESS. ABLE TO MAKE NEEDS KNOWN AND CALL LIGHT IN REACH.
--- NOTE | 2018-11-10 03:56 | NUR ---
SHIFT SUMMARY NO ACUTE CHANGES TO PRESENT THIS SHIFT. PT SLEEPING, RESTING QUIETLY DURING SHIFT REPORT WITH IV ABX INFUSING. PT LATER WOKE, WANTING TO GO OUTSIDE TO [facility]. PT INDEPENDANT IN RM WITH WOUND VAC TO R THIGH, BUT NONCOMPLIANT WITH PLUGGING IT BACK IN WHEN HE RETURNS. REPORTS WOUND IS MUCH BETTER. PT CAN BE SOMEWHAT CO-OP WITH SOME CARE AT TIMES, BUT IS ALSO VERY RUDE, MEAN, AND DEMANDING AT OTHER TIMES. PT VERY ANGRY ABOUT POWER BEING OUT AND NOT BEING ABLE TO HAVE PEPSI WITH ICE AND REGULAR HOT MEALS AROUND THE CLOCK. PT CAN BE VERY SELFISH AND FOUL MOUTHED. PICKS AND CHOOSES WHEN SOME CARE CAN BE DONE. CALL LT IN REACH.
--- NOTE | 2018-11-10 15:34 | NUR ---
SHIFT SUMMARY NO ACUTE CHANGES. PATIENT IN BETTER SPIRITS TODAY NOW THAT POWER HAS BEEN RESTORED. PATIENT INDEPENDENT IN ROOM AND GOES OUTSIDE IN WHEELCHAIR. PATIENT COOPERATIVE WITH CARE TODAY. NO COMPLAINTS OF PAIN, NAUSEA, OR DIFFICULTY BREATHING. CALL LIGHT IN REACH, WILL CONTINUE TO MONTIOR.
--- NOTE | 2018-11-11 06:39 | NUR ---
SHIFT SUMMARY NO ACUTE CHANGES TO PRESENT THIS SHIFT. PT HAS BEEN AMBULATING IN RM AND OUT IN HALLS MORE TONIGHT, CARRYING HIS WOUND VAC. PT WAS TAKING HIMSELF OUT TO SMOKE IN A WHEEL CHAIR, BUT IS NOW AMBULATING OUT AT TIMES AND JUST CARRIES WOUND VAC. MEDICATED FOR C/O PAIN PER EMAR. DRINKING LOTS OF COFFEE AND PEPSI. WOUND VAC CANISTER CHANGED; 450cc DISCARDED. NEW IV PLACED TO RFA D/T DRSG COMING OFF LW, FROM PT PULLING COAT ON AND OFF FREQUENTLY. LW IV NO LONGER PATENT. INDEPENDANT IN AND TO [facility]. CALL LT IN REACH.
--- NOTE | 2018-11-11 11:25 | NUR ---
WOUND VAC CHANGED WOULD VAC CHANGED. DR. SPANGLER AT BEDSIDE TO CLEAN & EVALUATE WOUND. NEW PICTURES OF WOUND TAKEN & IN CHART. PT TOLERATED WELL. PRESENT WOULD VAC SEALING WELL.
--- NOTE | 2018-11-11 16:40 | NUR ---
SHIFT SUMMARY PT WOUND VAC CHANGED & SEALED WELL. NO OTHER CHANGES IN ASSESSMENT AT THIS TIME. PT HAS BEEN IND IN ROOM & OUT TO SMOKE SEVERAL TIMES THIS SHIFT. VSS. WILL CONTINUE TO MONITOR UNTIL TURNOVER IS COMPLETE.
--- NOTE | 2018-11-12 05:19 | NUR ---
SHIFT SUMMARY NO ACUTE CHANGES TO PRESENT THIS SHIFT. PT IN AND OUT OF RM TO GO OUT TO [facility]; SOMETIMES AMBULATES WHILE CARRYING HIS WOUND VAC AND OTHER TIMES GOES OUT IN W/C BY HIMSELF. MEDICATED FOR C/O PAIN REQUESTED. CALLS FOR COFFEE, PEPSI, AND SNACKS; SOMETIMES FREQUENTLY. CALL LT IN REACH.
--- NOTE | 2018-11-12 15:19 | NUR ---
Spiritual care visit conducted. Patient was standing by the window in the hallway and so I stopped and spent some time with him. We discussed the long struggle the healing process has been and the struggle still to come. I listened empathically, provided companionship and encourage self care. Patient responded well and appeared to be more hopeful after the visit.
--- NOTE | 2018-11-12 16:46 | NUR ---
SHIFT SUMMARY NO CHANGES IN ASSESSMENT AT THIS TIME. VSS. PT HAS BEEN OUTSIDE TO SMOKE MULTIPLE TIMES THROUGHOUT THE DAY. PT MEDICATED FOR PAIN ONCE THIS SHIFT. PT WOUND VAC INTACT & DRAINING WELL. NO LEAKS DETECTED. WOUND VAC TO BE CHANGED 11/13/18. WILL CONTINUE TO MONITOR UNTIL TURNOVER IS COMPLETE
--- NOTE | 2018-11-12 21:57 | NUR ---
ASSUMED CARE OF PT D/T PRIOR NURSE HAS NO COMPUTER ACCESS.
--- NOTE | 2018-11-13 03:49 | NUR ---
SHIFT SUMMARY: PT OUT AND ABOUT T/O SHIFT PUSHING HIMSELF IN A WHEELCHAIR OR AMBULATING CARRYING HIS WOUND VAC. MEDICATED X 2 WITH NORCO FOR PAIN. REINFORCED WOUND VAC TO RIGHT KNEE AREA D/T IT WAS OOZING. NO ACUTE CHANGES. WILL CONTINUED TO MONITOR AND PROVIDE CARE UNTIL SHIFT REPORT.
--- NOTE | 2018-11-13 16:53 | NUR ---
SHIFT SUMMARY PT COOPERATIVE MOST THE SHIFT. PT BECAME ANGRY & IRRITATED DURING WOUND VAC CHANGE. PT GAVE THIS RN PERMISSION TO CHANGE WOUND VAC WHILE HE WAS IN BED. THE WOUND VAC DRESSING WAS BEING TAKEN OFF, PT STARTED YELLING AND PULLING AWAY SO THAT CARE COULD NOT BE COMPLETED. RO COOPER ASKED TO ASSIST WITH WOUND VAC. PT CURSED AT RO COOPER & DENAMDED SHE LEAVE THE ROOM. DR. SPANGLER CAME TO BEDSIDE TO EVALUATE WOUND AND CALM PT. PT THEN ALLOWED FOR WOUND VAC TO BE CHANGED. NO OTHER CHANGES IN ASSESSMENT AT THIS TIME. NEW WOUND VAC SEALED WELL & DRAINING. VSS. WILL CONTINUE TO MONITOR UNTIL TURNOVER IS COMPLETE.
--- NOTE | 2018-11-14 20:19 | NUR ---
SUMM- PT A/O. INDEPENDANT IN ROOM WITH WHEELCHAIR. HAS CONT WOUND VAC, PUTTING OUT SMALL AMOUNT SEROUS. MEDICATED FOR PAIN ONCE THIS AM AND STATED PAIN RELEIF. PT DISAPPOINTED IN BREAKFAST THAT HE DIDN'T GET WHAT HE ORDERED AND THAT LATE TRAY NEVER CAME. ORDER FOR DIET CONSULT TO HELP PT GET MEALS HE WANTS. PT IS IRRITABLE AND UPSET HE'S BEEN IN THE HOSPITAL SO LONG. GIVEN A LISTENING EAR AND PT SEEMED TO DE ESCELATE AFTER RN AND SITE RELIABILITY ENGINEER ENCOURAGED HIM THIS AM. PT DISCONNECTED WOUND VAC X2 AFTER ADVISED STRONGLY TO NOT DO SO OR THERAPY WOULD LOSE SEEL AND ALSO RISK OF INFECTION. REPORTED TO NOC RN.
[2018-11-15 05:28] LABS: BASOPHILS ABSOLUTE AUTO 0.08 K/mm3 (0.00-0.23); BASOPHILS PERCENT AUTO 1 % (0-2); EOSINOPHILS ABSOLUTE AUTO 0.66 K/mm3 (0.00-0.68); EOSINOPHILS PERCENT AUTO 6 % (0-6); Hematocrit 37.5 % (37.0-53.0); Hemoglobin 12.2 g/dL (13.5-17.5); IMMATURE GRAN ABSOLUTE AUTO 0.05 K/mm3 (0.00-0.10); IMMATURE GRAN PERCENT AUTO 0 % (0-1); LYMPHOCYTES ABSOLUTE AUTO 2.66 K/mm3 (0.84-5.20); LYMPHOCYTES PERCENT AUTO 24 % (21-46); MONOCYTES ABSOLUTE AUTO 1.06 K/mm3 (0.16-1.47); MONOCYTES PERCENT AUTO 9 % (4-13); Mean Corpuscular HGB Conc 32.5 g/dL (31.5-36.5); Mean Corpuscular Volume 92 fL (80-100); Mean Platelet Volume 9.4 fL (9.1-12.4); NEUTROPHILS ABSOLUTE AUTO 6.77 K/mm3 (1.96-9.15); NEUTROPHILS PERCENT AUTO 60 % (41-73); Platelet Count 423 K/mm3 (150-400); RDW Coefficient Variation 13.6 % (11.7-14.2); RDW Standard Deviation 46.7 fL (35.1-46.3); Red Blood Cell Count 4.06 M/mm3 (4.30-5.90); White Blood Cell Count 11.28 K/mm3 (4.00-11.30)
[2018-11-15 05:52] LABS: Anion Gap 7 mmol/L (6-16); Blood Urea Nitrogen 32 mg/dL (8-24); Bun/Creatinine Ratio 35.4 (12.0-20.0); CO2, Blood 26 mmol/L (21-32); Calcium, Blood 9.1 mg/dL (8.5-10.1); Chloride, Blood 104 mmol/L (98-108); Glomerular Filtration Rate >60 (60-); Glucose, Blood 84 mg/dL (70-99); Phosphorus, Blood 3.8 mg/dL (2.5-4.9); Sodium, Blood 137 mmol/L (136-145)
--- NOTE | 2018-11-15 19:36 | NUR ---
SUMMARY- PT UP INDEPENDANT IN ROOM WITH WHEELCHAIR. OUTSIDE TO SMOKE THROUGHOUT THE DAY. TOLERATING FOOD AND FLUIDS. PAIN CONTROLLED WITH VICODIN. STATED BM 3-2 02AM. WOUND VAC PULLED APART AT THE SUCTION PORT, RN CLEANSED AND APPLIED SKIN PREP, REAPPLIED SUCTION PORT AND REGAINED SUCTION. WOUND VAC DUE TO BE CHANGED ON FRI.
--- NOTE | 2018-11-16 06:25 | NUR ---
Rn summary: Patient has not rested at all this shift. He has been out to smoke at least once. He has wheeled himself up and down the hallway by his room, he has also walked x2 in the hallway. Pt was medicated x1 with [place] 1 tab at 2204 for rt leg pain. Pt states he had fair to poor relief. IV was DC'd due to not needing it, order was recieved yesterday. When this fiction and nonfiction writer prose picked up the coban roll to secure the gauze on his arm, inside the roll was several white pills that had obviously been in a mouth with water then spit out. Patient states they belonged to his "friend" that was staying here last week and that she had left them behind. Pills were disposed of. Pt has not asked for any more pain pills. Will pass on to charge and day shift RN for the need to check his mouth after taking pills. Pt has had a lot of coffee and snacks during the night. He is independant. He sometimes talks to people who are not there, she can be distant and then friendly. Will continue to monitor. Call light in reach.
--- NOTE | 2018-11-16 17:03 | NUR ---
NOTIFIED DR. LEAVITT DISABILITIES CAREGIVER RN REPORTS PT POCKETING PILLS. NOTIFIED DR. LEAVITT PT SPIT OUT NORCO IN TO HIS HAND THIS AM. WHEN I TOLD PT PILL WAS IN HIS HAND AND HE NEEDED TO TAKE IT HE PUT IT IN HIS MOUTH AND GOT UP AND DARTED INTO THE BATHROOM STATING "I'M GOING TO BE SICK." DR. LEAVITT SAID TO D/C NORCO. NO OTHER NEW ORDERS AT THIS TIME.
--- NOTE | 2018-11-16 17:06 | NUR ---
PT OUT OF HIS ROOM FOR OVER TWO HOURS. INDUSTRIAL HYGIENIST ALFA NOTIFIED. SECURITY CALLED.
--- NOTE | 2018-11-16 19:24 | NUR ---
SHIFT SUMMARY- PT AXO X3. PT WHISPERING TO HIMSELF IN ROOM. DR. LEAVITT D/C NARCOTICS. SEE PREVIOUS NOTE. PT LEFT ROOM AND DID NOT RETURN FOR OVER TWO HOURS. SECURITY CALLED. SEE PREVIOUS NOTE. ANOTHER NURSE CHANGED PT'S WOUND VAC DRESSING TODAY. WHEN I WENT TO CHECK ON PT WITH SECURITY CONSULTANT RN TO GIVE REPORT THE PT WAS OUT OF THE ROOM AGAIN. WHEELCHAIR AND WOUND VAC STILL IN THE ROOM. SECURITY CONSULTANT RN NOTIFIED SECURITY CONSULTANT RN CASE MANAGER HOSPICE. NO OTHER SIGNIFICANT CHANGES THIS SHIFT.
--- NOTE | 2018-11-16 21:31 | NUR ---
PAIN MEDICATIONS DC THE NURSE ENTERED PTS ROOM TO ASK IF THE PT WOULD LIKE HIS AGUILAR DOSE OF STOOL SOFTENER AND THE PT STATED THAT HE WOULD AND WOULD ALSO LIKE "A COUPLE OF PAIN PILLS." THIS NURSE ADVISED PT THAT THE ONLY PAIN MEDICATION AVAILABLE AT THIS TIME IS TYLENOL. THE PT STATED "YOU CAN TAKE YOUR TYLENOL AND SHOVE IT UP YOUR GOD FABRIZIOYuniel BOB AND YOU CAN TELL THAT THAT I'M GONNA SHABNAM." THIS NURSE ADVISED PT THAT IT IS NOT APPROPRIATE TO SPEAK TO THIS NURSE THAT WAY AND ADVISED PT THE TYLENOL WILL STILL ASSIST WITH PAIN MANAGMENT. THE PT STATED "I AIN'T TAKEN THE TYLENOL IT DOESN'T DO ANYTHING AND YOU AINT KICKING ME OUT OF HERE TOMORROW EITHER." THIS NURSE THEN AGAIN ASKED IF THE PT WANTED THE STOOL SOFTENER AND THE PT REFUSED. THIS NURSE EXITED THE ROOM.
--- NOTE | 2018-11-17 04:18 | NUR ---
SHIFT SUMMARY NO APPARENT ACUTE CHANGES NOTED. PT CONTINUES TO GO OUT TO SMOKE AND REMAIN GONE FOR SEVERAL HOURS. PT CONTINUES TO USE VULGAR LANGUAGE, THREATENING TONE WITH THREATS OF SUEING STAFF AND GETTING STAFF FIRED. PT ANGRY DUE TO NARCOTIC DC BUT PT REFUSES TYLENOL STILL. PT EDUCATED REGARDING ZERO TOLLERANCE FOR TREATING STAFF AND ADVISED THAT STAFF WOULD LEAVE ROOM AND COME BACK LATER WHILE PT IS CURSING AND THREATENING STAFF. ABLE TO MAKE NEEDS KNOWN AND CALL LIGHT IN REACH.
--- NOTE | 2018-11-17 18:21 | NUR ---
SHIFT SUMMARY PT HAS HAD NO ACUTE CHANGES THIS SHIFT, HAS BEEN COOPERATIVE W/CARE, OUTSIDE IN W/C SEVERAL TIMES DURING SHIFT, UP IN CHAIR EATING DINNER AT THIS TIME, WILL CONT TO MONITOR UNTIL REPORT GIVEN TO LUZ MARINA RN.
--- NOTE | 2018-11-18 04:02 | NUR ---
SHIFT SUMMARY THE PT HAS BEEN VERY PLEASENT AND COOPERATIVE WITH CARE SO FAR THIS SHIFT. THE PT CONTINUES TO GO OUTSIDE TO SMOKE BUT DOES NOT REMAIN OUTSIDE FOR LONG PERIODS OF TIME. THE PT IS UP IN ROOM AT THIS TIME. NO APPARENT SIGNS OF ACUTE DISTRESS. ABLE TO MAKE NEEDS KNOWN AND CALL LIGHT IN REACH.
--- NOTE | 2018-11-18 11:37 | NUR ---
Spiritual care visit attempted. Patient was cold and distant. I attempted to engage patient in coversation but he avoided any discussion. He fianally cut me off mid sentence and said, "Well, thanks for coming" and turned his wheelchair away from me so I was facing his back. I left the room but remain available to patient.
--- NOTE | 2018-11-18 16:21 | NUR ---
SHIFT SUMMARY PT HAS HAD NO ACUTE CHANGES THIS SHIFT, NO COMPLAINTS OF ANY KIND, PLEASANT AND COOPERATIVE WITH CARE, PT IS BEDRESTING AT THIS TIME, WILL CONT TO MONITOR UNTIL REPORT GIVEN TO NOC RN.
--- NOTE | 2018-11-19 04:24 | NUR ---
SHIFT SUMMARY NO APPARENT ACUTE CHANGES NOTED. PT NOTED TO BE WALKING IN HALLWAY HOLDING WOUND VAC AND APPEARS STEADY. LATER PT WENT OUT TO SMOKE IN W/C. PT HAS BEEN VERY PLEASENT AND COOPERATIVE AGAIN THIS NIGHT. NO APPARENT SIGNS OF ACUTE DISTRESS. ABLE TO MAKE NEEDS KNOWN AND CALL LIGHT IN REACH.
--- NOTE | 2018-11-19 18:24 | NUR ---
SHIFT SUMMARY PT HAS HAD NO ACUTE CHANGES THIS SHIFT, NO COMPLAINTS OF ANY KIND. PT OUT OF ROOM IN W/C AT THIS TIME, WILL CONT TO MONITOR UNTIL REPORT GIVEN TO LUZ MARINA STARR.
--- NOTE | 2018-11-20 03:55 | NUR ---
SHIFT SUMMARY NO ACUTE CHANGES TO PRESENT THIS SHIFT. PT IN AND OUT OF RM ALL SHIFT, OUT TO SMK. SOMETIMES WALKING AND SOMETIMES IN A W/C. PT NONCOMPLIANT WITH CARE. DOES NOT LEAVE WOUND VAC PLUGGED IN OR COMPLETELY REMOVES IT AND LEAVES IT IN RM. OTHERWISE PLEASANT. NO C/O. DOES NOT APPEAR TO BE IN ANY DISTRESS. CALL LT IN REACH.
--- NOTE | 2018-11-20 13:15 | NUR ---
Case conference with Mami Cutler (Business Administration Professor) regarding the discharge disposition of Royal (the principal). Discussion ensued around the ethicality of discharging the patient given his high risk of readmission and low expectation of wound recovery potential outside the hospital. This latter point revolves chiefly around Stephenie' history of non-compliance, care plan deviation, and known drug abuse tendencies. I vetted the case with broad representation from the bioethics panel and then facilitated a conversation with Royal and his girlfriend to discuss the concerns and risks patterns. Jacob Ibarra RN also participated in the interaction and made substantive contributions to the content and flow of the meeting. The plan proposed to care management and found agreeable to Royal and Selin is for Royal to be discharged home with his significant other, to pursue tobacco cessation, and to continue treatment as an outpatient. Mami Cutler is presently investigating the issue of providing him with a portable wound vac for home management. Thank you for this consult! Israel Penny DMin
--- NOTE | 2018-11-20 18:27 | NUR ---
Late entyr. Review of patient risks and needs with Israel Penny for ethical care plan and discussion Of [facility] directives of care.
--- NOTE | 2018-11-20 19:52 | NUR ---
WOUND VAC DRESSING CHANGED TODAY. MORE DC PLANNING AND ETHICS COMMITTEE WERE WITH HIM TODAY. WOUND VAC MACHINE WAS CHARGED AND WORKS FINE. HE WAS COOPERATIVE WITH ME. TYLENOL GIVEN X1 FOR PAIN IN HIS THIGH.
--- NOTE | 2018-11-21 04:27 | NUR ---
SHIFT SUMMARY NO ACUTE CHANGES TO PRESENT THIS SHIFT. R THIGH WOUND VAC DRSG CHANGED AGAIN ON FRIDAY. WOUND CONTINUES TO IMPROVE/HEAL. PT WAS SUPPOSE TO D/C SEVERAL TIMES THIS WEEK, BUT YELLS AND SCREAMS AT D/C BEAUTY DIRECTOR AND IS NOT HELPFUL IN ASSISTING WITH NEEDED CARE. PT'S S/O HERE TONIGHT, SLEEPING IN PT'S BED. PT IN AND OUT OF W/C AND BED. PT HAS STAYED IN RM MORE TONIGHT THAN FRIDAY NIGHT. CO-OP WITH CARE GIVEN TONIGHT. HAS LEFT WOUND VAC ON AND PLUGGED IN WHEN IN RM. CALL LT IN REACH.
--- NOTE | 2018-11-21 18:53 | NUR ---
NO CHANGES THIS SHIFT.
--- NOTE | 2018-11-22 06:29 | NUR ---
SHIFT SUMMARY WENT OUT TO SMOKE A COUPLE TIMES T/O NIGHT. SLEPT ON AND OFF T/O NIGHT C SO IN BED. REINFORCED WOUND VAC.
--- NOTE | 2018-11-22 16:44 | NUR ---
NO CHANGES TO PATIENTS CONDITION. HE STILL COMPLAINS REGARDING HIS FOOD CHOICES AND DEMANDS STAFF TO BRING HIM MORE AND BETTER FOOD. HIS MOODS ARE LABILE . NURSE HAS HAD TO REMIND HIM TO NOT CURSE AT OR ATTACK THE AIDES VERBALLY. OR GIRLFRIEND CONTINUES TO SLEEP OVER ALL NIGHT AND DAY.
--- NOTE | 2018-11-23 06:46 | NUR ---
SHIFT SUMMARY PT WALKED OUTSIDE COUPLE TIMES C SO. SLEPT ON AND OFF T/O NOC. BOTH HIM AND SO IN BED. WOUND VAC DRAINING APPROX A TOTAL OF 375 IN CANISTER SEROUS FLUID. CALL LIGHT IN REACH
--- NOTE | 2018-11-23 15:43 | NUR ---
Spiritual care visit. I stopped by patient's room as he was in the process of being discharged. Patient said he was happy to leave but unsure about having a place that will work when he leaves. I listened empathically, provided prayer and gave patient one of my Bibles (because he was asking for a large print [employer] Version). Patient said thank you.
[2018-11-23] MEDS ORDERED: BENADRYL25 MG PO ×2 (15:58)
[2018-11-23] MEDS ORDERED: ACET325 PO ×2 (15:58)
[2018-11-23] MEDS ORDERED: DOCU100 PO ×2 (16:00)
--- NOTE | 2018-11-23 16:42 | NUR ---
PATIENT D/C'D TO [place] [facility]IA [facility]. D/C INSTRUCTIONS AND EDUCATION DISCUSSED WITH PATIENT PRIOR TO D/C AND COPY PROVIDED. RX MEDICATIONS CALLED INTO [facility] ON [address]. WOUND VAC CHANGED AND PATIENT INSTRUCTED ON HOW TO CHANGE CANISTER. PATIENT HAS HIS NEXT WOUND VAC CHANGE AT WOUND CLINIC ON FRIDAY AND TRANSPORTATION HAS ALREADY BEEN SET UP.
[2018-11-30] MEDS ORDERED: LEVFLO500 PO (14:02)
== END 2018-11-23 16:36 | disposition home or self-care (01) | DRG 854 ==
LOC: ER 13:21 → MEDS 20:14
PROVIDERS: Emergency Medicine; Family Medicine; Internal Medicine; Orthopaedic Surgery; Physician Assistant; ADMIT Internal Medicine
PROC: 0S9C0ZX Drainage of Right Knee Joint, Open Approach, Diagnostic (ICD-10-PCS; principal; 2018-10-13 12:30)
PROC: 0SBC0ZZ Excision of Right Knee Joint, Open Approach (ICD-10-PCS; 2018-10-16)
DX: A41.9 Sepsis, unspecified organism (principal); M00.061 Staphylococcal arthritis, right knee; L02.415 Cutaneous abscess of right lower limb; B95.61 Methicillin susceptible Staphylococcus aureus infection as the cause of diseases classified elsewhere; I25.10 Atherosclerotic heart disease of native coronary artery without angina pectoris; I10 Essential (primary) hypertension; I73.9 Peripheral vascular disease, unspecified; D64.9 Anemia, unspecified; J44.9 Chronic obstructive pulmonary disease, unspecified; F17.210 Nicotine dependence, cigarettes, uncomplicated; Z59.0 Homelessness; Z86.73 Personal history of transient ischemic attack (TIA), and cerebral infarction without residual deficits; I25.2 Old myocardial infarction; Z79.82 Long term (current) use of aspirin; F19.10 Other psychoactive substance abuse, uncomplicated; Z91.14 Patient's other noncompliance with medication regimen
CPT/HCPCS: 10160; 36415; 73562-RT; 73700; 73701; 80048; 80053; 80069; 80202; 83605; 83735; 85025; 85027; 85651; 86140; 87015; 87040; 87070; 87071; 87075; 87077; 87102; 87116; 87147; 87186; 87205; 87206; 89051; 90686; 94664; 94760; 96365; 96367; 96375; 98960; 99285-25; 99407; A9270-GY; C1751; G0480; J0690; J1100; J1170; J1650; J1885; J2250; J2370; J2405; J2543; J3010; J3370; J7030; J7050; J7120; Q9967

== ENCOUNTER 2018-11-26 10:52 | Emergency (ER) | payer OTHER ==
[~2018-11-26] VITALS: Ht 172.7 cm; Wt 72.6 kg
[~2018-11-26 10:52] MED LIST changes: +BENADRYL25 MG PO; +DOCU100 PO
[2018-11-26 11:37] LABS: BASOPHILS ABSOLUTE AUTO 0.02 K/mm3 (0.00-0.23); BASOPHILS PERCENT AUTO 0 % (0-2); EOSINOPHILS ABSOLUTE AUTO 0.29 K/mm3 (0.00-0.68); EOSINOPHILS PERCENT AUTO 3 % (0-6); Hematocrit 38.5 % (37.0-53.0); Hemoglobin 12.4 g/dL (13.5-17.5); IMMATURE GRAN ABSOLUTE AUTO 0.05 K/mm3 (0.00-0.10); IMMATURE GRAN PERCENT AUTO 1 % (0-1); LYMPHOCYTES ABSOLUTE AUTO 1.91 K/mm3 (0.84-5.20); LYMPHOCYTES PERCENT AUTO 21 % (21-46); MONOCYTES ABSOLUTE AUTO 1.14 K/mm3 (0.16-1.47); MONOCYTES PERCENT AUTO 12 % (4-13); Mean Corpuscular HGB 29.2 pg (26.0-34.0); Mean Corpuscular HGB Conc 32.2 g/dL (31.5-36.5); Mean Corpuscular Volume 91 fL (80-100); Mean Platelet Volume 9.2 fL (9.1-12.4); NEUTROPHILS ABSOLUTE AUTO 5.85 K/mm3 (1.96-9.15); NEUTROPHILS PERCENT AUTO 63 % (41-73); Platelet Count 455 K/mm3 (150-400); RDW Coefficient Variation 13.7 % (11.7-14.2); RDW Standard Deviation 44.6 fL (35.1-46.3); Red Blood Cell Count 4.25 M/mm3 (4.30-5.90); White Blood Cell Count 9.26 K/mm3 (4.00-11.30)
[2018-11-26 11:55] LABS: Alanine Aminotransfer (ALT/SGP 19 U/L (12-78); Albumin, Blood 2.7 g/dL (3.4-5.0); Albumin/Globulin Ratio 0.6 (0.8-1.8); Alk Phos 99 U/L (50-136); Anion Gap 9 mmol/L (6-16); Aspartate Aminotrans (AST/SGOT 26 U/L (12-37); Bilirubin, Total 0.3 mg/dL (0.1-1.0); Blood Urea Nitrogen 11 mg/dL (8-24); Bun/Creatinine Ratio 15.9 (12.0-20.0); CO2, Blood 24 mmol/L (21-32); Calcium, Blood 8.4 mg/dL (8.5-10.1); Chloride, Blood 107 mmol/L (98-108); Creatinine, Blood 0.69 mg/dL (0.60-1.20); Globulin, Blood 4.7 g/dL (2.2-4.0); Glomerular Filtration Rate >60 (60-); Glucose, Blood 92 mg/dL (70-99); Potassium, Blood 4.6 mmol/L (3.5-5.5); Sodium, Blood 140 mmol/L (136-145); Total Protein, Blood 7.4 g/dL (6.4-8.2)
[2018-11-30] MEDS ORDERED: LEVFLO500 PO (14:02)
== END 2018-11-26 13:03 | disposition home or self-care (01) ==
LOC: ER 10:52
PROVIDERS: Emergency Medicine
DX: Z48.817 Encounter for surgical aftercare following surgery on the skin and subcutaneous tissue (principal); I25.2 Old myocardial infarction; Z79.899 Other long term (current) drug therapy
CPT/HCPCS: 36415; 80053; 85025; 96374; 99283-25; J3010

== ENCOUNTER 2018-11-28 15:37 | Emergency (ER) | payer OTHER ==
[~2018-11-28] VITALS: Ht 175.3 cm; Wt 90.7 kg
[2018-11-28 16:15] LABS: BASOPHILS ABSOLUTE AUTO 0.02 K/mm3 (0.00-0.23); BASOPHILS PERCENT AUTO 0 % (0-2); EOSINOPHILS ABSOLUTE AUTO 0.24 K/mm3 (0.00-0.68); EOSINOPHILS PERCENT AUTO 2 % (0-6); Hematocrit 34.9 % (37.0-53.0); Hemoglobin 11.8 g/dL (13.5-17.5); IMMATURE GRAN ABSOLUTE AUTO 0.04 K/mm3 (0.00-0.10); IMMATURE GRAN PERCENT AUTO 0 % (0-1); LYMPHOCYTES ABSOLUTE AUTO 1.99 K/mm3 (0.84-5.20); LYMPHOCYTES PERCENT AUTO 17 % (21-46); MONOCYTES PERCENT AUTO 11 % (4-13); Mean Corpuscular HGB 29.9 pg (26.0-34.0); Mean Corpuscular HGB Conc 33.8 g/dL (31.5-36.5); Mean Corpuscular Volume 89 fL (80-100); NEUTROPHILS ABSOLUTE AUTO 8.24 K/mm3 (1.96-9.15); NEUTROPHILS PERCENT AUTO 70 % (41-73); Platelet Count 499 K/mm3 (150-400); RDW Coefficient Variation 13.3 % (11.7-14.2); RDW Standard Deviation 43.6 fL (35.1-46.3); Red Blood Cell Count 3.94 M/mm3 (4.30-5.90); White Blood Cell Count 11.83 K/mm3 (4.00-11.30)
[2018-11-28 16:31] LABS: International Normalized Ratio 0.93; Prothrombin Time Results 9.8 Sec (9.7-11.5)
[2018-11-28 16:34] LABS: Alanine Aminotransfer (ALT/SGP 17 U/L (12-78); Albumin, Blood 2.8 g/dL (3.4-5.0); Albumin/Globulin Ratio 0.6 (0.8-1.8); Alk Phos 99 U/L (50-136); Anion Gap 7 mmol/L (6-16); Aspartate Aminotrans (AST/SGOT 14 U/L (12-37); Bilirubin, Total 0.2 mg/dL (0.1-1.0); Blood Urea Nitrogen 13 mg/dL (8-24); Bun/Creatinine Ratio 19.2 (12.0-20.0); CO2, Blood 22 mmol/L (21-32); Calcium, Blood 8.6 mg/dL (8.5-10.1); Chloride, Blood 109 mmol/L (98-108); Creatinine, Blood 0.68 mg/dL (0.60-1.20); Globulin, Blood 4.6 g/dL (2.2-4.0); Glomerular Filtration Rate >60 (60-); Glucose, Blood 98 mg/dL (70-99); Potassium, Blood 3.7 mmol/L (3.5-5.5); Sodium, Blood 138 mmol/L (136-145); Total Protein, Blood 7.4 g/dL (6.4-8.2)
[2018-11-30] MEDS ORDERED: LEVFLO500 PO (14:02)
== END 2018-11-28 21:19 | disposition home or self-care (01) ==
LOC: ER 15:37
PROVIDERS: Physician Assistant
DX: S81.001A Unspecified open wound, right knee, initial encounter (principal); S71.101A Unspecified open wound, right thigh, initial encounter; X58.XXXA Exposure to other specified factors, initial encounter; Z79.899 Other long term (current) drug therapy; Z79.82 Long term (current) use of aspirin; Z86.73 Personal history of transient ischemic attack (TIA), and cerebral infarction without residual deficits; F17.210 Nicotine dependence, cigarettes, uncomplicated
CPT/HCPCS: 36415; 80053; 83605; 85025; 85610; 85730; 93005; 93010; 96374; 99284-25; J1885

== ENCOUNTER 2018-12-02 00:57 | Emergency (ER) | payer OTHER ==
[~2018-12-02] VITALS: Ht 175.3 cm; Wt 90.7 kg
[~2018-12-02 00:57] MED LIST changes: +LEVFLO500 PO
[2018-12-02 02:31] LABS: BASOPHILS PERCENT AUTO 1 % (0-2); EOSINOPHILS PERCENT AUTO 4 % (0-6); Hematocrit 35.9 % (37.0-53.0); Hemoglobin 11.7 g/dL (13.5-17.5); IMMATURE GRAN ABSOLUTE AUTO 0.13 K/mm3 (0.00-0.10); IMMATURE GRAN PERCENT AUTO 1 % (0-1); LYMPHOCYTES ABSOLUTE AUTO 3.66 K/mm3 (0.84-5.20); LYMPHOCYTES PERCENT AUTO 28 % (21-46); MONOCYTES ABSOLUTE AUTO 1.15 K/mm3 (0.16-1.47); MONOCYTES PERCENT AUTO 9 % (4-13); Mean Corpuscular HGB 30.1 pg (26.0-34.0); Mean Corpuscular HGB Conc 32.6 g/dL (31.5-36.5); Mean Corpuscular Volume 92 fL (80-100); Mean Platelet Volume 8.6 fL (9.1-12.4); NEUTROPHILS ABSOLUTE AUTO 7.42 K/mm3 (1.96-9.15); NEUTROPHILS PERCENT AUTO 57 % (41-73); Platelet Count 616 K/mm3 (150-400); RDW Coefficient Variation 13.9 % (11.7-14.2); Red Blood Cell Count 3.89 M/mm3 (4.30-5.90); White Blood Cell Count 12.96 K/mm3 (4.00-11.30)
[2018-12-02 02:50] LABS: Alanine Aminotransfer (ALT/SGP 22 U/L (12-78); Albumin, Blood 2.6 g/dL (3.4-5.0); Albumin/Globulin Ratio 0.5 (0.8-1.8); Alk Phos 96 U/L (50-136); Anion Gap 6 mmol/L (6-16); Aspartate Aminotrans (AST/SGOT 18 U/L (12-37); Bilirubin, Total <0.1 mg/dL (0.1-1.0); Blood Urea Nitrogen 15 mg/dL (8-24); Bun/Creatinine Ratio 12.3 (12.0-20.0); CO2, Blood 29 mmol/L (21-32); Calcium, Blood 8.5 mg/dL (8.5-10.1); Chloride, Blood 108 mmol/L (98-108); Creatinine, Blood 1.22 mg/dL (0.60-1.20); Globulin, Blood 4.8 g/dL (2.2-4.0); Glomerular Filtration Rate >60 (60-); Glucose, Blood 76 mg/dL (70-99); Potassium, Blood 4.3 mmol/L (3.5-5.5); Sodium, Blood 143 mmol/L (136-145); Total Protein, Blood 7.4 g/dL (6.4-8.2)
== END 2018-12-02 04:47 | disposition home or self-care (01) ==
LOC: ER 00:57
PROVIDERS: Emergency Medicine
DX: Z48.00 Encounter for change or removal of nonsurgical wound dressing (principal); I25.2 Old myocardial infarction; F17.200 Nicotine dependence, unspecified, uncomplicated; Z79.82 Long term (current) use of aspirin; Z79.899 Other long term (current) drug therapy
CPT/HCPCS: 36415; 80053; 85025; 99283

== ENCOUNTER 2018-12-03 19:14 | Emergency (ER) | payer OTHER ==
[~2018-12-03] VITALS: Ht 175.3 cm; Wt 90.7 kg
[2018-12-03 20:27] LABS: BASOPHILS ABSOLUTE AUTO 0.07 K/mm3 (0.00-0.23); BASOPHILS PERCENT AUTO 0 % (0-2); EOSINOPHILS ABSOLUTE AUTO 0.15 K/mm3 (0.00-0.68); EOSINOPHILS PERCENT AUTO 1 % (0-6); Hematocrit 38.4 % (37.0-53.0); Hemoglobin 12.6 g/dL (13.5-17.5); IMMATURE GRAN ABSOLUTE AUTO 0.14 K/mm3 (0.00-0.10); IMMATURE GRAN PERCENT AUTO 1 % (0-1); LYMPHOCYTES ABSOLUTE AUTO 1.83 K/mm3 (0.84-5.20); LYMPHOCYTES PERCENT AUTO 11 % (21-46); MONOCYTES ABSOLUTE AUTO 1.28 K/mm3 (0.16-1.47); MONOCYTES PERCENT AUTO 8 % (4-13); Mean Corpuscular HGB 29.7 pg (26.0-34.0); Mean Corpuscular HGB Conc 32.8 g/dL (31.5-36.5); Mean Corpuscular Volume 91 fL (80-100); Mean Platelet Volume 8.5 fL (9.1-12.4); NEUTROPHILS ABSOLUTE AUTO 13.42 K/mm3 (1.96-9.15); NEUTROPHILS PERCENT AUTO 80 % (41-73); Platelet Count 663 K/mm3 (150-400); RDW Coefficient Variation 13.5 % (11.7-14.2); RDW Standard Deviation 45.2 fL (35.1-46.3); Red Blood Cell Count 4.24 M/mm3 (4.30-5.90); White Blood Cell Count 16.89 K/mm3 (4.00-11.30)
[2018-12-03 20:57] LABS: Alanine Aminotransfer (ALT/SGP 26 U/L (12-78); Albumin, Blood 2.7 g/dL (3.4-5.0); Albumin/Globulin Ratio 0.5 (0.8-1.8); Alk Phos 100 U/L (50-136); Anion Gap 5 mmol/L (6-16); Aspartate Aminotrans (AST/SGOT 17 U/L (12-37); Bilirubin, Total 0.2 mg/dL (0.1-1.0); Blood Urea Nitrogen 21 mg/dL (8-24); Bun/Creatinine Ratio 21.6 (12.0-20.0); CO2, Blood 28 mmol/L (21-32); Calcium, Blood 8.6 mg/dL (8.5-10.1); Chloride, Blood 103 mmol/L (98-108); Creatinine, Blood 0.97 mg/dL (0.60-1.20); Glomerular Filtration Rate >60 (60-); Glucose, Blood 150 mg/dL (70-99); Potassium, Blood 3.9 mmol/L (3.5-5.5); Sodium, Blood 136 mmol/L (136-145); Total Protein, Blood 7.7 g/dL (6.4-8.2)
== END 2018-12-04 00:27 | disposition home or self-care (01) ==
LOC: ER 19:14
PROVIDERS: Physician Assistant
DX: L97.119 Non-pressure chronic ulcer of right thigh with unspecified severity (principal); Z91.19 Patient's noncompliance with other medical treatment and regimen; Z79.82 Long term (current) use of aspirin; Z79.899 Other long term (current) drug therapy; I25.2 Old myocardial infarction; Z86.73 Personal history of transient ischemic attack (TIA), and cerebral infarction without residual deficits; F17.200 Nicotine dependence, unspecified, uncomplicated
CPT/HCPCS: 36415; 80053; 83605; 84145; 85025; 99283

== ENCOUNTER 2018-12-14 07:23 | Emergency (ER) | payer OTHER ==
[~2018-12-14] VITALS: Ht 175.3 cm; Wt 95.2 kg
[2018-12-14 08:36] LABS: BASOPHILS ABSOLUTE AUTO 0.07 K/mm3 (0.00-0.23); BASOPHILS PERCENT AUTO 1 % (0-2); EOSINOPHILS ABSOLUTE AUTO 0.26 K/mm3 (0.00-0.68); EOSINOPHILS PERCENT AUTO 2 % (0-6); Hematocrit 35.3 % (37.0-53.0); Hemoglobin 11.4 g/dL (13.5-17.5); IMMATURE GRAN ABSOLUTE AUTO 0.05 K/mm3 (0.00-0.10); IMMATURE GRAN PERCENT AUTO 1 % (0-1); LYMPHOCYTES ABSOLUTE AUTO 1.94 K/mm3 (0.84-5.20); LYMPHOCYTES PERCENT AUTO 18 % (21-46); MONOCYTES ABSOLUTE AUTO 1.01 K/mm3 (0.16-1.47); MONOCYTES PERCENT AUTO 10 % (4-13); Mean Corpuscular HGB 28.9 pg (26.0-34.0); Mean Corpuscular HGB Conc 32.3 g/dL (31.5-36.5); Mean Corpuscular Volume 90 fL (80-100); Mean Platelet Volume 8.5 fL (9.1-12.4); NEUTROPHILS ABSOLUTE AUTO 7.35 K/mm3 (1.96-9.15); NEUTROPHILS PERCENT AUTO 69 % (41-73); Platelet Count 613 K/mm3 (150-400); RDW Coefficient Variation 13.9 % (11.7-14.2); RDW Standard Deviation 46.1 fL (35.1-46.3); Red Blood Cell Count 3.94 M/mm3 (4.30-5.90); White Blood Cell Count 10.68 K/mm3 (4.00-11.30)
[2018-12-14 09:24] LABS: Alanine Aminotransfer (ALT/SGP 21 U/L (12-78); Albumin, Blood 2.8 g/dL (3.4-5.0); Albumin/Globulin Ratio 0.5 (0.8-1.8); Alk Phos 102 U/L (50-136); Anion Gap 5 mmol/L (6-16); Aspartate Aminotrans (AST/SGOT 19 U/L (12-37); Bilirubin, Total <0.1 mg/dL (0.1-1.0); Blood Urea Nitrogen 15 mg/dL (8-24); Bun/Creatinine Ratio 18.3 (12.0-20.0); CO2, Blood 27 mmol/L (21-32); Calcium, Blood 8.8 mg/dL (8.5-10.1); Chloride, Blood 106 mmol/L (98-108); Creatinine, Blood 0.82 mg/dL (0.60-1.20); Globulin, Blood 5.1 g/dL (2.2-4.0); Glomerular Filtration Rate >60 (60-); Glucose, Blood 88 mg/dL (70-99); Potassium, Blood 4.2 mmol/L (3.5-5.5); Sodium, Blood 138 mmol/L (136-145); Total Protein, Blood 7.9 g/dL (6.4-8.2)
[2018-12-14] MEDS ORDERED: Bactrim Ds Tab1 EACH PO (11:05)
[2018-12-14] MEDS ORDERED: LEVO750 PO (11:05)
== END 2018-12-14 15:08 | disposition home or self-care (01) ==
LOC: ER 07:23
PROVIDERS: Emergency Medicine
DX: T81.49XA Infection following a procedure, other surgical site, initial encounter (principal); L08.9 Local infection of the skin and subcutaneous tissue, unspecified; Z91.19 Patient's noncompliance with other medical treatment and regimen; I25.2 Old myocardial infarction; Z86.73 Personal history of transient ischemic attack (TIA), and cerebral infarction without residual deficits; I10 Essential (primary) hypertension; J44.9 Chronic obstructive pulmonary disease, unspecified; F17.210 Nicotine dependence, cigarettes, uncomplicated; Z79.82 Long term (current) use of aspirin; Z79.899 Other long term (current) drug therapy
CPT/HCPCS: 73701; 80053; 85025; 96365-59; 96367-59; 96375-59; 99284-25; J2405; J2543; J3010; J3370; Q9967

== ENCOUNTER 2018-12-15 01:16 | Day surgery (SDC) | payer OTHER | END 2018-12-15 23:18 | disposition home or self-care (01) | LOC: WOUND 01:16 | DX: L97.115 Non-pressure chronic ulcer of right thigh with muscle involvement without evidence of necrosis (principal); L97.811 Non-pressure chronic ulcer of other part of right lower leg limited to breakdown of skin; I10 Essential (primary) hypertension; I25.10 Atherosclerotic heart disease of native coronary artery without angina pectoris; I25.2 Old myocardial infarction; J44.9 Chronic obstructive pulmonary disease, unspecified; E78.5 Hyperlipidemia, unspecified; Z86.73 Personal history of transient ischemic attack (TIA), and cerebral infarction without residual deficits; Z59.0 Homelessness ==

== ENCOUNTER 2018-12-16 02:03 | Emergency (ER) | payer OTHER ==
[~2018-12-16] VITALS: Ht 172.7 cm; Wt 59.0 kg
== END 2018-12-16 03:10 | disposition home or self-care (01) ==
LOC: ER 02:03
DX: Z48.89 Encounter for other specified surgical aftercare (principal); Z79.899 Other long term (current) drug therapy; Z79.82 Long term (current) use of aspirin; I25.2 Old myocardial infarction; Z86.73 Personal history of transient ischemic attack (TIA), and cerebral infarction without residual deficits; F17.210 Nicotine dependence, cigarettes, uncomplicated
CPT/HCPCS: 99283

== ENCOUNTER 2018-12-17 10:53 | Day surgery (SDC) | payer OTHER | END 2018-12-17 22:46 | disposition home or self-care (01) | LOC: WOUND | DX: L97.113 Non-pressure chronic ulcer of right thigh with necrosis of muscle (principal); J44.9 Chronic obstructive pulmonary disease, unspecified; I10 Essential (primary) hypertension; I25.10 Atherosclerotic heart disease of native coronary artery without angina pectoris; I25.2 Old myocardial infarction; Z95.5 Presence of coronary angioplasty implant and graft; Z86.73 Personal history of transient ischemic attack (TIA), and cerebral infarction without residual deficits ==

== ENCOUNTER 2018-12-24 09:09 | Day surgery (SDC) | payer OTHER | END 2018-12-24 23:46 | disposition home or self-care (01) | LOC: WOUND 09:09 | DX: L97.113 Non-pressure chronic ulcer of right thigh with necrosis of muscle (principal); L97.819 Non-pressure chronic ulcer of other part of right lower leg with unspecified severity; I10 Essential (primary) hypertension; E78.5 Hyperlipidemia, unspecified; I25.10 Atherosclerotic heart disease of native coronary artery without angina pectoris; J44.9 Chronic obstructive pulmonary disease, unspecified; I25.2 Old myocardial infarction; Z59.0 Homelessness; Z95.5 Presence of coronary angioplasty implant and graft; Z86.73 Personal history of transient ischemic attack (TIA), and cerebral infarction without residual deficits ==

== ENCOUNTER 2018-12-25 00:22 | Day surgery (SDC) | payer OTHER | END 2018-12-25 23:37 | disposition home or self-care (01) | LOC: WOUND 00:22 | DX: L97.113 Non-pressure chronic ulcer of right thigh with necrosis of muscle (principal); I10 Essential (primary) hypertension; I25.2 Old myocardial infarction; I25.10 Atherosclerotic heart disease of native coronary artery without angina pectoris; J44.9 Chronic obstructive pulmonary disease, unspecified; E78.5 Hyperlipidemia, unspecified; Z86.73 Personal history of transient ischemic attack (TIA), and cerebral infarction without residual deficits; Z59.0 Homelessness ==

== ENCOUNTER 2019-01-03 16:06 | Emergency (ER) | payer OTHER ==
[~2019-01-03] VITALS: Ht 177.8 cm; Wt 104.3 kg
== END 2019-01-03 17:37 | disposition home or self-care (01) ==
LOC: ER 16:06
DX: L97.119 Non-pressure chronic ulcer of right thigh with unspecified severity (principal); Z91.19 Patient's noncompliance with other medical treatment and regimen; I10 Essential (primary) hypertension; J44.9 Chronic obstructive pulmonary disease, unspecified; Z86.73 Personal history of transient ischemic attack (TIA), and cerebral infarction without residual deficits
CPT/HCPCS: 99283

== ENCOUNTER 2019-01-11 13:11 | Emergency (ER) | payer OTHER ==
[~2019-01-11] VITALS: Ht 175.3 cm; Wt 86.2 kg
[2019-01-11] MEDS ORDERED: Sulfamethoxazo1 EAC4 PO (15:44)
== END 2019-01-11 17:16 | disposition home or self-care (01) ==
LOC: ER 13:11
DX: L97.919 Non-pressure chronic ulcer of unspecified part of right lower leg with unspecified severity (principal); Z91.19 Patient's noncompliance with other medical treatment and regimen; Z86.73 Personal history of transient ischemic attack (TIA), and cerebral infarction without residual deficits; I10 Essential (primary) hypertension; J44.9 Chronic obstructive pulmonary disease, unspecified; F17.210 Nicotine dependence, cigarettes, uncomplicated; Z79.899 Other long term (current) drug therapy; Z79.82 Long term (current) use of aspirin
CPT/HCPCS: 99283

== ENCOUNTER 2019-01-22 10:00 | Day surgery (SDC) | payer OTHER ==
[~2019-01-22 10:00] MED LIST changes: +Sulfamethoxazo1 EAC4 PO
[2019-01-22] MEDS ORDERED: IBUP400 PO (17:02)
== END 2019-01-23 22:56 | disposition home or self-care (01) ==
LOC: WOUND 10:00
DX: L97.113 Non-pressure chronic ulcer of right thigh with necrosis of muscle (principal); I10 Essential (primary) hypertension; Z59.0 Homelessness; E78.5 Hyperlipidemia, unspecified; I25.10 Atherosclerotic heart disease of native coronary artery without angina pectoris
CPT/HCPCS: G0463

== ENCOUNTER 2019-01-27 00:11 | Day surgery (SDC) | payer OTHER ==
[~2019-01-27 00:11] MED LIST changes: +IBUP400 PO
[2019-01-27] MEDS ORDERED: IBUP400 PO (19:26)
== END 2019-01-27 22:42 | disposition home or self-care (01) ==
LOC: WOUND 00:11
DX: L97.113 Non-pressure chronic ulcer of right thigh with necrosis of muscle (principal); I10 Essential (primary) hypertension; E78.5 Hyperlipidemia, unspecified; I25.10 Atherosclerotic heart disease of native coronary artery without angina pectoris; J44.9 Chronic obstructive pulmonary disease, unspecified; I25.2 Old myocardial infarction; Z95.5 Presence of coronary angioplasty implant and graft; Z59.0 Homelessness; Z86.73 Personal history of transient ischemic attack (TIA), and cerebral infarction without residual deficits
CPT/HCPCS: G0463

== ENCOUNTER 2019-01-27 16:47 | Inpatient (IN) | payer OTHER ==
[~2019-01-27] VITALS: Ht 175.3 cm; Wt 76.7 kg
[2019-01-27 18:17] LABS: BASOPHILS ABSOLUTE AUTO 0.05 K/mm3 (0.00-0.23); BASOPHILS PERCENT AUTO 1 % (0-2); EOSINOPHILS ABSOLUTE AUTO 0.32 K/mm3 (0.00-0.68); EOSINOPHILS PERCENT AUTO 3 % (0-6); Hematocrit 37.1 % (37.0-53.0); Hemoglobin 11.7 g/dL (13.5-17.5); IMMATURE GRAN ABSOLUTE AUTO 0.04 K/mm3 (0.00-0.10); IMMATURE GRAN PERCENT AUTO 0 % (0-1); LYMPHOCYTES ABSOLUTE AUTO 2.75 K/mm3 (0.84-5.20); LYMPHOCYTES PERCENT AUTO 29 % (21-46); MONOCYTES ABSOLUTE AUTO 0.88 K/mm3 (0.16-1.47); MONOCYTES PERCENT AUTO 9 % (4-13); Mean Corpuscular HGB 26.8 pg (26.0-34.0); Mean Corpuscular HGB Conc 31.5 g/dL (31.5-36.5); Mean Corpuscular Volume 85 fL (80-100); Mean Platelet Volume 8.7 fL (9.1-12.4); NEUTROPHILS PERCENT AUTO 57 % (41-73); Platelet Count 487 K/mm3 (150-400); RDW Coefficient Variation 15.9 % (11.7-14.2); RDW Standard Deviation 49.7 fL (35.1-46.3); Red Blood Cell Count 4.36 M/mm3 (4.30-5.90); White Blood Cell Count 9.44 K/mm3 (4.00-11.30)
[2019-01-27 18:53] LABS: Alanine Aminotransfer (ALT/SGP 18 U/L (12-78); Albumin, Blood 2.6 g/dL (3.4-5.0); Albumin/Globulin Ratio 0.5 (0.8-1.8); Alk Phos 102 U/L (50-136); Anion Gap 5 mmol/L (6-16); Aspartate Aminotrans (AST/SGOT 12 U/L (12-37); Bilirubin, Total 0.2 mg/dL (0.1-1.0); Blood Urea Nitrogen 13 mg/dL (8-24); Bun/Creatinine Ratio 16.5 (12.0-20.0); CO2, Blood 25 mmol/L (21-32); Calcium, Blood 8.7 mg/dL (8.5-10.1); Chloride, Blood 106 mmol/L (98-108); Creatinine, Blood 0.79 mg/dL (0.60-1.20); Globulin, Blood 4.8 g/dL (2.2-4.0); Glomerular Filtration Rate >60 (60-); Glucose, Blood 89 mg/dL (70-99); Potassium, Blood 4.2 mmol/L (3.5-5.5); Sodium, Blood 136 mmol/L (136-145); Total Protein, Blood 7.4 g/dL (6.4-8.2)
[2019-01-27] MEDS ORDERED: IBUP400 PO (19:26)
--- NOTE | 2019-01-28 04:06 | NUR ---
SHIFT SUMMARY: PT IS ALERT AND ORIENTED. PT IS CALM AND COOPERATIVE WITH CARE. PT CALLS APPROPRIATELY. PT IS INDEPENDENT. R. LEG WOUND, PICTURES TAKEN, IN CHART. PT REPORTS R. LEG PAIN, MEDICATING PER EMAR. PT OUTSIDE TO SMOKE ON SEVERAL OCCASIONS. PT DENIES NAUSEA, VOMITING, AND SOB. DRESSING IN PLACE ON LEG WOUND. FLUIDS RUNNING ORDERED. PT SLEPT INTERMITTENTLY THROUGHOUT THE NIGHT. NO ACUTE CHANGES OR COMPLICATIONS THIS SHIFT. BED IN LOW POSITION, CALL LIGHT WITHIN REACH. WILL REPORT TO DAY NURSE.
[2019-01-28 05:09] LABS: International Normalized Ratio 0.93; Prothrombin Time Results 9.7 Sec (9.7-11.5)
--- NOTE | 2019-01-28 18:16 | NUR ---
SHIFT SUMMARY THIS RN ASSUMED CARE OF PT THIS EVENING. PT HAS HAD NO COMPLAINTS OR REQUESTS THIS EVENING. WAITING FOR DR. ROBERSON TO ASSESS PT'S WOUND. NO ACUTE CHANGES AT THIS TIME. PT IS OUT OF THE ROOM A LOT AND TRANSFERS SELF AROUND HOSPITAL IN WHEELCHAIR. WILL REPORT TO ONCOMING RN.
--- NOTE | 2019-01-29 05:59 | NUR ---
SHIFT SUMMARY PATIENT IS ALERT AND ORIENTED. GOES OUTSIDE FREQUENTLY TO SMOKE. PATIENT HAS BEEN COOPERATIVE AND PROACTIVE IN HIS CURRENT CARE. PATIENT SLEPT WELL THROUGHOUT THE NIGHT. COMPLAINED OF PAIN ONCE AND WAS MEDICATED ORDERED. VITALS STABLE.
[2019-01-29 08:39] LABS: Vancomycin, Trough 11.9 ug/mL (5.0-10.0)
[2019-01-29] MEDS ORDERED: NICO21TP TOP (11:55)
--- NOTE | 2019-01-29 13:00 | NUR ---
PATIENT DISCHARGE THE PATIENT WAS DISCHARGED HOME, VIA TAXI, AFTER DISCHARGE INSTRUCTIONS WERE GIVEN TO THE PATIENT. THE WAS TOLD ABOUT HIS FOLLOW UP APPOINTMENT AT AT THE WOUND CLINIC. THE PATIENT LEFT THE HOSPITAL NOT HAPPY WITH HIS DOCTOR FOR SENDING HIM HOME. THE PATIENT LEFT THE HOSPITAL WITHOUT CONCERN.
== END 2019-01-29 12:57 | disposition home or self-care (01) | DRG 550 ==
LOC: ER 16:47 → ERHOLD 20:16 → MEDS 20:16 → ENPENDDIS 01-29 10:50 → MEDS 01-29 12:57
PROVIDERS: Emergency Medicine; Nurse Practitioner Acute Care; ADMIT Internal Medicine
DX: M00.9 Pyogenic arthritis, unspecified (principal); S81.801A Unspecified open wound, right lower leg, initial encounter; I25.10 Atherosclerotic heart disease of native coronary artery without angina pectoris; J44.9 Chronic obstructive pulmonary disease, unspecified; I10 Essential (primary) hypertension; Z91.19 Patient's noncompliance with other medical treatment and regimen; Z86.73 Personal history of transient ischemic attack (TIA), and cerebral infarction without residual deficits; I25.2 Old myocardial infarction; F17.210 Nicotine dependence, cigarettes, uncomplicated; F19.10 Other psychoactive substance abuse, uncomplicated; F10.10 Alcohol abuse, uncomplicated; M00.061 Staphylococcal arthritis, right knee; B95.61 Methicillin susceptible Staphylococcus aureus infection as the cause of diseases classified elsewhere
CPT/HCPCS: 36415; 73701; 80053; 80202; 83605; 85025; 85610; 85651; 86140; 87040; 87070; 87075; 87076; 87077; 87186; 87205; 96361-59; 96365-59; 96367-59; 96375-59; 99284-25; J1885; J2543; J3370; J7030; J7050; Q9967

== ENCOUNTER 2019-02-04 13:54 | Day surgery (SDC) | payer OTHER | END 2019-02-04 22:57 | disposition home or self-care (01) | LOC: WOUND | DX: L97.113 Non-pressure chronic ulcer of right thigh with necrosis of muscle (principal); J44.9 Chronic obstructive pulmonary disease, unspecified; I10 Essential (primary) hypertension; I25.10 Atherosclerotic heart disease of native coronary artery without angina pectoris; I25.2 Old myocardial infarction; M25.561 Pain in right knee; Z95.5 Presence of coronary angioplasty implant and graft; Z86.73 Personal history of transient ischemic attack (TIA), and cerebral infarction without residual deficits; Z59.0 Homelessness | CPT/HCPCS: G0463 ==

== ENCOUNTER 2019-02-05 08:00 | Day surgery (SDC) | payer OTHER | END 2019-02-05 22:45 | disposition home or self-care (01) | LOC: WOUND | DX: L97.113 Non-pressure chronic ulcer of right thigh with necrosis of muscle (principal); I10 Essential (primary) hypertension; E78.5 Hyperlipidemia, unspecified; I25.10 Atherosclerotic heart disease of native coronary artery without angina pectoris; J44.9 Chronic obstructive pulmonary disease, unspecified; I25.2 Old myocardial infarction; Z59.0 Homelessness; Z95.5 Presence of coronary angioplasty implant and graft; Z86.73 Personal history of transient ischemic attack (TIA), and cerebral infarction without residual deficits ==

== ENCOUNTER 2019-02-10 00:12 | Day surgery (SDC) | payer OTHER | END 2019-02-10 22:52 | disposition home or self-care (01) | LOC: WOUND | DX: L97.113 Non-pressure chronic ulcer of right thigh with necrosis of muscle (principal); I10 Essential (primary) hypertension; I25.10 Atherosclerotic heart disease of native coronary artery without angina pectoris; I25.2 Old myocardial infarction; E78.5 Hyperlipidemia, unspecified; Z95.0 Presence of cardiac pacemaker | CPT/HCPCS: G0463 ==

== ENCOUNTER 2019-02-12 14:15 | Day surgery (SDC) | payer OTHER | END 2019-02-12 23:01 | disposition home or self-care (01) | LOC: WOUND 14:15 | DX: L97.113 Non-pressure chronic ulcer of right thigh with necrosis of muscle (principal); I10 Essential (primary) hypertension; E78.5 Hyperlipidemia, unspecified; I25.10 Atherosclerotic heart disease of native coronary artery without angina pectoris; Z59.0 Homelessness | CPT/HCPCS: G0463 ==

== ENCOUNTER 2019-02-20 09:25 | Emergency (ER) | payer OTHER ==
[~2019-02-20] VITALS: Ht 175.3 cm; Wt 90.7 kg
[2019-02-20 10:08] LABS: BASOPHILS ABSOLUTE AUTO 0.08 K/mm3 (0.00-0.23); BASOPHILS PERCENT AUTO 1 % (0-2); EOSINOPHILS ABSOLUTE AUTO 0.23 K/mm3 (0.00-0.68); EOSINOPHILS PERCENT AUTO 2 % (0-6); Hematocrit 39.7 % (37.0-53.0); Hemoglobin 12.7 g/dL (13.5-17.5); IMMATURE GRAN ABSOLUTE AUTO 0.08 K/mm3 (0.00-0.10); IMMATURE GRAN PERCENT AUTO 1 % (0-1); LYMPHOCYTES ABSOLUTE AUTO 1.85 K/mm3 (0.84-5.20); LYMPHOCYTES PERCENT AUTO 13 % (21-46); MONOCYTES ABSOLUTE AUTO 0.97 K/mm3 (0.16-1.47); MONOCYTES PERCENT AUTO 7 % (4-13); Mean Corpuscular HGB 27.1 pg (26.0-34.0); Mean Corpuscular Volume 85 fL (80-100); Mean Platelet Volume 8.5 fL (9.1-12.4); NEUTROPHILS ABSOLUTE AUTO 11.08 K/mm3 (1.96-9.15); NEUTROPHILS PERCENT AUTO 78 % (41-73); Platelet Count 554 K/mm3 (150-400); RDW Standard Deviation 52.6 fL (35.1-46.3); Red Blood Cell Count 4.68 M/mm3 (4.30-5.90); White Blood Cell Count 14.29 K/mm3 (4.00-11.30)
[2019-02-20 10:31] LABS: Alanine Aminotransfer (ALT/SGP 20 U/L (12-78); Albumin, Blood 2.8 g/dL (3.4-5.0); Albumin/Globulin Ratio 0.6 (0.8-1.8); Alk Phos 104 U/L (50-136); Anion Gap 7 mmol/L (6-16); Aspartate Aminotrans (AST/SGOT 15 U/L (12-37); Bilirubin, Total 0.1 mg/dL (0.1-1.0); Blood Urea Nitrogen 13 mg/dL (8-24); Bun/Creatinine Ratio 16.3 (12.0-20.0); CO2, Blood 27 mmol/L (21-32); Chloride, Blood 105 mmol/L (98-108); Globulin, Blood 4.8 g/dL (2.2-4.0); Glomerular Filtration Rate >60 (60-); Glucose, Blood 97 mg/dL (70-99); Sodium, Blood 139 mmol/L (136-145); Total Protein, Blood 7.6 g/dL (6.4-8.2)
== END 2019-02-20 12:24 | disposition home or self-care (01) ==
LOC: ER 09:25
PROVIDERS: Physician Assistant
DX: L02.415 Cutaneous abscess of right lower limb (principal); I25.2 Old myocardial infarction; I10 Essential (primary) hypertension; J44.9 Chronic obstructive pulmonary disease, unspecified; F17.210 Nicotine dependence, cigarettes, uncomplicated; Z79.82 Long term (current) use of aspirin; Z79.899 Other long term (current) drug therapy; Z87.01 Personal history of pneumonia (recurrent)
CPT/HCPCS: 36415; 80053; 85025; 87070; 87075; 87077; 87147; 87186; 87205; 99283

== ENCOUNTER 2019-03-01 11:42 | Emergency (ER) | payer OTHER ==
[~2019-03-01] VITALS: Ht 175.3 cm; Wt 90.7 kg
[2019-03-01] MEDS ORDERED: Bactrim Ds Tab1 EACH PO (15:41)
== END 2019-03-01 16:10 | disposition home or self-care (01) ==
LOC: ER 11:42
DX: L08.9 Local infection of the skin and subcutaneous tissue, unspecified (principal); I25.2 Old myocardial infarction; Z79.82 Long term (current) use of aspirin; Z79.899 Other long term (current) drug therapy; F17.210 Nicotine dependence, cigarettes, uncomplicated; Z86.73 Personal history of transient ischemic attack (TIA), and cerebral infarction without residual deficits
CPT/HCPCS: 99283

== ENCOUNTER 2019-03-03 19:37 | Emergency (ER) | payer OTHER ==
[~2019-03-03] VITALS: Ht 175.3 cm; Wt 90.7 kg
[2019-03-03] MEDS ORDERED: NITR.4SL SL (19:45)
[2019-03-03 20:42] LABS: BASOPHILS ABSOLUTE AUTO 0.05 K/mm3 (0.00-0.23); BASOPHILS PERCENT AUTO 0 % (0-2); EOSINOPHILS ABSOLUTE AUTO 0.24 K/mm3 (0.00-0.68); EOSINOPHILS PERCENT AUTO 2 % (0-6); Hematocrit 36.4 % (37.0-53.0); Hemoglobin 11.7 g/dL (13.5-17.5); IMMATURE GRAN ABSOLUTE AUTO 0.05 K/mm3 (0.00-0.10); IMMATURE GRAN PERCENT AUTO 0 % (0-1); LYMPHOCYTES PERCENT AUTO 19 % (21-46); MONOCYTES ABSOLUTE AUTO 1.21 K/mm3 (0.16-1.47); MONOCYTES PERCENT AUTO 10 % (4-13); Mean Corpuscular HGB 26.9 pg (26.0-34.0); Mean Corpuscular HGB Conc 32.1 g/dL (31.5-36.5); Mean Corpuscular Volume 84 fL (80-100); Mean Platelet Volume 8.5 fL (9.1-12.4); NEUTROPHILS ABSOLUTE AUTO 7.94 K/mm3 (1.96-9.15); NEUTROPHILS PERCENT AUTO 68 % (41-73); Platelet Count 542 K/mm3 (150-400); RDW Coefficient Variation 16.9 % (11.7-14.2); RDW Standard Deviation 51.8 fL (35.1-46.3); Red Blood Cell Count 4.35 M/mm3 (4.30-5.90); White Blood Cell Count 11.69 K/mm3 (4.00-11.30)
[2019-03-03 21:05] LABS: Alanine Aminotransfer (ALT/SGP 17 U/L (12-78); Albumin, Blood 2.6 g/dL (3.4-5.0); Albumin/Globulin Ratio 0.5 (0.8-1.8); Alk Phos 105 U/L (50-136); Anion Gap 6 mmol/L (6-16); Aspartate Aminotrans (AST/SGOT 14 U/L (12-37); Bilirubin, Total 0.3 mg/dL (0.1-1.0); Blood Urea Nitrogen 9 mg/dL (8-24); Bun/Creatinine Ratio 10.7 (12.0-20.0); CO2, Blood 26 mmol/L (21-32); Calcium, Blood 8.6 mg/dL (8.5-10.1); Chloride, Blood 102 mmol/L (98-108); Creatinine, Blood 0.85 mg/dL (0.60-1.20); Globulin, Blood 5.1 g/dL (2.2-4.0); Glomerular Filtration Rate >60 (60-); Glucose, Blood 93 mg/dL (70-99); Potassium, Blood 3.9 mmol/L (3.5-5.5); Sodium, Blood 134 mmol/L (136-145); Total Protein, Blood 7.7 g/dL (6.4-8.2)
== END 2019-03-03 21:30 | disposition home or self-care (01) ==
LOC: ER 19:37
PROVIDERS: Student in an Organized Health Care Education/Training Program
DX: L97.819 Non-pressure chronic ulcer of other part of right lower leg with unspecified severity (principal); I10 Essential (primary) hypertension; Z86.73 Personal history of transient ischemic attack (TIA), and cerebral infarction without residual deficits; J44.9 Chronic obstructive pulmonary disease, unspecified; F17.210 Nicotine dependence, cigarettes, uncomplicated; Z79.899 Other long term (current) drug therapy; Z79.82 Long term (current) use of aspirin
CPT/HCPCS: 36415; 80053; 85025; 93005; 93010; 99283-25

== ENCOUNTER 2019-03-05 15:44 | Emergency (ER) | payer OTHER ==
[~2019-03-05] VITALS: Ht 175.3 cm; Wt 90.7 kg
[~2019-03-05 15:44] MED LIST changes: +NITR.4SL SL
[2019-03-05 16:48] LABS: BASOPHILS ABSOLUTE AUTO 0.05 K/mm3 (0.00-0.23); BASOPHILS PERCENT AUTO 0 % (0-2); EOSINOPHILS ABSOLUTE AUTO 0.04 K/mm3 (0.00-0.68); EOSINOPHILS PERCENT AUTO 0 % (0-6); Hematocrit 39.2 % (37.0-53.0); Hemoglobin 12.8 g/dL (13.5-17.5); IMMATURE GRAN ABSOLUTE AUTO 0.06 K/mm3 (0.00-0.10); IMMATURE GRAN PERCENT AUTO 0 % (0-1); LYMPHOCYTES ABSOLUTE AUTO 1.61 K/mm3 (0.84-5.20); LYMPHOCYTES PERCENT AUTO 11 % (21-46); MONOCYTES ABSOLUTE AUTO 1.39 K/mm3 (0.16-1.47); MONOCYTES PERCENT AUTO 9 % (4-13); Mean Corpuscular HGB 26.8 pg (26.0-34.0); Mean Corpuscular HGB Conc 32.7 g/dL (31.5-36.5); Mean Corpuscular Volume 82 fL (80-100); Mean Platelet Volume 8.4 fL (9.1-12.4); NEUTROPHILS ABSOLUTE AUTO 11.81 K/mm3 (1.96-9.15); NEUTROPHILS PERCENT AUTO 79 % (41-73); Platelet Count 588 K/mm3 (150-400); RDW Coefficient Variation 16.6 % (11.7-14.2); RDW Standard Deviation 49.5 fL (35.1-46.3); Red Blood Cell Count 4.78 M/mm3 (4.30-5.90); White Blood Cell Count 14.96 K/mm3 (4.00-11.30)
[2019-03-05 17:05] LABS: Alanine Aminotransfer (ALT/SGP 17 U/L (12-78); Albumin, Blood 2.9 g/dL (3.4-5.0); Albumin/Globulin Ratio 0.5 (0.8-1.8); Alk Phos 109 U/L (50-136); Anion Gap 7 mmol/L (6-16); Aspartate Aminotrans (AST/SGOT 15 U/L (12-37); Bilirubin, Total 0.4 mg/dL (0.1-1.0); Blood Urea Nitrogen 15 mg/dL (8-24); CO2, Blood 25 mmol/L (21-32); Calcium, Blood 9.3 mg/dL (8.5-10.1); Chloride, Blood 102 mmol/L (98-108); Creatinine, Blood 0.94 mg/dL (0.60-1.20); Globulin, Blood 5.4 g/dL (2.2-4.0); Glomerular Filtration Rate >60 (60-); Glucose, Blood 97 mg/dL (70-99); Potassium, Blood 4.2 mmol/L (3.5-5.5); Sodium, Blood 134 mmol/L (136-145); Total Protein, Blood 8.3 g/dL (6.4-8.2)
== END 2019-03-05 19:40 | disposition home or self-care (01) ==
LOC: ER 15:44
PROVIDERS: Physician Assistant
DX: M25.561 Pain in right knee (principal); L97.119 Non-pressure chronic ulcer of right thigh with unspecified severity; W19.XXXA Unspecified fall, initial encounter; Z79.899 Other long term (current) drug therapy; Z79.82 Long term (current) use of aspirin; Z86.73 Personal history of transient ischemic attack (TIA), and cerebral infarction without residual deficits; F17.210 Nicotine dependence, cigarettes, uncomplicated
CPT/HCPCS: 73562-RT; 80053; 85025; 96374; 99284-25; J1885

== ENCOUNTER 2019-03-09 00:14 | Emergency (ER) | payer OTHER | END 2019-03-09 06:03 | disposition home or self-care (01) | LOC: ER 00:14 | DX: L97.819 Non-pressure chronic ulcer of other part of right lower leg with unspecified severity (principal); Z79.899 Other long term (current) drug therapy; Z79.82 Long term (current) use of aspirin; Z86.73 Personal history of transient ischemic attack (TIA), and cerebral infarction without residual deficits; I25.2 Old myocardial infarction; F17.210 Nicotine dependence, cigarettes, uncomplicated | CPT/HCPCS: 96372; 99283-25; J1885 ==

== ENCOUNTER 2019-03-10 14:56 | Emergency (ER) | payer OTHER ==
[~2019-03-10] VITALS: Ht 175.3 cm; Wt 90.7 kg
== END 2019-03-10 16:23 | disposition home or self-care (01) ==
LOC: ER 14:56
DX: S81.001A Unspecified open wound, right knee, initial encounter (principal); W19.XXXA Unspecified fall, initial encounter; Z86.73 Personal history of transient ischemic attack (TIA), and cerebral infarction without residual deficits; I10 Essential (primary) hypertension; F17.210 Nicotine dependence, cigarettes, uncomplicated
CPT/HCPCS: 73552; 73562-RT; 96372; 99283-25; J1885

== ENCOUNTER 2019-03-12 17:23 | Emergency (ER) | payer OTHER ==
[~2019-03-12] VITALS: Ht 175.3 cm; Wt 90.7 kg
== END 2019-03-12 20:00 | disposition home or self-care (01) ==
LOC: ER 17:23
DX: L97.819 Non-pressure chronic ulcer of other part of right lower leg with unspecified severity (principal); I10 Essential (primary) hypertension; Z86.73 Personal history of transient ischemic attack (TIA), and cerebral infarction without residual deficits; J44.9 Chronic obstructive pulmonary disease, unspecified; F17.210 Nicotine dependence, cigarettes, uncomplicated
CPT/HCPCS: 96372; 99283-25; J1885

== ENCOUNTER 2019-03-17 18:52 | Emergency (ER) | payer OTHER ==
[~2019-03-17] VITALS: Ht 175.3 cm; Wt 90.7 kg
== END 2019-03-17 22:06 | disposition home or self-care (01) ==
LOC: ER 18:52
DX: L97.819 Non-pressure chronic ulcer of other part of right lower leg with unspecified severity (principal); Z86.73 Personal history of transient ischemic attack (TIA), and cerebral infarction without residual deficits; I10 Essential (primary) hypertension; J44.9 Chronic obstructive pulmonary disease, unspecified; F17.210 Nicotine dependence, cigarettes, uncomplicated
CPT/HCPCS: 99283

== ENCOUNTER 2019-03-22 08:00 | Day surgery (SDC) | payer OTHER | END 2019-03-22 23:00 | disposition home or self-care (01) | LOC: WOUND | PROC: 0QB80ZZ Excision of Right Femoral Shaft, Open Approach (ICD-10-PCS; principal; 2019-03-22) | DX: L97.113 Non-pressure chronic ulcer of right thigh with necrosis of muscle (principal); I10 Essential (primary) hypertension; E78.5 Hyperlipidemia, unspecified; I25.10 Atherosclerotic heart disease of native coronary artery without angina pectoris; J44.9 Chronic obstructive pulmonary disease, unspecified; I25.2 Old myocardial infarction; Z59.0 Homelessness; Z95.5 Presence of coronary angioplasty implant and graft; Z86.73 Personal history of transient ischemic attack (TIA), and cerebral infarction without residual deficits ==

== ENCOUNTER 2019-03-24 11:17 | Day surgery (SDC) | payer OTHER | END 2019-03-24 22:59 | disposition home or self-care (01) | LOC: WOUND 11:17 | DX: L97.113 Non-pressure chronic ulcer of right thigh with necrosis of muscle (principal); I10 Essential (primary) hypertension; I25.10 Atherosclerotic heart disease of native coronary artery without angina pectoris; J44.9 Chronic obstructive pulmonary disease, unspecified; I25.2 Old myocardial infarction; Z86.73 Personal history of transient ischemic attack (TIA), and cerebral infarction without residual deficits | CPT/HCPCS: G0463 ==

== ENCOUNTER 2019-03-26 13:06 | Day surgery (SDC) | payer OTHER | END 2019-03-26 23:49 | disposition home or self-care (01) | LOC: WOUND 13:06 | DX: L97.113 Non-pressure chronic ulcer of right thigh with necrosis of muscle (principal); I10 Essential (primary) hypertension; E78.5 Hyperlipidemia, unspecified; I25.10 Atherosclerotic heart disease of native coronary artery without angina pectoris; J44.9 Chronic obstructive pulmonary disease, unspecified; I25.2 Old myocardial infarction; Z59.0 Homelessness; Z95.5 Presence of coronary angioplasty implant and graft; Z86.73 Personal history of transient ischemic attack (TIA), and cerebral infarction without residual deficits | CPT/HCPCS: G0463 ==

== ENCOUNTER 2019-03-29 15:04 | Day surgery (SDC) | payer OTHER | END 2019-03-29 22:42 | disposition home or self-care (01) | LOC: WOUND 15:04 | DX: L97.113 Non-pressure chronic ulcer of right thigh with necrosis of muscle (principal); I10 Essential (primary) hypertension; I25.10 Atherosclerotic heart disease of native coronary artery without angina pectoris; I25.2 Old myocardial infarction; J44.9 Chronic obstructive pulmonary disease, unspecified; E78.5 Hyperlipidemia, unspecified; Z86.73 Personal history of transient ischemic attack (TIA), and cerebral infarction without residual deficits; Z59.0 Homelessness ==

== ENCOUNTER 2019-03-31 00:32 | Day surgery (SDC) | payer OTHER | END 2019-03-31 22:45 | disposition home or self-care (01) | LOC: WOUND 00:32 | DX: L97.113 Non-pressure chronic ulcer of right thigh with necrosis of muscle (principal); I10 Essential (primary) hypertension; I25.10 Atherosclerotic heart disease of native coronary artery without angina pectoris; I25.2 Old myocardial infarction; J44.9 Chronic obstructive pulmonary disease, unspecified; E78.5 Hyperlipidemia, unspecified; Z86.73 Personal history of transient ischemic attack (TIA), and cerebral infarction without residual deficits; Z59.0 Homelessness | CPT/HCPCS: G0463 ==

== ENCOUNTER 2019-04-02 02:41 | Day surgery (SDC) | payer OTHER | END 2019-04-02 23:39 | disposition home or self-care (01) | LOC: WOUND 02:41 | DX: L97.113 Non-pressure chronic ulcer of right thigh with necrosis of muscle (principal); I10 Essential (primary) hypertension; J44.9 Chronic obstructive pulmonary disease, unspecified; I25.10 Atherosclerotic heart disease of native coronary artery without angina pectoris; I25.2 Old myocardial infarction; E78.5 Hyperlipidemia, unspecified; Z86.73 Personal history of transient ischemic attack (TIA), and cerebral infarction without residual deficits; Z59.0 Homelessness ==

== ENCOUNTER 2019-04-04 00:25 | Emergency (ER) | payer OTHER ==
[~2019-04-04] VITALS: Ht 175.3 cm; Wt 90.7 kg
== END 2019-04-04 00:57 | disposition home or self-care (01) ==
LOC: ER 00:25
DX: F15.10 Other stimulant abuse, uncomplicated (principal); Z79.899 Other long term (current) drug therapy; Z79.82 Long term (current) use of aspirin; Z86.73 Personal history of transient ischemic attack (TIA), and cerebral infarction without residual deficits; I10 Essential (primary) hypertension; J44.9 Chronic obstructive pulmonary disease, unspecified; F17.210 Nicotine dependence, cigarettes, uncomplicated
CPT/HCPCS: 93005; 93010; 99283-25

== ENCOUNTER 2019-04-04 20:32 | Emergency (ER) | payer OTHER ==
[~2019-04-04] VITALS: Ht 175.3 cm; Wt 68.0 kg
== END 2019-04-04 20:55 | disposition home or self-care (01) ==
LOC: ER 20:32
DX: L97.119 Non-pressure chronic ulcer of right thigh with unspecified severity (principal); Z79.899 Other long term (current) drug therapy; Z79.82 Long term (current) use of aspirin; Z86.73 Personal history of transient ischemic attack (TIA), and cerebral infarction without residual deficits; I10 Essential (primary) hypertension; J44.9 Chronic obstructive pulmonary disease, unspecified; F17.210 Nicotine dependence, cigarettes, uncomplicated
CPT/HCPCS: 99283

== ENCOUNTER 2019-04-06 21:26 | Emergency (ER) | payer OTHER ==
[~2019-04-06] VITALS: Ht 175.3 cm; Wt 86.2 kg
[2019-04-06 23:04] LABS: BASOPHILS ABSOLUTE AUTO 0.05 K/mm3 (0.00-0.23); BASOPHILS PERCENT AUTO 0 % (0-2); EOSINOPHILS PERCENT AUTO 3 % (0-6); Hematocrit 36.2 % (37.0-53.0); Hemoglobin 11.6 g/dL (13.5-17.5); IMMATURE GRAN ABSOLUTE AUTO 0.06 K/mm3 (0.00-0.10); IMMATURE GRAN PERCENT AUTO 1 % (0-1); LYMPHOCYTES ABSOLUTE AUTO 2.71 K/mm3 (0.84-5.20); LYMPHOCYTES PERCENT AUTO 22 % (21-46); MONOCYTES PERCENT AUTO 8 % (4-13); Mean Corpuscular HGB 26.1 pg (26.0-34.0); Mean Corpuscular Volume 82 fL (80-100); Mean Platelet Volume 8.8 fL (9.1-12.4); NEUTROPHILS PERCENT AUTO 66 % (41-73); Platelet Count 433 K/mm3 (150-400); RDW Coefficient Variation 17.1 % (11.7-14.2); RDW Standard Deviation 50.3 fL (35.1-46.3); Red Blood Cell Count 4.44 M/mm3 (4.30-5.90); White Blood Cell Count 12.42 K/mm3 (4.00-11.30)
[2019-04-06 23:28] LABS: Alanine Aminotransfer (ALT/SGP 13 U/L (12-78); Albumin, Blood 2.7 g/dL (3.4-5.0); Albumin/Globulin Ratio 0.5 (0.8-1.8); Alk Phos 107 U/L (50-136); Anion Gap 7 mmol/L (6-16); Aspartate Aminotrans (AST/SGOT 13 U/L (12-37); Bilirubin, Total 0.2 mg/dL (0.1-1.0); Blood Urea Nitrogen 12 mg/dL (8-24); Bun/Creatinine Ratio 14.8 (12.0-20.0); CO2, Blood 24 mmol/L (21-32); Calcium, Blood 8.7 mg/dL (8.5-10.1); Chloride, Blood 105 mmol/L (98-108); Creatinine, Blood 0.81 mg/dL (0.60-1.20); Globulin, Blood 5.2 g/dL (2.2-4.0); Glomerular Filtration Rate >60 (60-); Glucose, Blood 104 mg/dL (70-99); Potassium, Blood 3.8 mmol/L (3.5-5.5); Sodium, Blood 136 mmol/L (136-145); Total Protein, Blood 7.9 g/dL (6.4-8.2); Troponin I <0.015 ng/mL (0.000-0.040)
[2019-04-06] MEDS ORDERED: BENZ100A PO (23:38)
== END 2019-04-06 23:50 | disposition home or self-care (01) ==
LOC: ER 21:26
PROVIDERS: Physician Assistant
DX: R07.81 Pleurodynia (principal); R07.2 Precordial pain; J06.9 Acute upper respiratory infection, unspecified; Z79.899 Other long term (current) drug therapy; Z79.82 Long term (current) use of aspirin; I25.2 Old myocardial infarction; Z86.73 Personal history of transient ischemic attack (TIA), and cerebral infarction without residual deficits; F17.210 Nicotine dependence, cigarettes, uncomplicated
CPT/HCPCS: 71046; 80053; 84484; 85025; 93005; 93010; 96374; 99284-25; J1885

== ENCOUNTER 2019-04-09 02:46 | Day surgery (SDC) | payer OTHER | END 2019-04-09 22:51 | disposition home or self-care (01) | LOC: WOUND 02:46 | DX: L97.113 Non-pressure chronic ulcer of right thigh with necrosis of muscle (principal); I10 Essential (primary) hypertension; I25.10 Atherosclerotic heart disease of native coronary artery without angina pectoris; E78.5 Hyperlipidemia, unspecified; Z59.0 Homelessness | CPT/HCPCS: G0463 ==

== ENCOUNTER 2019-04-09 13:30 | Inpatient (IN) | payer OTHER ==
[~2019-04-09] VITALS: Ht 177.8 cm; Wt 71.5 kg
[2019-04-09 14:06] LABS: BASOPHILS ABSOLUTE AUTO 0.07 K/mm3 (0.00-0.23); BASOPHILS PERCENT AUTO 1 % (0-2); EOSINOPHILS ABSOLUTE AUTO 0.22 K/mm3 (0.00-0.68); EOSINOPHILS PERCENT AUTO 2 % (0-6); Hematocrit 37.9 % (37.0-53.0); Hemoglobin 12.5 g/dL (13.5-17.5); IMMATURE GRAN ABSOLUTE AUTO 0.06 K/mm3 (0.00-0.10); IMMATURE GRAN PERCENT AUTO 0 % (0-1); LYMPHOCYTES ABSOLUTE AUTO 2.12 K/mm3 (0.84-5.20); LYMPHOCYTES PERCENT AUTO 15 % (21-46); MONOCYTES ABSOLUTE AUTO 0.84 K/mm3 (0.16-1.47); MONOCYTES PERCENT AUTO 6 % (4-13); Mean Corpuscular HGB 27.2 pg (26.0-34.0); Mean Corpuscular Volume 83 fL (80-100); Mean Platelet Volume 8.6 fL (9.1-12.4); NEUTROPHILS ABSOLUTE AUTO 10.76 K/mm3 (1.96-9.15); NEUTROPHILS PERCENT AUTO 76 % (41-73); Platelet Count 510 K/mm3 (150-400); RDW Coefficient Variation 17.2 % (11.7-14.2); RDW Standard Deviation 51.5 fL (35.1-46.3); Red Blood Cell Count 4.59 M/mm3 (4.30-5.90); White Blood Cell Count 14.07 K/mm3 (4.00-11.30)
[2019-04-09 14:26] LABS: Alanine Aminotransfer (ALT/SGP 17 U/L (12-78); Albumin, Blood 2.8 g/dL (3.4-5.0); Albumin/Globulin Ratio 0.5 (0.8-1.8); Alk Phos 105 U/L (50-136); Anion Gap 7 mmol/L (6-16); Aspartate Aminotrans (AST/SGOT 13 U/L (12-37); Bilirubin, Total 0.2 mg/dL (0.1-1.0); Blood Urea Nitrogen 14 mg/dL (8-24); Bun/Creatinine Ratio 14.1 (12.0-20.0); CO2, Blood 24 mmol/L (21-32); Calcium, Blood 8.9 mg/dL (8.5-10.1); Chloride, Blood 102 mmol/L (98-108); Creatinine, Blood 0.99 mg/dL (0.60-1.20); Globulin, Blood 5.9 g/dL (2.2-4.0); Glomerular Filtration Rate >60 (60-); Glucose, Blood 155 mg/dL (70-99); Potassium, Blood 4.2 mmol/L (3.5-5.5); Sodium, Blood 133 mmol/L (136-145); Total Protein, Blood 8.7 g/dL (6.4-8.2); Troponin I <0.015 ng/mL (0.000-0.040)
--- NOTE | 2019-04-09 21:52 | NUR ---
transfer report on PT being admitted with acute bilat PE and MRSA in rt le wound. Recent hospitalization in last month. Reported to have stable VS and acute pain of bilat pulmonary emboli controlled. Await admit. Report was from Alber STARR in ER. Will place PT in isolation for recent mrsa
--- NOTE | 2019-04-09 22:22 | NUR ---
transferred from ER and I reported off on PT to Edmund Medley RN who has rest of group nearer to room 356. Regulatory form used and given to RN who assumed care for admitting PT at 2218. I will not be caring for this PT as planned but primary RN is now Edmund Medley.
[2019-04-09 22:50] LABS: International Normalized Ratio 1.13; Prothrombin Time Results 11.8 Sec (9.7-11.5)
--- NOTE | 2019-04-10 04:46 | NUR ---
SHIFT SUMMARY: 49 Y/O MALE RESTED COMFORTABLY ALL SHIFT; PT C/O INTERMITTENT RIGHT KNEE AND CHEST DISCOMFORT; [id number] STARTED ON HEPARIN AT 21.6ML/HR (NO BOLUS) THIS SHIFT (PT INSTRUCTED ON S/S BLEEDING TO REPORT VIDHI TO STAFF, ALSO INSTRUCTD ON NEED TO AVOID GOING OUTSIDE TO SMOKE DUE TO BLEEDING RISK AND NEED TO OBSERVE TELEMETRY--NSR; AT ALL TIMES WITH PATIENT RELUCTANLY AGREEING). PT VERY DIRTY WITH STRONG BODY ODOR NOTED (PT IS HOMELESS); PT PLACED ON CONTACT PRECAUTIONS FOR MRSA--WOUND, CONTACT). PTS BED IN LOW POSITION, CALL LIGHT AT SIDE.
[2019-04-10 04:58] LABS: Hemoglobin 12.1 g/dL (13.5-17.5); Mean Corpuscular HGB 26.7 pg (26.0-34.0); Mean Corpuscular HGB Conc 32.7 g/dL (31.5-36.5); Mean Corpuscular Volume 82 fL (80-100); Mean Platelet Volume 8.8 fL (9.1-12.4); Platelet Count 472 K/mm3 (150-400); RDW Coefficient Variation 17.2 % (11.7-14.2); Red Blood Cell Count 4.53 M/mm3 (4.30-5.90); White Blood Cell Count 15.43 K/mm3 (4.00-11.30)
--- NOTE | 2019-04-10 05:19 | NUR ---
04/09/19 2250 PT ADMITTED TO ROOM 356 PER CART FROM ER, HEPARIN ON HOLD TILL PHARMACY (SPOKE WITH ROD, PHARMIST WHO ADVISED THIS NURSE THAT PATIENT HAD RECEIVED XARELTO IN THE ER AND THAT HE HAD DO SOME RESEARCH PRIOR AUTHORIZING MEDICATION). THIS NURSE CHANGED RIGHT KNEE DRESSING, WET TO DRY REAPPLIED WITH KERLIX AND COBAN WRAP APPLIED, PT TOLERATED PROCEDURE WELL, PICTURE TAKEN FOR CHART WITH CONSENT OBTAINED BY THIS NURSE.
[2019-04-10 05:35] LABS: Alanine Aminotransfer (ALT/SGP 16 U/L (12-78); Albumin, Blood 2.7 g/dL (3.4-5.0); Albumin/Globulin Ratio 0.5 (0.8-1.8); Alk Phos 100 U/L (50-136); Anion Gap 6 mmol/L (6-16); Aspartate Aminotrans (AST/SGOT 10 U/L (12-37); Bilirubin, Total 0.2 mg/dL (0.1-1.0); Blood Urea Nitrogen 18 mg/dL (8-24); Bun/Creatinine Ratio 22.6 (12.0-20.0); CO2, Blood 25 mmol/L (21-32); Chloride, Blood 101 mmol/L (98-108); Globulin, Blood 5.6 g/dL (2.2-4.0); Glomerular Filtration Rate >60 (60-); Glucose, Blood 106 mg/dL (70-99); Potassium, Blood 4.4 mmol/L (3.5-5.5); Sodium, Blood 132 mmol/L (136-145); Total Protein, Blood 8.3 g/dL (6.4-8.2)
--- NOTE | 2019-04-10 17:10 | NUR ---
PT AOX4. PT IS IRRITATED ABOUT NOT BEING ABLE TO BE DISCONNECTED FROM IV. PT WANTED A SHOWER THEN EXPLAINED HE DIDN'T WANT CLEANED UP HE WANTED WARMTH FOR PAIN. KPAD HAS BEEN WORKING WELL FOR CHEST PAIN. PT HAD HIS BANDAGE CHANGED ON R KNEE WITH A WET TO DRY PLACED. PT TOLERATED WELL. PT HAS BEEN STAYING IN ROOM HE NEEDS TO CONTINUE TO BE HOOKED UP TO HEPRIN. PT IS NOT HAPPY ABOUT THIS, BUT SEEMS TO BE TOLERATING IT. WILL CONTINUE TO MONITOR.
--- NOTE | 2019-04-10 21:39 | NUR ---
PT RESTING COMFORTABLY IN BED WITH GIRLFRIEND AT SIDE TO SPEND NIGHT IN LOUNGE CHAIR AT SIDE.
--- NOTE | 2019-04-11 03:54 | NUR ---
0001 FEMALE AT SIDE IDENTIFIED HERSELF GIRLFRIEND ASKING FOR MEAL VOUCHERS AND TO BE FED FOOD FROM REFRIGATOR (THIS NURSE ADVISED HER THAT HOSPITAL DOES NOT FURNISH ANY OF THESE ITEMS TO GUESTS AND THAT THERE ARE FOOD VENDING MACHINES LOCATED NEAR [place]). PT AND GIRLFRIEND WERE BOTH GIVEN COFFEE UPON THERE REQUESTS WHICH WAS DRANK WITH ONE CUP DUMPED ON FLOOR BESIDE BED.
--- NOTE | 2019-04-11 05:04 | NUR ---
SHIFT SUMMARY: 49 Y/O MALE RESTED COMFORTABLY ALL SHIFT WITH GIRLFRIEND AT SIDE WHOM SPENT NIGHT, RIGHT KNEE DRESSING DRY AND INTACT; C/O CHEST DISCOMFORT RATED 5/10 WITH FENTANYL 25MCG X1 GIVEN WITH RELIEF FELT; ALERT AND ORIENTED X4; HEPARIN INFUSING AT 30.2ML/HR PER PUMP, NO S/S BLEEDING NOTED OR VOICED; BED LOW POSITION, CALL LIGHT AT SIDE.
[2019-04-11 06:08] LABS: BASOPHILS ABSOLUTE AUTO 0.05 K/mm3 (0.00-0.23); BASOPHILS PERCENT AUTO 0 % (0-2); EOSINOPHILS ABSOLUTE AUTO 0.16 K/mm3 (0.00-0.68); EOSINOPHILS PERCENT AUTO 1 % (0-6); Hematocrit 34.7 % (37.0-53.0); Hemoglobin 11.4 g/dL (13.5-17.5); IMMATURE GRAN ABSOLUTE AUTO 0.05 K/mm3 (0.00-0.10); IMMATURE GRAN PERCENT AUTO 0 % (0-1); LYMPHOCYTES ABSOLUTE AUTO 2.27 K/mm3 (0.84-5.20); LYMPHOCYTES PERCENT AUTO 18 % (21-46); MONOCYTES ABSOLUTE AUTO 1.42 K/mm3 (0.16-1.47); MONOCYTES PERCENT AUTO 11 % (4-13); Mean Corpuscular HGB 27.1 pg (26.0-34.0); Mean Corpuscular HGB Conc 32.9 g/dL (31.5-36.5); Mean Corpuscular Volume 82 fL (80-100); Mean Platelet Volume 8.6 fL (9.1-12.4); NEUTROPHILS ABSOLUTE AUTO 8.72 K/mm3 (1.96-9.15); NEUTROPHILS PERCENT AUTO 69 % (41-73); Platelet Count 473 K/mm3 (150-400); RDW Coefficient Variation 16.8 % (11.7-14.2); Red Blood Cell Count 4.21 M/mm3 (4.30-5.90); White Blood Cell Count 12.67 K/mm3 (4.00-11.30)
[2019-04-11 06:36] LABS: Albumin, Blood 2.4 g/dL (3.4-5.0); Anion Gap 8 mmol/L (6-16); Blood Urea Nitrogen 13 mg/dL (8-24); Bun/Creatinine Ratio 17.4 (12.0-20.0); CO2, Blood 24 mmol/L (21-32); Calcium, Blood 8.6 mg/dL (8.5-10.1); Chloride, Blood 101 mmol/L (98-108); Creatinine, Blood 0.75 mg/dL (0.60-1.20); Glomerular Filtration Rate >60 (60-); Glucose, Blood 101 mg/dL (70-99); Phosphorus, Blood 3.3 mg/dL (2.5-4.9); Potassium, Blood 4.1 mmol/L (3.5-5.5); Sodium, Blood 133 mmol/L (136-145)
--- NOTE | 2019-04-11 17:14 | NUR ---
PT AOX4 AND COOPERATIVE OF CARE. PT HAS BEEN TOLERATING JUST STAYING IN ROOM AND HAS DONE WELL TODAY. HEPRIN CONTINUES TO RUN. PT DOING WELL USING HEAT PAD TO HELP RELIEVE PAIN IN CHEST. TREATED PER EMAR WELL FOR PAIN. PT RESTING IN BED AT THIS TIME. WILL CONTINUE TO MONITOR.
--- NOTE | 2019-04-11 23:41 | NUR ---
2300 CIGARETTE SMOKE SMELLED IN HALLWAY COMING FROM ROOM 356, PT ADVISED ABOUT HOSPITAL NON SMOKING POLICY PATIENT DENIED SMOKING AND ONLY USING NICOTINE CHEW WHICH WAS AT SIDE. PT IN AGREEMENT TO PUTTING ON NICOTINE 21MG PATCH TO LEFT SHOULDER FOR NICOTINE CRAVINGS BY THIS NURSE. PT COOPERATIVE AND PLEASANT. PT ALSO GIVEN A COMPLETE BED BATH AND LINEN CHANGE BY ARIEL AND THIS NURSE PATIENT HAD VERY STRONG BODY ODOR AND VOICED HE FELT MUCH BETTER AFTER BED BATH. PTS PTT IS 34.2 WITH NO CHANGES TO HEPARIN GTT AT THIS TIME PER EDY IN PHARMACY.
--- NOTE | 2019-04-12 06:16 | NUR ---
SHIFT SUMMARY: 49 Y/O MALE RESTED COMFORTABLY ALL SHIFT, PT TELEMETRY REFLECTS NSR WITH HEART RATE 84, PATIENT TALKING IN CALM, AUDIBLE VOICE, REQUIRED PAIN MEDICATION X 1 THIS SHIFT CHEST AND RIGHT KNEE PAIN 6/10 WITH RELIEF FELT; RECEIVED BED BATH LAST PM BY NURSING STAFF, HEPARIN ADJUSTED PER PHARMARY INSTRUCTIONS (NO S/S BLEEDING NOTED OR VOICED), WEARING SMOKING PATCH 21 MG TO LEFT SHOULDER (DENIES URGE TO SMOKE AT THIS TIME), PT CURRENTLY HOMELESS; RIGHT KNEE DRESSING DRY AND INTACT, BED IN LOW POSITION, CALL LIGHT AT SIDE. NO SOB NOTED.
[2019-04-12] MEDS ORDERED: ACET325 PO (13:57)
[2019-04-12] MEDS ORDERED: ALBU90OI INH (13:58)
[2019-04-12] MEDS ORDERED: Senna Plus Tab1 EACH PO (13:59)
[2019-04-12] MEDS ORDERED: NICO21TP TOP (14:01)
[2019-04-12] MEDS ORDERED: Hydrocodone-Ap1 EA23 PO (14:01)
[2019-04-12] MEDS ORDERED: MIRALAX17 GM PO (14:03)
[2019-04-12] MEDS ORDERED: XARELTO1 EACH PO (14:05)
--- NOTE | 2019-04-12 15:43 | NUR ---
D/C INSTRUCTIONS PROVIDED AND EXPLAINED TO PT. IV'S AND TELE REMOVED.
== END 2019-04-12 15:25 | disposition home or self-care (01) | DRG 176 ==
LOC: ER 13:30 → MEDS 20:16
PROVIDERS: Internal Medicine; Physician Assistant; ADMIT Internal Medicine
DX: I26.99 Other pulmonary embolism without acute cor pulmonale (principal); F17.220 Nicotine dependence, chewing tobacco, uncomplicated; Z59.0 Homelessness; J44.9 Chronic obstructive pulmonary disease, unspecified; I10 Essential (primary) hypertension; Z86.73 Personal history of transient ischemic attack (TIA), and cerebral infarction without residual deficits; S71.101A Unspecified open wound, right thigh, initial encounter; I25.10 Atherosclerotic heart disease of native coronary artery without angina pectoris; F17.210 Nicotine dependence, cigarettes, uncomplicated
CPT/HCPCS: 36415; 71046; 71260; 80053; 80069; 84484; 85025; 85027; 85379; 85610; 85730; 87081; 93005; 93010; 93971; 94640; 96374-59; 96375; 96376; 99285-25; A9270; G0378; J1644; J2270; J2405; J3010; J7030; Q9967

== ENCOUNTER 2019-04-19 14:59 | Day surgery (SDC) | payer OTHER ==
[~2019-04-19 14:59] MED LIST changes: +Hydrocodone-Ap1 EA23 PO; +MIRALAX17 GM PO; +Senna Plus Tab1 EACH PO; +XARELTO1 EACH PO
== END 2019-04-19 23:11 | disposition home or self-care (01) ==
LOC: WOUND 14:59
DX: L97.113 Non-pressure chronic ulcer of right thigh with necrosis of muscle (principal); I26.99 Other pulmonary embolism without acute cor pulmonale; I10 Essential (primary) hypertension; E78.5 Hyperlipidemia, unspecified; I25.10 Atherosclerotic heart disease of native coronary artery without angina pectoris; I25.2 Old myocardial infarction; Z95.5 Presence of coronary angioplasty implant and graft; Z59.0 Homelessness; Z86.73 Personal history of transient ischemic attack (TIA), and cerebral infarction without residual deficits

== ENCOUNTER 2019-04-21 00:31 | Day surgery (SDC) | payer OTHER | END 2019-04-21 22:40 | disposition home or self-care (01) | LOC: WOUND 00:31 | DX: L97.113 Non-pressure chronic ulcer of right thigh with necrosis of muscle (principal); I10 Essential (primary) hypertension; E78.5 Hyperlipidemia, unspecified; I25.10 Atherosclerotic heart disease of native coronary artery without angina pectoris; I26.99 Other pulmonary embolism without acute cor pulmonale; J44.9 Chronic obstructive pulmonary disease, unspecified; I25.2 Old myocardial infarction; Z59.0 Homelessness; Z95.5 Presence of coronary angioplasty implant and graft; Z86.73 Personal history of transient ischemic attack (TIA), and cerebral infarction without residual deficits | CPT/HCPCS: G0463 ==

== ENCOUNTER 2019-04-23 13:58 | Day surgery (SDC) | payer OTHER | END 2019-04-23 23:12 | disposition home or self-care (01) | LOC: WOUND 13:58 | DX: L97.113 Non-pressure chronic ulcer of right thigh with necrosis of muscle (principal); I10 Essential (primary) hypertension; E78.5 Hyperlipidemia, unspecified; I25.10 Atherosclerotic heart disease of native coronary artery without angina pectoris; J44.9 Chronic obstructive pulmonary disease, unspecified; I25.2 Old myocardial infarction; I26.99 Other pulmonary embolism without acute cor pulmonale; Z59.0 Homelessness; Z95.5 Presence of coronary angioplasty implant and graft; Z86.73 Personal history of transient ischemic attack (TIA), and cerebral infarction without residual deficits | CPT/HCPCS: G0463 ==

== ENCOUNTER 2019-04-26 00:23 | Day surgery (SDC) | payer OTHER ==
[2019-04-26] MEDS ORDERED: XARELTO15 MG PO (21:06)
== END 2019-04-26 22:47 | disposition home or self-care (01) ==
LOC: WOUND 00:23
DX: L97.113 Non-pressure chronic ulcer of right thigh with necrosis of muscle (principal); I26.99 Other pulmonary embolism without acute cor pulmonale; I10 Essential (primary) hypertension; E78.5 Hyperlipidemia, unspecified; I25.10 Atherosclerotic heart disease of native coronary artery without angina pectoris; Z95.5 Presence of coronary angioplasty implant and graft; Z59.0 Homelessness

== ENCOUNTER 2019-04-26 16:41 | Emergency (ER) | payer OTHER ==
[~2019-04-26] VITALS: Ht 175.3 cm; Wt 90.7 kg
[2019-04-26 17:45] LABS: BASOPHILS ABSOLUTE AUTO 0.08 K/mm3 (0.00-0.23); BASOPHILS PERCENT AUTO 1 % (0-2); EOSINOPHILS ABSOLUTE AUTO 0.35 K/mm3 (0.00-0.68); EOSINOPHILS PERCENT AUTO 3 % (0-6); Hematocrit 38.2 % (37.0-53.0); Hemoglobin 12.1 g/dL (13.5-17.5); IMMATURE GRAN PERCENT AUTO 1 % (0-1); LYMPHOCYTES ABSOLUTE AUTO 2.57 K/mm3 (0.84-5.20); LYMPHOCYTES PERCENT AUTO 23 % (21-46); MONOCYTES ABSOLUTE AUTO 0.73 K/mm3 (0.16-1.47); MONOCYTES PERCENT AUTO 7 % (4-13); Mean Corpuscular HGB 26.6 pg (26.0-34.0); Mean Corpuscular HGB Conc 31.7 g/dL (31.5-36.5); Mean Corpuscular Volume 84 fL (80-100); Mean Platelet Volume 8.3 fL (9.1-12.4); NEUTROPHILS ABSOLUTE AUTO 7.48 K/mm3 (1.96-9.15); NEUTROPHILS PERCENT AUTO 66 % (41-73); Platelet Count 668 K/mm3 (150-400); RDW Standard Deviation 52.4 fL (35.1-46.3); Red Blood Cell Count 4.55 M/mm3 (4.30-5.90); White Blood Cell Count 11.31 K/mm3 (4.00-11.30)
[2019-04-26 18:07] LABS: Alanine Aminotransfer (ALT/SGP 27 U/L (12-78); Albumin, Blood 2.9 g/dL (3.4-5.0); Albumin/Globulin Ratio 0.5 (0.8-1.8); Alk Phos 111 U/L (50-136); Anion Gap 4 mmol/L (6-16); Aspartate Aminotrans (AST/SGOT 14 U/L (12-37); Bilirubin, Total 0.2 mg/dL (0.1-1.0); Blood Urea Nitrogen 17 mg/dL (8-24); Bun/Creatinine Ratio 20.3 (12.0-20.0); CO2, Blood 28 mmol/L (21-32); Calcium, Blood 9.3 mg/dL (8.5-10.1); Chloride, Blood 102 mmol/L (98-108); Creatinine, Blood 0.84 mg/dL (0.60-1.20); Globulin, Blood 5.6 g/dL (2.2-4.0); Glomerular Filtration Rate >60 (60-); Glucose, Blood 91 mg/dL (70-99); Potassium, Blood 4.2 mmol/L (3.5-5.5); Sodium, Blood 134 mmol/L (136-145); Total Protein, Blood 8.5 g/dL (6.4-8.2)
[2019-04-26 20:48] LABS: Source, Urine Clean Catch
[2019-04-26 20:51] LABS: Appearance, Urine Clear (Clear); Bilirubin, Urine Neg (Neg); Blood, Urine 1+ (Neg); Color, Urine Yellow (P-Yellow); Glucose Qualitative, Urine Neg (Neg); Ketones, Urine Neg (Neg); Leukocyte Esterase, Urine Neg (Neg); Nitrite, Urine Neg (Neg); Protein, Urine Neg (Neg); Urobilinogen, Urine NORM (Normal)
[2019-04-26 20:59] LABS: Bacteria Not Seen /hpf; Red Blood Cells, Urine 0-2 /hpf (0-2); Squamous Epithelial Cells Not Seen /hpf (Few); White Blood Cells, Urine 0-2 /hpf (0-5)
[2019-04-26] MEDS ORDERED: XARELTO15 MG PO (21:06)
== END 2019-04-26 21:27 | disposition home or self-care (01) ==
LOC: ER 16:41
PROVIDERS: Physician Assistant
DX: R06.02 Shortness of breath (principal); Z91.14 Patient's other noncompliance with medication regimen; Z79.899 Other long term (current) drug therapy; I25.2 Old myocardial infarction; Z86.73 Personal history of transient ischemic attack (TIA), and cerebral infarction without residual deficits; F17.210 Nicotine dependence, cigarettes, uncomplicated
CPT/HCPCS: 36415; 71046; 80053; 81001; 81003; 85025; 93005; 93010; 93971; 96360; 99285-25; J7030

== ENCOUNTER 2019-05-06 20:10 | Observation (INO) | payer OTHER ==
[~2019-05-06] VITALS: Ht 175.3 cm; Wt 71.3 kg
[~2019-05-06 20:10] MED LIST changes: +XARELTO15 MG PO
[2019-05-06 20:56] LABS: BASOPHILS ABSOLUTE AUTO 0.07 K/mm3 (0.00-0.23); BASOPHILS PERCENT AUTO 1 % (0-2); EOSINOPHILS ABSOLUTE AUTO 0.27 K/mm3 (0.00-0.68); EOSINOPHILS PERCENT AUTO 2 % (0-6); Hematocrit 37.5 % (37.0-53.0); Hemoglobin 12.2 g/dL (13.5-17.5); IMMATURE GRAN ABSOLUTE AUTO 0.06 K/mm3 (0.00-0.10); IMMATURE GRAN PERCENT AUTO 0 % (0-1); LYMPHOCYTES ABSOLUTE AUTO 1.88 K/mm3 (0.84-5.20); LYMPHOCYTES PERCENT AUTO 13 % (21-46); MONOCYTES PERCENT AUTO 6 % (4-13); Mean Corpuscular HGB 26.9 pg (26.0-34.0); Mean Corpuscular HGB Conc 32.5 g/dL (31.5-36.5); Mean Corpuscular Volume 83 fL (80-100); Mean Platelet Volume 8.8 fL (9.1-12.4); NEUTROPHILS ABSOLUTE AUTO 10.95 K/mm3 (1.96-9.15); NEUTROPHILS PERCENT AUTO 78 % (41-73); Platelet Count 528 K/mm3 (150-400); RDW Coefficient Variation 17.2 % (11.7-14.2); RDW Standard Deviation 51.3 fL (35.1-46.3); Red Blood Cell Count 4.54 M/mm3 (4.30-5.90); White Blood Cell Count 14.13 K/mm3 (4.00-11.30)
[2019-05-06 21:05] LABS: Alanine Aminotransfer (ALT/SGP 16 U/L (12-78); Albumin, Blood 2.9 g/dL (3.4-5.0); Albumin/Globulin Ratio 0.5 (0.8-1.8); Alk Phos 114 U/L (50-136); Anion Gap 7 mmol/L (6-16); Aspartate Aminotrans (AST/SGOT 9 U/L (12-37); Bilirubin, Total 0.2 mg/dL (0.1-1.0); Blood Urea Nitrogen 15 mg/dL (8-24); Bun/Creatinine Ratio 17.7 (12.0-20.0); CO2, Blood 29 mmol/L (21-32); Chloride, Blood 102 mmol/L (98-108); Creatinine, Blood 0.85 mg/dL (0.60-1.20); Globulin, Blood 5.3 g/dL (2.2-4.0); Glomerular Filtration Rate >60 (60-); Glucose, Blood 111 mg/dL (70-99); Magnesium, Blood 2.1 mg/dL (1.6-2.4); Potassium, Blood 4.2 mmol/L (3.5-5.5); Sodium, Blood 138 mmol/L (136-145); Total Protein, Blood 8.2 g/dL (6.4-8.2)
[2019-05-06 23:30] LABS: Source, Urine Clean Catch
[2019-05-06 23:38] LABS: Bilirubin, Urine Neg (Neg); Blood, Urine Neg (Neg); Glucose Qualitative, Urine Neg (Neg); Ketones, Urine Neg (Neg); Leukocyte Esterase, Urine Neg (Neg); Nitrite, Urine Neg (Neg); Protein, Urine Neg (Neg); Urobilinogen, Urine NORM (Normal)
[2019-05-06 23:42] LABS: Appearance, Urine Clear (Clear); Color, Urine Yellow (P-Yellow)
[2019-05-06 23:43] LABS: U Amphetamine Screen DETECTED; U Barbituate Screen Not Detected; U Benzodiazapine Screen Not Detected; U Buprenorphine Screen Not Detected; U Cannabinoids Screen Not Detected; U Cocaine Screen Not Detected; U Methadone Screen Not Detected; U Methamphetamine Screen Not Detected; U Opiates Screen Not Detected; U Oxycodone Screen Not Detected; U Phencyclidine Screen Not Detected; U Propoxyphene Screen Not Detected
--- NOTE | 2019-05-07 01:59 | NUR ---
0115 PT ADMITTED TO ROOM 336 PER CART FROM ER, PLACED IN CONTACT ISOLATION PENDING RESULTS MRSA RESULTS (MOUTH/NARE), RIGHT KNEE DRESSING REMOVED (PT VOICED HAD NOT BEEN CHANGED SINCE 04/23/19), SLIGHT ODOR NOTED WITH YELLOW SLOUGH AT DISTAL ASPECT WOUND NOTED (MEASURED 13 X 7 X 1), REST OF WOUND BED PINK AND GRANULATING WITH EDGES FIRM, ATE SANDWICH AND PUDDING, PLEASANT AND COOPERATIVE.
--- NOTE | 2019-05-07 03:50 | NUR ---
PT WAS HOSPITALIZED LAST VISIT AT [facility] WITH CHEST PAIN AND DOUBLE PE. THIS NURSE CALLED DR SINGH REQUESTING TELEMETRY WITH DECLINING THIS REQUEST.
--- NOTE | 2019-05-07 04:17 | NUR ---
SHIFT SUMMARY: 49 Y/O MALE RESTED COMFORTABLY IN BED ALL SHIFT, DENIES PAIN, DYSPNEA OR NAUSEA, RIGHT KNEE DRESSING DRY AND INTACT (CHANGED BY THIS NURSE UPON ADMISSION), HAPPY AND COOPERATIVE, BED LOW POSITION, CALL LIGHT AT SIDE.
[2019-05-07 05:13] LABS: BASOPHILS ABSOLUTE AUTO 0.06 K/mm3 (0.00-0.23); BASOPHILS PERCENT AUTO 1 % (0-2); EOSINOPHILS ABSOLUTE AUTO 0.24 K/mm3 (0.00-0.68); EOSINOPHILS PERCENT AUTO 3 % (0-6); Hematocrit 34.4 % (37.0-53.0); Hemoglobin 11.3 g/dL (13.5-17.5); IMMATURE GRAN ABSOLUTE AUTO 0.03 K/mm3 (0.00-0.10); IMMATURE GRAN PERCENT AUTO 0 % (0-1); LYMPHOCYTES ABSOLUTE AUTO 2.33 K/mm3 (0.84-5.20); LYMPHOCYTES PERCENT AUTO 25 % (21-46); MONOCYTES ABSOLUTE AUTO 0.79 K/mm3 (0.16-1.47); MONOCYTES PERCENT AUTO 9 % (4-13); Mean Corpuscular HGB 27.1 pg (26.0-34.0); Mean Corpuscular HGB Conc 32.8 g/dL (31.5-36.5); Mean Corpuscular Volume 83 fL (80-100); Mean Platelet Volume 8.7 fL (9.1-12.4); NEUTROPHILS ABSOLUTE AUTO 5.84 K/mm3 (1.96-9.15); NEUTROPHILS PERCENT AUTO 63 % (41-73); Platelet Count 447 K/mm3 (150-400); RDW Coefficient Variation 17.2 % (11.7-14.2); RDW Standard Deviation 51.3 fL (35.1-46.3); Red Blood Cell Count 4.17 M/mm3 (4.30-5.90); White Blood Cell Count 9.29 K/mm3 (4.00-11.30)
--- NOTE | 2019-05-07 16:45 | NUR ---
PATIENT HAS RESTED MOST OF SHIFT. WAS OUT OF ROOM WHEN LORETA CAME BY TO [facility]. LORETA SAID HE WOULD RETURN ON FRIDAY. PATIENT HAS EITHER SLEPT OR OUTSIDE TO SMOKE. HE HAS BEEN AGREEABLE AND COMPLIANT WITH CARES. WOUND REMAINS WRAPPED. NO ACUTE CHANGES.
--- NOTE | 2019-05-08 02:25 | NUR ---
05/07/191999 PT GOING OUTSIDE FREQUENTLY VIA PERSONAL WHEELCHAIR TO SMOKE CIGARETTES (THIS NURSE CONFIRMED AT PATIENT WAS OBSERVED PERFORMING THIS TASK NEAR SMOKING AREA OUTSIDE OF ER). 2129 PATIENT SHOWERED AFTER DRESSING REMOVED BY THIS NURSE. RIGHT KNEE DRESSING APPLIED ORDERED, DISTAL ASPECT OF WOUND HAS SMALL AMOUNT SLOUGH NOTED, TOLERATED DRESSING CHANGE WELL.
[2019-05-08 04:47] LABS: BASOPHILS ABSOLUTE AUTO 0.04 K/mm3 (0.00-0.23); BASOPHILS PERCENT AUTO 1 % (0-2); EOSINOPHILS ABSOLUTE AUTO 0.29 K/mm3 (0.00-0.68); EOSINOPHILS PERCENT AUTO 4 % (0-6); Hematocrit 36.1 % (37.0-53.0); Hemoglobin 11.7 g/dL (13.5-17.5); IMMATURE GRAN ABSOLUTE AUTO 0.04 K/mm3 (0.00-0.10); IMMATURE GRAN PERCENT AUTO 1 % (0-1); LYMPHOCYTES ABSOLUTE AUTO 1.65 K/mm3 (0.84-5.20); LYMPHOCYTES PERCENT AUTO 23 % (21-46); MONOCYTES ABSOLUTE AUTO 0.95 K/mm3 (0.16-1.47); MONOCYTES PERCENT AUTO 13 % (4-13); Mean Corpuscular HGB 26.4 pg (26.0-34.0); Mean Corpuscular HGB Conc 32.4 g/dL (31.5-36.5); Mean Corpuscular Volume 82 fL (80-100); Mean Platelet Volume 8.7 fL (9.1-12.4); NEUTROPHILS ABSOLUTE AUTO 4.15 K/mm3 (1.96-9.15); NEUTROPHILS PERCENT AUTO 58 % (41-73); Platelet Count 443 K/mm3 (150-400); RDW Coefficient Variation 17.2 % (11.7-14.2); RDW Standard Deviation 50.6 fL (35.1-46.3); Red Blood Cell Count 4.43 M/mm3 (4.30-5.90); White Blood Cell Count 7.12 K/mm3 (4.00-11.30)
--- NOTE | 2019-05-08 04:50 | NUR ---
SHIFT SUMMARY: 49 Y/O MALE HAD RESTLESS NIGHT AT TIMES WITH FREQUENTLY GOING OUTSIDE TO SMOKE VIA PERSONAL WHEELCHAIR TO SMOKE CIGARETTES WITH GIRLFRIEND AT SIDE, RIGHT KNEE DRESSING CHANGED BY THIS NURSE ORDERED BY MD, PT NOTED TO HAVE VERY LIMITED ROM TO EXTREMITY (AROUND 10 DEGREES), RIGHT FOOT PUSH/PULL STRONG, DENIES NEED FOR PAIN MEDICATIONS, DENIES NAUSEA, SHOWERED THIS SHIFT, BED LOW POSITION, CALL LIGHT AT SIDE.
[2019-05-08 05:11] LABS: Alanine Aminotransfer (ALT/SGP 16 U/L (12-78); Albumin, Blood 2.6 g/dL (3.4-5.0); Albumin/Globulin Ratio 0.5 (0.8-1.8); Alk Phos 100 U/L (50-136); Anion Gap 8 mmol/L (6-16); Aspartate Aminotrans (AST/SGOT 6 U/L (12-37); Bilirubin, Total 0.1 mg/dL (0.1-1.0); Blood Urea Nitrogen 15 mg/dL (8-24); Bun/Creatinine Ratio 17.1 (12.0-20.0); CO2, Blood 24 mmol/L (21-32); Calcium, Blood 8.7 mg/dL (8.5-10.1); Chloride, Blood 104 mmol/L (98-108); Creatinine, Blood 0.88 mg/dL (0.60-1.20); Globulin, Blood 4.8 g/dL (2.2-4.0); Glomerular Filtration Rate >60 (60-); Glucose, Blood 85 mg/dL (70-99); Sodium, Blood 136 mmol/L (136-145); Total Protein, Blood 7.4 g/dL (6.4-8.2)
--- NOTE | 2019-05-08 18:22 | NUR ---
SHIFT SUMMARY. A&OX3, INDEPENDENT IN ROOM, PLEASANT AND COOPERATIVE. PT OUT TO SMOKE VIA W/C SEVERAL TIMES THIS SHIFT. PT DENIED THE NEED FOR PAIN MEDICATION. NO N/V, SOB. ORTHO CONSULTED TODAY, WOUND CLEANSED AND REDRESSED AFTER MD ASSESSMENT. PT'S GIRLFRIEND WITH PT ENTIRE SHIFT.
--- NOTE | 2019-05-09 03:26 | NUR ---
SHIFT SUMMARY A/O, ABLE TO MAKE NEEDS KNOWN. COOPERATIVE WITH CARE. ANSWERS QUESTIONS APPROPRIATELY. PT AND S/O HAD MULTIPLE REQUESTS T/O SHIFT. C/O PAIN/DISCOMFORT TO ABDOMEN; MEDICATED PER EMAR. IN AND OUT OF ROOM MULTIPLE TIMES TO SMOKE. NO OTHER ACUTE CHANGES OVERNIGHT. CONTINUES TO USE W/C FOR AMBULATION. RESTING IN RECLINER; STATES HELPS HIS LEG FEEL BETTER. WCTM. CALL LIGHT WITHIN REACH. REPORT TO ONCOMING RN.
[2019-05-09 05:36] LABS: BASOPHILS ABSOLUTE AUTO 0.05 K/mm3 (0.00-0.23); BASOPHILS PERCENT AUTO 1 % (0-2); EOSINOPHILS ABSOLUTE AUTO 0.36 K/mm3 (0.00-0.68); EOSINOPHILS PERCENT AUTO 5 % (0-6); Hematocrit 37.7 % (37.0-53.0); Hemoglobin 12.2 g/dL (13.5-17.5); IMMATURE GRAN ABSOLUTE AUTO 0.05 K/mm3 (0.00-0.10); IMMATURE GRAN PERCENT AUTO 1 % (0-1); LYMPHOCYTES ABSOLUTE AUTO 2.33 K/mm3 (0.84-5.20); LYMPHOCYTES PERCENT AUTO 32 % (21-46); MONOCYTES ABSOLUTE AUTO 0.93 K/mm3 (0.16-1.47); MONOCYTES PERCENT AUTO 13 % (4-13); Mean Corpuscular HGB 27.1 pg (26.0-34.0); Mean Corpuscular HGB Conc 32.4 g/dL (31.5-36.5); Mean Corpuscular Volume 84 fL (80-100); Mean Platelet Volume 8.6 fL (9.1-12.4); NEUTROPHILS ABSOLUTE AUTO 3.58 K/mm3 (1.96-9.15); NEUTROPHILS PERCENT AUTO 49 % (41-73); Platelet Count 466 K/mm3 (150-400); RDW Coefficient Variation 17.6 % (11.7-14.2); RDW Standard Deviation 53.8 fL (35.1-46.3)
[2019-05-09 05:56] LABS: Alanine Aminotransfer (ALT/SGP 15 U/L (12-78); Albumin, Blood 2.7 g/dL (3.4-5.0); Albumin/Globulin Ratio 0.5 (0.8-1.8); Alk Phos 98 U/L (50-136); Anion Gap 7 mmol/L (6-16); Aspartate Aminotrans (AST/SGOT 13 U/L (12-37); Bilirubin, Total 0.1 mg/dL (0.1-1.0); Blood Urea Nitrogen 18 mg/dL (8-24); Bun/Creatinine Ratio 19.2 (12.0-20.0); CO2, Blood 25 mmol/L (21-32); Calcium, Blood 8.9 mg/dL (8.5-10.1); Chloride, Blood 105 mmol/L (98-108); Creatinine, Blood 0.94 mg/dL (0.60-1.20); Glomerular Filtration Rate >60 (60-); Glucose, Blood 89 mg/dL (70-99); Potassium, Blood 4.3 mmol/L (3.5-5.5); Sodium, Blood 137 mmol/L (136-145); Total Protein, Blood 7.7 g/dL (6.4-8.2)
--- NOTE | 2019-05-09 14:14 | NUR ---
PT LEFT HOSPITAL AROUND 1210 TODAY AND WAS SEEN AT [facility] IN HIS WHEELCHAIR WITH HIS GIRLFRIEND. NURSING INDEPENDENT CONTRACTOR AND DR MCNEAL WERE NOTIFIED. DR MCNEAL ORDERED PT TO BE DISCHARGED LEAVING AMA.PT ARRIVED BACK AND 1410 TO HIS ROOM. PT WAS NOTIFIED OF DISCHARGE, IV REMOVED AND ALLOWED TO COLLECT HIS BELONGS. PT LEFT ROOM AT 1415.
== END 2019-05-09 12:10 | disposition left against medical advice (07) ==
LOC: ER 20:10 → MEDS 20:11
PROVIDERS: Emergency Medicine; Family Medicine; ADMIT Hospitalist
DX: S71.101A Unspecified open wound, right thigh, initial encounter (principal); M00.9 Pyogenic arthritis, unspecified; K92.0 Hematemesis; I26.99 Other pulmonary embolism without acute cor pulmonale; R10.30 Lower abdominal pain, unspecified; F19.10 Other psychoactive substance abuse, uncomplicated; J44.9 Chronic obstructive pulmonary disease, unspecified; I25.10 Atherosclerotic heart disease of native coronary artery without angina pectoris; Z86.73 Personal history of transient ischemic attack (TIA), and cerebral infarction without residual deficits; Z79.01 Long term (current) use of anticoagulants; Z79.52 Long term (current) use of systemic steroids; Z79.899 Other long term (current) drug therapy; Z87.891 Personal history of nicotine dependence; Z59.0 Homelessness; X58.XXXA Exposure to other specified factors, initial encounter
CPT/HCPCS: 36415; 73701; 80053; 81003; 83605; 83735; 84145; 85025; 85651; 86140; 87040; 87081; 96361; 96374-59; 96375; 96375-59; 96376; 99285-25; A9270-GY; C9113; G0378; G0480; J1885; J3370; J7030; Q9967

== ENCOUNTER 2019-05-09 14:30 | Emergency (ER) | payer OTHER ==
[~2019-05-09] VITALS: Ht 175.3 cm; Wt 86.2 kg
== END 2019-05-09 17:20 | disposition home or self-care (01) ==
LOC: ER 14:30
DX: L97.119 Non-pressure chronic ulcer of right thigh with unspecified severity (principal); Z59.0 Homelessness; Z79.899 Other long term (current) drug therapy; I10 Essential (primary) hypertension; Z86.73 Personal history of transient ischemic attack (TIA), and cerebral infarction without residual deficits; J44.9 Chronic obstructive pulmonary disease, unspecified; I25.2 Old myocardial infarction; I25.10 Atherosclerotic heart disease of native coronary artery without angina pectoris; F17.210 Nicotine dependence, cigarettes, uncomplicated
CPT/HCPCS: 99282

== ENCOUNTER 2019-05-18 22:36 | Emergency (ER) | payer OTHER ==
[~2019-05-18] VITALS: Ht 175.3 cm; Wt 72.6 kg
[2019-05-18 23:14] LABS: BASOPHILS ABSOLUTE AUTO 0.05 K/mm3 (0.00-0.23); BASOPHILS PERCENT AUTO 1 % (0-2); EOSINOPHILS ABSOLUTE AUTO 0.39 K/mm3 (0.00-0.68); EOSINOPHILS PERCENT AUTO 4 % (0-6); Hematocrit 35.3 % (37.0-53.0); Hemoglobin 11.6 g/dL (13.5-17.5); IMMATURE GRAN ABSOLUTE AUTO 0.05 K/mm3 (0.00-0.10); IMMATURE GRAN PERCENT AUTO 1 % (0-1); LYMPHOCYTES ABSOLUTE AUTO 2.91 K/mm3 (0.84-5.20); LYMPHOCYTES PERCENT AUTO 29 % (21-46); MONOCYTES ABSOLUTE AUTO 0.86 K/mm3 (0.16-1.47); MONOCYTES PERCENT AUTO 9 % (4-13); Mean Corpuscular HGB 27.6 pg (26.0-34.0); Mean Corpuscular HGB Conc 32.9 g/dL (31.5-36.5); Mean Corpuscular Volume 84 fL (80-100); Mean Platelet Volume 9.5 fL (9.1-12.4); NEUTROPHILS ABSOLUTE AUTO 5.91 K/mm3 (1.96-9.15); NEUTROPHILS PERCENT AUTO 58 % (41-73); Platelet Count 473 K/mm3 (150-400); RDW Coefficient Variation 18.6 % (11.7-14.2); RDW Standard Deviation 57.1 fL (35.1-46.3); White Blood Cell Count 10.17 K/mm3 (4.00-11.30)
[2019-05-19 00:11] LABS: Alanine Aminotransfer (ALT/SGP 17 U/L (12-78); Albumin, Blood 2.7 g/dL (3.4-5.0); Albumin/Globulin Ratio 0.6 (0.8-1.8); Alk Phos 94 U/L (50-136); Anion Gap 8 mmol/L (6-16); Aspartate Aminotrans (AST/SGOT 13 U/L (12-37); Bilirubin, Total 0.1 mg/dL (0.1-1.0); Blood Urea Nitrogen 10 mg/dL (8-24); Bun/Creatinine Ratio 11.8 (12.0-20.0); CO2, Blood 24 mmol/L (21-32); Calcium, Blood 8.2 mg/dL (8.5-10.1); Chloride, Blood 108 mmol/L (98-108); Creatinine, Blood 0.84 mg/dL (0.60-1.20); Globulin, Blood 4.6 g/dL (2.2-4.0); Glomerular Filtration Rate >60 (60-); Glucose, Blood 99 mg/dL (70-99); Potassium, Blood 3.6 mmol/L (3.5-5.5); Sodium, Blood 140 mmol/L (136-145); Total Protein, Blood 7.3 g/dL (6.4-8.2)
== END 2019-05-19 01:34 | disposition home or self-care (01) ==
LOC: ER 22:36
PROVIDERS: Emergency Medicine
DX: T81.31XD Disruption of external operation (surgical) wound, not elsewhere classified, subsequent encounter (principal); I10 Essential (primary) hypertension; J44.9 Chronic obstructive pulmonary disease, unspecified; I25.2 Old myocardial infarction; I25.10 Atherosclerotic heart disease of native coronary artery without angina pectoris; F17.210 Nicotine dependence, cigarettes, uncomplicated; Z79.899 Other long term (current) drug therapy; Z79.51 Long term (current) use of inhaled steroids; Z86.73 Personal history of transient ischemic attack (TIA), and cerebral infarction without residual deficits
CPT/HCPCS: 36415; 80053; 85025; 99283

== ENCOUNTER 2019-05-31 15:44 | Emergency (ER) | payer OTHER ==
[~2019-05-31] VITALS: Ht 175.3 cm; Wt 90.7 kg
== END 2019-05-31 17:34 | disposition home or self-care (01) ==
LOC: ER 15:44
DX: S81.001D Unspecified open wound, right knee, subsequent encounter (principal); I25.2 Old myocardial infarction; F17.210 Nicotine dependence, cigarettes, uncomplicated; Z86.73 Personal history of transient ischemic attack (TIA), and cerebral infarction without residual deficits; Z95.5 Presence of coronary angioplasty implant and graft; Z79.899 Other long term (current) drug therapy; Z79.01 Long term (current) use of anticoagulants; X58.XXXD Exposure to other specified factors, subsequent encounter
CPT/HCPCS: 96372; 99283-25; J1885

== ENCOUNTER 2019-06-17 14:02 | Observation (INO) | payer OTHER ==
[~2019-06-17] VITALS: Ht 175.3 cm; Wt 76.2 kg
[2019-06-17 15:14] LABS: BASOPHILS ABSOLUTE AUTO 0.06 K/mm3 (0.00-0.23); BASOPHILS PERCENT AUTO 1 % (0-2); EOSINOPHILS ABSOLUTE AUTO 0.17 K/mm3 (0.00-0.68); EOSINOPHILS PERCENT AUTO 1 % (0-6); Hemoglobin 13.6 g/dL (13.5-17.5); IMMATURE GRAN ABSOLUTE AUTO 0.03 K/mm3 (0.00-0.10); IMMATURE GRAN PERCENT AUTO 0 % (0-1); LYMPHOCYTES ABSOLUTE AUTO 1.25 K/mm3 (0.84-5.20); LYMPHOCYTES PERCENT AUTO 10 % (21-46); MONOCYTES ABSOLUTE AUTO 0.96 K/mm3 (0.16-1.47); MONOCYTES PERCENT AUTO 8 % (4-13); Mean Corpuscular HGB 27.9 pg (26.0-34.0); Mean Corpuscular HGB Conc 33.2 g/dL (31.5-36.5); Mean Corpuscular Volume 84 fL (80-100); Mean Platelet Volume 9.4 fL (9.1-12.4); NEUTROPHILS ABSOLUTE AUTO 10.12 K/mm3 (1.96-9.15); NEUTROPHILS PERCENT AUTO 80 % (41-73); Platelet Count 591 K/mm3 (150-400); RDW Standard Deviation 54.9 fL (35.1-46.3); Red Blood Cell Count 4.88 M/mm3 (4.30-5.90); White Blood Cell Count 12.59 K/mm3 (4.00-11.30)
[2019-06-17 16:16] LABS: Alanine Aminotransfer (ALT/SGP 22 U/L (12-78); Albumin, Blood 3.2 g/dL (3.4-5.0); Albumin/Globulin Ratio 0.6 (0.8-1.8); Alk Phos 116 U/L (50-136); Anion Gap 5 mmol/L (6-16); Aspartate Aminotrans (AST/SGOT 21 U/L (12-37); Bilirubin, Total 0.4 mg/dL (0.1-1.0); Blood Urea Nitrogen 22 mg/dL (8-24); Bun/Creatinine Ratio 21.6 (12.0-20.0); CO2, Blood 27 mmol/L (21-32); Calcium, Blood 9.2 mg/dL (8.5-10.1); Chloride, Blood 105 mmol/L (98-108); Creatinine, Blood 1.02 mg/dL (0.60-1.20); Globulin, Blood 5.5 g/dL (2.2-4.0); Glomerular Filtration Rate >60 (60-); Glucose, Blood 78 mg/dL (70-99); Potassium, Blood 4.7 mmol/L (3.5-5.5); Sodium, Blood 137 mmol/L (136-145); Total Protein, Blood 8.7 g/dL (6.4-8.2)
[2019-06-17 19:18] LABS: U Amphetamine Screen DETECTED; U Barbituate Screen Not Detected; U Benzodiazapine Screen Not Detected; U Buprenorphine Screen Not Detected; U Cannabinoids Screen Not Detected; U Cocaine Screen Not Detected; U Methadone Screen Not Detected; U Methamphetamine Screen DETECTED; U Opiates Screen Not Detected; U Oxycodone Screen Not Detected; U Phencyclidine Screen Not Detected; U Propoxyphene Screen Not Detected
--- NOTE | 2019-06-18 04:53 | NUR ---
SHIFT SUMMARY PATIENT ADMITTED FROM ER. PATIENT LETHARGIC AND UNABLE TO STAY AWAKE DURING QUESTIONING. PICTURES OF WOUND TAKEN AND PLACED IN CHART. WOUND CLEANED AND DRESSING APPLIED. PATIENT COMPLAINS OF PAIN IN LEG BUT ONLY WHEN BEING MOVED. PATIENT STAYED ADLEEP DURING ASSESSMENT AND INTERVIEW. CIWA 3. WILL CONTINUE TO MONITOR AND REPORT TO ONCOMING SHIFT.
[2019-06-18 05:19] LABS: BASOPHILS ABSOLUTE AUTO 0.05 K/mm3 (0.00-0.23); BASOPHILS PERCENT AUTO 1 % (0-2); EOSINOPHILS ABSOLUTE AUTO 0.21 K/mm3 (0.00-0.68); EOSINOPHILS PERCENT AUTO 3 % (0-6); Hematocrit 33.1 % (37.0-53.0); Hemoglobin 10.7 g/dL (13.5-17.5); IMMATURE GRAN ABSOLUTE AUTO 0.03 K/mm3 (0.00-0.10); IMMATURE GRAN PERCENT AUTO 0 % (0-1); LYMPHOCYTES ABSOLUTE AUTO 2.28 K/mm3 (0.84-5.20); LYMPHOCYTES PERCENT AUTO 27 % (21-46); MONOCYTES ABSOLUTE AUTO 0.56 K/mm3 (0.16-1.47); MONOCYTES PERCENT AUTO 7 % (4-13); Mean Corpuscular HGB 27.2 pg (26.0-34.0); Mean Corpuscular HGB Conc 32.3 g/dL (31.5-36.5); Mean Corpuscular Volume 84 fL (80-100); NEUTROPHILS ABSOLUTE AUTO 5.33 K/mm3 (1.96-9.15); NEUTROPHILS PERCENT AUTO 63 % (41-73); Platelet Count 396 K/mm3 (150-400); RDW Coefficient Variation 17.9 % (11.7-14.2); RDW Standard Deviation 54.6 fL (35.1-46.3); Red Blood Cell Count 3.94 M/mm3 (4.30-5.90); White Blood Cell Count 8.46 K/mm3 (4.00-11.30)
[2019-06-18 05:53] LABS: Anion Gap 5 mmol/L (6-16); Blood Urea Nitrogen 11 mg/dL (8-24); Bun/Creatinine Ratio 12.4 (12.0-20.0); CO2, Blood 24 mmol/L (21-32); Calcium, Blood 8.2 mg/dL (8.5-10.1); Chloride, Blood 110 mmol/L (98-108); Creatinine, Blood 0.89 mg/dL (0.60-1.20); Glomerular Filtration Rate >60 (60-); Glucose, Blood 84 mg/dL (70-99); Sodium, Blood 139 mmol/L (136-145)
--- NOTE | 2019-06-18 06:51 | NUR ---
RECEIVED CALL FROM INFECTION PREVENTION WHOM STATED THAT PATIENT HAD BEEN SWABBED ON TWO SEPERATE OCCASIONS AND BEEN NEGATIVE FOR MRSA AND DID NOT REQUIRE ISOLATION AT THIS TIME. ORDER D/Cd. AUTOMATIC TYPEWRITER INSPECTOR NOTIFIED
--- NOTE | 2019-06-18 17:27 | NUR ---
SHIFT SUMMARY NO ACUTE CHANGES. PATIENT DENIES NAUSEA AND HSORTNESS OF BREATH. MEDICATED X1 FOR PAIN. PATIENT UP SBA WITH WALKER. PATIENT USES WHEELCHAIR TO TAKE HIMSELF OUTSIDE TO SMOKE. TAMPER TAPE ON IV'S. PATIENT WAS OUT OF ROOM SEVERAL TIMES WHEN MEDICATION WAS DUE. PATIENT ADVISED HE NEEDS TO BE PRESENT WHEN MEDICATIONS ARE DUE. PATIENT GIVEN MEDICATIONS TIMES IN ADVANCE. PATIENT NAPPING MOST OF DAY. CALL LIGHT IN REACH.
--- NOTE | 2019-06-19 05:00 | NUR ---
SHIFT SUMMARY NO ACUTE EVENTS OVERNIGHT. PATIENT GETS SELF IN WHEELCHAIR AND WENT OUTSIDE TO SMOKE MULTIPLE TIMES THROUGHOUT THE SHIFT. PATIENT ALSO AMBULATED WITH A WALKER OUT IN HALLWAY. BILATERAL ARM IV SECURED WITH TAMPER TAPE AND ORANGE CAPSE. WILL CONTINUE TO MONITOR AND REPORT TO ON COMING RN.
[2019-06-19 07:21] LABS: BASOPHILS ABSOLUTE AUTO 0.05 K/mm3 (0.00-0.23); BASOPHILS PERCENT AUTO 1 % (0-2); EOSINOPHILS ABSOLUTE AUTO 0.38 K/mm3 (0.00-0.68); EOSINOPHILS PERCENT AUTO 5 % (0-6); Hematocrit 35.9 % (37.0-53.0); Hemoglobin 11.6 g/dL (13.5-17.5); IMMATURE GRAN ABSOLUTE AUTO 0.02 K/mm3 (0.00-0.10); IMMATURE GRAN PERCENT AUTO 0 % (0-1); LYMPHOCYTES ABSOLUTE AUTO 2.01 K/mm3 (0.84-5.20); LYMPHOCYTES PERCENT AUTO 27 % (21-46); MONOCYTES ABSOLUTE AUTO 0.67 K/mm3 (0.16-1.47); MONOCYTES PERCENT AUTO 9 % (4-13); Mean Corpuscular HGB 27.6 pg (26.0-34.0); Mean Corpuscular HGB Conc 32.3 g/dL (31.5-36.5); Mean Corpuscular Volume 85 fL (80-100); Mean Platelet Volume 8.9 fL (9.1-12.4); NEUTROPHILS ABSOLUTE AUTO 4.37 K/mm3 (1.96-9.15); NEUTROPHILS PERCENT AUTO 58 % (41-73); Platelet Count 426 K/mm3 (150-400); RDW Coefficient Variation 18.1 % (11.7-14.2); RDW Standard Deviation 55.8 fL (35.1-46.3); Red Blood Cell Count 4.21 M/mm3 (4.30-5.90)
[2019-06-19 07:32] LABS: Albumin, Blood 2.7 g/dL (3.4-5.0); Anion Gap 5 mmol/L (6-16); Blood Urea Nitrogen 14 mg/dL (8-24); Bun/Creatinine Ratio 16.9 (12.0-20.0); CO2, Blood 24 mmol/L (21-32); Calcium, Blood 8.8 mg/dL (8.5-10.1); Chloride, Blood 110 mmol/L (98-108); Creatinine, Blood 0.83 mg/dL (0.60-1.20); Glomerular Filtration Rate >60 (60-); Glucose, Blood 83 mg/dL (70-99); Phosphorus, Blood 3.4 mg/dL (2.5-4.9); Potassium, Blood 4.3 mmol/L (3.5-5.5); Sodium, Blood 139 mmol/L (136-145)
[2019-06-19 07:34] LABS: Vancomycin, Trough 11.4 ug/mL (5.0-10.0)
--- NOTE | 2019-06-19 16:18 | NUR ---
SHIFT SUMMARY NO ACUTE CHANGES. PATIENT MEDICATED X1 FOR PAIN. DENIES NAUSEA AND SHORTNESS OF BREATH. PATIENT UP SBA W/FWW IN ROOM AND USES WHEELCHAIR TO WHEEL HIMSELF OUTSIDE TO SMOKE. CONSULT CALLED TO DR. SPANGLER. PATIENT'S AUNT HUMPHREY CALLED TO INFORM THAT PATIENT MAY COME TO HER HOME AT DISCHARGE BUT HE WANTS THE PATIENT SET UP AT THE WOUND CARE CIN AND FOR THE PATIENT TO AGREE TO ABSTAIN FROM DRUGS AND ALCOHOL IN HE HOME. PATIENT AWARE. CALL LIGHT IN REACH.
--- NOTE | 2019-06-19 20:15 | NUR ---
INFORMED PT THAT HE HAD VANCO DUE AT THIS TIME. PT STATES HE'S GOING OUTSIDE TO SMOKE FIRST. PT USES W/C INDEPENDENTLY.
--- NOTE | 2019-06-19 21:05 | NUR ---
PT BACK IN RM.
--- NOTE | 2019-06-20 02:01 | NUR ---
PT RESTING QUIETLY IN BED LYING ON RIGHT SIDE.
--- NOTE | 2019-06-20 04:57 | NUR ---
SHIFT SUMMARY: MEDICATED ONCE FOR 10/10 PAIN IN HIS RIGHT LEG WITH TORADOL WHICH PROVIDED GOOD PAIN RELIEF. PT WENT OUTSIDE SEVERAL TIMES VIA W/C TO SMOKE. TAMPER TAPE WAS PLACED ON PORTS OF BOTH IV SITES. PT RECEIVED SCHEDULED ABX, RESTED WELL T/O SHIFT, NO ACUTE CHANGES. WILL CONTINUE TO MONITOR AND PROVIDE CARE UNTIL SHIFT REPORT.
--- NOTE | 2019-06-20 16:52 | NUR ---
SHIFT SUMMARY NO ISSUES OR CONCERNS WITH THE PATIENT TODAY. DRESSING CHANGED TO R KNEE PER ORDERS, WET TO DRY. PATIENT TOLERATED PROCEDURE WITHOUT COMPLAINT. PATIENT HAS BEEN COOPERATIVE WITH STAFF. CONTINUES ON IV ABX WITHOUT S/SX OF ADVERSE REACTIONS NOTED OR REPORTED. PATIENT RESTING IN HIS ROOM AT THIS TIME. WILL CONTINUE TO MONITOR AND PROVIDE CARE NEEDED.
--- NOTE | 2019-06-21 04:41 | NUR ---
SHIFT SUMMARY- NO ACUTE CHANGES OVERNIGHT. PT. ASLEEP T/O THE NIGHT. WENT OUTSIDE 1X TO SMOKE, TAMPER TAPE ON BOTH IV PORTS. C/O PAIN OF THE RT KNEE, PAIN MED GIVEN PER EMAR. DENIED ANY OTHER NEEDS T/O THE SHIFT. CALL LIGHT WITHIN REACH AND SIDE RAILS UP X2, WILL CONT TO MONITOR.
[2019-06-21 07:35] LABS: Vancomycin, Trough 13.3 ug/mL (5.0-10.0)
--- NOTE | 2019-06-21 18:37 | NUR ---
SUMMARY- PT A/O, INDEPENDANT IN ROOM FROM W/C TO BED AND BACK, TO TOILET AND W/C. GOES OUTSIDE TO SMOKE T/O THE DAY AND IS COMPLIANT TO BE BACK FOR ABX TX. DRESSING R THIGH CHANGED WITH MOIST TO DRY GAUZE, EXUDRY AND KERLEX COVERED WITH WILBERT. WOUND BED 95^ PINK 5% YELLOW ESCHAR. PT TOLERATING PO FOOD AND FLUIDS. HAD A BM TODAY. PLACED IN ISOLATION FOR MRSA IN LEG WOUND FROM 06/19.
--- NOTE | 2019-06-22 05:00 | NUR ---
SHIFT SUMMARY- NO ACUTE CHANGES OVERNIGHT. PT. A&O, INDEP IN ROOM. GOES OUTSIDE TO SMOKE, TRANSFERS ONTO W/C INDEPENDENTLY. COOPERATIVE WITH CARE. RECEIVING IV ABX'S, TOLERATING WELL. DRESSING TO THE RT LEG C/D/I. DENIED ANY FURTHER NEEDS T/O THE SHIFT. CALL LIGHT WITHIN REACH AND SIDE RAILS UP X2. WILL CONT TO MONITOR.
--- NOTE | 2019-06-22 17:40 | NUR ---
PATIENT IS ALERT AND ORIENTED AND COOPERATIVE WITH CARE. PATIENT IS INDEPENDENT IN HIS ROOM. HE WHEELS HIMSELF OUTSIDE TO SMOKE. HE SLEPT BETWEEN MEALS. DR. COLE PUT IN ORDERS TO DC THE PATIENT. WAITING FOR DR. SARAVIA TO SEE THE PATIENT BEFORE DISCHARGE. WILL CONTINUE TO MONITOR. DRESSING HAS BEEN CHANGED TODAY.
--- NOTE | 2019-06-23 05:15 | NUR ---
SHIFT SUMMARY- PT. SLEPT COMFORTABLY T/O THE NIGHT. NO APPARENT DISTRESS NOTED. RT KNEE WOUND DSG C/D/I. WENT OUTSIDE IN WHEELCHAIR A FEW TIMES TO SMOKE. SCHEDULED IV ABX GIVEN PER EMAR. PT. DENIED ANY NEEDS T/O THE SHIFT. ANTICIPATING DISCHARGE IN THE AM. CALL LIGHT WITHIN REACH AND SIDE RAILS UP X2. WILL CONT TO MONITOR.
--- NOTE | 2019-06-23 17:36 | NUR ---
PATIENT DISCHARGED AT 1736.
== END 2019-06-23 17:30 | disposition home or self-care (01) ==
LOC: ER 14:02 → MEDS 14:03 → ER 17:20 → MEDS 18:45 → ENPENDDIS 06-22 16:40 → MEDS 06-23 17:30
PROVIDERS: Physician Assistant; ADMIT Internal Medicine
DX: A41.9 Sepsis, unspecified organism (principal); M00.9 Pyogenic arthritis, unspecified; M84.48XA Pathological fracture, other site, initial encounter for fracture; J44.9 Chronic obstructive pulmonary disease, unspecified; I10 Essential (primary) hypertension; Z86.73 Personal history of transient ischemic attack (TIA), and cerebral infarction without residual deficits; F17.200 Nicotine dependence, unspecified, uncomplicated; I25.10 Atherosclerotic heart disease of native coronary artery without angina pectoris; Z95.5 Presence of coronary angioplasty implant and graft; Z86.711 Personal history of pulmonary embolism; Z59.0 Homelessness; Z91.19 Patient's noncompliance with other medical treatment and regimen; F19.10 Other psychoactive substance abuse, uncomplicated
CPT/HCPCS: 36415; 73560-RT; 73701; 80048; 80053; 80069; 80202; 83605; 85025; 85651; 86140; 87040; 87070; 87077; 87147; 87186; 87205; 96360-59; 96361; 96361-59; 96365; 96366; 96367; 96372; 96375; 96376; 99285-25; A9270; G0378; J0696; J1650; J1885; J3370; J7030; J7040; J7050; J7120; Q9967

== ENCOUNTER 2019-07-22 16:38 | Inpatient (IN) | payer OTHER ==
[~2019-07-22] VITALS: Ht 175.3 cm; Wt 81.4 kg
[~2019-07-22 16:38] MED LIST changes: +Bactrim 400-801 EACH PO
--- NOTE | 2019-07-23 10:35 | NUR ---
DID NOT PREP RIGHT KNEE, PT IN PAIN 05/24. History, Chart, Medications and Allergies reviewed before start of procedure.Patient confirms NPO status and agrees with scheduled surgery. Patient reports completing Chlorhexadine shower X2 prior to admission to hospital. PT HAS FAMILY AT [facility]. Lungs clear T/O to Auscultation. ALL BLEONINGS STOWED UNDER BED. PT TOLERATED PRE OR CARE WITHOUT DIFFICULTY. ALL BELONINGS PLACED UNDER BED. WARM BLANKETS PROVIDED.
[2019-07-23] MEDS ORDERED: ACET325 ×2 (10:41)
--- NOTE | 2019-07-23 10:54 | NUR ---
"DAY SURGERY RN | ASSUMED CARE FROM JAIME STARR"
--- NOTE | 2019-07-23 12:08 | NUR ---
"JELENA WEBB RN | TO OR BOTH DOCTORS AND JUNK DEALER HAVE SEEN. NO ISSUES. REPORT TO RIGO Mcfadden RN. TO OR."
--- NOTE | 2019-07-23 17:34 | NUR ---
SUMMARY PT ARRIVED TO UNIT FROM PACU THIS AFTERNOON. VSS. WOUND VAC TO RLE DRAINING SMALL AMT SS DRAINAGE. IMMOBILIZER TO RLE. PT MEDICATED PER ORDERS FOR PAIN AND ICE PACK PLACED TO R KNEE FOR COMFORT. TOLERATING PO. PT ANXIOUS TO BE ABLE TO TAKE WC AND "GET OUT OF ROOM." TRIED TO DISSUADE PT, STATING HE NEEDED TO ADHERE TO WB PRECAUTIONS AND HAS WOUND VAC. PT BECAME VERY IRRITABLE, STATING HE "CAN'T LAY AROUND". ADVISED PT NEEDED TO COMPLETE POST OP VS. PT AGREEABLE AT THIS TIME. CALL LIGHT IN REACH.
[2019-07-23 17:42] LABS: BASOPHILS ABSOLUTE AUTO 0.05 K/mm3 (0.00-0.23); BASOPHILS PERCENT AUTO 0 % (0-2); EOSINOPHILS ABSOLUTE AUTO 0.34 K/mm3 (0.00-0.68); EOSINOPHILS PERCENT AUTO 3 % (0-6); Hematocrit 39.1 % (37.0-53.0); Hemoglobin 12.6 g/dL (13.5-17.5); IMMATURE GRAN ABSOLUTE AUTO 0.04 K/mm3 (0.00-0.10); IMMATURE GRAN PERCENT AUTO 0 % (0-1); LYMPHOCYTES ABSOLUTE AUTO 2.52 K/mm3 (0.84-5.20); LYMPHOCYTES PERCENT AUTO 20 % (21-46); MONOCYTES ABSOLUTE AUTO 0.78 K/mm3 (0.16-1.47); MONOCYTES PERCENT AUTO 6 % (4-13); Mean Corpuscular HGB 28.4 pg (26.0-34.0); Mean Corpuscular HGB Conc 32.2 g/dL (31.5-36.5); Mean Corpuscular Volume 88 fL (80-100); Mean Platelet Volume 9.5 fL (9.1-12.4); NEUTROPHILS ABSOLUTE AUTO 9.21 K/mm3 (1.96-9.15); NEUTROPHILS PERCENT AUTO 71 % (41-73); Platelet Count 391 K/mm3 (150-400); RDW Coefficient Variation 17.9 % (11.7-14.2); RDW Standard Deviation 58.6 fL (35.1-46.3); Red Blood Cell Count 4.43 M/mm3 (4.30-5.90); White Blood Cell Count 12.94 K/mm3 (4.00-11.30)
[2019-07-23 18:09] LABS: Magnesium, Blood 2.1 mg/dL (1.6-2.4)
[2019-07-23 18:12] LABS: Anion Gap 3 mmol/L (6-16); Blood Urea Nitrogen 19 mg/dL (8-24); Bun/Creatinine Ratio 21.4 (12.0-20.0); CO2, Blood 27 mmol/L (21-32); Calcium, Blood 8.6 mg/dL (8.5-10.1); Chloride, Blood 106 mmol/L (98-108); Creatinine, Blood 0.89 mg/dL (0.60-1.20); Glomerular Filtration Rate >60 (60-); Glucose, Blood 113 mg/dL (70-99); Potassium, Blood 3.8 mmol/L (3.5-5.5); Sodium, Blood 136 mmol/L (136-145)
[2019-07-24 04:58] LABS: BASOPHILS ABSOLUTE AUTO 0.06 K/mm3 (0.00-0.23); BASOPHILS PERCENT AUTO 1 % (0-2); EOSINOPHILS ABSOLUTE AUTO 0.33 K/mm3 (0.00-0.68); EOSINOPHILS PERCENT AUTO 3 % (0-6); Hematocrit 36.1 % (37.0-53.0); IMMATURE GRAN ABSOLUTE AUTO 0.03 K/mm3 (0.00-0.10); IMMATURE GRAN PERCENT AUTO 0 % (0-1); LYMPHOCYTES PERCENT AUTO 20 % (21-46); MONOCYTES ABSOLUTE AUTO 0.86 K/mm3 (0.16-1.47); MONOCYTES PERCENT AUTO 9 % (4-13); Mean Corpuscular HGB 28.9 pg (26.0-34.0); Mean Corpuscular HGB Conc 33.2 g/dL (31.5-36.5); Mean Corpuscular Volume 87 fL (80-100); Mean Platelet Volume 9.4 fL (9.1-12.4); NEUTROPHILS ABSOLUTE AUTO 6.54 K/mm3 (1.96-9.15); NEUTROPHILS PERCENT AUTO 67 % (41-73); Platelet Count 361 K/mm3 (150-400); RDW Coefficient Variation 17.9 % (11.7-14.2); RDW Standard Deviation 57.6 fL (35.1-46.3); Red Blood Cell Count 4.15 M/mm3 (4.30-5.90); White Blood Cell Count 9.82 K/mm3 (4.00-11.30)
--- NOTE | 2019-07-24 06:31 | NUR ---
SHIFT SUMMARY: CHONG IS POD1 FOR AN I&D OF THE RIGHT KNEE. HE HAS A WOUND VAC AND IMMOBILIZER IN PLACE. PEDAL PULSES STRONG, BRISK CAPILLARY REFILL. SEROSANGEINOUS DRAINAGE IN WOUND VAC. CHNOG HAS GONE OUTSIDE THREE TIMES THIS SHIFT. HE IS USING THE WHEELCHAIR FOR MOBILITY AND HAS DEMONSTRATED CARE WITH TRANSFERS AND WEIGHT BEARING STATUS ON HIS RIGHT LEG. HE IS TOLERAING PO INTAKE WELL. HE REPORTS IMPROVEMENT IN HIS PAIN FROM 8-9/140 TO 6/10 WITH THE USE OF THE NORCO PAIN MEDICATION. HE IS USING THE URINAL, DENIES ANY DIFFICULTIES. IV TO R FOREARM PATENT.
--- NOTE | 2019-07-24 16:01 | NUR ---
SHIFT SUMMARY NO ACUTE CHANGES TODAY. PT RECEIVING 2 NORCO FOR PAIN MANAGEMENT. IV ABX PER ORDERS. SANAM REG DIET. PT USES W/C INDEP TO AND FROM ROOM. USING URINAL TO VOID. WOUND VAC TO R KNEE REMAINS PATENT AND DRESSING IS CDI. IMMOBILIZER IN PLACE. PT USES CALL LIGHT APPROPRIATELY.
--- NOTE | 2019-07-25 04:38 | NUR ---
SHIFT SUMMARY: CHONG IS POD 2 FOR A RIGHT KNEE I&d. WOUND VAC IN PLACE WITH SPONGE COMPRESSED AND SEROSANGEINOUS DRAINAGE, IMMOBILIZER IN PLACE. CHONG FOLLOWS HIS WEIGHT BEARING RESTRICTIONS APPROPRIATELY. HE IS A&O X 4, REQUIRES STANDBY ASSISTANCE FOR TRANSFERS. HE MOVES INDEPEDNENTLY IN THE WHEELCHAIR. HE REPORTS THAT HIS PAIN IS WELL CONTROLLED WITH THE USE OF THE NORCO. HE IS TOLERATING PO INTAKE WELL. VSS. NO ACUTE CHANGES THIS SHIFT. IV TO LEFT FOREARM PATENT. HE IS LYING IN BED WITH HIS CALL LIGHT IN REACH.
[2019-07-25 08:28] LABS: Vancomycin, Trough 14.5 ug/mL (5.0-10.0)
--- NOTE | 2019-07-25 15:57 | NUR ---
SHIFT SUMMARY NO ACUTE CHANGES TODAY. VSS. 2 NORCO FOR PAIN PRN. PT INDEPENDENT IN W/C. WOUND VAC DRESSING IS CDI AND FOAM COMPRESSED. IMMOBILIZER IN PLACE. ENCOURAGING ELEVATION AND REPOSITIONING. CONT IV ABX PER ORDERS. PT USES CALL LIGHT APPROPRIATELY.
--- NOTE | 2019-07-26 04:58 | NUR ---
SHIFT SUMMARY PT TRANSFERS TO WHEELCHAIR IND. IND IN RM. LEG IMMOBILIZER IN PLACE. PULSES STRONG, FEET WARM BILAT. WIGGLES TOES. WOUND VAC INTACT AND SEALED. DRAINING SS FLUID. PAIN MANAGED WITH MED PRN. ASSISTED WITH ADL'S PRN. PT WENT OUTSIDE IND IN WHEELCHAIR SEVERAL TIMES THROUGHOUT SHIFT.
--- NOTE | 2019-07-26 07:35 | NUR ---
Patient gave me permission to participate in his care at 0730 on 07/26/19.
--- NOTE | 2019-07-26 13:13 | NUR ---
Spiritual care visit conducted. Patient is sitting up in bed and alert. Patient tells me about his new attempt to live drug and alcohol free and to rededicate his life to God. I listen empathically reinforce helpful attitudes and practices and provide prayer. Patient responds well and thanks me for the visit.
--- NOTE | 2019-07-26 14:35 | NUR ---
PT OUT TO SMOKE SERVERAL TIMES THIS SHIFT. EDUCATED ON SMOKING CESSATION. REFUSED NICOTINE PATCH AT TIME OFFERED.
[2019-07-26 14:46] LABS: BASOPHILS ABSOLUTE AUTO 0.05 K/mm3 (0.00-0.23); BASOPHILS PERCENT AUTO 1 % (0-2); EOSINOPHILS ABSOLUTE AUTO 0.43 K/mm3 (0.00-0.68); EOSINOPHILS PERCENT AUTO 4 % (0-6); Hematocrit 36.3 % (37.0-53.0); Hemoglobin 11.9 g/dL (13.5-17.5); IMMATURE GRAN ABSOLUTE AUTO 0.04 K/mm3 (0.00-0.10); IMMATURE GRAN PERCENT AUTO 0 % (0-1); LYMPHOCYTES ABSOLUTE AUTO 3.08 K/mm3 (0.84-5.20); LYMPHOCYTES PERCENT AUTO 32 % (21-46); MONOCYTES ABSOLUTE AUTO 0.97 K/mm3 (0.16-1.47); MONOCYTES PERCENT AUTO 10 % (4-13); Mean Corpuscular HGB 28.4 pg (26.0-34.0); Mean Corpuscular HGB Conc 32.8 g/dL (31.5-36.5); Mean Corpuscular Volume 87 fL (80-100); Mean Platelet Volume 9.5 fL (9.1-12.4); NEUTROPHILS ABSOLUTE AUTO 5.17 K/mm3 (1.96-9.15); NEUTROPHILS PERCENT AUTO 53 % (41-73); Platelet Count 407 K/mm3 (150-400); RDW Coefficient Variation 17.8 % (11.7-14.2); RDW Standard Deviation 56.8 fL (35.1-46.3); Red Blood Cell Count 4.19 M/mm3 (4.30-5.90); White Blood Cell Count 9.74 K/mm3 (4.00-11.30)
[2019-07-26 14:56] LABS: Anion Gap 6 mmol/L (6-16); Blood Urea Nitrogen 14 mg/dL (8-24); Bun/Creatinine Ratio 12.7 (12.0-20.0); CO2, Blood 26 mmol/L (21-32); Calcium, Blood 9.2 mg/dL (8.5-10.1); Chloride, Blood 104 mmol/L (98-108); Glomerular Filtration Rate >60 (60-); Glucose, Blood 89 mg/dL (70-99); Potassium, Blood 3.9 mmol/L (3.5-5.5); Sodium, Blood 136 mmol/L (136-145)
--- NOTE | 2019-07-26 18:42 | NUR ---
DR. SPANGLER IN TO SEE PT, WOUND VAC AND DRESSING CHANGED. SEE MD NOTE. PT TOLERATED WELL.
--- NOTE | 2019-07-26 19:29 | NUR ---
SUMMARY: PT IS POD3 FOR R KNEE I&D. NO ACUTE CHANGE TODAY. VSS, A/O. PT ENCOURAGED TO ELEVATE LEG, YET FOUND MANY TIMES IN WHEELCHAIR AND/OR AWAY FROM ROOM. PT MEDICATED PRN FOR PAIN, SURGICAL SITE WNL. ANTIBIOTICS GIVEN. PT IS FOLLOWING WB PRECAUTIONS WHEN UP. NO ACUTE SAFETY CONCERNS AT THIS TIME. REPORT GIVEN TO RO RODRIGUEZ.
--- NOTE | 2019-07-26 20:52 | NUR ---
2051: PT SELF PROPELS IN HALLWAY AND RERTURNS FROM SMOKING OUTSIDE; TRANSFERS SELF IND FROM WC TO BED AND DENIES INTOLERABLE PAIN WITH MOVEMENT. WOUND VAC DRESSING APPEARS C/D/I AND WAS CHANGED BY DR. SPANGLER JUST PRIOR TO CHANGE OF SHIFT.
--- NOTE | 2019-07-27 05:46 | NUR ---
SUMMARY: POD 4 I&D OF RIGHT KNEE BY DR. SPANGLER; DR. LEE INFECTION CONTROL ALSO CONSULTED ON PT 07/26/19. VSS, AFEBRILE, ROOM AIR. TOLERATING PO INTAKE, VOIDING CLEAR YELLOW. GOES OUTSIDE TO SMOKE TWICE EARLY IN SHFT THEN SLEPT WELL REST OF NOC. PAIN WELL CONTROLLED WITH 1 TAB NORCO X2 THIS SHIFT. WOUND VAC DRESSING WNL, KNEE IMMOBILIZER TO RLE. CONTINUE IV ANTIBIOTICS AND POSSIBLY DC BACK TO SNF EARLY TODAY.
[2019-07-27 08:52] LABS: Creatinine, Blood 0.84 mg/dL (0.60-1.20); Vancomycin, Trough 17.6 ug/mL (5.0-10.0)
--- NOTE | 2019-07-27 18:19 | NUR ---
SHIFT SUMMARY PAIN WELL CONTROLLED. TOLERATING DIET. D/C PLANNING PENDING DUE TO HOME SITUATION.
--- NOTE | 2019-07-28 03:39 | NUR ---
Patient A&Ox4, VSS. Transfering independently to Wheelchair. Went outside once at start of shift. Antibiotics given. Tolerating PO diet. Voiding; yellow and clear. Pain controlled with 1 tab norco. Powerglide to RA flushes well, no blood return. VSS; RA, afebrile.
--- NOTE | 2019-07-28 11:43 | NUR ---
1120 FAMILY MEET FAMILY MEETING WITH PATIENT, FAMILY AND SAY MOLINA RN CASE MANAGER TO DISCUSS DISCHARGE PLAN. PATIENTS FAMILY MEMBERS THEN TOOK PATIENT OUTSIDE VIA WHEELCHAIR
--- NOTE | 2019-07-28 14:09 | NUR ---
PT WHEELING SELF IN WHEELCHAIR, TELLS ME HE IS GOING OUTSIDE
--- NOTE | 2019-07-28 17:57 | NUR ---
1610 SHOWER WOUND VAC DISCONNECTED FROM POWER SOURCE AND PATIENT SAT IN SHOWER CHAIR TO SHOWER. WOUND VAC DRESSING CHANGE COMPLETED AFTER SHOWER BY DR SPANGLER AND GEORGETTE MARIEE RN
--- NOTE | 2019-07-28 17:58 | NUR ---
SUMMARY PATIENT CHEERFUL AND COOPERATIVE THROUGHOUT SHIFT. FAMILY MEMBERS IN TO VISIT AND VERBALIZE THEY WILL ASSIST PATIENT POST DISCHARGE. PATIENT REPORTS SOME PAIN TO RIGHT KNEE WITH MVEMENT BUT IS CONTROLLED TO ACCEPTABLE LEVEL
--- NOTE | 2019-07-29 05:23 | NUR ---
SHIFT SUMMARY PT A/O X4. TRANSFERS IND FROM BED TO WHEELCHAIR. PT HAS GONE OUTSIDE IN WHEELCHAIR SEVERAL TIMES THIS SHIFT. PAIN MANAGED WITH PO PAIN MED PER ORDERS. WOUND VAC IN PLACE AND FUNCTIONING. ASSISTED WITH ADL'S PRN.
[2019-07-29 09:45] LABS: Vancomycin, Trough 14.3 ug/mL (5.0-10.0)
--- NOTE | 2019-07-29 16:02 | NUR ---
SHIFT SUMMARY NO ACUTE CHANGES TODAY. MEDICATED X1 WITH ORAL NORCO FOR PAIN MANAGEMENT. CONT IV ABX ORDERED. WOUND VAC DRESSING TO R KNEE REMAINS CDI WITH FOAM COMPRESSED. IMMOBILIZER IN PLACE. ENCOURAGING ELEVATION. PT IS INDEP IN ROOM WITH W/C AND WALKER TO THE BATHROOM. PLAN IS FOR PT TO DC TOMORROW WITH HOME HEALTH/WOUND CLINIC APPOINTMENT.
--- NOTE | 2019-07-30 05:43 | NUR ---
SHIFT SUMMARY PT IND. IN RM. TRANSFERS FROM BED TO WHEELCHAIR IND. A/O X4. PT ONLY NEEDED PAIN MED ONCE THIS SHIFT, OTHERWISE PAIN HAS BEEN MINIMAL. PT HAS BEEN RESTING QUIETLY WITH NO FURTHER CONCERNS THIS SHIFT.
--- NOTE | 2019-07-30 18:14 | NUR ---
SHIFT SUMMARY PT EATING AND DRINKING. PT HAD WOUND VAC CHANGED TODAY BY REAL ESTATE OFFICE MANAGER. PT HAD SHOWER TODAY. PT BEEN ASSISTED WITH ADL'S PRN. PROOF TECHNICIAN HELPER WORKING WITH PT AND FAMILY FOR DISCHARGE.
[2019-07-31 06:00] LABS: BASOPHILS ABSOLUTE AUTO 0.08 K/mm3 (0.00-0.23); BASOPHILS PERCENT AUTO 1 % (0-2); EOSINOPHILS ABSOLUTE AUTO 0.45 K/mm3 (0.00-0.68); EOSINOPHILS PERCENT AUTO 5 % (0-6); Hematocrit 37.3 % (37.0-53.0); Hemoglobin 12.3 g/dL (13.5-17.5); IMMATURE GRAN ABSOLUTE AUTO 0.03 K/mm3 (0.00-0.10); IMMATURE GRAN PERCENT AUTO 0 % (0-1); LYMPHOCYTES ABSOLUTE AUTO 2.84 K/mm3 (0.84-5.20); LYMPHOCYTES PERCENT AUTO 33 % (21-46); MONOCYTES ABSOLUTE AUTO 1.03 K/mm3 (0.16-1.47); MONOCYTES PERCENT AUTO 12 % (4-13); Mean Corpuscular HGB 28.3 pg (26.0-34.0); Mean Corpuscular Volume 86 fL (80-100); Mean Platelet Volume 9.2 fL (9.1-12.4); NEUTROPHILS ABSOLUTE AUTO 4.21 K/mm3 (1.96-9.15); NEUTROPHILS PERCENT AUTO 49 % (41-73); Platelet Count 432 K/mm3 (150-400); RDW Coefficient Variation 17.2 % (11.7-14.2); RDW Standard Deviation 54.1 fL (35.1-46.3); Red Blood Cell Count 4.34 M/mm3 (4.30-5.90); White Blood Cell Count 8.64 K/mm3 (4.00-11.30)
[2019-07-31 06:19] LABS: Albumin, Blood 3.1 g/dL (3.4-5.0); Anion Gap 6 mmol/L (6-16); Blood Urea Nitrogen 22 mg/dL (8-24); Bun/Creatinine Ratio 24.9 (12.0-20.0); CO2, Blood 25 mmol/L (21-32); Calcium, Blood 8.9 mg/dL (8.5-10.1); Chloride, Blood 107 mmol/L (98-108); Creatinine, Blood 0.88 mg/dL (0.60-1.20); Glomerular Filtration Rate >60 (60-); Glucose, Blood 93 mg/dL (70-99); Phosphorus, Blood 3.6 mg/dL (2.5-4.9); Potassium, Blood 4.2 mmol/L (3.5-5.5); Sodium, Blood 138 mmol/L (136-145)
--- NOTE | 2019-07-31 07:46 | NUR ---
SUMMARY PT ABLE TO TRANSFER TO W/C. CIRC CHECKS INTACT. PAIN CONTROLLED WITH PO MEDS.NO C/O NAUSEA. WOUND VAC WAS CHANGED 07/30/19 PER DAY RN AND IS SX WITH SCANT SERO-SANG ONLY.
--- NOTE | 2019-07-31 17:28 | NUR ---
SUMMARY: NO CHANGE TODAY. A/O, VSS. WOUND SITE/VAC WNL. MEDICATED WITH ANTIBIOTICS AND PAIN MEDS PRN. OUT FREQUENTLY TO SMOKE, REFUSING NICOTINE PATCH. PLAN IS FOR DC HOME TOMORROW AFTER 1100 ANTIBIOTIC DOSE. WILL CTM AND REPORT TO LUZ MARINA STARR.
--- NOTE | 2019-08-01 05:07 | NUR ---
SHIFT SUMMARY POD9 I&D RI KNEE. AA0X4, VSS. PATIENT IND IN ROOM. KNEE IMMOBILIZER IN PLACE. PICCO DRESSING COMPRESSED AND SUCTIONING. SCANT DRAINAGE AROUND DRESSING PATIENT HAS BEEN RESTING IN BED FOR MOST OF SHIFT. DENIES PAIN DURING SHIFT. TOLERATING PO, PLAN IS FOR HOME TODAY.
[2019-08-01] MEDS ORDERED: CUBICIN500 MG IV ×2 (13:18)
[2019-08-01] MEDS ORDERED: HYDR1TAB94 PO ×2 (13:19)
[2019-08-01] MEDS ORDERED: MILK OF MA400 MG/5 M PO ×2 (13:20)
[2019-08-01] MEDS ORDERED: Nicoderm Cq1 EAC1 TOP ×2 (14:36)
[2019-08-01] MEDS ORDERED: RIFA300 PO ×2 (14:37)
[2019-08-01] MEDS ORDERED: Florastor250 MG PO ×2 (14:37)
--- NOTE | 2019-08-01 16:02 | NUR ---
DISCHARGE: PACKET PRINTED AND EDUCATION GIVEN. PT VERBALIZED UNDERSTANDING OF HOME HEALTH VISITS AND DAILY INFUSION, FOLLOW UP. MEDS FAXED TO [facility]. NARCOTIC SCRIPT SENT WITH PT. PT LEFT UNIT WITH FAMILY VIA WHEELCHAIR AT ABOUT 1530
== END 2019-08-01 15:42 | disposition home health service (06) | DRG 486 ==
LOC: SURS 07-23 09:52 → PRE IP 07-23 11:00 → SURS 07-23 15:16
PROVIDERS: Internal Medicine; Pharmacist; ADMIT Orthopaedic Surgery
PROC: 0SBC0ZZ Excision of Right Knee Joint, Open Approach (ICD-10-PCS; principal; 2019-07-23 11:00)
DX: M00.9 Pyogenic arthritis, unspecified (principal); S82.001K Unspecified fracture of right patella, subsequent encounter for closed fracture with nonunion; L02.415 Cutaneous abscess of right lower limb; M86.9 Osteomyelitis, unspecified; I25.10 Atherosclerotic heart disease of native coronary artery without angina pectoris; I73.9 Peripheral vascular disease, unspecified; J44.9 Chronic obstructive pulmonary disease, unspecified; I10 Essential (primary) hypertension; Z98.52 Vasectomy status; F17.210 Nicotine dependence, cigarettes, uncomplicated; Z79.82 Long term (current) use of aspirin; F19.11 Other psychoactive substance abuse, in remission; Z86.711 Personal history of pulmonary embolism; Z91.19 Patient's noncompliance with other medical treatment and regimen; Z59.0 Homelessness; I25.2 Old myocardial infarction; Y92.9 Unspecified place or not applicable
CPT/HCPCS: 36415; 80048; 80069; 80202; 82550; 82565; 83735; 85025; 85651; 86140; 87071; 87075; 87205; 88305; A9270-GY; C1713; C1751; J0690; J0878; J1650; J2250; J2370; J2405; J2543; J2704; J3010; J3370; J7050; J7120

== ENCOUNTER 2019-08-02 07:30 | Day surgery (SDC) | payer OTHER ==
[~2019-08-02 07:30] MED LIST changes: +ACET325; +CUBICIN500 MG IV; +Florastor250 MG PO; +MILK OF MA400 MG/5 M PO; +Nicoderm Cq1 EAC1 TOP; +RIFA300 PO
--- NOTE | 2019-08-02 17:08 | NUR ---
PT AND FAMILY HAVE QUESTIONS RE: POC. HE HAS A W[facility] ON [facility]. HE HAS A HOME HEALTH REFERRAL AND CAME INTO THE [facility] TODAY WITH DAPTO IN A SYRINGE. PT AND FAMILY ARE NOT SURE HOW WERE THEY REC'D THE ANTIBIOTICS AT HOME FROM. PT REC'D AN IV AND GOT A DOSE OF DAPTOMYCIN FROM THE PHARMACY TODAY. LM FOR TOBIAS MOLINA CM WHO HAD DOCUMENTED ON PT DURING HIS RECENT ADMISSION TO SEE IF SHE HAS AN ANSWER FOR PT RE: THE CURRENT POC.
== END 2019-08-02 11:35 | disposition home or self-care (01) ==
LOC: ATC 07:30
DX: M00.9 Pyogenic arthritis, unspecified (principal); M86.9 Osteomyelitis, unspecified; L02.415 Cutaneous abscess of right lower limb; I10 Essential (primary) hypertension; I25.10 Atherosclerotic heart disease of native coronary artery without angina pectoris; J44.9 Chronic obstructive pulmonary disease, unspecified; F17.210 Nicotine dependence, cigarettes, uncomplicated; Z98.52 Vasectomy status; Z79.82 Long term (current) use of aspirin; Z79.899 Other long term (current) drug therapy
CPT/HCPCS: 96365; J0878

== ENCOUNTER 2019-08-03 10:24 | Day surgery (SDC) | payer OTHER | END 2019-08-03 12:06 | disposition home or self-care (01) | LOC: ATC 10:24 | DX: M00.9 Pyogenic arthritis, unspecified (principal); L02.415 Cutaneous abscess of right lower limb; M86.9 Osteomyelitis, unspecified; I25.10 Atherosclerotic heart disease of native coronary artery without angina pectoris; F17.210 Nicotine dependence, cigarettes, uncomplicated; I10 Essential (primary) hypertension; F11.10 Opioid abuse, uncomplicated; J44.9 Chronic obstructive pulmonary disease, unspecified; Z79.82 Long term (current) use of aspirin; Z79.899 Other long term (current) drug therapy | CPT/HCPCS: 96365; J0878 ==

== ENCOUNTER 2019-08-04 00:18 | Day surgery (SDC) | payer OTHER | END 2019-08-04 22:38 | disposition home or self-care (01) | LOC: ATC 00:18 | DX: M00.9 Pyogenic arthritis, unspecified (principal); L02.415 Cutaneous abscess of right lower limb; M86.9 Osteomyelitis, unspecified; I25.10 Atherosclerotic heart disease of native coronary artery without angina pectoris; F17.210 Nicotine dependence, cigarettes, uncomplicated; I10 Essential (primary) hypertension; J44.9 Chronic obstructive pulmonary disease, unspecified; F11.10 Opioid abuse, uncomplicated; Z79.1 Long term (current) use of non-steroidal anti-inflammatories (NSAID); Z79.82 Long term (current) use of aspirin; Z79.891 Long term (current) use of opiate analgesic; Z79.2 Long term (current) use of antibiotics; Z79.899 Other long term (current) drug therapy | CPT/HCPCS: 96365; J0878 ==

== ENCOUNTER 2019-08-05 00:42 | Day surgery (SDC) | payer OTHER | END 2019-08-05 15:21 | disposition home or self-care (01) | LOC: ATC 00:42 | DX: M00.9 Pyogenic arthritis, unspecified (principal); L02.415 Cutaneous abscess of right lower limb; M86.9 Osteomyelitis, unspecified; I25.10 Atherosclerotic heart disease of native coronary artery without angina pectoris; E78.5 Hyperlipidemia, unspecified; I10 Essential (primary) hypertension; J44.9 Chronic obstructive pulmonary disease, unspecified; F17.210 Nicotine dependence, cigarettes, uncomplicated; Z79.1 Long term (current) use of non-steroidal anti-inflammatories (NSAID); Z79.02 Long term (current) use of antithrombotics/antiplatelets; Z79.82 Long term (current) use of aspirin; Z79.899 Other long term (current) drug therapy; Z95.5 Presence of coronary angioplasty implant and graft | CPT/HCPCS: 96365; J0878 ==

== ENCOUNTER 2019-08-06 00:26 | Day surgery (SDC) | payer OTHER | END 2019-08-06 09:15 | disposition home or self-care (01) | LOC: ATC 00:26 | DX: M00.061 Staphylococcal arthritis, right knee (principal); B95.7 Other staphylococcus as the cause of diseases classified elsewhere; I10 Essential (primary) hypertension; J44.9 Chronic obstructive pulmonary disease, unspecified; I25.10 Atherosclerotic heart disease of native coronary artery without angina pectoris; F17.210 Nicotine dependence, cigarettes, uncomplicated; Z95.5 Presence of coronary angioplasty implant and graft; Z79.82 Long term (current) use of aspirin; Z79.899 Other long term (current) drug therapy | CPT/HCPCS: 96365; J0878 ==

== ENCOUNTER 2019-08-06 09:28 | Day surgery (SDC) | payer OTHER | END 2019-08-06 22:50 | disposition home or self-care (01) | LOC: WOUND | DX: L97.115 Non-pressure chronic ulcer of right thigh with muscle involvement without evidence of necrosis (principal); I10 Essential (primary) hypertension; J44.9 Chronic obstructive pulmonary disease, unspecified; I25.10 Atherosclerotic heart disease of native coronary artery without angina pectoris; I25.2 Old myocardial infarction; F17.210 Nicotine dependence, cigarettes, uncomplicated; Z86.73 Personal history of transient ischemic attack (TIA), and cerebral infarction without residual deficits; Z95.5 Presence of coronary angioplasty implant and graft; Z79.82 Long term (current) use of aspirin; Z79.899 Other long term (current) drug therapy | CPT/HCPCS: G0463 ==

== ENCOUNTER 2019-08-07 00:35 | Day surgery (SDC) | payer OTHER | END 2019-08-07 15:15 | disposition home or self-care (01) | LOC: ATC 00:35 | DX: M00.061 Staphylococcal arthritis, right knee (principal); B95.7 Other staphylococcus as the cause of diseases classified elsewhere; I10 Essential (primary) hypertension; J44.9 Chronic obstructive pulmonary disease, unspecified; I25.10 Atherosclerotic heart disease of native coronary artery without angina pectoris; F17.210 Nicotine dependence, cigarettes, uncomplicated; Z79.82 Long term (current) use of aspirin; Z95.5 Presence of coronary angioplasty implant and graft; Z79.899 Other long term (current) drug therapy | CPT/HCPCS: 96365; J0878 ==

== ENCOUNTER 2019-08-09 00:37 | Day surgery (SDC) | payer OTHER ==
--- NOTE | 2019-08-09 15:45 | NUR ---
ORDER OBTAINED FOR ORDER OKAY TO LEAVE IV IN AND FOR POWER GLIDE PLACEMENT. TAMPER RESISTANT TAPE PLACD OVER END CAPS X2. PT TEACHING THAT IF IV WILL BE DC'D FOR REMOVING TAPE AND USING IV OUTSIDE OF CLINIC. VERBALIZES UNDERSTANDING AND PT VERBALIZES UNDERSTANDING. SWAB CAP X2, 2X2 GAUZE UNDER CAPS/CLAMP AND OVER SITE. WRAPPED COBAN AND NETTING TO MAINTAIN INTEGRITY OF SITE.
== END 2019-08-09 15:41 | disposition home or self-care (01) ==
LOC: ATC 00:37
DX: M00.9 Pyogenic arthritis, unspecified (principal); L02.415 Cutaneous abscess of right lower limb; M86.9 Osteomyelitis, unspecified; I25.10 Atherosclerotic heart disease of native coronary artery without angina pectoris; I10 Essential (primary) hypertension; F11.10 Opioid abuse, uncomplicated; J44.9 Chronic obstructive pulmonary disease, unspecified; I73.9 Peripheral vascular disease, unspecified; F17.210 Nicotine dependence, cigarettes, uncomplicated; Z95.5 Presence of coronary angioplasty implant and graft; Z79.1 Long term (current) use of non-steroidal anti-inflammatories (NSAID); Z79.82 Long term (current) use of aspirin; Z79.899 Other long term (current) drug therapy
CPT/HCPCS: J0878

== ENCOUNTER 2019-08-09 15:58 | Day surgery (SDC) | payer OTHER | END 2019-08-09 23:12 | disposition home or self-care (01) | LOC: WOUND | DX: T81.89XA Other complications of procedures, not elsewhere classified, initial encounter (principal); I96 Gangrene, not elsewhere classified; J44.9 Chronic obstructive pulmonary disease, unspecified; I25.10 Atherosclerotic heart disease of native coronary artery without angina pectoris; I10 Essential (primary) hypertension; I25.2 Old myocardial infarction; E78.5 Hyperlipidemia, unspecified; F17.200 Nicotine dependence, unspecified, uncomplicated; Z79.82 Long term (current) use of aspirin; Z79.02 Long term (current) use of antithrombotics/antiplatelets; Z95.5 Presence of coronary angioplasty implant and graft; Z79.899 Other long term (current) drug therapy; Z51.5 Encounter for palliative care; Y83.8 Other surgical procedures as the cause of abnormal reaction of the patient, or of later complication, without mention of misadventure at the time of the procedure ==

== ENCOUNTER 2019-08-11 00:05 | Day surgery (SDC) | payer OTHER ==
--- NOTE | 2019-08-11 16:28 | NUR ---
WOUND VAC DRESSING BY NAEL STARR FROM WOUND-CARE.
== END 2019-08-11 15:45 | disposition home or self-care (01) ==
LOC: ATC 00:05
DX: M01.X61 Direct infection of right knee in infectious and parasitic diseases classified elsewhere (principal); B95.62 Methicillin resistant Staphylococcus aureus infection as the cause of diseases classified elsewhere; I25.10 Atherosclerotic heart disease of native coronary artery without angina pectoris; I10 Essential (primary) hypertension; J44.9 Chronic obstructive pulmonary disease, unspecified; I73.9 Peripheral vascular disease, unspecified; F17.200 Nicotine dependence, unspecified, uncomplicated; F11.10 Opioid abuse, uncomplicated; Z79.82 Long term (current) use of aspirin; Z79.899 Other long term (current) drug therapy
CPT/HCPCS: J0878

== ENCOUNTER 2019-08-16 07:09 | Day surgery (SDC) | payer OTHER ==
--- NOTE | 2019-08-16 15:08 | NUR ---
IV ANTIBIOTICS: ANTIBIOTIC WAS STARTED AT 1435 AND ENDED AT 1510. COMPUTERS ARE HAVING ISSUES, LEDA HAZEL WAS DOING WOUND VAC AND THIS RN HUNG MEDICATION. LEDA HAZEL WITNESSES COMPUTER ISSUES
--- NOTE | 2019-08-16 15:25 | NUR ---
WOUND CARE TOOK 30 MINUTES. PT TOLERATED WELL.
== END 2019-08-16 15:13 | disposition home or self-care (01) ==
LOC: ATC 07:09
DX: M00.061 Staphylococcal arthritis, right knee (principal); M01.X61 Direct infection of right knee in infectious and parasitic diseases classified elsewhere; B95.62 Methicillin resistant Staphylococcus aureus infection as the cause of diseases classified elsewhere; L02.415 Cutaneous abscess of right lower limb; M86.9 Osteomyelitis, unspecified; I25.10 Atherosclerotic heart disease of native coronary artery without angina pectoris; I10 Essential (primary) hypertension; F17.210 Nicotine dependence, cigarettes, uncomplicated; F11.10 Opioid abuse, uncomplicated; J44.9 Chronic obstructive pulmonary disease, unspecified; Z95.5 Presence of coronary angioplasty implant and graft; Z79.1 Long term (current) use of non-steroidal anti-inflammatories (NSAID); Z79.82 Long term (current) use of aspirin; Z79.899 Other long term (current) drug therapy; Z51.5 Encounter for palliative care
CPT/HCPCS: 96365; 99213; J0878

== ENCOUNTER 2019-08-17 00:04 | Day surgery (SDC) | payer OTHER ==
--- NOTE | 2019-08-17 16:50 | NUR ---
CALL PRISON OFFICER TO CHECK WOUND VAC IT WAS ALARMING BLOCKAGE. NAEL RN CAME TO CHANGE TRACT PAD TO SEE IF THIS WAS THE PROBLEM. NO RESOLUTION OF PROBLEM. DRESSING TAKEN OFF. ABD AND MEFIX TAPE UNTIL SEES WOUND CARE TOMORROW. PT WAS TO GO SEE DR LEE AFTER VISIT, UNABLE TO GET RIDE OVER. PT TO CALL IN AM.
== END 2019-08-17 15:40 | disposition home or self-care (01) ==
LOC: ATC 00:04
DX: M00.061 Staphylococcal arthritis, right knee (principal); M01.X61 Direct infection of right knee in infectious and parasitic diseases classified elsewhere; B95.62 Methicillin resistant Staphylococcus aureus infection as the cause of diseases classified elsewhere; L02.415 Cutaneous abscess of right lower limb; M86.9 Osteomyelitis, unspecified; M17.11 Unilateral primary osteoarthritis, right knee; I25.10 Atherosclerotic heart disease of native coronary artery without angina pectoris; I73.9 Peripheral vascular disease, unspecified; I10 Essential (primary) hypertension; F17.210 Nicotine dependence, cigarettes, uncomplicated; J44.9 Chronic obstructive pulmonary disease, unspecified; F11.10 Opioid abuse, uncomplicated; Z79.1 Long term (current) use of non-steroidal anti-inflammatories (NSAID); Z79.82 Long term (current) use of aspirin; Z79.899 Other long term (current) drug therapy; Z95.5 Presence of coronary angioplasty implant and graft
CPT/HCPCS: 96365; 99211; J0878

== ENCOUNTER 2019-08-18 00:07 | Day surgery (SDC) | payer OTHER | END 2019-08-18 16:46 | disposition home or self-care (01) | LOC: ATC 00:07 | DX: M00.9 Pyogenic arthritis, unspecified (principal); I10 Essential (primary) hypertension; J44.9 Chronic obstructive pulmonary disease, unspecified; I25.10 Atherosclerotic heart disease of native coronary artery without angina pectoris; F17.210 Nicotine dependence, cigarettes, uncomplicated; Z79.82 Long term (current) use of aspirin; Z79.899 Other long term (current) drug therapy | CPT/HCPCS: 96365; J0878 ==

== ENCOUNTER 2019-08-18 14:13 | Day surgery (SDC) | payer OTHER | END 2019-08-18 23:02 | disposition home or self-care (01) | LOC: WOUND 14:13 | DX: T81.89XA Other complications of procedures, not elsewhere classified, initial encounter (principal); I96 Gangrene, not elsewhere classified; J44.9 Chronic obstructive pulmonary disease, unspecified; I10 Essential (primary) hypertension; I25.10 Atherosclerotic heart disease of native coronary artery without angina pectoris; I25.2 Old myocardial infarction; Z95.5 Presence of coronary angioplasty implant and graft; Z86.73 Personal history of transient ischemic attack (TIA), and cerebral infarction without residual deficits; Z79.82 Long term (current) use of aspirin; Z79.899 Other long term (current) drug therapy; Y83.8 Other surgical procedures as the cause of abnormal reaction of the patient, or of later complication, without mention of misadventure at the time of the procedure ==

== ENCOUNTER 2019-08-19 00:32 | Day surgery (SDC) | payer OTHER | END 2019-08-19 23:05 | disposition home or self-care (01) | LOC: ATC 00:32 | DX: M86.8X6 Other osteomyelitis, lower leg (principal); M17.11 Unilateral primary osteoarthritis, right knee; J44.9 Chronic obstructive pulmonary disease, unspecified; F17.210 Nicotine dependence, cigarettes, uncomplicated; I10 Essential (primary) hypertension; Z79.82 Long term (current) use of aspirin; Z79.899 Other long term (current) drug therapy | CPT/HCPCS: 96365; J0878 ==

== ENCOUNTER 2019-08-20 02:07 | Day surgery (SDC) | payer OTHER ==
--- NOTE | 2019-08-20 16:46 | NUR ---
WOUND BED LIGHT PINK, GRANULATION TISSUE PRESENT. SUTURES INTACT DISTAL TO OPEN WOUND. WVAC APPLIED. MAINTAINS SUCTION WITHOUT LEAKS.
== END 2019-08-20 14:59 | disposition home or self-care (01) ==
LOC: ATC 02:07
DX: M00.061 Staphylococcal arthritis, right knee (principal); M01.X61 Direct infection of right knee in infectious and parasitic diseases classified elsewhere; B95.62 Methicillin resistant Staphylococcus aureus infection as the cause of diseases classified elsewhere; L02.415 Cutaneous abscess of right lower limb; M86.9 Osteomyelitis, unspecified; J44.9 Chronic obstructive pulmonary disease, unspecified; I25.10 Atherosclerotic heart disease of native coronary artery without angina pectoris; I73.9 Peripheral vascular disease, unspecified; I10 Essential (primary) hypertension; F17.210 Nicotine dependence, cigarettes, uncomplicated; F11.10 Opioid abuse, uncomplicated; Z79.1 Long term (current) use of non-steroidal anti-inflammatories (NSAID); Z79.82 Long term (current) use of aspirin; Z79.2 Long term (current) use of antibiotics; Z79.891 Long term (current) use of opiate analgesic
CPT/HCPCS: 96365; 99211; J0878

== ENCOUNTER 2019-08-21 14:09 | Day surgery (SDC) | payer OTHER | END 2019-08-21 15:07 | disposition home or self-care (01) | LOC: ATC 14:09 | DX: M00.061 Staphylococcal arthritis, right knee (principal); M01.X61 Direct infection of right knee in infectious and parasitic diseases classified elsewhere; B95.62 Methicillin resistant Staphylococcus aureus infection as the cause of diseases classified elsewhere; L02.415 Cutaneous abscess of right lower limb; M86.9 Osteomyelitis, unspecified; J44.9 Chronic obstructive pulmonary disease, unspecified; I25.10 Atherosclerotic heart disease of native coronary artery without angina pectoris; I73.9 Peripheral vascular disease, unspecified; I10 Essential (primary) hypertension; F17.210 Nicotine dependence, cigarettes, uncomplicated; F11.10 Opioid abuse, uncomplicated; Z79.1 Long term (current) use of non-steroidal anti-inflammatories (NSAID); Z79.82 Long term (current) use of aspirin; Z79.2 Long term (current) use of antibiotics; Z79.891 Long term (current) use of opiate analgesic; Z95.5 Presence of coronary angioplasty implant and graft; Z98.52 Vasectomy status | CPT/HCPCS: 96365; J0878 ==

== ENCOUNTER 2019-08-22 14:07 | Day surgery (SDC) | payer OTHER | END 2019-08-22 15:00 | disposition home or self-care (01) | LOC: ATC 14:07 | DX: M00.061 Staphylococcal arthritis, right knee (principal); M01.X61 Direct infection of right knee in infectious and parasitic diseases classified elsewhere; B95.62 Methicillin resistant Staphylococcus aureus infection as the cause of diseases classified elsewhere; L02.415 Cutaneous abscess of right lower limb; M86.9 Osteomyelitis, unspecified; I25.10 Atherosclerotic heart disease of native coronary artery without angina pectoris; I73.9 Peripheral vascular disease, unspecified; I10 Essential (primary) hypertension; F17.210 Nicotine dependence, cigarettes, uncomplicated; J44.9 Chronic obstructive pulmonary disease, unspecified; F11.10 Opioid abuse, uncomplicated; Z79.2 Long term (current) use of antibiotics; Z79.82 Long term (current) use of aspirin; Z79.899 Other long term (current) drug therapy; Z95.5 Presence of coronary angioplasty implant and graft; Z51.5 Encounter for palliative care | CPT/HCPCS: 96365; J0878 ==

== ENCOUNTER 2019-08-23 07:10 | Day surgery (SDC) | payer OTHER | END 2019-08-23 14:05 | disposition home or self-care (01) | LOC: ATC 07:10 | DX: M00.061 Staphylococcal arthritis, right knee (principal); M01.X61 Direct infection of right knee in infectious and parasitic diseases classified elsewhere; B95.62 Methicillin resistant Staphylococcus aureus infection as the cause of diseases classified elsewhere; L02.415 Cutaneous abscess of right lower limb; M86.9 Osteomyelitis, unspecified; I25.10 Atherosclerotic heart disease of native coronary artery without angina pectoris; I73.9 Peripheral vascular disease, unspecified; I10 Essential (primary) hypertension; F17.210 Nicotine dependence, cigarettes, uncomplicated; J44.9 Chronic obstructive pulmonary disease, unspecified; F11.10 Opioid abuse, uncomplicated; Z79.2 Long term (current) use of antibiotics; Z79.82 Long term (current) use of aspirin; Z79.899 Other long term (current) drug therapy; Z95.5 Presence of coronary angioplasty implant and graft; Z51.5 Encounter for palliative care | CPT/HCPCS: 96365; J0878 ==

== ENCOUNTER 2019-08-23 11:08 | Day surgery (SDC) | payer OTHER | END 2019-08-23 22:39 | disposition home or self-care (01) | LOC: WOUND 11:08 | DX: L97.115 Non-pressure chronic ulcer of right thigh with muscle involvement without evidence of necrosis (principal); J44.9 Chronic obstructive pulmonary disease, unspecified; I10 Essential (primary) hypertension; I25.10 Atherosclerotic heart disease of native coronary artery without angina pectoris; I25.2 Old myocardial infarction; Z95.5 Presence of coronary angioplasty implant and graft; Z86.73 Personal history of transient ischemic attack (TIA), and cerebral infarction without residual deficits ==

== ENCOUNTER 2019-08-24 00:14 | Day surgery (SDC) | payer OTHER | END 2019-08-24 23:02 | disposition home or self-care (01) | LOC: ATC 00:14 | DX: I12.0 Hypertensive chronic kidney disease with stage 5 chronic kidney disease or end stage renal disease (principal); N18.6 End stage renal disease; K21.9 Gastro-esophageal reflux disease without esophagitis; G43.909 Migraine, unspecified, not intractable, without status migrainosus; Z99.2 Dependence on renal dialysis; Z87.891 Personal history of nicotine dependence; Z79.82 Long term (current) use of aspirin; Z79.899 Other long term (current) drug therapy | CPT/HCPCS: 96365; J0878 ==

== ENCOUNTER 2019-08-25 14:45 | Day surgery (SDC) | payer OTHER | END 2019-08-25 15:35 | disposition home or self-care (01) | LOC: ATC 14:45 | DX: M00.061 Staphylococcal arthritis, right knee (principal); M01.X61 Direct infection of right knee in infectious and parasitic diseases classified elsewhere; B95.62 Methicillin resistant Staphylococcus aureus infection as the cause of diseases classified elsewhere; L02.415 Cutaneous abscess of right lower limb; M86.9 Osteomyelitis, unspecified; I25.10 Atherosclerotic heart disease of native coronary artery without angina pectoris; I10 Essential (primary) hypertension; F17.210 Nicotine dependence, cigarettes, uncomplicated; J44.9 Chronic obstructive pulmonary disease, unspecified; F11.10 Opioid abuse, uncomplicated; Z95.5 Presence of coronary angioplasty implant and graft; Z79.1 Long term (current) use of non-steroidal anti-inflammatories (NSAID); Z79.2 Long term (current) use of antibiotics; Z79.82 Long term (current) use of aspirin; Z79.899 Other long term (current) drug therapy | CPT/HCPCS: 96365; 99211; J0878 ==

== ENCOUNTER 2019-08-26 00:20 | Day surgery (SDC) | payer OTHER | END 2019-08-26 15:00 | disposition home or self-care (01) | LOC: ATC 00:20 | DX: M00.061 Staphylococcal arthritis, right knee (principal); B95.62 Methicillin resistant Staphylococcus aureus infection as the cause of diseases classified elsewhere; M01.X61 Direct infection of right knee in infectious and parasitic diseases classified elsewhere; I10 Essential (primary) hypertension; J44.9 Chronic obstructive pulmonary disease, unspecified; I25.10 Atherosclerotic heart disease of native coronary artery without angina pectoris; F17.210 Nicotine dependence, cigarettes, uncomplicated; F11.10 Opioid abuse, uncomplicated; Z79.2 Long term (current) use of antibiotics; Z95.5 Presence of coronary angioplasty implant and graft; Z98.52 Vasectomy status; Z79.899 Other long term (current) drug therapy; Z79.82 Long term (current) use of aspirin | CPT/HCPCS: 96365; J0878 ==

== ENCOUNTER 2019-08-27 00:38 | Day surgery (SDC) | payer OTHER ==
--- NOTE | 2019-08-27 14:59 | NUR ---
WOUND VAC CANNISTER IS APPROX 1/4 FULL WITH SEROUS FLUID, NOT CHANGED. NO LEAKS APPEARANT AFTER DRSG CHANGE, VAC PRESSURE AT 125 MMHG.
== END 2019-08-27 15:26 | disposition home or self-care (01) ==
LOC: ATC 00:38
DX: M00.061 Staphylococcal arthritis, right knee (principal); B95.62 Methicillin resistant Staphylococcus aureus infection as the cause of diseases classified elsewhere; M01.X61 Direct infection of right knee in infectious and parasitic diseases classified elsewhere; L02.415 Cutaneous abscess of right lower limb; M86.9 Osteomyelitis, unspecified; I25.10 Atherosclerotic heart disease of native coronary artery without angina pectoris; I10 Essential (primary) hypertension; F17.210 Nicotine dependence, cigarettes, uncomplicated; J44.9 Chronic obstructive pulmonary disease, unspecified; F11.10 Opioid abuse, uncomplicated; Z79.2 Long term (current) use of antibiotics; Z79.1 Long term (current) use of non-steroidal anti-inflammatories (NSAID); Z79.82 Long term (current) use of aspirin; Z79.899 Other long term (current) drug therapy; Z79.891 Long term (current) use of opiate analgesic; Z95.5 Presence of coronary angioplasty implant and graft; Z98.52 Vasectomy status
CPT/HCPCS: 96365; 99212; J0878

== ENCOUNTER 2019-08-28 00:53 | Day surgery (SDC) | payer OTHER | END 2019-08-28 15:29 | disposition home or self-care (01) | LOC: ATC 00:53 | DX: M00.061 Staphylococcal arthritis, right knee (principal); B95.62 Methicillin resistant Staphylococcus aureus infection as the cause of diseases classified elsewhere; M01.X61 Direct infection of right knee in infectious and parasitic diseases classified elsewhere; M86.9 Osteomyelitis, unspecified; L02.415 Cutaneous abscess of right lower limb; I10 Essential (primary) hypertension; I25.10 Atherosclerotic heart disease of native coronary artery without angina pectoris; F17.210 Nicotine dependence, cigarettes, uncomplicated; F11.10 Opioid abuse, uncomplicated; J44.9 Chronic obstructive pulmonary disease, unspecified; Z95.5 Presence of coronary angioplasty implant and graft; Z98.52 Vasectomy status; Z79.2 Long term (current) use of antibiotics; Z79.1 Long term (current) use of non-steroidal anti-inflammatories (NSAID); Z79.82 Long term (current) use of aspirin; Z79.899 Other long term (current) drug therapy | CPT/HCPCS: 96365; J0878 ==

== ENCOUNTER 2019-08-29 00:06 | Day surgery (SDC) | payer OTHER | END 2019-08-29 14:26 | disposition home or self-care (01) | LOC: ATC 00:06 | DX: M00.061 Staphylococcal arthritis, right knee (principal); B95.62 Methicillin resistant Staphylococcus aureus infection as the cause of diseases classified elsewhere; M01.X61 Direct infection of right knee in infectious and parasitic diseases classified elsewhere; L02.415 Cutaneous abscess of right lower limb; M86.9 Osteomyelitis, unspecified; I25.10 Atherosclerotic heart disease of native coronary artery without angina pectoris; I10 Essential (primary) hypertension; F17.210 Nicotine dependence, cigarettes, uncomplicated; J44.9 Chronic obstructive pulmonary disease, unspecified; F11.10 Opioid abuse, uncomplicated; Z79.2 Long term (current) use of antibiotics; Z79.1 Long term (current) use of non-steroidal anti-inflammatories (NSAID); Z79.82 Long term (current) use of aspirin; Z79.899 Other long term (current) drug therapy; Z79.891 Long term (current) use of opiate analgesic; Z95.5 Presence of coronary angioplasty implant and graft; Z98.52 Vasectomy status | CPT/HCPCS: 96365; J0878 ==

== ENCOUNTER 2019-08-30 00:14 | Day surgery (SDC) | payer OTHER | END 2019-08-30 13:22 | disposition home or self-care (01) | LOC: ATC 00:14 | DX: M00.061 Staphylococcal arthritis, right knee (principal); B95.62 Methicillin resistant Staphylococcus aureus infection as the cause of diseases classified elsewhere; M01.X61 Direct infection of right knee in infectious and parasitic diseases classified elsewhere; M86.9 Osteomyelitis, unspecified; L02.415 Cutaneous abscess of right lower limb; I25.10 Atherosclerotic heart disease of native coronary artery without angina pectoris; I73.9 Peripheral vascular disease, unspecified; I10 Essential (primary) hypertension; F17.210 Nicotine dependence, cigarettes, uncomplicated; J44.9 Chronic obstructive pulmonary disease, unspecified; F11.10 Opioid abuse, uncomplicated; Z79.2 Long term (current) use of antibiotics; Z95.5 Presence of coronary angioplasty implant and graft; Z98.52 Vasectomy status; Z79.1 Long term (current) use of non-steroidal anti-inflammatories (NSAID); Z79.82 Long term (current) use of aspirin; Z79.891 Long term (current) use of opiate analgesic | CPT/HCPCS: 96365; J0878 ==

== ENCOUNTER 2019-08-30 10:57 | Day surgery (SDC) | payer OTHER | END 2019-08-30 22:38 | disposition home or self-care (01) | LOC: WOUND 10:57 | DX: L97.115 Non-pressure chronic ulcer of right thigh with muscle involvement without evidence of necrosis (principal); I10 Essential (primary) hypertension; J44.9 Chronic obstructive pulmonary disease, unspecified; I25.10 Atherosclerotic heart disease of native coronary artery without angina pectoris; I25.2 Old myocardial infarction; Z95.5 Presence of coronary angioplasty implant and graft; Z86.73 Personal history of transient ischemic attack (TIA), and cerebral infarction without residual deficits; Z79.82 Long term (current) use of aspirin; Z79.899 Other long term (current) drug therapy ==

== ENCOUNTER 2019-08-31 00:32 | Day surgery (SDC) | payer OTHER | END 2019-08-31 15:15 | disposition home or self-care (01) | LOC: ATC 00:32 | DX: M00.061 Staphylococcal arthritis, right knee (principal); B95.62 Methicillin resistant Staphylococcus aureus infection as the cause of diseases classified elsewhere; M01.X61 Direct infection of right knee in infectious and parasitic diseases classified elsewhere; M86.9 Osteomyelitis, unspecified; L02.415 Cutaneous abscess of right lower limb; I25.10 Atherosclerotic heart disease of native coronary artery without angina pectoris; I73.9 Peripheral vascular disease, unspecified; I10 Essential (primary) hypertension; J44.9 Chronic obstructive pulmonary disease, unspecified; F11.10 Opioid abuse, uncomplicated; F17.210 Nicotine dependence, cigarettes, uncomplicated; Z79.2 Long term (current) use of antibiotics; Z79.82 Long term (current) use of aspirin; Z79.899 Other long term (current) drug therapy; Z95.5 Presence of coronary angioplasty implant and graft; Z98.52 Vasectomy status | CPT/HCPCS: 96365; J0878 ==

== ENCOUNTER 2019-09-01 00:24 | Day surgery (SDC) | payer OTHER | END 2019-09-01 14:13 | disposition home or self-care (01) | LOC: ATC 00:24 | DX: M00.061 Staphylococcal arthritis, right knee (principal); B95.62 Methicillin resistant Staphylococcus aureus infection as the cause of diseases classified elsewhere; M01.X61 Direct infection of right knee in infectious and parasitic diseases classified elsewhere; L02.415 Cutaneous abscess of right lower limb; M86.9 Osteomyelitis, unspecified; I25.10 Atherosclerotic heart disease of native coronary artery without angina pectoris; I73.9 Peripheral vascular disease, unspecified; I10 Essential (primary) hypertension; J44.9 Chronic obstructive pulmonary disease, unspecified; F17.210 Nicotine dependence, cigarettes, uncomplicated; F11.10 Opioid abuse, uncomplicated; Z98.52 Vasectomy status; Z95.5 Presence of coronary angioplasty implant and graft; Z79.2 Long term (current) use of antibiotics; Z79.1 Long term (current) use of non-steroidal anti-inflammatories (NSAID); Z79.82 Long term (current) use of aspirin; Z79.891 Long term (current) use of opiate analgesic; Z79.899 Other long term (current) drug therapy | CPT/HCPCS: 96365; 99212; J0878 ==

== ENCOUNTER 2019-09-03 00:38 | Day surgery (SDC) | payer OTHER | END 2019-09-03 14:45 | disposition home or self-care (01) | LOC: ATC 00:38 | DX: S81.001D Unspecified open wound, right knee, subsequent encounter (principal); M01.X61 Direct infection of right knee in infectious and parasitic diseases classified elsewhere; B95.62 Methicillin resistant Staphylococcus aureus infection as the cause of diseases classified elsewhere; F17.210 Nicotine dependence, cigarettes, uncomplicated; I10 Essential (primary) hypertension; J44.9 Chronic obstructive pulmonary disease, unspecified; Z79.82 Long term (current) use of aspirin; Z79.899 Other long term (current) drug therapy | CPT/HCPCS: 96365; J0878 ==

== ENCOUNTER 2019-09-04 13:44 | Day surgery (SDC) | payer OTHER ==
--- NOTE | 2019-09-04 16:30 | NUR ---
PT ARRIVED IN UNIT WITH HIS S.O. PT WAS NOTED TO HAVE DIRTY HANDS, CLOTHING AND HAIR. WOUND VAC WAS IN PLACE BUT NOT RUNNING. PT STATED THAT THE BATTERY WAS . PT STS HE IS CURRENTLY HOMELESS. HE DENIES ILLEGAL DRUG USE. ASSISTED PT TO PLUG IN HIS WOUND VAC WHICH WAS FULLY CHARGED WHEN HE LEFT. POWERGLIDE DRESSING WAS INTACT AND THE INSERTION SITE WAS VISABLE AND CLEAN. PROVIDED SNACKS. MEDICATION WAS ADMINISTERED AND TRANSPORTATION WAS ARRANGED.
== END 2019-09-04 14:39 | disposition home or self-care (01) ==
LOC: ATC 13:44
DX: M00.061 Staphylococcal arthritis, right knee (principal); B95.62 Methicillin resistant Staphylococcus aureus infection as the cause of diseases classified elsewhere; M01.X61 Direct infection of right knee in infectious and parasitic diseases classified elsewhere; M86.9 Osteomyelitis, unspecified; L02.415 Cutaneous abscess of right lower limb; I25.10 Atherosclerotic heart disease of native coronary artery without angina pectoris; I10 Essential (primary) hypertension; F17.210 Nicotine dependence, cigarettes, uncomplicated; F11.10 Opioid abuse, uncomplicated; Z79.2 Long term (current) use of antibiotics; Z79.1 Long term (current) use of non-steroidal anti-inflammatories (NSAID); Z79.82 Long term (current) use of aspirin; Z79.899 Other long term (current) drug therapy
CPT/HCPCS: 96365; J0878

== ENCOUNTER 2019-09-05 00:26 | Day surgery (SDC) | payer OTHER | END 2019-09-05 15:26 | disposition home or self-care (01) | LOC: ATC 00:26 | DX: M00.061 Staphylococcal arthritis, right knee (principal); B95.62 Methicillin resistant Staphylococcus aureus infection as the cause of diseases classified elsewhere; M01.X61 Direct infection of right knee in infectious and parasitic diseases classified elsewhere; M86.9 Osteomyelitis, unspecified; L02.415 Cutaneous abscess of right lower limb; I25.10 Atherosclerotic heart disease of native coronary artery without angina pectoris; I10 Essential (primary) hypertension; F17.210 Nicotine dependence, cigarettes, uncomplicated; F11.10 Opioid abuse, uncomplicated; Z79.2 Long term (current) use of antibiotics; Z79.1 Long term (current) use of non-steroidal anti-inflammatories (NSAID); Z79.82 Long term (current) use of aspirin; Z79.899 Other long term (current) drug therapy | CPT/HCPCS: 96365; J0878 ==

== ENCOUNTER 2019-09-07 00:08 | Day surgery (SDC) | payer OTHER | END 2019-09-07 22:49 | disposition home or self-care (01) | LOC: ATC 00:08 | DX: S81.001D Unspecified open wound, right knee, subsequent encounter (principal); M01.X61 Direct infection of right knee in infectious and parasitic diseases classified elsewhere; B95.62 Methicillin resistant Staphylococcus aureus infection as the cause of diseases classified elsewhere; I10 Essential (primary) hypertension; J44.9 Chronic obstructive pulmonary disease, unspecified; F17.210 Nicotine dependence, cigarettes, uncomplicated; Z79.82 Long term (current) use of aspirin; Z79.899 Other long term (current) drug therapy | CPT/HCPCS: J0878 ==

== ENCOUNTER 2019-09-07 11:58 | Emergency (ER) | payer OTHER ==
[~2019-09-07] VITALS: Ht 175.3 cm; Wt 81.7 kg
[2019-09-07 15:12] LABS: BASOPHILS ABSOLUTE AUTO 0.07 K/mm3 (0.00-0.23); BASOPHILS PERCENT AUTO 1 % (0-2); EOSINOPHILS ABSOLUTE AUTO 0.39 K/mm3 (0.00-0.68); EOSINOPHILS PERCENT AUTO 3 % (0-6); Hematocrit 37.6 % (37.0-53.0); Hemoglobin 12.2 g/dL (13.5-17.5); IMMATURE GRAN ABSOLUTE AUTO 0.04 K/mm3 (0.00-0.10); IMMATURE GRAN PERCENT AUTO 0 % (0-1); LYMPHOCYTES ABSOLUTE AUTO 2.63 K/mm3 (0.84-5.20); LYMPHOCYTES PERCENT AUTO 21 % (21-46); MONOCYTES ABSOLUTE AUTO 1.03 K/mm3 (0.16-1.47); MONOCYTES PERCENT AUTO 8 % (4-13); Mean Corpuscular HGB 28.4 pg (26.0-34.0); Mean Corpuscular HGB Conc 32.4 g/dL (31.5-36.5); Mean Corpuscular Volume 87 fL (80-100); NEUTROPHILS ABSOLUTE AUTO 8.37 K/mm3 (1.96-9.15); NEUTROPHILS PERCENT AUTO 67 % (41-73); Platelet Count 468 K/mm3 (150-400); RDW Coefficient Variation 16.1 % (11.7-14.2); RDW Standard Deviation 51.5 fL (35.1-46.3); White Blood Cell Count 12.53 K/mm3 (4.00-11.30)
[2019-09-07 15:27] LABS: Anion Gap 5 mmol/L (6-16); Blood Urea Nitrogen 16 mg/dL (8-24); Bun/Creatinine Ratio 19.3 (12.0-20.0); CO2, Blood 24 mmol/L (21-32); Calcium, Blood 8.4 mg/dL (8.5-10.1); Chloride, Blood 107 mmol/L (98-108); Creatinine, Blood 0.83 mg/dL (0.60-1.20); Glomerular Filtration Rate >60 (60-); Glucose, Blood 105 mg/dL (70-99); Potassium, Blood 4.1 mmol/L (3.5-5.5); Sodium, Blood 136 mmol/L (136-145)
== END 2019-09-07 16:00 | disposition home or self-care (01) ==
LOC: ER 11:58
PROVIDERS: Emergency Medicine
DX: L03.115 Cellulitis of right lower limb (principal); Z59.0 Homelessness; Z91.14 Patient's other noncompliance with medication regimen; I10 Essential (primary) hypertension; J44.9 Chronic obstructive pulmonary disease, unspecified; I25.2 Old myocardial infarction; F17.210 Nicotine dependence, cigarettes, uncomplicated; I25.10 Atherosclerotic heart disease of native coronary artery without angina pectoris; Z86.73 Personal history of transient ischemic attack (TIA), and cerebral infarction without residual deficits; Z86.711 Personal history of pulmonary embolism; Z79.82 Long term (current) use of aspirin; Z79.899 Other long term (current) drug therapy
CPT/HCPCS: 36415; 73502; 73562-RT; 80048; 83605; 85025; 87040; 96365; 96375; 99284-25; J0878; J1885

== ENCOUNTER 2019-09-08 01:17 | Day surgery (SDC) | payer OTHER ==
--- NOTE | 2019-09-08 16:45 | NUR ---
Royal did not show up for his 1430 appointment in the [facility] today.
== END 2019-09-08 22:33 | disposition home or self-care (01) ==
LOC: ATC 01:17
DX: S81.001D Unspecified open wound, right knee, subsequent encounter (principal); M01.X61 Direct infection of right knee in infectious and parasitic diseases classified elsewhere; B95.62 Methicillin resistant Staphylococcus aureus infection as the cause of diseases classified elsewhere; I10 Essential (primary) hypertension; F17.210 Nicotine dependence, cigarettes, uncomplicated; J44.9 Chronic obstructive pulmonary disease, unspecified; Z79.82 Long term (current) use of aspirin; Z79.899 Other long term (current) drug therapy
CPT/HCPCS: J0878

== ENCOUNTER 2019-09-09 09:24 | Emergency (ER) | payer OTHER ==
[~2019-09-09] VITALS: Ht 175.3 cm; Wt 81.7 kg
== END 2019-09-09 11:38 | disposition home or self-care (01) ==
LOC: ER 09:24
DX: S81.001D Unspecified open wound, right knee, subsequent encounter (principal); Z91.14 Patient's other noncompliance with medication regimen; Z59.0 Homelessness; J44.9 Chronic obstructive pulmonary disease, unspecified; I25.2 Old myocardial infarction; I10 Essential (primary) hypertension; I25.10 Atherosclerotic heart disease of native coronary artery without angina pectoris; F17.210 Nicotine dependence, cigarettes, uncomplicated; Z86.73 Personal history of transient ischemic attack (TIA), and cerebral infarction without residual deficits; Z79.82 Long term (current) use of aspirin; Z79.899 Other long term (current) drug therapy; Z86.711 Personal history of pulmonary embolism
CPT/HCPCS: 99283; J0878

== ENCOUNTER 2019-09-09 13:30 | Day surgery (SDC) | payer OTHER ==
--- NOTE | 2019-09-09 15:00 | NUR ---
WOUND VAC DRESSING WAS CHANGED IN THE ER EARLIER TODAY.
== END 2019-09-09 15:00 | disposition home or self-care (01) ==
LOC: ATC 13:30
DX: M00.061 Staphylococcal arthritis, right knee (principal); B95.62 Methicillin resistant Staphylococcus aureus infection as the cause of diseases classified elsewhere; M01.X61 Direct infection of right knee in infectious and parasitic diseases classified elsewhere; M86.9 Osteomyelitis, unspecified; L02.415 Cutaneous abscess of right lower limb; I25.10 Atherosclerotic heart disease of native coronary artery without angina pectoris; I10 Essential (primary) hypertension; F17.210 Nicotine dependence, cigarettes, uncomplicated; F11.10 Opioid abuse, uncomplicated; J44.9 Chronic obstructive pulmonary disease, unspecified; Z79.2 Long term (current) use of antibiotics; Z79.82 Long term (current) use of aspirin; Z79.899 Other long term (current) drug therapy; Z79.1 Long term (current) use of non-steroidal anti-inflammatories (NSAID)
CPT/HCPCS: 96365; J0878

== ENCOUNTER 2019-09-13 14:06 | Emergency (ER) | payer OTHER ==
[~2019-09-13] VITALS: Ht 175.3 cm; Wt 86.2 kg
[2019-09-13] MEDS ORDERED: ONDA4ODT MM (15:49)
== END 2019-09-13 15:55 | disposition home or self-care (01) ==
LOC: ER 14:06
DX: L97.819 Non-pressure chronic ulcer of other part of right lower leg with unspecified severity (principal); R11.2 Nausea with vomiting, unspecified; I25.2 Old myocardial infarction; F17.210 Nicotine dependence, cigarettes, uncomplicated; Z79.899 Other long term (current) drug therapy; Z79.82 Long term (current) use of aspirin; Z86.73 Personal history of transient ischemic attack (TIA), and cerebral infarction without residual deficits; Z95.5 Presence of coronary angioplasty implant and graft; Z98.890 Other specified postprocedural states
CPT/HCPCS: 99283; J0878

== ENCOUNTER 2019-09-13 16:00 | Day surgery (SDC) | payer OTHER ==
[~2019-09-13 16:00] MED LIST changes: +ONDA4ODT MM
== END 2019-09-13 22:54 | disposition home or self-care (01) ==
LOC: WOUND
DX: L97.115 Non-pressure chronic ulcer of right thigh with muscle involvement without evidence of necrosis (principal); J44.9 Chronic obstructive pulmonary disease, unspecified; I10 Essential (primary) hypertension; I25.10 Atherosclerotic heart disease of native coronary artery without angina pectoris; I25.2 Old myocardial infarction; Z86.73 Personal history of transient ischemic attack (TIA), and cerebral infarction without residual deficits; Z95.5 Presence of coronary angioplasty implant and graft; Z79.82 Long term (current) use of aspirin; Z79.2 Long term (current) use of antibiotics; Z79.899 Other long term (current) drug therapy

== ENCOUNTER 2019-09-24 16:36 | Emergency (ER) | payer OTHER ==
[~2019-09-24] VITALS: Ht 175.3 cm; Wt 86.2 kg
[2019-09-24] MEDS ORDERED: Bactrim Ds Tab1 EACH PO (20:56)
[2019-09-24] MEDS ORDERED: Keflex500 MG PO (20:56)
== END 2019-09-24 22:14 | disposition home or self-care (01) ==
LOC: ER 16:36
DX: L97.119 Non-pressure chronic ulcer of right thigh with unspecified severity (principal); Z88.6 Allergy status to analgesic agent; Z88.8 Allergy status to other drugs, medicaments and biological substances; Z79.899 Other long term (current) drug therapy; I10 Essential (primary) hypertension; Z86.73 Personal history of transient ischemic attack (TIA), and cerebral infarction without residual deficits; I25.10 Atherosclerotic heart disease of native coronary artery without angina pectoris; I25.2 Old myocardial infarction; F17.210 Nicotine dependence, cigarettes, uncomplicated; Z79.82 Long term (current) use of aspirin
CPT/HCPCS: 99283

== ENCOUNTER 2019-10-06 14:56 | Emergency (ER) | payer OTHER ==
[~2019-10-06] VITALS: Ht 175.3 cm; Wt 90.7 kg
[~2019-10-06 14:56] MED LIST changes: +Keflex500 MG PO
[2019-10-06] MEDS ORDERED: Cleocin HCl150 MG PO (15:39)
[2019-10-06] MEDS ORDERED: KETO10 PO (15:39)
== END 2019-10-06 17:49 | disposition home or self-care (01) ==
LOC: ER 14:56
DX: L97.929 Non-pressure chronic ulcer of unspecified part of left lower leg with unspecified severity (principal); L03.032 Cellulitis of left toe; Z79.899 Other long term (current) drug therapy; Z79.82 Long term (current) use of aspirin; I25.2 Old myocardial infarction; Z86.73 Personal history of transient ischemic attack (TIA), and cerebral infarction without residual deficits; F17.210 Nicotine dependence, cigarettes, uncomplicated
CPT/HCPCS: 99283

== ENCOUNTER 2019-10-25 13:41 | Emergency (ER) | payer OTHER ==
[~2019-10-25] VITALS: Ht 175.3 cm; Wt 81.7 kg
[~2019-10-25 13:41] MED LIST changes: +Cleocin HCl150 MG PO
[2019-10-25] MEDS ORDERED: TOPICAINE113 GM TOP (19:10)
[2019-10-25] MEDS ORDERED: CEPH500 PO (19:10)
[2019-10-25] MEDS ORDERED: IBUP600 PO (19:10)
[2019-10-25] MEDS ORDERED: Bactrim Ds Tab1 EACH PO (19:10)
== END 2019-10-25 19:38 | disposition home or self-care (01) ==
LOC: ER 13:41
DX: L03.116 Cellulitis of left lower limb (principal); L03.115 Cellulitis of right lower limb; I10 Essential (primary) hypertension; J44.9 Chronic obstructive pulmonary disease, unspecified; I25.2 Old myocardial infarction; I25.10 Atherosclerotic heart disease of native coronary artery without angina pectoris; F17.210 Nicotine dependence, cigarettes, uncomplicated; Z79.899 Other long term (current) drug therapy
CPT/HCPCS: 99283; A9270-GY

== ENCOUNTER 2019-11-21 19:03 | Emergency (ER) | payer OTHER ==
[~2019-11-21] VITALS: Ht 175.3 cm; Wt 81.7 kg
[~2019-11-21 19:03] MED LIST changes: +TOPICAINE113 GM TOP
[2019-11-21] MEDS ORDERED: CEPH500 PO (19:15)
[2019-11-21] MEDS ORDERED: Bactrim Ds Tab1 EACH PO (19:15)
== END 2019-11-21 20:16 | disposition home or self-care (01) ==
LOC: ER 19:03
DX: L03.032 Cellulitis of left toe (principal); I25.10 Atherosclerotic heart disease of native coronary artery without angina pectoris; I10 Essential (primary) hypertension; J44.9 Chronic obstructive pulmonary disease, unspecified; F17.210 Nicotine dependence, cigarettes, uncomplicated; Z86.73 Personal history of transient ischemic attack (TIA), and cerebral infarction without residual deficits
CPT/HCPCS: 99283; A9270-GY

== ENCOUNTER 2020-08-11 11:45 | Inpatient (IN) | payer OTHER ==
[~2020-08-11] VITALS: Ht 175.3 cm; Wt 87.8 kg
[2020-08-11 12:18] LABS: BASOPHILS ABSOLUTE AUTO 0.06 K/mm3 (0.00-0.23); BASOPHILS PERCENT AUTO 0 % (0-2); EOSINOPHILS ABSOLUTE AUTO 0.25 K/mm3 (0.00-0.68); EOSINOPHILS PERCENT AUTO 2 % (0-6); Hematocrit 44.6 % (37.0-53.0); IMMATURE GRAN ABSOLUTE AUTO 0.04 K/mm3 (0.00-0.10); IMMATURE GRAN PERCENT AUTO 0 % (0-1); LYMPHOCYTES ABSOLUTE AUTO 2.06 K/mm3 (0.84-5.20); LYMPHOCYTES PERCENT AUTO 15 % (21-46); MONOCYTES ABSOLUTE AUTO 0.96 K/mm3 (0.16-1.47); MONOCYTES PERCENT AUTO 7 % (4-13); Mean Corpuscular HGB 30.7 pg (26.0-34.0); Mean Corpuscular HGB Conc 33.6 g/dL (31.5-36.5); Mean Corpuscular Volume 91 fL (80-100); NEUTROPHILS ABSOLUTE AUTO 10.53 K/mm3 (1.96-9.15); NEUTROPHILS PERCENT AUTO 76 % (41-73); Platelet Count 407 K/mm3 (150-400); RDW Coefficient Variation 14.5 % (11.7-14.2); RDW Standard Deviation 48.5 fL (35.1-46.3); Red Blood Cell Count 4.88 M/mm3 (4.30-5.90)
[2020-08-11 12:32] LABS: Alanine Aminotransfer (ALT/SGP 22 U/L (12-78); Albumin, Blood 3.3 g/dL (3.4-5.0); Albumin/Globulin Ratio 0.6 (0.8-1.8); Alk Phos 126 U/L (50-136); Anion Gap 5 mmol/L (6-16); Aspartate Aminotrans (AST/SGOT 51 U/L (12-37); Bilirubin, Total 0.4 mg/dL (0.1-1.0); Blood Urea Nitrogen 21 mg/dL (8-24); Bun/Creatinine Ratio 24.5 (12.0-20.0); CO2, Blood 26 mmol/L (21-32); Calcium, Blood 9.2 mg/dL (8.5-10.1); Chloride, Blood 105 mmol/L (98-108); Creatinine, Blood 0.86 mg/dL (0.60-1.20); Globulin, Blood 5.4 g/dL (2.2-4.0); Glomerular Filtration Rate >60 (60-); Glucose, Blood 104 mg/dL (70-99); Potassium, Blood 5.3 mmol/L (3.5-5.5); Sodium, Blood 136 mmol/L (136-145); Total Protein, Blood 8.7 g/dL (6.4-8.2)
[2020-08-11 14:35] LABS: Source, Urine Clean Catch
[2020-08-11 14:40] LABS: Appearance, Urine Clear (Clear); Bilirubin, Urine Neg (Neg); Blood, Urine 1+ (Neg); Color, Urine Yellow (P-Yellow); Glucose Qualitative, Urine Neg (Neg); Ketones, Urine Neg (Neg); Leukocyte Esterase, Urine Neg (Neg); Nitrite, Urine Neg (Neg); Protein, Urine Neg (Neg); Urobilinogen, Urine NORM (Normal)
[2020-08-11 14:49] LABS: Bacteria Rare /hpf; Red Blood Cells, Urine 0-2 /hpf (0-2); Squamous Epithelial Cells Not Seen /hpf (Few); White Blood Cells, Urine Not Seen /hpf (0-5)
[2020-08-11 16:57] LABS: U Amphetamine Screen DETECTED; U Barbituate Screen Not Detected; U Benzodiazapine Screen Not Detected; U Buprenorphine Screen Not Detected; U Cannabinoids Screen Not Detected; U Cocaine Screen Not Detected; U Methadone Screen Not Detected; U Methamphetamine Screen DETECTED; U Opiates Screen Not Detected; U Oxycodone Screen Not Detected; U Phencyclidine Screen Not Detected; U Propoxyphene Screen Not Detected
--- NOTE | 2020-08-11 18:46 | NUR ---
Arrival to unit Received report from Poppy ED-RN. Patient arrived to unit with personal belongings, personal w/c, and second bag of Vanco running. Lovenox given. Settled to bed, bed in lowest position, call light nearby and contact isolation set up.
[2020-08-12 04:58] LABS: BASOPHILS ABSOLUTE AUTO 0.06 K/mm3 (0.00-0.23); BASOPHILS PERCENT AUTO 1 % (0-2); EOSINOPHILS ABSOLUTE AUTO 0.28 K/mm3 (0.00-0.68); EOSINOPHILS PERCENT AUTO 3 % (0-6); Hematocrit 40.9 % (37.0-53.0); Hemoglobin 13.6 g/dL (13.5-17.5); IMMATURE GRAN ABSOLUTE AUTO 0.02 K/mm3 (0.00-0.10); IMMATURE GRAN PERCENT AUTO 0 % (0-1); LYMPHOCYTES ABSOLUTE AUTO 2.31 K/mm3 (0.84-5.20); LYMPHOCYTES PERCENT AUTO 27 % (21-46); MONOCYTES PERCENT AUTO 10 % (4-13); Mean Corpuscular HGB 30.2 pg (26.0-34.0); Mean Corpuscular HGB Conc 33.3 g/dL (31.5-36.5); Mean Corpuscular Volume 91 fL (80-100); Mean Platelet Volume 9.4 fL (9.1-12.4); NEUTROPHILS ABSOLUTE AUTO 4.97 K/mm3 (1.96-9.15); NEUTROPHILS PERCENT AUTO 59 % (41-73); Platelet Count 356 K/mm3 (150-400); RDW Coefficient Variation 14.6 % (11.7-14.2); RDW Standard Deviation 48.4 fL (35.1-46.3); Red Blood Cell Count 4.51 M/mm3 (4.30-5.90); White Blood Cell Count 8.44 K/mm3 (4.00-11.30)
[2020-08-12 05:23] LABS: Anion Gap 5 mmol/L (6-16); Blood Urea Nitrogen 12 mg/dL (8-24); Bun/Creatinine Ratio 12.1 (12.0-20.0); CO2, Blood 25 mmol/L (21-32); Calcium, Blood 8.6 mg/dL (8.5-10.1); Chloride, Blood 108 mmol/L (98-108); Creatinine, Blood 0.99 mg/dL (0.60-1.20); Glomerular Filtration Rate >60 (60-); Glucose, Blood 97 mg/dL (70-99); Potassium, Blood 4.2 mmol/L (3.5-5.5); Sodium, Blood 138 mmol/L (136-145)
--- NOTE | 2020-08-12 07:55 | NUR ---
SUMMARY ADMIT HX AND ASSESSMENT COMPLETED. PT LETHARGIC AND HEAVY SNORING TONIGHT. DENIES HX SLEEP APNEA.PT REQUIRED FREQUENT PROMPTING TO WAKE AND ANSWER ADMIT QUESTIONS,ALTHOUGH EAT SANDWICH TONIGHT. 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 STATES HAS NOT HAD IT LOOKED AT AND IS W/C BOUND.DAY RN AWARE. I ASKED FOR DR RASTA FUENTES.
--- NOTE | 2020-08-12 16:06 | NUR ---
Shift Summary A/Ox4, cooperative with care. No behavioral issues noted. C/O 8/10 L foot pain, did not ask for any pain medications this shift. Independently transfers from bed to w/c and BSC. Uses urinal at the bedside. Wheelchair bound. Dressing placed to R knee wound. L foot cellulitis marked per MD order. Photos of both in chart. Has been out to smoke a few times this shift, returns back promptly. Offered nicotine patch, patient refused. Will continue to monitor and report to oncoming RN.
--- NOTE | 2020-08-12 22:02 | NUR ---
1945 PT RESTING COMFORTABLY IN BED; ALERT AND ORIENTED X 4; DENIES PAIN OR NAUSEA. 2100 PT OUTSIDE TO SMOKE VIA PERSONAL WHEELCHAIR AND RETURNED WITHIN 30 MINUTES THIS NURSE REQUESTED PT TO NOT BE OFF UNIT MORE THAN 60 MINUTES WITH ACKNOWLEDGEMENT NOTED.
--- NOTE | 2020-08-13 03:02 | NUR ---
SHIFT SUMMARY: 50 Y/O MALE RESTED COMFORTABLY ALL SHIFT; PT DENIES PAIN OR NAUSEA; UP TO WHEELCHAIR AND WENT OUTSIDE TO SMOKE X 2 WITHOUT ISSUE; PT LEFT FOOT REDDENED; PTS RIGHT KNEE IS CONTRACTED; PT IS CURRENTLY HOMELESS AND USING METH ON THE STREETS WITH THIS NURSE ENCOURAGING PT CESSATION FROM DRUG USAGE; BED LOW POSITION WITH CALL LIGHT AT SIDE; HAPPY AND COOPERATIVE.
[2020-08-13 05:45] LABS: Vancomycin, Trough 12.9 ug/mL (5.0-10.0)
--- NOTE | 2020-08-13 18:08 | NUR ---
SHIFT SUMMARY. A&OX4, INDEPENDENT IN ROOM WITH HOME W/C. PLEASANT AND COOPERATIVE WITH CARE. PT REPORTS PAIN TO L FOOT THAT HAS BEEN MANAGED WELL WITH CURRENT ORDERS. PT DENIES N/V, SOB. PT OUT TO SMOKE ONCE THIS SHIFT AND RETURNED PROMPTLY. L FOOT CELLULITIS SHOWING IMPROVEMENT, DR. SINGH TRANSITIONED PT TO PO ABX. PER PT, PT MAY HAVE A PLACE TO STAY TOMORROW POSSIBLY, D/C ANTICIPATED TOMORROW PER DR. SINGH. NO NEW CHANGES OR CONCERNS.
--- NOTE | 2020-08-14 05:24 | NUR ---
PT with infected rt knee & lt le cellulitis was changed to oral antibiotic yesterday & he has helpful effect from tylenol for lt le pain.v He is a smoker & leaves floor several times in WC. Tolerating diet & activity. PT is homeless dc pending for cellulitis. Was going to [facility] wound clinic for infected rt knee. 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
[2020-08-14] MEDS ORDERED: ACET325 PO (16:27)
[2020-08-14] MEDS ORDERED: SULTRIDS PO (16:28)
--- NOTE | 2020-08-14 17:23 | NUR ---
PATIENT DISCHARGED TODAY. FOLLOW UP APPOINTMENT SET UP WITH SHAY FONSECA AT [facility]. RX SENT TO [facility] ON [address]. PATIENT GOT A RIDE HOME WITH ANGELICA PEARL.
[2020-08-27] MEDS ORDERED: CEPH500 PO (18:21)
[2020-08-27] MEDS ORDERED: Bactrim Ds Tab1 EACH PO (18:21)
== END 2020-08-14 17:07 | disposition home or self-care (01) | DRG 872 ==
LOC: ER 11:45 → MEDS 17:56 → ENPENDDIS 08-14 16:06 → MEDS 08-14 17:07
PROVIDERS: Emergency Medicine; Nurse Practitioner Acute Care; Pharmacist; ADMIT Family Medicine
DX: A41.9 Sepsis, unspecified organism (principal); L03.116 Cellulitis of left lower limb; F19.10 Other psychoactive substance abuse, uncomplicated; Z86.14 Personal history of Methicillin resistant Staphylococcus aureus infection; J44.9 Chronic obstructive pulmonary disease, unspecified; F17.210 Nicotine dependence, cigarettes, uncomplicated; Z86.73 Personal history of transient ischemic attack (TIA), and cerebral infarction without residual deficits; I10 Essential (primary) hypertension; K59.00 Constipation, unspecified; Z95.5 Presence of coronary angioplasty implant and graft; Z20.828 Contact with and (suspected) exposure to other viral communicable diseases
CPT/HCPCS: 36415; 71046; 71260; 73630; 74177; 80048; 80053; 80202; 81001; 83605; 84484; 85025; 87040; 93005; 93010; 93926; 96365-59; 96367-59; 96376; 99285-25; A9270; A9270-GY; J0692; J1650; J2543; J3370; J7030; J7050; Q9967

== ENCOUNTER 2020-08-31 09:42 | Inpatient (IN) | payer OTHER ==
[~2020-08-31] VITALS: Ht 175.3 cm; Wt 85.7 kg
[~2020-08-31 09:42] MED LIST changes: +SULTRIDS PO
[2020-08-31 10:38] LABS: BASOPHILS ABSOLUTE AUTO 0.09 K/mm3 (0.00-0.23); BASOPHILS PERCENT AUTO 1 % (0-2); EOSINOPHILS ABSOLUTE AUTO 0.17 K/mm3 (0.00-0.68); EOSINOPHILS PERCENT AUTO 1 % (0-6); Hematocrit 46.2 % (37.0-53.0); Hemoglobin 14.9 g/dL (13.5-17.5); IMMATURE GRAN ABSOLUTE AUTO 0.13 K/mm3 (0.00-0.10); IMMATURE GRAN PERCENT AUTO 1 % (0-1); LYMPHOCYTES ABSOLUTE AUTO 2.07 K/mm3 (0.84-5.20); LYMPHOCYTES PERCENT AUTO 14 % (21-46); MONOCYTES ABSOLUTE AUTO 0.87 K/mm3 (0.16-1.47); MONOCYTES PERCENT AUTO 6 % (4-13); Mean Corpuscular HGB 29.6 pg (26.0-34.0); Mean Corpuscular HGB Conc 32.3 g/dL (31.5-36.5); Mean Corpuscular Volume 92 fL (80-100); Mean Platelet Volume 9.1 fL (9.1-12.4); NEUTROPHILS PERCENT AUTO 78 % (41-73); Platelet Count 552 K/mm3 (150-400); RDW Coefficient Variation 14.6 % (11.7-14.2); RDW Standard Deviation 49.2 fL (35.1-46.3); Red Blood Cell Count 5.04 M/mm3 (4.30-5.90); White Blood Cell Count 15.13 K/mm3 (4.00-11.30)
[2020-08-31 10:49] LABS: Alanine Aminotransfer (ALT/SGP 35 U/L (12-78); Albumin, Blood 3.3 g/dL (3.4-5.0); Albumin/Globulin Ratio 0.6 (0.8-1.8); Alk Phos 121 U/L (50-136); Anion Gap 6 mmol/L (6-16); Aspartate Aminotrans (AST/SGOT 24 U/L (12-37); Bilirubin, Total 0.2 mg/dL (0.1-1.0); Blood Urea Nitrogen 16 mg/dL (8-24); Bun/Creatinine Ratio 19.1 (12.0-20.0); CO2, Blood 25 mmol/L (21-32); Calcium, Blood 9.3 mg/dL (8.5-10.1); Chloride, Blood 105 mmol/L (98-108); Creatinine, Blood 0.84 mg/dL (0.60-1.20); Globulin, Blood 5.3 g/dL (2.2-4.0); Glomerular Filtration Rate >60 (60-); Glucose, Blood 93 mg/dL (70-99); Potassium, Blood 4.2 mmol/L (3.5-5.5); Sodium, Blood 136 mmol/L (136-145); Total Protein, Blood 8.6 g/dL (6.4-8.2)
[2020-08-31] MEDS ORDERED: MASOPHEN325 M1 PO (11:56)
--- NOTE | 2020-08-31 14:34 | NUR ---
ARRIVES TO FLOOR ABOUT 1400. STS SUPPOSE TO BE ON; LOPRESSOR, ASA, PLAVIX AND A BLOOD THINNER, BUT HAS NEVER TAKEN. ANSWERS QUESTIONS APPROPRIATELY. WHEN NOT ASKED QUESTIONS, WHISPERS ODD THINGS "THE DEVIL", "IM THE LORD". PICS TAKEN OF FOOT. VERY UNKEMPT LOOKING WITH AN ODER. APPEARS TO BE SLEEPING AT TIMES, BUT HAS VERY SMALL MOVEMENTS OF HANDS. TM
[2020-08-31 16:35] LABS: U Amphetamine Screen Not Detected; U Barbituate Screen Not Detected; U Benzodiazapine Screen Not Detected; U Buprenorphine Screen Not Detected; U Cannabinoids Screen Not Detected; U Cocaine Screen Not Detected; U Methadone Screen Not Detected; U Methamphetamine Screen Not Detected; U Opiates Screen Not Detected; U Oxycodone Screen Not Detected; U Phencyclidine Screen Not Detected; U Propoxyphene Screen Not Detected
--- NOTE | 2020-08-31 17:31 | NUR ---
ALERT. ORIENTED. TALKS TO HIMSELF, BUT ANSWERS QUESTIONS APPROPRIATELY. COOPERATIVE. SLEEPING MOST OF SHIFT. MEDICATED FOR PAIN AND IS ABLE TO SLEEP AFTERWARDS. IV PATENT. PICS OF FOOT TAKEN. UNLABORED RESPIRATIONS. WCTM.
--- NOTE | 2020-09-01 04:28 | NUR ---
SUMMARY PT HAD NO ISSUES. PT SLEPT T/O SHIFT. PT FEET AND R KNEEE CLEANED W/ WOUND CARDIAC CARE NURSE. PT R KNEE/ LEG IS CONTRACTED. PT STATES HE HAS BEEN SITTING ON R LEG IN HIS WHEELCHAIR. PT HAS BEEN VOIDING WELL. PT HAD NO FEVERS NOTED. PT DISCOMFORT TX W/ TYLENOL W/ RELIEF. PT CURRENTLY SLEEPING AND BREATHING EASY. CALL LIGHT IN REACH.
[2020-09-01 04:56] LABS: BASOPHILS ABSOLUTE AUTO 0.05 K/mm3 (0.00-0.23); BASOPHILS PERCENT AUTO 1 % (0-2); EOSINOPHILS ABSOLUTE AUTO 0.21 K/mm3 (0.00-0.68); EOSINOPHILS PERCENT AUTO 2 % (0-6); Hematocrit 42.9 % (37.0-53.0); Hemoglobin 13.7 g/dL (13.5-17.5); IMMATURE GRAN ABSOLUTE AUTO 0.05 K/mm3 (0.00-0.10); IMMATURE GRAN PERCENT AUTO 1 % (0-1); LYMPHOCYTES ABSOLUTE AUTO 2.07 K/mm3 (0.84-5.20); LYMPHOCYTES PERCENT AUTO 21 % (21-46); MONOCYTES ABSOLUTE AUTO 0.84 K/mm3 (0.16-1.47); MONOCYTES PERCENT AUTO 9 % (4-13); Mean Corpuscular HGB 29.1 pg (26.0-34.0); Mean Corpuscular HGB Conc 31.9 g/dL (31.5-36.5); Mean Corpuscular Volume 91 fL (80-100); Mean Platelet Volume 9.2 fL (9.1-12.4); NEUTROPHILS ABSOLUTE AUTO 6.54 K/mm3 (1.96-9.15); NEUTROPHILS PERCENT AUTO 67 % (41-73); Platelet Count 444 K/mm3 (150-400); RDW Coefficient Variation 14.5 % (11.7-14.2); RDW Standard Deviation 49.1 fL (35.1-46.3); Red Blood Cell Count 4.71 M/mm3 (4.30-5.90); White Blood Cell Count 9.76 K/mm3 (4.00-11.30)
[2020-09-01 05:16] LABS: Anion Gap 3 mmol/L (6-16); Blood Urea Nitrogen 15 mg/dL (8-24); Bun/Creatinine Ratio 16.7 (12.0-20.0); CO2, Blood 28 mmol/L (21-32); Calcium, Blood 8.9 mg/dL (8.5-10.1); Chloride, Blood 107 mmol/L (98-108); Glomerular Filtration Rate >60 (60-); Glucose, Blood 106 mg/dL (70-99); Potassium, Blood 4.3 mmol/L (3.5-5.5); Sodium, Blood 138 mmol/L (136-145)
[2020-09-01 12:43] LABS: Vancomycin, Trough 21.9 ug/mL (5.0-10.0)
--- NOTE | 2020-09-01 14:11 | NUR ---
Upon receiving an admit referral for spiritual care, I visit patient. Patient is very short with his answers and not engaged in the conversation. Patient does agree to a prayer being provided which I gladly supply. I will continue to remain available to patient and family.
--- NOTE | 2020-09-01 18:22 | NUR ---
PT PLEASANT TODAY. DID GO OUTSIDE 3 TIMES TODAY IN WHEELCHAIR. AMBULATES SELF TO WHEELCHAIR INDEPENDANTLY. RT LEG IS CONTRACTED. DR HAS BEEN CALLED TO SEE FOOT. ORDERS PENDING FOR DRESSING CHANGES. NO NEW CONCERNS TODAY. BED IN LOW POSITOIN, FALL LITE IN REACH, CALLS APPROP
--- NOTE | 2020-09-02 04:38 | NUR ---
SUMMARY PT R KNEE WAS COVERED W/ DRESSING TO KEEP C/D/I. PT L FOOT WAS DRESSED PER ORDERS. PT AGREED TO REFRAIN FROM GOING OUTSIDE FOR REST OF SHIFT. PT EDUCATED ON KEEPING FOOT CLEAN AND DRY. PT HAD SOME DISCOMFORT AND TX PER EMAR W/ RELIEF. PT CURRENTLY SLEEPING AND BREATHING EASY. CALL LIGHT IN REACH.
--- NOTE | 2020-09-02 15:42 | NUR ---
SHIFT SUMMARY NO ACUTE CHANGES THIS SHIFT. DRESSINGS TO LEFT FOOT AND RIGHT KNEE CHANGED AFTER PT SHOWERED. TYLENOL GIVEN X1 FOR MILD PAIN THIS MORNING. PT INDEP IN W/C IN ROOM. ENCOURAGING SMOKING CESSATION. CONT IV ABX PER ORDERS. PT USES CALL LIGHT APPROPRIATELY.
--- NOTE | 2020-09-03 05:17 | NUR ---
SUMMARY NO ISSUES NOTED. PT HAS BEEN SLEEPING T/O SHIFT. PT COOPERATIVE AND PLESANT. PT DRESSING ARE CLEAN AND INTACT. PT CURRENTLY SLEEPING AND BREATHING EASY. CALL LIGHT IN REACH.
--- NOTE | 2020-09-03 18:17 | NUR ---
SHIFT SUMMARY PT AXO, PLEASANT AND COOPERATIVE WITH CARE. VSS. PT UP TO WHEELCHAIR INDEPENDENTLY AND STATES THAT HE IS NOT SMOKING WHEN HE GOES OUTSIDE. PT MEDICATED FOR PAIN PER EMAR RATES PAIN THIS SHIFT BETWEEN AND 06/24 THOUGH STATES THAT HE'S GLAD HE'S NOT TAKING OPIODS FOR PAIN CONTROL. IV PATENT AND INFUSING PER EMAR. BED IN LOW POSITION, CALL LIGHT WITHIN REACH.
--- NOTE | 2020-09-04 04:36 | NUR ---
SUMMARY: PT A/OX3, INDEPENDENT IN W/C AND SPECIFIES NEEDS. HE WENT OUTSIDE A FEW TIMES AT THE START OF SHIFT BEFORE SETTLING INTO BED AND SLEEPING MOST OF NOCTE. PT USED URINAL IN BED. HE RECIEVED TORADOL IV X1 FOR TOLERABLE RELIEF OF L.FOOT PAIN. MEPILEX TO R.KNEE NOTED AND DX CHANGED TO L.FOOT PRIOR TO SHIFT CHANGE, BOTH ARE C/D/I. IV ABX RECIEVED THEN SL. PT IS W/C BOUND AT BASELINE W/ARTHRITIC CONTRACTURES TO RLE. NO ACUTE CHANGES, VSS/AFEBRILE. WCTM AND REPORT TO DAY RN.
--- NOTE | 2020-09-04 18:44 | NUR ---
DR. VALENZUELA IN TO SEE PT AT ~ 1800. DRESSING REPLACED AFTER HIS ASSESSMENT.
--- NOTE | 2020-09-04 19:10 | NUR ---
SHIFT SUMMARY: NO ACUTE EVENTS THIS SHIFT. C/O PAIN IN L FOOT; MEDICATED PER EMAR WITH ADEQUATE RELIEF. DENIES NAUSEA, TOLERATING DIET. TRANSFERS INDEPENDENTLY TO HIS W/C, GOES OFF UNIT PERIODICALLY, DENIES SMOKING. DRESSINGS ON L FOOT AND R KNEE CHANGED. DR. VALENZUELA FROM PODIATRY ASSESSED PATIENT THIS EVENING.
--- NOTE | 2020-09-05 04:12 | NUR ---
SHIFT SUMMARY ADMITTED FOR LEFT TOES CELLULITIS. FULL CODE. CONTACT PRECAUTIONS FOR MRSA IN WOUND. DR GODINEZ IS CONSULT. PLAN IS FOR DAILY DRESSING CHANGES AND WOUND CARE, PAIN CONTROL. PT IS INDEPENDENT TO WHEELCHAIR AT BASELINE. IV ANTIBIOTICS ARE SCHEDULED. MEDICATED FOR PAIN THIS SHIFT. PT IS HOMELESS. HX OF DRUG USE AND SMOKING. PT IS ALERT AND COOPERATIVE WITH CARE.
--- NOTE | 2020-09-05 18:11 | NUR ---
SHIFT SUMMARY PT IS A&OX4. PT TRANSFERS TO HIS WC WHEN MOVING AROUND ROOM. PT HAS WOUND ON LEFT FOOT/TOES. WOUND IS WRAPPED AND C/D/I. PT COMPLAINED OF PAIN IN FOOT AND WAS MEDICATED PER EMAR. PT DENIES N/V. PT HAS BEEN POLIET AND ACCEPTS CARE, PT STATES HE IS WILLING TO DO WHAT NEEDS TO BE DONE TO TRY TO KEEP HIS TOES. PT CURENTLY IN ROOM WATCHING TV WITH CALL LIGHT W/IN REACH.
--- NOTE | 2020-09-06 07:23 | NUR ---
PERSONAL FINANCIAL REPRESENTATIVE SUMMARY PT A&OX4, ABLE TO MAKE NEEDS KNOWN. PLEASANT AND COOPERATIVE TO CARE. NO C/O PAIN OR ANY DISCOMFORT THIS SHIFT. CALM AND RESTED IN BED T/O SHIFT. PT GOES OUT TO SMOKE. BED AT LOWEST POSITION. CALL LIGHT WITHIN REACH.
--- NOTE | 2020-09-06 11:51 | NUR ---
Patient is sitting up in bed and alert. Patient tells me about his improved condition and his hope for a DC soon. Patient asks for a rosary neclace and for a prayer. I immediately provide prayer and patient thanks me. I go downstairs to find a rosary for patient and then bring it to him. He responds with gratitude. I will continue to remain available to patient and family.
--- NOTE | 2020-09-06 18:27 | NUR ---
SHIFT SUMMARY PT IS A&O. PT TRANSFERS SELF TO W/C. PT LEAVES THE UNIT BUT DENIES GOING AND SMOKING. TALKED WITH PT ABOUT IMPORTANCE OF NOT SMOKING WITH NICOTINE PATCH ON. PT STATES HE CAN LIVE WITH FRIEND THE DAY AFTER [place], FRIEND HAS A ROOM SET UP AND READY FOR HIM. PT DENIES N/V. PT CURENTLY OUT OF ROOM BUT STATES HE WILL BE BACK SOON. PT HAS BEEN ACCEPTING OF CARE DURING SHIFT AND PLESANT TO WORK WITH.
--- NOTE | 2020-09-07 06:32 | NUR ---
SHIFT SUMMARY PT IS A 50 Y/O MALE, ADMITTED FOR L KNEE CELLULITIS. HE IS A&O X 4, WHEELCHAIR BOUND, ABLE TO TRANSFER FROM BED TO WHEELCHAIR INDEPENDENTLY. PT DOES LEAVE THE ROOM FREQUENTLY. PT DENIED C/O PAIN, NAUSEA OR SOB. VITAL SIGNS STABLE. NO ACUTE CHANGES IN PT CONDITION NOTED DURING THE NIGHT. WILL CONTINUE TO MONITOR AND TREAT PER EMAR UNTIL HAND OFF TO DAY SHIFT RN.
--- NOTE | 2020-09-07 16:33 | NUR ---
SHIFT SUMMARY PATIENT DENIES PAIN, NAUSEA, AND SHORTNESS OF BREATH. PATIENT TRANSFERS TO HIS WHEELCHAIR INDEPENDENTLY. WOUND CARE COMPLETED. EATING AND DRINKING WELL. PLEASANT AND COOPERATIVE WITH CARE.
--- NOTE | 2020-09-08 06:40 | NUR ---
SHIFT SUMMARY PT IS A 50 Y/O MALE, ADMITTED FOR L KNEE CELLULITIS. R FOOT ALSO HAS AREAS OF GANGRENE NOTED. PT IS WHEELCHAIR BOUND, ABLE TO TRANSFER FROM WHEELCHAIR TO BED INDEPENDENTLY. NO C/O PAIN, NAUSEA OR SOB. VITAL SIGNS STABLE. PT SLEPT WELL THROUGH THE NIGHT. NO ACUTE CHANGES IN PT CONDITION NOTED. WILL CONTINUE TO MONITOR AND TREAT PER EMAR UNTIL HAND OFF TO DAY SHIFT RN.
--- NOTE | 2020-09-08 18:05 | NUR ---
PT PLEASANT TODAY. MEDICATED FOR PAIN TWICE THIS SHIFT. ENCOURAGED HIM TO CALL WHEN IN PAIN. HE CONTINUES TO WHEEL SELF OUT SIDE TO GET OPEN AIR. NO NEW CONCERHS AT THIS TIME. BED IN LOW POSITION, CALL LITE IN REACH, CALLS APROP
--- NOTE | 2020-09-09 01:20 | NUR ---
09/08/201999 PT RESTING COMFORTABLY IN BED; CHEERFUL; RIGHT KNEE DRESSING DRY AND INTACT; PT CONTINUES TO GO OUTSIDE VIA PERSONAL WHEELCHAIR TO SMOKE PRN AND RETURNED RIGHT AWAY WITHIN 30 MINUTES; DENIES PAIN OR NAUSEA.
--- NOTE | 2020-09-09 04:19 | NUR ---
SHIFT SUMMARY: 50 Y/O MALE RESTED COMFORTABLY ALL SHIFT; RIGHT KNEE [place] DRESSING AND LEFT FOOT DRESSING DRY AND INTACT; DENIES PAIN OR NAUSEA; PT ANTICIPATES POSSIBLE DISCHARGE TODAY AND VOICED THAT HE QUIT DRINKING AND USING METH 1 MONTH AGO AND NOW HAS ROOM AVAILABLE TO STAY IN AFTER BEING HOMELESS FOR PAST FEW YEARS; PT ABLE TRANSFER TO PERSONAL WHEELCHAIR AND GO OUTSIDE SMOKE PRN X 2 THIS SHIFT; BED LOW POSITION WITH CALL LIGHT AT SIDE; ALERT AND ORIENTED X 4.
--- NOTE | 2020-09-09 18:23 | NUR ---
PT [id number] AND COOPERATIVE OF CARE. NO CHANGES THIS SHIFT PT CONTINUE TO SELF TRANSFER TO WHEEL CHAIR AND COMES IN AND OUT OF ROOM. PT DENIED ANY DISCOMFORT. CALL LIGHT IS WITHIN REACH WILL CONTINUE TO MONITOR.
--- NOTE | 2020-09-09 18:51 | NUR ---
CHANGED PT'S BANDAGE ON L FOOT. PT TOLERATED WOUND CLEANING AND AROUND TOES. CLEAN BANDAGE APPLIED.
--- NOTE | 2020-09-09 19:20 | NUR ---
ASSUMED CARE RECEIVED REPORT FROM RO COLLINS. ASSUMED CARE OF PT. PT RESTING COMFORTABLY, NO S/S ACUTE DISTRESS NOTED, RESPS E/U. DENIES NEEDS. CALL LIGHT, POSSESSIONS IN REACH, BED IN LOW POSITION, [facility].
--- NOTE | 2020-09-10 07:10 | NUR ---
SHIFT SUMMARY PT ASLEEP, NO S/S ACUTE DISTRESS NOTED WAS MONITORED EVERY 1-2 HOURS WITH NEEDS MET. HAS BEEN INDEPENDENT TO W/C, GOES OUTSIDE TO SMOKE OCCASIONALLY, APPROPRIATE WITH LIMITS. VS REVIEWED, WNL. PAIN MANAGED WITH MEDS PER EMAR WITH EFFECTIVE RELIEF. DENIES PAIN OR NEEDS AT THIS TIME. CALL LIGHT, POSSESSIONS IN REACH, BED IN LOW POSITION. REPORT GIVEN TO RO BRADSHAW.
--- NOTE | 2020-09-10 17:54 | NUR ---
SHIFT SUMMARY PT IS AOX4. PT MEDICATED FOR PAIN X1 THIS SHIFT PER EMAR. PT DENIES SOB, N/V. WOUND CARE DONE BY THIS RN AND PICTURES UPDATED IN CHART. PT LEAVES ROOM TO SMOKE AT TIMES. PLAN IS FOR PT TO DC TO A FRIEND'S HOUSE. THIS RN ASKED IF PT HAD THE PHONE NUMBER FOR HIS FRIEND AND PT STATED, "I DO NOT HAVE HIS NUMBER, HE JUST CALLS ME HERE WITH UPDATES". PT IS IN WHEELCHAIR, CALL LIGHT IN REACH.
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
--- NOTE | 2020-09-12 05:31 | NUR ---
PT continues with minimal needs or requests. He continues homeless, awaiting support from unknown friend who lives in [place] for [place]. Continues with dry gangrene lt toes with daily dressing changes on day shift.
--- NOTE | 2020-09-12 17:02 | NUR ---
SUMMARY PT SITTING UP IN BED WATCHING TV, PT HAS BEEN PLEASANT AND COOPERATIVE WITH CARE T/O THE DAY, PT INDEPENDENT WITH HIS WHEELCHAIR, DRESSING TO HIS L FOOT CHANGED FIRST THING THIS MORNING, DR ALVAREZ ORDERED A PODIATRY CONSULT, STILL WAITING FOR THEM TO ARRIVE, PT HOPEFUL TO GET HIS FOOT LOOKED AT, VSS, NO ACUTE CHANGES, WILL CONT TO MONITOR
[2020-09-13] MEDS ORDERED: BACTRIM DS TAB1 EAC1 PO (15:28)
--- NOTE | 2020-09-13 16:12 | NUR ---
PT WAS DISCHARGED VIA WHEELCHAIR TO WAITING TAXI. PT WAS ALERT AND ORIENTED, MADE NO COMPLAINTS AT THE TIME OF PAIN OR SOB, HAD BELONGINGS AT SIDE AND WAS EDUCATED ON FU APPOINTMENTS, MEDICATIONS NEEDED AND SS TO WATCH OUT FOR.
== END 2020-09-13 16:25 | disposition home or self-care (01) | DRG 872 ==
LOC: ER 09:42 → ERHOLD 11:39 → MEDS 11:39
PROVIDERS: Physician Assistant; ADMIT Family Medicine
DX: A41.9 Sepsis, unspecified organism (principal); L03.115 Cellulitis of right lower limb; I96 Gangrene, not elsewhere classified; L02.612 Cutaneous abscess of left foot; L03.116 Cellulitis of left lower limb; Z59.0 Homelessness; Z98.52 Vasectomy status; Z86.73 Personal history of transient ischemic attack (TIA), and cerebral infarction without residual deficits; I25.2 Old myocardial infarction; F17.210 Nicotine dependence, cigarettes, uncomplicated; Z95.1 Presence of aortocoronary bypass graft; J44.9 Chronic obstructive pulmonary disease, unspecified; I25.10 Atherosclerotic heart disease of native coronary artery without angina pectoris; Z91.14 Patient's other noncompliance with medication regimen; F15.10 Other stimulant abuse, uncomplicated; Z20.828 Contact with and (suspected) exposure to other viral communicable diseases; B95.62 Methicillin resistant Staphylococcus aureus infection as the cause of diseases classified elsewhere
CPT/HCPCS: 36415; 80048; 80053; 80202; 83605; 85025; 86141; 87040; 87070; 87077; 87147; 87186; 87205; 94640; 94760; 96374; 96375; 99285-25; A9270; A9270-GY; J0690; J1650; J1885; J3370; J7050; J7120

== ENCOUNTER 2020-10-01 17:41 | Inpatient (IN) | payer OTHER ==
[~2020-10-01] VITALS: Ht 175.3 cm; Wt 106.6 kg
[~2020-10-01 17:41] MED LIST changes: +BACTRIM DS TAB1 EAC1 PO; +MASOPHEN325 M1 PO
[2020-10-01 18:18] LABS: BASOPHILS ABSOLUTE AUTO 0.09 K/mm3 (0.00-0.23); BASOPHILS PERCENT AUTO 1 % (0-2); EOSINOPHILS ABSOLUTE AUTO 0.45 K/mm3 (0.00-0.68); EOSINOPHILS PERCENT AUTO 4 % (0-6); IMMATURE GRAN ABSOLUTE AUTO 0.08 K/mm3 (0.00-0.10); IMMATURE GRAN PERCENT AUTO 1 % (0-1); LYMPHOCYTES PERCENT AUTO 27 % (21-46); MONOCYTES ABSOLUTE AUTO 0.94 K/mm3 (0.16-1.47); MONOCYTES PERCENT AUTO 9 % (4-13); Mean Corpuscular HGB 29.2 pg (26.0-34.0); Mean Corpuscular HGB Conc 31.8 g/dL (31.5-36.5); Mean Corpuscular Volume 92 fL (80-100); Mean Platelet Volume 9.4 fL (9.1-12.4); NEUTROPHILS ABSOLUTE AUTO 5.93 K/mm3 (1.96-9.15); NEUTROPHILS PERCENT AUTO 58 % (41-73); Platelet Count 507 K/mm3 (150-400); RDW Coefficient Variation 14.7 % (11.7-14.2); RDW Standard Deviation 50.1 fL (35.1-46.3); Red Blood Cell Count 4.79 M/mm3 (4.30-5.90); White Blood Cell Count 10.29 K/mm3 (4.00-11.30)
[2020-10-01 18:35] LABS: Alanine Aminotransfer (ALT/SGP 23 U/L (12-78); Albumin, Blood 3.1 g/dL (3.4-5.0); Albumin/Globulin Ratio 0.6 (0.8-1.8); Alk Phos 113 U/L (50-136); Anion Gap 3 mmol/L (6-16); Aspartate Aminotrans (AST/SGOT 14 U/L (12-37); Bilirubin, Total 0.1 mg/dL (0.1-1.0); Blood Urea Nitrogen 8 mg/dL (8-24); CO2, Blood 31 mmol/L (21-32); Calcium, Blood 9.3 mg/dL (8.5-10.1); Chloride, Blood 105 mmol/L (98-108); Glomerular Filtration Rate >60 (60-); Glucose, Blood 94 mg/dL (70-99); Potassium, Blood 3.6 mmol/L (3.5-5.5); Sodium, Blood 139 mmol/L (136-145); Total Protein, Blood 8.1 g/dL (6.4-8.2)
--- NOTE | 2020-10-01 21:52 | NUR ---
ADMITTED 50 YR OLD MALE TO FLOOR FROM THE ED WITH CELLULITIS OF LEFT FOOT. (SEE PICTURES). ALERT AND ORIENTED. ORIENTED TO USE OF BED CONTROL AND CALL LIGHT. PLACED ON CONTACT ISOLATION FOR HX MRSA. ED RN REPORTED PT HAVING HAD CURRENT LEFT FOOT ISSUE, THAT IS HAS BEEN TREATED IN THE ED BEFORE - SEE HX IN PREVIOUS ADMISSIONS. CURRENTLY RECEIVING IV ANTIBIOTICS. CALL LIGHT IN REACH
--- NOTE | 2020-10-01 23:51 | NUR ---
AWAKE AT INTERVALS, MAKING STRANGE SOUNDS - LIKE TALKING TO SELF, AND MAKING GUN SHOT SOUNDS. NO NOTED DISTRESS WHEN OBSERVED AT ROUNDING. WILL MONITOR. CALL LIGHT IN REACH
--- NOTE | 2020-10-02 06:16 | NUR ---
SHIFT SUMMARY AWAKE MOST OF THE SHIFT, ASKING FOR AND EATING SNACKS AND DRINKS (COFFEE, SODA, ETC). IV ANTIBIOTICS INFUSED PER MD ORDERS - SEE MAR FOR DETAILS. LEFT FOOT REMAINS SWOLLEN, WRAPPED IN WILBERT WRAP FOR COMFORT AND PROTECTION, CALL LIGHT IN REACH. ISOLATION PRECAUTIONS MAINTAINED.
--- NOTE | 2020-10-02 17:42 | NUR ---
PT RESTING IN BED AFTER MEDICATION ADMIN AND WOUND CARE. PT EATING DINNER AND MAKES NO COMPLAINTS AT THIS TIME. PT ALERT AND ORIENTED. IV RUNNING AND WNL. STAFF WILL CONT. TO MONITOR.
--- NOTE | 2020-10-02 21:03 | NUR ---
2030 THIS NURSE RECEIVED TELEPHONE CALL FROM MALE WHOM IDENTIFIED HIMSELF BRIANNE MALONE FOR DR FERRARI AND STATED THAT PT WOULD BE TAKEN 10/03 TO ADVISORY SERVICES ASSOCIATE FOR LLE EVALUATION OF OCCLUSION; THIS NURSE ADVISED IMTIAZ TOUSSAINT RN, CHARGE NURSE OF ABOVE.
--- NOTE | 2020-10-03 04:27 | NUR ---
SHIFT SUMMARY: 50 Y/O MALE RESTED COMFORTABLY IN BED; CHEERFUL; LEFT FOOT DRESSING DRY AND INTACT; PT NPO SINCE MIDNIGHT FOR POSSIBLE SURGICAL INTERVENTION BY DR FERRARI TODAY; DENIES PAIN OR NAUSEA; PT IS HOMELESS AND GETS AROUND VIA WHEELCHAIR; ALERT AND ORIENTED X 4; BED LOW POSITION WITH CALL LIGHT AT SIDE.
[2020-10-03 10:14] LABS: International Normalized Ratio 0.95; Prothrombin Time Results 10.2 Sec (9.7-11.5)
[2020-10-03 10:49] LABS: Influenza A, PCR Negative (NEGATIVE); Influenza B, PCR Negative (NEGATIVE); Resp Syncytial Virus, PCR Negative (NEGATIVE); SARS-Cov-2 (COVID-19) PCR, MMC Negative (NEGATIVE)
--- NOTE | 2020-10-03 16:02 | NUR ---
1600 PT TAKEN DOWN TO SURVEY MANAGER FOR PROCEDURE TO FOOT.
--- NOTE | 2020-10-03 17:47 | NUR ---
DR PATHAK TO ROOM, PLANS TO DISCUSS CONSENT FROM PATIENT IN THE AM; NEW ORDERS TO HOLD LOVENOX TONIGHT IN ANTICIPATION OF SURGERY. WILL CONTINUE TO MONITOR.
--- NOTE | 2020-10-03 17:54 | NUR ---
ARRIVAL TO PCU: PT ARRIVED TO PCU AT 1730 BY HOSPITAL BED. UPON ARRIVAL PATIENT SLEEPING BUT AROUSED AND ABLE TO STATE NAME AND BIRTHDATE. WHILE SLEEPING PATIENT OXYGEN SATURATION DIPPING DOWN TO 86%. 2 L O2 VIA NASAL CANNULA SATING ABOVE 92%. PATIENT DENIES PAIN. CONTINUEING TO MONITOR VITALS AND STATUS AT BEDSIDE.
--- NOTE | 2020-10-03 18:38 | NUR ---
SHIFT SUMMARY: PT IS ALERT AND ORIENTED X4. ON ROOM AIR SATING AT 94-95%. TELE SHOWING SINUS RHYTHM HR 80's. VITAL SIGNS STABLE. ALERT AND AWAKE FROM REVASCULARIZATION. SEE ASSESSMENT FOR WOUNDS. WOUND TO L FOOT, AND RIGHT KNEE. PT DENIES PAIN AT THIS TIME. SITTING UP IN BED EATING DINNER, NPO AT MIDNIGHT. WILL CONTINUE TO MONITOR AND REPORT OFF.
--- NOTE | 2020-10-03 19:20 | NUR ---
ASSUMED CARE RECEIVED BEDSIDE REPORT FROM RO VALLEJO AND RO BRADSHAW; PT A&O X 3-4; SEEMS SLIGHTLY DISORIENTED; VSS; NSR NOTED ON TELE; O2 SATS >93 ON RA; CALL LIGHT IN REACH; BED IN LOWEST POSITION; BED ALARM ON FOR SAFETY.
--- NOTE | 2020-10-03 21:05 | NUR ---
UPDATE PT CURSING AND AGITATED; STATING HE WANTS TO GO OUTSIDE AND IS PREPARED TO LEAVE AMA; EDUCATION PROVIDED ON SAFETY AND POST REVASC EDUCATION; PT DECLINES AND STATES MEDICAL FLOOR ALLOWED HIM TO COME AND GO IN HIS OWN WHEELCHAIR; CONG GALLARDO NOTIFIED AND DISCUSSED OPTIONS; DIRECTION GIVEN TO DISCONNECT IV FLUIDS AND ALLOW PT TO GO OUTSIDE; SCIENTIST ENGINEER MAURO AT BEDSIDE AND ESCORTED PT OUTSIDE TO MONITOR; PT QUITE AGITATED AND STATES HE WILL NOT TOLERATE STAFF MONITORING HIM; SCIENTIST ENGINEER WENT W/ PT IN PERSONAL WHEELCHAIR TO ALLOW PT TO GET FRESH AIR AND DESTRESS; PT JUST ARRIVED BACK TO ROOM; FRESH COFFEE BROUGHT TO PT; CALL LIGHT IN REACH; BED IN LOWEST POSITION; BED ALARM ON.
--- NOTE | 2020-10-04 05:42 | NUR ---
SHIFT SUMMARY PT A&O X 4; VSS; DENIES CHEST PAIN; NSR NOTED ON TELE W/ HR 80-90'S; O2 SATS >93 ON RA; PT FIGETS FREQUENTLY AND TALKS / CURSES TO SELF IN ROOM; AT TIMES AGITATED W/ STAFF; SLEPT VERY BRIEFLY THIS SHIFT; USES URINAL IN BED W/ NO ASSISTANCE; YELLOW ODIFEROUS URINE NOTED; CALL LIGHT IN REACH; BED IN LOWEST POSITION; WILL CONTINUE TO MONITOR CLOSELY UNTIL HAND OFF TO DAY SHIFT RN.
--- NOTE | 2020-10-04 08:43 | NUR ---
Spiritual care visit conducted. RO zhao tells me patient is nervous about his upcoming amputation so I visit patient. Patient is sitting up in bed and alert. Patient confirms that he is very nervous about the surgery, his recovery and life as an amputee. I provide anxiety containment, pastoral career and guidance counselor and presurgery prayer. Patient responds well and shows signs of reduced stress. I will continue to remain available to patient and family.
--- NOTE | 2020-10-04 12:03 | NUR ---
pt to procedure
--- NOTE | 2020-10-04 12:17 | NUR ---
History, Chart, Medications and Allergies reviewed before start of procedure. FAINT EXP WHEEZES IN BASES. Patient confirms NPO status and agrees with scheduled surgery. Pre-Op teaching done. Pt verbalizes understanding.
--- NOTE | 2020-10-04 17:00 | NUR ---
pt arrived to room 229 from pcu via bed pt oriented to room pt req something to drink ice water and coffee given
--- NOTE | 2020-10-04 17:17 | NUR ---
SHIFT SUMMARY AND TRANSFER NOTE PT TO SURGERY THIS AFTERNOON, BACK TO ROOM AT APPROX 1430. LEFT FOOT WRAPPED IN WILBERT BANDAGE. CAP REFILL TO LEFT GREAT TOE <3 SECS. NO BLEEDING NOTED. PT A&Ox3; CALM AND COOPERATIVE WITH CARE. PT RESTING IN BED DURING SHIFT. VSS. PT DENIES PAIN AFTER SURGER. PT DENIES SOB, NASUEA AND DIZZINESS T/O SHIFT. PT STATES THAT HE PLANS TO STAY IN A MOTEL AFTER DISCHARGE. NICOTINE PATCHED STARTED, PLACED ON L ARM. REPORT GIVEN TO RO CORCORAN ASSUMING CARE OF PT. PT TRANSFERED TO ROOM 229 AT 1655.
--- NOTE | 2020-10-05 04:38 | NUR ---
SHIFT SUMMARY: GENE IS A&OX4. VSS, NO ACUTE EVENTS OVERNIGHT. HE IS TOLERATING PO INTAKE WELL. HE DID BECOME AGITATED AT THE BEGINNING OF THE SHIFT, WANTING TO GO OUTSIDE AND "GET SOME AIR". HE DID DECIDE TO STAY IN HIS ROOM AFTER ENCOURAGED BY STAFF TO TAKE GOOD CARE OF HIS FRESH OPERATIVE SITE. HE HAS BEEN PLEASANT AND COOPERATIVE SINCE. HE IS USING THE URINAL WITHOUT DIFFICULTY, GOOD URINE OUTPUT. SURGICAL SITE TO LEFT FOOT C/D&I. HE MOVES HIMSELF FROM THE BED TO THE WHEELCHAIR INDEPENDENTLY. HE IS LYING IN BED WITH HIS CALL LIGHT IN REACH. WILL REPORT TO DAY SHIFT RN.
--- NOTE | 2020-10-05 08:59 | NUR ---
10/05/20 0859 Sasha Guerin VERIFICATIONS: EDIT CHART.
--- NOTE | 2020-10-05 11:09 | NUR ---
DISCHARGE MEDS DR PATHAK REQUEST BACTRIM DS BID X 21 DAYS TO ADD TO DISCHARGE MEDICATIONS
[2020-10-05] MEDS ORDERED: SULTRIDS PO (11:11)
[2020-10-05] MEDS ORDERED: ACET325 PO (11:11)
--- NOTE | 2020-10-05 11:33 | NUR ---
IV out. Patient was to be discharged this afternoon. Awaiting MD Discharge order. Patient refused to wait for order and left hospital without signing any paperwork for discharge or AMA. Patient educated on the need to stay until discharge order put in. Patient verbally expressed angression towards nursing staff and left. Prescription for Bactrim was called into [facility] pharmacy.
== END 2020-10-05 11:29 | disposition home or self-care (01) | DRG 256 ==
LOC: ER 17:41 → SURS 21:15 → MEDS 21:15 → PCU 10-03 17:32 → SURS 10-04 16:56
PROVIDERS: Physician Assistant; Podiatrist Foot & Ankle Surgery; Radiology Diagnostic Radiology; ADMIT Internal Medicine
PROC: 0Y6U0Z0 Detachment at Left 3rd Toe, Complete, Open Approach (ICD-10-PCS; 2020-10-04)
PROC: 0Y6W0Z0 Detachment at Left 4th Toe, Complete, Open Approach (ICD-10-PCS; 2020-10-04)
PROC: 0Y6S0Z0 Detachment at Left 2nd Toe, Complete, Open Approach (ICD-10-PCS; principal; 2020-10-04 12:30)
DX: I96 Gangrene, not elsewhere classified (principal); L03.116 Cellulitis of left lower limb; F15.10 Other stimulant abuse, uncomplicated; F17.210 Nicotine dependence, cigarettes, uncomplicated; I10 Essential (primary) hypertension; I25.10 Atherosclerotic heart disease of native coronary artery without angina pectoris; J44.9 Chronic obstructive pulmonary disease, unspecified; Z59.0 Homelessness; Z86.73 Personal history of transient ischemic attack (TIA), and cerebral infarction without residual deficits; R33.9 Retention of urine, unspecified; Z99.3 Dependence on wheelchair; Z20.822 Contact with and (suspected) exposure to COVID-19
CPT/HCPCS: 0241U; 36200; 36415; 73701; 75625; 75716; 75774; 76937; 80053; 83605; 85025; 85610; 88305; 88311; 93922; 96365-59; 96375; 99152; 99153; 99285-25; A9270; C1769; C1887; C1894; J0692; J1100; J1644; J1650; J1885; J2250; J2405; J2704; J3010; J3370; J7030; J7050; Q9967

== ENCOUNTER 2020-10-13 13:16 | Inpatient (IN) | payer OTHER ==
[~2020-10-13] VITALS: Ht 177.8 cm; Wt 86.0 kg
[2020-10-13 16:51] LABS: BASOPHILS ABSOLUTE AUTO 0.06 K/mm3 (0.00-0.23); BASOPHILS PERCENT AUTO 1 % (0-2); EOSINOPHILS ABSOLUTE AUTO 0.28 K/mm3 (0.00-0.68); EOSINOPHILS PERCENT AUTO 2 % (0-6); Hematocrit 40.8 % (37.0-53.0); Hemoglobin 13.1 g/dL (13.5-17.5); IMMATURE GRAN ABSOLUTE AUTO 0.05 K/mm3 (0.00-0.10); IMMATURE GRAN PERCENT AUTO 0 % (0-1); LYMPHOCYTES ABSOLUTE AUTO 2.01 K/mm3 (0.84-5.20); LYMPHOCYTES PERCENT AUTO 17 % (21-46); MONOCYTES ABSOLUTE AUTO 1.32 K/mm3 (0.16-1.47); MONOCYTES PERCENT AUTO 11 % (4-13); Mean Corpuscular HGB 29.5 pg (26.0-34.0); Mean Corpuscular HGB Conc 32.1 g/dL (31.5-36.5); Mean Corpuscular Volume 92 fL (80-100); Mean Platelet Volume 9.6 fL (9.1-12.4); NEUTROPHILS ABSOLUTE AUTO 7.84 K/mm3 (1.96-9.15); NEUTROPHILS PERCENT AUTO 68 % (41-73); Platelet Count 418 K/mm3 (150-400); RDW Coefficient Variation 14.9 % (11.7-14.2); RDW Standard Deviation 50.8 fL (35.1-46.3); Red Blood Cell Count 4.44 M/mm3 (4.30-5.90); White Blood Cell Count 11.56 K/mm3 (4.00-11.30)
[2020-10-13 17:03] LABS: Influenza A, PCR Negative (NEGATIVE); Influenza B, PCR Negative (NEGATIVE); Resp Syncytial Virus, PCR Negative (NEGATIVE); SARS-Cov-2 (COVID-19) PCR, MMC Negative (NEGATIVE)
[2020-10-13 17:13] LABS: Alanine Aminotransfer (ALT/SGP 28 U/L (12-78); Albumin/Globulin Ratio 0.6 (0.8-1.8); Alk Phos 111 U/L (50-136); Anion Gap 3 mmol/L (6-16); Aspartate Aminotrans (AST/SGOT 30 U/L (12-37); Bilirubin, Total 0.3 mg/dL (0.1-1.0); Blood Urea Nitrogen 9 mg/dL (8-24); CO2, Blood 27 mmol/L (21-32); Calcium, Blood 8.4 mg/dL (8.5-10.1); Chloride, Blood 104 mmol/L (98-108); Creatinine, Blood 0.69 mg/dL (0.60-1.20); Globulin, Blood 4.7 g/dL (2.2-4.0); Glomerular Filtration Rate >60 (60-); Glucose, Blood 89 mg/dL (70-99); Sodium, Blood 134 mmol/L (136-145); Total Protein, Blood 7.7 g/dL (6.4-8.2)
--- NOTE | 2020-10-13 19:02 | NUR ---
pt arrived to room 326 from er dept req something to eat roast beef given with coffee pt oriented to room pt's l foot undressed pt has stron odor black noted to big toe and pinky toe and surrounding tissue pt stated he had not changed the dressing since he had left the hospital last will photograph and clean then place a new dressing sutures in place to 3 and 4 toe amp
[2020-10-14 05:39] LABS: Hemoglobin 12.3 g/dL (13.5-17.5); Mean Corpuscular HGB 30.1 pg (26.0-34.0); Mean Corpuscular HGB Conc 33.2 g/dL (31.5-36.5); Mean Corpuscular Volume 91 fL (80-100); Mean Platelet Volume 9.7 fL (9.1-12.4); Platelet Count 408 K/mm3 (150-400); RDW Coefficient Variation 14.8 % (11.7-14.2); RDW Standard Deviation 49.4 fL (35.1-46.3); Red Blood Cell Count 4.08 M/mm3 (4.30-5.90); White Blood Cell Count 10.13 K/mm3 (4.00-11.30)
[2020-10-14 06:07] LABS: Anion Gap 7 mmol/L (6-16); Blood Urea Nitrogen 9 mg/dL (8-24); Bun/Creatinine Ratio 12.2 (12.0-20.0); CO2, Blood 24 mmol/L (21-32); Calcium, Blood 8.4 mg/dL (8.5-10.1); Chloride, Blood 107 mmol/L (98-108); Creatinine, Blood 0.74 mg/dL (0.60-1.20); Glomerular Filtration Rate >60 (60-); Glucose, Blood 99 mg/dL (70-99); Potassium, Blood 3.7 mmol/L (3.5-5.5); Sodium, Blood 138 mmol/L (136-145)
--- NOTE | 2020-10-14 06:45 | NUR ---
SHIFT SUMMARY PT IS A 50 Y/O MALE, ADMITTED FOR LLE CELLULITIS. PT IS A&O X 2-3, WITH HX OF PSYCH ISSUES AND OFTEN MUTTERING TO HIMSELF IN THE ROOM. PT WAS MEDICATED ONCE FOR PAIN WITH PRN TYLENOL. PT HAS WOUND ON L FOOT FROM A SURGICAL AMPUTATION OF THE 2-4 TOES DONE A WEEK AGO. SUTURES IN PLACE, REMAINING BIG TOE AND PINKY TOE TURNING BLACK. WOUND ON THE TOP DORSAL AREA OF THE FOOT. DR SPANGLER IN TO SEE THE PT, MADE HIM NPO AT MIDNIGHT. WOUND WAS CLEANED AND BANDAGED. NO C/O NAUSEA OR SOB. VITAL SIGNS STABLE. NO ACUTE CHANGES IN PT CONDITION NOTED. WILL CONTINUE TO MONITOR AND TREAT PER EMAR UNTIL HAND OFF TO DAY SHIFT RN.
--- NOTE | 2020-10-14 18:35 | NUR ---
SHIFT SUMMARY PATIENT ALERT AND ORIENTED THIS SHIFT. PATIENT REMAINS NPO THIS SHIFT IN ANTICIPATION OF PROCEDURE TO LLE. PATIENT CONTINUES ON IV ANTIBIOTICS. PATIENT LAYING IN BED THROUGHOUT THIS SHIFT. PATIENT AGITATED THROUGHOUT THIS SHIFT ABOUT WAITING FOR PROCEDURE. PATIENT HAS STATED MULTIPLE TIMES THAT HE SHOULD JUST WALK OUT AND RETURN AT A LATER TIME AND THAT HE DOESN'T CARE IF HE LOSES HIS FOOT. PATIENT EDUCATED THAT HE WAS SCHEDULED FOR SURGERY TODAY AND LEAVING AND RETURNING WOULD EXTEND THE WAIT. PATIENT AGREES, YET REMAINS AGITATED.
--- NOTE | 2020-10-14 20:45 | NUR ---
PACU RECIEVED FROM OR VIA YARON. ROUSES TO VERBAL STIMULI FOR SHORT PERIODS. FOLLOWS SIMPLE COMMANDS. NRB 8L. PERIODS OF APNEA NOTED, BUT PT IS ABLE TO WAKE UP AND DEEP BREATHE. MONITOR SHOWS NSR, RATE 90s. BP STABLE. LEFT FOOT WITH DRSG AND WOUND VAC INTACT.
--- NOTE | 2020-10-14 21:55 | NUR ---
DISCHARGE FROM PACU PT IS DROWSY BUT AWAKE AND ALERT. COOPERATIVE WITH CARE. REPOSITIONS SELF IN BED. DENIES NEED FOR PAIN MED AT THIS TIME. SMALL AMOUNT OF SANGUIONOUS DRAINAGE NOTED TO LEFT FOOT. VSS. RA SATS 90-97%. RESPIRATIONS EVEN AND UNLABORED. NO URINE OUTPUT DURING PAR. REPORT GIVEN TO Dawn ROJO RN AND TRANSFERRED TO ROOM 326 VIA [facility].
--- NOTE | 2020-10-14 23:32 | NUR ---
PT. ARRIVED FROM SURGERY @2210 VIA STRETCHER. A&O, DROWSY. WOUND VAC DSG LEAKING, REPLACED BY CHARGE NURSE, PT. TOLERATING WELL. VSS, PT. DENIED ANY PAIN OR DISCOMFORT. IV FLUIDS INFUSING AND ABX'S ALSO. PT. RESTING QUIETLY IN BED, NO APPARENT DISTRESS NOTED. WILL CONT TO MONITOR.
--- NOTE | 2020-10-15 06:29 | NUR ---
SHIFT SUMMARY- PT. S/P TRANSMETARSAL AMPUTATION OF THE L FOOT. WOUND VAC IN PLACE, DRAINING MILD AMOUNT OF SANGUINEOUS DRAINAGE. PT. HAD NO COMPLAINTS OF PAIN T/O THE NIGHT. ASLEEP MOST OF THE NIGHT, NO APPARENT DISTRESS NOTED. DIET ADVANCED, TOLERATING PO WELL AND VOIDED OFTEN DURING THE NIGHT. VSS. CALL LIGHT WITHIN REACH AND SIDE RAILS UPX2. WILL CONT TO MONITOR.
[2020-10-15 08:49] LABS: BASOPHILS ABSOLUTE AUTO 0.04 K/mm3 (0.00-0.23); BASOPHILS PERCENT AUTO 0 % (0-2); EOSINOPHILS ABSOLUTE AUTO 0.02 K/mm3 (0.00-0.68); EOSINOPHILS PERCENT AUTO 0 % (0-6); Hematocrit 38.2 % (37.0-53.0); Hemoglobin 12.5 g/dL (13.5-17.5); IMMATURE GRAN ABSOLUTE AUTO 0.06 K/mm3 (0.00-0.10); IMMATURE GRAN PERCENT AUTO 0 % (0-1); LYMPHOCYTES ABSOLUTE AUTO 1.23 K/mm3 (0.84-5.20); LYMPHOCYTES PERCENT AUTO 8 % (21-46); MONOCYTES ABSOLUTE AUTO 1.31 K/mm3 (0.16-1.47); MONOCYTES PERCENT AUTO 8 % (4-13); Mean Corpuscular HGB 29.5 pg (26.0-34.0); Mean Corpuscular HGB Conc 32.7 g/dL (31.5-36.5); Mean Corpuscular Volume 90 fL (80-100); Mean Platelet Volume 9.5 fL (9.1-12.4); NEUTROPHILS ABSOLUTE AUTO 13.19 K/mm3 (1.96-9.15); NEUTROPHILS PERCENT AUTO 83 % (41-73); Platelet Count 431 K/mm3 (150-400); RDW Coefficient Variation 14.7 % (11.7-14.2); RDW Standard Deviation 49.1 fL (35.1-46.3); Red Blood Cell Count 4.24 M/mm3 (4.30-5.90); White Blood Cell Count 15.85 K/mm3 (4.00-11.30)
[2020-10-15 08:58] LABS: Anion Gap 7 mmol/L (6-16); Blood Urea Nitrogen 14 mg/dL (8-24); Bun/Creatinine Ratio 19.7 (12.0-20.0); CO2, Blood 23 mmol/L (21-32); Calcium, Blood 8.5 mg/dL (8.5-10.1); Chloride, Blood 104 mmol/L (98-108); Creatinine, Blood 0.71 mg/dL (0.60-1.20); Glomerular Filtration Rate >60 (60-); Glucose, Blood 114 mg/dL (70-99); Potassium, Blood 4.3 mmol/L (3.5-5.5); Sodium, Blood 134 mmol/L (136-145); Vancomycin, Trough 10.3 ug/mL (5.0-10.0)
--- NOTE | 2020-10-15 17:18 | NUR ---
SHIFT SUMMARY PATIENT ALERT AND ORIENTED THIS SHIFT. PATIENT POST-OP DAY 2. WOUND VAC REMAINS IN PLACE WITH A SMALL AMOUNT OF DRAINAGE. PATIENT WORKED WITH PHYSICAL THERAPY THIS SHIFT. PATIENT LAYING IN BED WATCHING TELEVISION THROUGHOUT THIS SHIFT. PATIENT MEDICATED 1X FOR PAIN THIS SHIFT.
--- NOTE | 2020-10-15 22:45 | NUR ---
PT TALKING TO HIMSELF, NURSE NOTIFIED
[2020-10-16 05:13] LABS: BASOPHILS ABSOLUTE AUTO 0.08 K/mm3 (0.00-0.23); BASOPHILS PERCENT AUTO 1 % (0-2); EOSINOPHILS ABSOLUTE AUTO 0.13 K/mm3 (0.00-0.68); EOSINOPHILS PERCENT AUTO 1 % (0-6); Hematocrit 38.1 % (37.0-53.0); Hemoglobin 12.6 g/dL (13.5-17.5); IMMATURE GRAN ABSOLUTE AUTO 0.05 K/mm3 (0.00-0.10); IMMATURE GRAN PERCENT AUTO 1 % (0-1); LYMPHOCYTES ABSOLUTE AUTO 2.97 K/mm3 (0.84-5.20); LYMPHOCYTES PERCENT AUTO 28 % (21-46); MONOCYTES ABSOLUTE AUTO 0.97 K/mm3 (0.16-1.47); MONOCYTES PERCENT AUTO 9 % (4-13); Mean Corpuscular HGB 29.7 pg (26.0-34.0); Mean Corpuscular HGB Conc 33.1 g/dL (31.5-36.5); Mean Corpuscular Volume 90 fL (80-100); Mean Platelet Volume 9.7 fL (9.1-12.4); NEUTROPHILS PERCENT AUTO 61 % (41-73); Platelet Count 444 K/mm3 (150-400); RDW Coefficient Variation 14.6 % (11.7-14.2); RDW Standard Deviation 48.5 fL (35.1-46.3); Red Blood Cell Count 4.24 M/mm3 (4.30-5.90)
[2020-10-16 05:42] LABS: Anion Gap 9 mmol/L (6-16); Blood Urea Nitrogen 16 mg/dL (8-24); Bun/Creatinine Ratio 21.3 (12.0-20.0); CO2, Blood 22 mmol/L (21-32); Calcium, Blood 8.9 mg/dL (8.5-10.1); Chloride, Blood 105 mmol/L (98-108); Creatinine, Blood 0.75 mg/dL (0.60-1.20); Glomerular Filtration Rate >60 (60-); Glucose, Blood 94 mg/dL (70-99); Potassium, Blood 4.3 mmol/L (3.5-5.5); Sodium, Blood 136 mmol/L (136-145)
--- NOTE | 2020-10-16 05:48 | NUR ---
SHIFT SUMMARY- PT. HAD NO ACUTE EVENTS OVERNIGHT. APPEARED TO HAVE RESTED COMFORTABLY T/O THE SHIFT. NO APPARENT DISTRESS NOTED. DENIED ANY C/O PAIN OR DISCOMFORT. WOUND VAC IN PLACE. VSS. CALL LIGHT WITHIN REACH AND SIDE RAILS UPX2. WILL CONT TO MONITOR.
--- NOTE | 2020-10-16 18:17 | NUR ---
SHIFT SUMMARY PATIENT ALERT AND ORIENTED THROUGHOUT THIS SHIFT. PATIENT REPOSITIONS SELF IN BED. PATIENT CHAIRBOUND AT BASELINE. PATIENT MEDICATED THROUGH THIS SHIFT FOR PAIN. PATIENT REMAINS ON IV ANTIBIOTICS. WOUND VAC CHANGED THIS SHIFT. PATIENT IS HOPEFUL ABOUT PLAN OF DISCHARGING WITH A HOME TO GO TO. PATIENT HAS BEEN COOPERATIVE WITH CARE THIS SHIFT. PATIENT SITTING UP IN BED THROUGHOUT THIS SHIFT WATCHING TELEVISION.
--- NOTE | 2020-10-17 07:57 | NUR ---
10/17/20 0500 PT SLEEPING AND IV NEEDLE FOUND LAYING ON BED SHEETS. PT STATES HE DID NOT PULL IT OUT. WOUND VAC INTACT TO LEFT FOOT. SMALL AMT. RED DRAINAGE.PT GETS IN AND OUT OF W/C HIMSELF. REMINDED HIM TO BE CAUTIOUS WITH TUBES. TAKING LARGE AMTS OF SNACKS AND VOIDED QS. VITALS STABLE.
[2020-10-17 08:14] LABS: BASOPHILS ABSOLUTE AUTO 0.07 K/mm3 (0.00-0.23); BASOPHILS PERCENT AUTO 1 % (0-2); EOSINOPHILS PERCENT AUTO 4 % (0-6); Hemoglobin 13.3 g/dL (13.5-17.5); IMMATURE GRAN ABSOLUTE AUTO 0.06 K/mm3 (0.00-0.10); IMMATURE GRAN PERCENT AUTO 1 % (0-1); LYMPHOCYTES ABSOLUTE AUTO 2.09 K/mm3 (0.84-5.20); LYMPHOCYTES PERCENT AUTO 21 % (21-46); MONOCYTES ABSOLUTE AUTO 0.77 K/mm3 (0.16-1.47); MONOCYTES PERCENT AUTO 8 % (4-13); Mean Corpuscular HGB 29.6 pg (26.0-34.0); Mean Corpuscular HGB Conc 33.3 g/dL (31.5-36.5); Mean Corpuscular Volume 89 fL (80-100); Mean Platelet Volume 9.3 fL (9.1-12.4); NEUTROPHILS ABSOLUTE AUTO 6.45 K/mm3 (1.96-9.15); NEUTROPHILS PERCENT AUTO 66 % (41-73); Platelet Count 487 K/mm3 (150-400); RDW Coefficient Variation 14.5 % (11.7-14.2); RDW Standard Deviation 47.2 fL (35.1-46.3); Red Blood Cell Count 4.49 M/mm3 (4.30-5.90); White Blood Cell Count 9.84 K/mm3 (4.00-11.30)
[2020-10-17 08:27] LABS: Anion Gap 6 mmol/L (6-16); Blood Urea Nitrogen 16 mg/dL (8-24); Bun/Creatinine Ratio 19.9 (12.0-20.0); CO2, Blood 26 mmol/L (21-32); Calcium, Blood 9.5 mg/dL (8.5-10.1); Chloride, Blood 102 mmol/L (98-108); Glomerular Filtration Rate >60 (60-); Glucose, Blood 93 mg/dL (70-99); Potassium, Blood 4.1 mmol/L (3.5-5.5); Sodium, Blood 134 mmol/L (136-145)
--- NOTE | 2020-10-17 09:12 | NUR ---
10/17/20 0912 Sasha Guerin VERIFICATIONS: EDIT CHART.
[2020-10-17] MEDS ORDERED: TRAMADOL HCL E100 M2 PO (12:18)
[2020-10-17] MEDS ORDERED: CEPH500 PO (12:18)
--- NOTE | 2020-10-17 13:42 | NUR ---
DISCHARGE SUMMARY PT LEAVING WITH STEP DAD. HH IS GOING TO COME AND CHANGE DRESSING TOMORROW, THEY ARE AWARE OF HIM. MEDS FAXED TO [facility]. PT GIVEN PHYSICAL SCRIPT OF TRAMADOL, COPY OF SCRIPT IN CHART. PT EDUCATED ON IMPORTANCE OF FINISHING ABX EVEN IF HE FEELS BETTER. F/U APPTS MADE WITH PCP JESSICA TRAVIS AND WITH ORTHO CRYS, PT IS AWARE OF THE APPTS. PIV REMOVED. WCTM
== END 2020-10-17 14:46 | disposition home health service (06) | DRG 240 ==
LOC: ER 13:16 → MEDS 17:26 → ER 18:38 → MEDS 18:59
PROVIDERS: Orthopaedic Surgery; Physician Assistant; Student in an Organized Health Care Education/Training Program; ADMIT Internal Medicine
PROC: 0Y6N0ZB Detachment at Left Foot, Partial 2nd Ray, Open Approach (ICD-10-PCS; 2020-10-14)
PROC: 0Y6N0ZC Detachment at Left Foot, Partial 3rd Ray, Open Approach (ICD-10-PCS; 2020-10-14)
PROC: 0Y6N0ZD Detachment at Left Foot, Partial 4th Ray, Open Approach (ICD-10-PCS; 2020-10-14)
PROC: 0Y6N0ZF Detachment at Left Foot, Partial 5th Ray, Open Approach (ICD-10-PCS; 2020-10-14)
PROC: 0Y6N0Z9 Detachment at Left Foot, Partial 1st Ray, Open Approach (ICD-10-PCS; principal; 2020-10-14 17:00)
DX: I96 Gangrene, not elsewhere classified (principal); L03.116 Cellulitis of left lower limb; Z20.822 Contact with and (suspected) exposure to COVID-19; I25.10 Atherosclerotic heart disease of native coronary artery without angina pectoris; F17.210 Nicotine dependence, cigarettes, uncomplicated; F15.10 Other stimulant abuse, uncomplicated; D72.829 Elevated white blood cell count, unspecified; I10 Essential (primary) hypertension; J44.9 Chronic obstructive pulmonary disease, unspecified; I25.2 Old myocardial infarction; Z89.611 Acquired absence of right leg above knee; Z59.0 Homelessness; Z95.5 Presence of coronary angioplasty implant and graft; Z86.73 Personal history of transient ischemic attack (TIA), and cerebral infarction without residual deficits; Z91.19 Patient's noncompliance with other medical treatment and regimen; Z89.422 Acquired absence of other left toe(s)
CPT/HCPCS: 0241U; 36415; 73630; 80048; 80053; 80202; 82947; 83605; 85025; 85027; 85651; 86140; 87040; 88307; 88311; 97161; 99284-25; A9270; J0690; J0692; J1100; J1650; J2370; J2405; J2704; J3010; J3370; J7050; J7120

== ENCOUNTER 2020-12-08 06:31 | Emergency (ER) | payer OTHER ==
[~2020-12-08] VITALS: Ht 175.3 cm; Wt 72.6 kg
[~2020-12-08 06:31] MED LIST changes: +TRAMADOL HCL E100 M2 PO
[2020-12-08] MEDS ORDERED: SULFAMETHOXAZO1 EAC1 PO (06:42)
[2020-12-08 06:47] LABS: BASOPHILS ABSOLUTE AUTO 0.07 K/mm3 (0.00-0.23); BASOPHILS PERCENT AUTO 1 % (0-2); EOSINOPHILS ABSOLUTE AUTO 0.14 K/mm3 (0.00-0.68); EOSINOPHILS PERCENT AUTO 1 % (0-6); Hematocrit 40.4 % (37.0-53.0); Hemoglobin 13.8 g/dL (13.5-17.5); IMMATURE GRAN ABSOLUTE AUTO 0.11 K/mm3 (0.00-0.10); IMMATURE GRAN PERCENT AUTO 1 % (0-1); LYMPHOCYTES ABSOLUTE AUTO 1.91 K/mm3 (0.84-5.20); LYMPHOCYTES PERCENT AUTO 13 % (21-46); MONOCYTES ABSOLUTE AUTO 0.81 K/mm3 (0.16-1.47); MONOCYTES PERCENT AUTO 5 % (4-13); Mean Corpuscular HGB 29.6 pg (26.0-34.0); Mean Corpuscular HGB Conc 34.2 g/dL (31.5-36.5); Mean Corpuscular Volume 87 fL (80-100); NEUTROPHILS ABSOLUTE AUTO 12.22 K/mm3 (1.96-9.15); NEUTROPHILS PERCENT AUTO 80 % (41-73); Platelet Count 446 K/mm3 (150-400); RDW Coefficient Variation 14.5 % (11.7-14.2); RDW Standard Deviation 46.1 fL (35.1-46.3); Red Blood Cell Count 4.67 M/mm3 (4.30-5.90); White Blood Cell Count 15.26 K/mm3 (4.00-11.30)
[2020-12-08 07:06] LABS: Alanine Aminotransfer (ALT/SGP 28 U/L (12-78); Albumin, Blood 2.8 g/dL (3.4-5.0); Albumin/Globulin Ratio 0.5 (0.8-1.8); Alk Phos 104 U/L (50-136); Anion Gap 5 mmol/L (6-16); Aspartate Aminotrans (AST/SGOT 11 U/L (12-37); Bilirubin, Total 0.2 mg/dL (0.1-1.0); Blood Urea Nitrogen 15 mg/dL (8-24); Bun/Creatinine Ratio 18.3 (12.0-20.0); CO2, Blood 27 mmol/L (21-32); Calcium, Blood 8.9 mg/dL (8.5-10.1); Chloride, Blood 100 mmol/L (98-108); Creatinine, Blood 0.82 mg/dL (0.60-1.20); Globulin, Blood 5.4 g/dL (2.2-4.0); Glomerular Filtration Rate >60 (60-); Glucose, Blood 115 mg/dL (70-99); Potassium, Blood 4.6 mmol/L (3.5-5.5); Sodium, Blood 132 mmol/L (136-145); Total Protein, Blood 8.2 g/dL (6.4-8.2); Troponin I <0.015 ng/mL (0.000-0.040)
[2020-12-08 08:44] LABS: Source, Urine Clean Catch
[2020-12-08 08:47] LABS: Appearance, Urine Clear (Clear); Bilirubin, Urine Neg (Neg); Blood, Urine 4+ (Neg); Color, Urine Yellow (P-Yellow); Glucose Qualitative, Urine Neg (Neg); Ketones, Urine Neg (Neg); Leukocyte Esterase, Urine 1+ (Neg); Nitrite, Urine Neg (Neg); Protein, Urine 1+ (Neg); Urobilinogen, Urine NORM (Normal)
[2020-12-08 09:05] LABS: Influenza A, PCR NEGATIVE (NEGATIVE); Influenza B, PCR NEGATIVE (NEGATIVE); Resp Syncytial Virus, PCR NEGATIVE (NEGATIVE); SARS-Cov-2 (COVID-19) PCR, MMC NEGATIVE (NEGATIVE)
[2020-12-08 09:08] LABS: Bacteria Few /hpf; Squamous Epithelial Cells Few /hpf (Few); Transitional Epithelial Cells Few /hpf (0-Rare)
[2020-12-08] MEDS ORDERED: CEFD300 PO ×2 (10:06→10:34)
[2020-12-08] MEDS ORDERED: ALBU90OI INH ×2 (10:19→10:34)
== END 2020-12-08 10:40 | disposition home or self-care (01) ==
LOC: ER 06:31
PROVIDERS: Emergency Medicine
DX: J18.9 Pneumonia, unspecified organism (principal); Z20.822 Contact with and (suspected) exposure to COVID-19
CPT/HCPCS: 0241U; 71045; 80053; 81001; 83690; 84484; 85025; 87077; 87086; 87186; 93005; 93010; 96365; 96375; 99285-25; J0696; J3010; J7030

== ENCOUNTER → 2021-04-09 | Outpatient (CLI) | payer OTHER ==
[~2021-04-09] MED LIST changes: +CEFD300 PO; +SULFAMETHOXAZO1 EAC1 PO
== END | disposition home or self-care (01) ==
LOC: LAB 16:02 → LAB SHORT 16:02
DX: Z47.81 Encounter for orthopedic aftercare following surgical amputation (principal); L03.116 Cellulitis of left lower limb; Z89.9 Acquired absence of limb, unspecified
CPT/HCPCS: 87070; 87205

== ENCOUNTER 2021-10-12 00:15 | Emergency (ER) | payer OTHER ==
[~2021-10-12] VITALS: Ht 175.3 cm; Wt 113.4 kg
[2021-10-12 00:49] LABS: Hematocrit 43.2 % (37.0-53.0); Hemoglobin 14.5 g/dL (13.5-17.5); Mean Corpuscular HGB Conc 33.6 g/dL (31.5-36.5); Mean Corpuscular Volume 89 fL (80-100); Mean Platelet Volume 9.3 fL (9.1-12.4); Platelet Count 468 K/mm3 (150-400); RDW Coefficient Variation 14.8 % (11.7-14.2); RDW Standard Deviation 48.3 fL (35.1-46.3); Red Blood Cell Count 4.84 M/mm3 (4.30-5.90); White Blood Cell Count 15.45 K/mm3 (4.00-11.30)
[2021-10-12 01:07] LABS: Alanine Aminotransfer (ALT/SGP 59 U/L (12-78); Albumin/Globulin Ratio 0.7 (0.8-1.8); Alk Phos 112 U/L (50-136); Anion Gap 6 mmol/L (6-16); Aspartate Aminotrans (AST/SGOT 36 U/L (12-37); Bilirubin, Total 0.1 mg/dL (0.1-1.0); Blood Urea Nitrogen 28 mg/dL (8-24); Bun/Creatinine Ratio 25.7 (12.0-20.0); CO2, Blood 31 mmol/L (21-32); Calcium, Blood 8.9 mg/dL (8.5-10.1); Chloride, Blood 101 mmol/L (98-108); Creatinine, Blood 1.09 mg/dL (0.60-1.20); Ethanol (Alcohol), Blood, Med <3 mg/dL; Globulin, Blood 4.4 g/dL (2.2-4.0); Glomerular Filtration Rate >60 (60-); Glucose, Blood 101 mg/dL (70-99); Sodium, Blood 138 mmol/L (136-145); Total Protein, Blood 7.4 g/dL (6.4-8.2)
[2021-10-12 01:21] LABS: BASOPHILS PERCENT MAN 0 % (0-2); EOSINOPHILS ABSOLUTE MAN 0.77 K/mm3 (0.00-0.68); EOSINOPHILS PERCENT MAN 5 % (0-6); LYMPHOCYTES % ATYPICAL MANUAL 5 % (0-0); LYMPHOCYTES ABSOLUTE MAN 5.87 K/mm3 (0.84-5.20); LYMPHOCYTES PERCENT MAN 33 % (21-46); METAMYELOCYTE ABSOLUTE MAN 0.15 K/mm3 (0.00-0.00); METAMYELOCYTE PERCENT MAN 1 % (0-0); MONOCYTES ABSOLUTE MAN 0.77 K/mm3 (0.16-1.47); MONOCYTES PERCENT MAN 5 % (4-13); MYELOCYTE ABSOLUTE MAN 0.15 K/mm3 (0.00-0.00); MYELOCYTE PERCENT MAN 1 % (0-0); NEUTROPHILS ABSOLUTE MAN 7.72 K/mm3 (1.96-9.15); SEG NEUTROPHILS PERCENT MAN 50 % (41-73); TOTAL CELLS COUNTED 100
[2021-10-12 01:52] LABS: Influenza A, PCR NEGATIVE (NEGATIVE); Influenza B, PCR NEGATIVE (NEGATIVE); Resp Syncytial Virus, PCR NEGATIVE (NEGATIVE); SARS-Cov-2 (COVID-19) PCR, MMC NEGATIVE (NEGATIVE)
[2021-10-12 02:24] LABS: U Amphetamine Screen DETECTED; U Barbituate Screen Not Detected; U Benzodiazapine Screen Not Detected; U Buprenorphine Screen Not Detected; U Cannabinoids Screen Not Detected; U Cocaine Screen Not Detected; U Methadone Screen Not Detected; U Methamphetamine Screen DETECTED; U Opiates Screen Not Detected; U Oxycodone Screen Not Detected; U Phencyclidine Screen Not Detected; U Propoxyphene Screen Not Detected
[2021-10-12] MEDS ORDERED: IBU600 MG PO (02:29)
[2021-10-12] MEDS ORDERED: Bactrim Ds Tab1 EACH PO (02:29)
== END 2021-10-12 03:26 | disposition home or self-care (01) ==
LOC: ER 00:15
PROVIDERS: Emergency Medicine
DX: L03.116 Cellulitis of left lower limb (principal); F15.10 Other stimulant abuse, uncomplicated; Z20.822 Contact with and (suspected) exposure to COVID-19; I25.2 Old myocardial infarction; I10 Essential (primary) hypertension; F17.210 Nicotine dependence, cigarettes, uncomplicated; J44.9 Chronic obstructive pulmonary disease, unspecified; Z79.899 Other long term (current) drug therapy
CPT/HCPCS: 0241U; 36415; 73630; 80053; 83605; 85025; 99284-25; A9270; G0480

== ENCOUNTER 2021-11-26 02:26 | Day surgery (SDC) | payer OTHER ==
[~2021-11-26 02:26] MED LIST changes: +IBU600 MG PO
== END 2021-11-26 22:42 | disposition home or self-care (01) ==
LOC: WOUND 02:26
DX: T81.31XA Disruption of external operation (surgical) wound, not elsewhere classified, initial encounter (principal); L97.125 Non-pressure chronic ulcer of left thigh with muscle involvement without evidence of necrosis; I25.10 Atherosclerotic heart disease of native coronary artery without angina pectoris; J44.9 Chronic obstructive pulmonary disease, unspecified; I10 Essential (primary) hypertension; I25.2 Old myocardial infarction; I73.9 Peripheral vascular disease, unspecified; F17.200 Nicotine dependence, unspecified, uncomplicated; Z89.432 Acquired absence of left foot; Y83.8 Other surgical procedures as the cause of abnormal reaction of the patient, or of later complication, without mention of misadventure at the time of the procedure
CPT/HCPCS: A9270; G0463

== ENCOUNTER 2021-12-10 02:27 | Day surgery (SDC) | payer OTHER | END 2021-12-10 23:20 | disposition home or self-care (01) | LOC: WOUND 02:27 | DX: T81.31XA Disruption of external operation (surgical) wound, not elsewhere classified, initial encounter (principal); L97.125 Non-pressure chronic ulcer of left thigh with muscle involvement without evidence of necrosis; J44.9 Chronic obstructive pulmonary disease, unspecified; I10 Essential (primary) hypertension; I25.2 Old myocardial infarction; I73.9 Peripheral vascular disease, unspecified; Z89.432 Acquired absence of left foot; Z86.73 Personal history of transient ischemic attack (TIA), and cerebral infarction without residual deficits; Y83.8 Other surgical procedures as the cause of abnormal reaction of the patient, or of later complication, without mention of misadventure at the time of the procedure | CPT/HCPCS: A9270; G0463 ==

== ENCOUNTER 2021-12-24 08:00 | Day surgery (SDC) | payer OTHER | END 2021-12-24 23:59 | disposition home or self-care (01) | LOC: WOUND 08:00 | DX: T87.81 Dehiscence of amputation stump (principal); L97.125 Non-pressure chronic ulcer of left thigh with muscle involvement without evidence of necrosis; J44.9 Chronic obstructive pulmonary disease, unspecified; I10 Essential (primary) hypertension; I25.10 Atherosclerotic heart disease of native coronary artery without angina pectoris; I25.2 Old myocardial infarction; I73.9 Peripheral vascular disease, unspecified; Z95.5 Presence of coronary angioplasty implant and graft; Z86.73 Personal history of transient ischemic attack (TIA), and cerebral infarction without residual deficits; Z89.432 Acquired absence of left foot; Y83.5 Amputation of limb(s) as the cause of abnormal reaction of the patient, or of later complication, without mention of misadventure at the time of the procedure | CPT/HCPCS: G0463 ==

== ENCOUNTER 2022-07-28 18:44 | Inpatient (IN) | payer OTHER ==
[~2022-07-28] VITALS: Ht 175.3 cm; Wt 89.0 kg
[2022-07-28 21:11] LABS: BASOPHILS ABSOLUTE AUTO 0.05 K/mm3 (0.00-0.23); BASOPHILS PERCENT AUTO 0 % (0-2); EOSINOPHILS ABSOLUTE AUTO 0.16 K/mm3 (0.00-0.68); EOSINOPHILS PERCENT AUTO 1 % (0-6); Hematocrit 43.6 % (37.0-53.0); IMMATURE GRAN ABSOLUTE AUTO 0.09 K/mm3 (0.00-0.10); IMMATURE GRAN PERCENT AUTO 1 % (0-1); LYMPHOCYTES ABSOLUTE AUTO 2.12 K/mm3 (0.84-5.20); LYMPHOCYTES PERCENT AUTO 16 % (21-46); MONOCYTES PERCENT AUTO 9 % (4-13); Mean Corpuscular HGB 31.3 pg (26.0-34.0); Mean Corpuscular HGB Conc 34.4 g/dL (31.5-36.5); Mean Corpuscular Volume 91 fL (80-100); Mean Platelet Volume 10.2 fL (9.1-12.4); NEUTROPHILS ABSOLUTE AUTO 9.54 K/mm3 (1.96-9.15); NEUTROPHILS PERCENT AUTO 73 % (41-73); Platelet Count 422 K/mm3 (150-400); RDW Coefficient Variation 13.6 % (11.7-14.2); RDW Standard Deviation 46.1 fL (35.1-46.3); Red Blood Cell Count 4.79 M/mm3 (4.30-5.90); White Blood Cell Count 13.16 K/mm3 (4.00-11.30)
[2022-07-28 21:22] LABS: Albumin, Blood 3.4 g/dL (3.4-5.0); Albumin/Globulin Ratio 0.7 (0.8-1.8); Bilirubin, Total 0.2 mg/dL (0.1-1.0); Calcium, Blood 9.4 mg/dL (8.5-10.1); Globulin, Blood 5.1 g/dL (2.2-4.0); Potassium, Blood 4.4 mmol/L (3.5-5.5); Total Protein, Blood 8.5 g/dL (6.4-8.2)
--- NOTE | 2022-07-29 00:30 | NUR ---
PT ARRIVED TO THE FLOOR AROUND MIDNIGHT. PERSONAL AFFECTS IN BAGS WITH PT LABELS PLACED IN ROOM. DISHEVELED GENERAL APPEARANCE, USED CHLORHEXIDINE WIPES TO CLEAN PT UP. WOUND NOTED ON L FOOT WHERE TOES HAVE BEEN AMPUTATED, PURULENT DRAINAGE. SMALL LACERATION TO R FOOT IN-BETWEEN TOES, COAGULATED AND NOT ACTIVELY BLEEDING. PT RESPONDS TO QUESTIONS APPROPRIATELY, CAN ANSWER MOST QUESTIONS, UNCLEAR ON HOME MEDS. PT IS SCHIZOPHRENIC AND TALKING TO SELF, STATED ONLY HEARING VOICES, NO VISUAL DISTURBANCES. BED ALARM ON FOR SAFETY, CALL LIGHT WITHIN REACH
--- NOTE | 2022-07-29 05:07 | NUR ---
SHIFT SUMMARY PT A&OX4, COOPERATIVE WITH CARE, RESPONDS TO QUESTIONS APPROPRIATELY. PT HAS SCHIZOPHRENIA, TALKING TO SELF IN ROOM. BED ALARM ON. MEDICATING FOR PAIN PER EMAR. NPO SINCE MIDNIGHT. WOUND ON L FOOT CLEANED AND WRAPPED WITH AN ABD/KERLEX. CALL LIGHT WITHIN REACH.
--- NOTE | 2022-07-29 15:30 | NUR ---
07/29/22 1530 Lyla Reid SCHEDULED 2G ANCEF GIVEN AT 1506 BY ANESTHESIA
--- NOTE | 2022-07-29 16:15 | NUR ---
ARRIVAL FROM PACU PT ARRIVED BACK FROM PACU AT 1610. HE IS CURRENTLY ASLEEP LAYING ON HIS R SIDE. HE AWAKENS BUT FALLS ASLEEP QUICKLY. SATS REMAIN IN THE MID 90'S. CALL LIGHT IS IN REACH AND DENIES FURTHER NEEDS. CALL LIGHT IN REACH. PROVIDED WITH WATER AND SNACKS FOR ONCE PATIENT IS AWAKE ENOUGH TO TOLERATE.
--- NOTE | 2022-07-29 17:11 | NUR ---
SHIFT SUMMARY PT HAD SURGERY ABORTED PER PACU REPORT. SINCE ARRIVAL BACK TO UNIT PATIENT HAS REMAINED ASLEEP. HE WILL AWAKEN WHEN ASKED QUESTIONS BUT QUICKLY FALLS ASLEEP. HE WILL GROAN AT TIMES BUT OTHERWISE RESTS EASY. PROVIDED WATER AT THIS TIME BUT PT DECLINES TO DRINK HE IS ASLEEP. PLAN IS TO MANAGE PAIN DURING SHIFT. DRESSING APPLIED TO WOUND ON LEFT FOOT, PICTURES IN CHART.
--- NOTE | 2022-07-30 04:15 | NUR ---
SHIFT SUMMARY NO ACUTE CHANGES THIS SHIFT. PT HAS APPEARED TO BE SLEEPING, BUT AWAKENS EASILY TO VERBAL STIMULI. ABLE TO ANSWER QUESTIONS APPROPRIATELY, BUT FALLS BACK TO SLEEP QUICKLY. PT ABLE TO REPOSITION IN BED INDEP. 25MCG IV FENTANYL GIVEN X1 FOR R HIP PAIN + LEFT FOOT PAIN. PT TOOK LEFT FOOT DRESSING OFF--OPEN TO AIR AT THIS TIME. IVF + ABX PER ORDERS. USING URINAL TO VOID. CALL LIGHT WITHIN REACH.
[2022-07-30 04:44] LABS: Hematocrit 40.9 % (37.0-53.0); Hemoglobin 14.2 g/dL (13.5-17.5); Mean Corpuscular HGB 31.1 pg (26.0-34.0); Mean Corpuscular HGB Conc 34.7 g/dL (31.5-36.5); Mean Corpuscular Volume 90 fL (80-100); Mean Platelet Volume 9.4 fL (9.1-12.4); Platelet Count 359 K/mm3 (150-400); RDW Coefficient Variation 13.5 % (11.7-14.2); Red Blood Cell Count 4.56 M/mm3 (4.30-5.90); White Blood Cell Count 13.39 K/mm3 (4.00-11.30)
[2022-07-30 05:05] LABS: Bun/Creatinine Ratio 14.2 (12.0-20.0); Calcium, Blood 8.5 mg/dL (8.5-10.1); Creatinine, Blood 0.77 mg/dL (0.60-1.20); Potassium, Blood 4.1 mmol/L (3.5-5.5)
--- NOTE | 2022-07-31 05:04 | NUR ---
SHIFT SUMMARY NO ACUTE CHANGES. PT RESTED WELL T/O NIGHT. ABLE TO REPOSITION SELF IN BED INDEP. DENIES NEED FOR PAIN MEDICATIONS. USING URINAL TO VOID. DRESSING TO LEFT FOOT REMAINS CDI. USES CALL LIGHT APPORPRIATELY.
--- NOTE | 2022-07-31 10:02 | NUR ---
REPORT CALLED TO RO STARKS. PT BEING TRANSFERRERD TO ROOM 312.
--- NOTE | 2022-07-31 10:41 | NUR ---
pt arrived TO THE MEDICAL FLOOR FROM SURGICAL FLOOR VIA BED. PT IS A/OX3. PT ORIENTED TO THE ROOM CALL SYSTEM. PT APPEARS TO BE BREATHING EASILY ON RA AT THIS TIME. REPORT TAKEN FROM SADIE STARR
--- NOTE | 2022-07-31 19:00 | NUR ---
PT IS A/OX3, PLEASANT AND COOPERATIVE. THE PT DOES TALK OUTLOUD TO HIMSELF SPEAKING FOUL ANGRY LANGUAGE AT TIMES. PT IS ABLE TO REPOSITION HIMSELF IN BED ONLY HE IS BED REST AT THIS TIME DUE TO HIP FX AND CONTRACTURES. THE PT WAS MEDICATED FOR PAIN X2 THIS SHIFT. THE PTS LEFT FOOT WOUND DRESSING WAS REPLACED TODAY USEING CLEAN TECHNIQUE. CALL LIGHT IN REACH. WILL CONTINUE TO MONITOR
--- NOTE | 2022-08-01 07:40 | NUR ---
SHIFT SUMMARY A&0 X 2-3. VSS. PAIN MANAGED WITH PRN OXY. ABLE TO MAKE NEEDS KNOWN. PLEASANT AND COOPERATIVE WITH STAFF. BEDREST. USES URINAL AT BEDSIDE. DRSG TO LEFT FOOT C/D/I. PT WITH HX OF SCHIZOPHRENIA. HAS AUDITORY HALLUCINATION. PT TALKS TO HIMSELF IN THE ROOM AND AT TIMES WILL YELL OUT. BED ALARM ON. WILL CONTINUE TO MONITOR.
--- NOTE | 2022-08-01 18:39 | NUR ---
SHIFT SUMMARY: PT A/O X 3, BEDREST AT THIS TIME. PLEASANT AND COOPERATIVE. PT HAS AUDIBLE HALLUCINATIONS BUT DOES NOT APPEAR TO ACT OUT ON THESE HALLUCINATIONS. PT PAIN MANAGED WITH ALTERNATING TYLENOL AND HYDROCODONE. PT UNABLE TO UNBEND R LEG AND IS CONTRACTED UP. PT EATING WELL AND DRINKING FLUIDS WELL. WOUND CARE COMPLETED TO LEFT FOOT AND IS DRAINGING SEROSANGUINEOUS DRAINAGE.
--- NOTE | 2022-08-02 07:46 | NUR ---
SHIFT SUMMARY PT ALERT AND ORIENTED 2-3. CALLS APPROPRIATELY. PLEASANT WITH STAFF. PT CONTINUE TO HAVE CONVERSATION WITH HIMSELF IN THE ROOM. PT UP ALL NIGHT. GIVEN PAIN MED IN THE AM AND WAS ABLE TO FALL SLEEP. BED ALARM ON. WILL CONTINUE WITH PLAN OF CARE.
--- NOTE | 2022-08-02 18:49 | NUR ---
SHIFT SUMMARY: PT A/O X 3 BEDREST AT THIS TIME. PT PAIN TO R LEG AND LEFT FOOT MANAGED WITH CURRENT REGIMEN. PT EATING WELL AND IS PLEASANT AND COOPERATIVE. PT HAS HAD NO ACUTE CHANGES TODAY. SUPERVISOR SHUTTLE PREPARATION CAME AND EVALUATED AND PLACED ORDERS FOR WOUND CARE.
--- NOTE | 2022-08-03 05:52 | NUR ---
SHIFT SUMMARY ALERT AND ORIENTED. VSS. C/O PAIN 04/24. GIVEN NORCO. PT SLEPT OFF AND ON. PT WITH AUDITORY HALLUCINATION, TALKS TO HIMSELF IN ROOM. PLEASANT AND COOPERATIVE WHEN STAFF IN ROOM. DRSG TO LEFT FOOT C/D/I. USES URINAL AT BEDSIDE.
--- NOTE | 2022-08-03 21:14 | NUR ---
SHIFT SUMMARY PTN WITH R HIP FRACTURE IN SOME DISCOMFORT WHEN MOVES CERTAIN WAYS, BUT ONCE COMFORTABLE DOES NOT COMPLAIN. NORCO GIVEN ONCE THIS SHIFT FOR PAIN. DRESSING TO L FOOT FOR TOE AMPUTATIONS C/D/I, TO BE CHANGED --. PTN IS PLEASANT AND COOOPERATIVE, BUT WHEN OUT OF ROOM HE TENDS TO TALK OUT LOUD TO HIMSELF, RESEMBLING TOURRETTES. PTN CONTACT PRECAUTIONS FOR MRSA TO FOOT WOUND. CONTINUE TO MONITOR.
--- NOTE | 2022-08-04 07:41 | NUR ---
SHIFT SUMMARY: PATIENT REPORTS L HIP PAIN 04/24. MEDICATED WITH NORCO X 2 WITH GOOD EFFECT. VSS. DRSG TO R FOOT IS CD&I. EXTREMITY IS ELEVATED BUT PATIENT IS VERY ACTIVE IN THE BED AND KICKS PILLOW OFF THE BED.
--- NOTE | 2022-08-04 20:01 | NUR ---
SHIFT SUMMARY NO CHANGES NOTED THIS SHIFT. PTN CONTINUES DISCOMFORT WITH HIS R HIP AND RESTS COMFORTABLY IF GETS IN THE RIGHT POSITION. SLEPT IN AFTERNOON. CONTINUES TO YELL OUT, TALK TO OTHERS, AND ADMITS THAT HE DOES HEAR VOICES "SOMETIMES," BUT THAT HE JUST IGNORES THEM. CONTINUE TO MONITOR.
--- NOTE | 2022-08-05 06:07 | NUR ---
SHIFT SUMMARY: NO ACUTE CHANGES, VSS. CONTINUES TO REPORT R HIP PAIN 04/24, NORCO IS GIVEN WITH GOOD EFFECT. IV ACCESS WAS LOST ON DAY SHIFT. PATIENT HAS NO MEDS ORDERED IV EXCEPT ZOFRAN. DR BANG. WAS NOTIFIED AND ORDER, OK TO LEAVE IV OUT, WAS OBTAINED. PATIENT IS ABLE TO TURN SELF WHEN ENCOURAGED TO DO SO. GOOD APPETITE OBSERVE, TOLERATING DIET WELL.
--- NOTE | 2022-08-05 08:00 | NUR ---
Pt laying in bed on his side, a/ox3, pleasant, but when not in room he yells out random things, states his night was good, his pain is in his right hip but is ok for now, takes po meds without diff, no complaints, call light in reach.
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
--- NOTE | 2022-08-05 15:35 | NUR ---
pt anxious and can answer some questions. right arem tremor. Leg remains contracted. pt also has tissue on the other leg. If pt declines furhter cognativley or leg is inoperable may be better served by hospice care due to suffering. He is high risk for secondary infection. Review of prognosis with customer care team coach. He states he has family down in [place] that he speaks to his sister kavin sometimes.
--- NOTE | 2022-08-05 18:21 | NUR ---
medicated pt twice for pain, he constantly yells out, is pleasant when in the room, no further changes, call light in reach.
--- NOTE | 2022-08-06 06:35 | NUR ---
SHIFT SUMMARY PT A&O X 3- PT SLEPT T/O NIGHT- PT W/C BOUND D/T RIGHT FEMORAL FX NON OPERATIVE- PENDING PLACEMENT- PT DENIED PAIN- BANDAGE TO RIGHT FOOT
--- NOTE | 2022-08-06 17:15 | NUR ---
ATTEMPTED TO REDRESS WOUND. THIS RN FOUND L FOOT STUMP OPEN TO AIR W/ DRESSING LAYING IN BED. CALCIUM ALGENATE STUCK IN WOUND BED, ATTEMPTED TO SOAK OFF W/ NS. WOUND STARTED BLEEDING, PRESSURE IS APPLIED W/ EXUDRY IN PLACE @ THIS TIME-LOVENOX HELD.
--- NOTE | 2022-08-06 18:03 | NUR ---
SHIFT SUMMARY PT A&OX3-4 AND IN PLEASENT MOOD T/O SHIFT. TOLERATING PO INTAKE WELL. DRESSING CDI, LLE. R FOOT MELODY. PAIN MEDICATED PER EMAR. CALL LIGHT W/ IN REACH. MAKES NOISES/BURSTS OUT CUSSING. VSS.
--- NOTE | 2022-08-07 06:18 | NUR ---
SHIFT SUMMARY PT REQUESTED MULTIPLE SNACKS AT BEGINNING OF SHIFT-PT SLEPT T/O NIGHT- PT USES URINAL- BANDAGE C/D & I LEFT FOOT- BED LOW POSITION- CALL LIGHT IN PLACE
--- NOTE | 2022-08-07 16:40 | NUR ---
DR. CABEZAS PODIATRY OFFICE CONTACTED THIS RN LEFT MESSAGE FOR DR. CABEZAS @ OFFICE W/ QUESTION OF WEIGHT BEARING STATUS OF LLE. PHYSICAL THERAPY IS HOPING FOR A WBS IN ORDER TO ASSESS AND TREAT APPROPRIATELY.
--- NOTE | 2022-08-07 18:25 | NUR ---
SHIFT SUMMARY PT A&OX4 AND IN PLEASENT MOOD. TALKS TO SELF AND "CALLS OUT". DRESSING CHANGED THIS SHIFT. CALL LIGHT W/IN REACH. VSS. TOLERATING PO INTAKE. PT WORKED W/ OCCUPATIONAL THERAPY THIS SHIFT-RECOMMENDED PHYSICAL THERAPY, NEEDS WEIGHT BEARING STATUS FROM DR. CABEZAS SIGN WRITER LETTERER OR PAINTER FOR LLE. DENIES PAIN T/O SHIFT.
[2022-08-08 05:30] LABS: Hematocrit 41.4 % (37.0-53.0); Hemoglobin 14.3 g/dL (13.5-17.5); Mean Corpuscular HGB 31.2 pg (26.0-34.0); Mean Corpuscular HGB Conc 34.5 g/dL (31.5-36.5); Mean Corpuscular Volume 90 fL (80-100); Mean Platelet Volume 8.9 fL (9.1-12.4); Platelet Count 554 K/mm3 (150-400); RDW Coefficient Variation 13.2 % (11.7-14.2); RDW Standard Deviation 43.8 fL (35.1-46.3); Red Blood Cell Count 4.58 M/mm3 (4.30-5.90)
--- NOTE | 2022-08-08 05:45 | NUR ---
SHIFT SUMMARY PT A&O X 2-3- PT IS BASELINE W/C BOUND- PT USES CALL LIGHT APPROPRIATE- MEDICATED X 1 FOR RIGHT LEG PAIN- PLAN IS FOR SNF PLACEMENT
[2022-08-08 06:10] LABS: Bun/Creatinine Ratio 35.8 (12.0-20.0); Calcium, Blood 8.9 mg/dL (8.5-10.1); Creatinine, Blood 0.87 mg/dL (0.60-1.20); Potassium, Blood 4.5 mmol/L (3.5-5.5)
--- NOTE | 2022-08-08 17:51 | NUR ---
Patient alert/orientedx3. Patient upset this morning, asking to work with therapy so he can get in W/C and move around. Patient worked with therapy, ne worders for full-wt bearing. Pt in wheelchair and wanted to leave room, he wanted to go downstairs. Provided education on safety, and explained if patient leaves unit, RN cannot closely monitor him for safety. Patient upset and began yelling at nurse, patient stated he would only be gone for 30 minutes. Vitals stable, no c/o pain or discomfort. Will continue plan of care, awaiting placement.
--- NOTE | 2022-08-09 04:43 | NUR ---
SHIFT SUMMARY; NO ACUTE CHANGES THOUGHOUT THE NIGHT. PT DENIES ANY SOB, PT STATED HIS HIP HURT AT THE BEGINNING OF SHIFT BUT DID NOT YET NEED ANY PAIN MEDICATION. PT GOT UP INTO HIS WHEELCHAIR AT BEGINNING OF SHIFT AND WHEELED HIMSELF TO THE END OF THE HALLWAY AND THEN BACK TO HIS ROOM WHERE HE TRANSFERED TO THE BED INDEPENDENTLY DESPITE BEING ASKED TO STAY IN HIS TO REDUCE THE RISK OF FURTHER INJURY TO HIS R HIP. PT THEN REAMINED IN BED FOR THE REST OF THE SHIFT. PT RESTED PEACEFULLY FOR THE MAJORITY OF THE SHIFT WITH NO LOUD OUTBURST. CURRENTLY THE PT IS RESTING IN BED WITH THE BED IN THE LOWEST POSITION AND THE CALL LIGHT AT BEDSIDE. PT WAS KIND AND COOPERATIVE CARE. PT WAS AXO X3 THIS SHIFT.
--- NOTE | 2022-08-09 16:37 | NUR ---
DAYSHIFT SUMMARY Patient doing well this shift, cooperative with cares. No behaviors noted this shift. Patient continues to have outburts/talks to himself. Changed dressing to left stump, wrapped with WILBERT wrap. Patient worked with therapy today, PT recommends slide board, orders are NWBT bilat. Churdan given for hip pain, PRN effective. Will continue plan of care, awaiting discharge planning.
--- NOTE | 2022-08-10 04:50 | NUR ---
SHIFT SUMMARY; NO ACUTE MEDICAL CHANGES OVERNIGHT. THE PT CONTINUES TO HAVE LOUD OUTBURST, HOWEVER THE PT WAS ABLE TO GET SOME PEACEFULL REST FROM 2200 ON. PT DID HAVE TO BE REMINDED OF NON-WEIGHT BEARING STATUS FOR WHICH HE DISAGREED SAYING PT TOLD HIM THAT THEY WANT HIM APPLYING WEIGHT TO HIS HIP. PT WAS AGREEABLE THAT IT IS BEST TO STAY IN BED AT THIS TIME. PT DENIES ANY PAIN IN HIS R HIP THIS EVENING. PT CURRENTLY RESTING IN BED WITH THE BED IN THE LOWEST POSITION AND THE CALL LIGHT AT BEDSIDE.
--- NOTE | 2022-08-10 16:54 | NUR ---
NO ACUTE CHANGES AT THIS TIME. PT TOOK HIMSELF OUT VIA WHEELCHAIR X2 TODAY WITH NO ASSISTANCE FROM CARE STAFF. WHEN PT WORKED WITH PHYSICAL THERAPY HE STRUGGLED TO USE SLIDER BOARD. THIS BEAD TRIMMER DID NOT SEE PT GET INTO WHEELCHAIR,BUT MOST LIKELY PT IS BEARING WEIGHT ON FOOT TO GET INTO WHEELCHAIR ON HIS OWN. PT HAS BEEN COOPERATIVE OF CARE AND CALL LIGHT IS WITHIN REACH WILL CONTINUE TO MONITOR.
--- NOTE | 2022-08-10 22:44 | NUR ---
NOTIFIED AMANDA LAY NP OF PTS B/P OF 99/57 THIS PM, AMANDA SAID TO HOLD THE PTS AMLODIPINE AND METOPROLOL THIS EVENING AND TO RECHECK PTS B/P IN A FEW HOURS. RECHECKED PTS B/P AND IT IS NOW 104/72, NOTIFIED AMANDA AND AMANDA SAID NO FURTHER ACTION IS REQUIERED AT THIS TIME. WILL CONTINUE TO MONITOR PTS VITAL SIGNS.
--- NOTE | 2022-08-11 04:30 | NUR ---
SHIFT SUMMARY; PT WITH A B/P OF 99/57 AT THE BEGINNING OF THE SHIFT AND A HEART RATE OF 82, DOCTOR HOLD OF PM AMLODIPINE AND METOPROLOL. B/P AT 2230 WAS 104/72 AND A PULSE OF 76, HOPITATLIST MADE AWARE, NO FURTHER ACTION REQUIRED AT THIS TIME. PT WITH NO OTHER ACUTE MEDICAL CHANGES OVERNIGHT. PT REMAINED IN HIS BED THE ENTIRE NIGHT. PT WAS KIND AND COOPERATIVE WITH CARE THIS PM. PT WITH STABLE SATS ON RA, INCENTIVE SPIROMETER AT BEDSIDE AND PT ENCOURAGED TO USE INCENTIVE SPIROMETER Q2HR WHILE AWAKE. PT CURRENTLY RESTING IN BED WITH THE BED IN THE LOWEST POSITION AND THE CALL LIGHT AT BEDSIDE. PT AWAITING PLACEMENT.
--- NOTE | 2022-08-11 08:52 | NUR ---
PT NEEDED BANDAGE REWRAPPED. L FOOT CLEANED AND REWRAPPED. FOOT APPREARS TO BE HEALING WELL.
--- NOTE | 2022-08-11 16:58 | NUR ---
NO ACUTE CHANGES. PT AOX4 AND COOPERATIVE OF CARE. PT HAD BANDAGE TO L FOOT CHANGED AFTER SHOWER AND TOLERATED WELL. PT HAS BEEN BEARING WEIGHT ON FOOT DOES NOT WANT TO TRANSFER PROPERLY. PT TAKES WHEELCHAIR OUT OF ROOM ON HIS OWN. TREATED FOR L FOOT PAIN PER EMAR. CALL LIGHT WITHIN REACH WILL CONTINUE TO MONITOR.
--- NOTE | 2022-08-11 19:34 | NUR ---
RECEIVED REPORT FROM AMENA RN. PT IN WHEELCHAIR AT THIS TIME. RESP EVEN ON RA. CALL LT IN REACH.
--- NOTE | 2022-08-11 22:00 | NUR ---
IN RM TALKING ON THE PHONE. ON RA. RESP EVEN. OCCASIONAL LOUD OUTBURSTS OF TALKING IN THE ROOM. WHEN ASKED IF HE NEEDED ANYTHING HE SAID NO. NO NEEDS AT THIS TIME. WILL CONTINUE TO PROVIDE CARE T/O SHIFT. CALL LT IN REACH.
--- NOTE | 2022-08-12 04:12 | NUR ---
PT RESTING QUIETLY. CALL LT IN REACH.
--- NOTE | 2022-08-12 04:58 | NUR ---
SHIFT SUMMARY: PT APPEAR TO A/O. ABLE TO STATE NEEDS. HAD A LOUD OUTBURST OF NONSENSICAL TALK AT BEGINNING OF SHIFT. WHEN ASKED IF HE NEEDED ANYTHING PT RESPONDED THAT HE WAS FINE. MEDICATED X 1 FOR R HIP PAIN. DRESSING TO LEFT FOOT CLEAN AND INTACT. PT REMAINED IN ROOM T/O SHIFT. NO ACUTE CHANGES. WILL CONTINUE TO PROVIDE CARE UNTIL SHIFT REPORT TO ONCOMING NURSE.
--- NOTE | 2022-08-12 16:44 | NUR ---
NO ACUTE CHANGES. PT AOX4 AND COOPERATIVE OF CARE. PT DOES GET VERBAL OFF AND ON BY HIMSELF IN HIS ROOM. VERY COOPERATIVE WITH ANY CARE DONE BY HIS CARE GIVERS. PT STILL NON COMPLIANT AND STANDS ON L FOOT TO GET INTO HIS WHEELCHAIR INDEPENDENTLY. PT HAS BEEN OUT OF ROOM MULTIPLE TIMES ON HIS OWN. PT TREATED FOR R HIP AND L FOOT PAIN PER EMAR. NO DISTRESS NOTED WILL CONTINUE TO MONITOR.
--- NOTE | 2022-08-13 04:11 | NUR ---
SHIFT SUMMARY ADMITTED FOR RT. FEMUR FRACTURE. FULL CODE. CONTACT PRECAUTIONS FOR MRSA IN WOUND. PLAN IS FOR PLACEMENT. LEFT FOREFOOT HAD TMA PROCEDURE AND DEBRIDEMENT. LEFT FOOT IS CONSIDERED NON-WT BEARING. DR. HANSON IS PSYCHIATRY CONSULT FOR GUARDIANSHIP. CARDIAC CONSULT IS DR. GUERRA, AND PODIATRY CONSULT IS DR. CABEZAS. ORTHO CONSULT IS DR. OLVERA. NO SURGICAL INTERVENTION IS PLANNED FOR RT. FEMUR. HE USES A WHEELCHAIR AT BASELINE. HX OF SCHIZOPHRENIA. HE DOES YELL OUT NONSENSICAL PHRASES. HX OF CAD AND CARDIAC STENTS X7
--- NOTE | 2022-08-13 09:52 | NUR ---
LLE TRANSMET WOUND MARGINS IMPROVED. NEW PHOTO AND ASSESSMENT IN HARD CHART. DC CALCIUM ALGINATE TO WOUND BED. KEEP WOUND CLEAN AND DRY, COVER ABD, ROLLED GAUZE, WILBERT. CHANGE DAILY.
--- NOTE | 2022-08-13 13:29 | NUR ---
Spiritual care visit conducted. Pt is heading outside pushing himself in his wheelchair and so I follow him to the first floor south enterance and then outside. Pt immediately complains about his frustrations of not being placed somewhere and that if something does not "happen soon" then he will leave AMA. Pt is easily talked down as we discuss how hard it is to maintain his health while being without stable housing. I walk him up to his rm and he requests coffee so I get him coffee and we talk in the hallway with the sunshining in the window. He talks about the of his and that somehow it was the [employer] enforcement team that killed his . 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 I one breath he is cussing with every other word then in another he is talking about his his strong Gnosticist [place] and then at others times that he evil incarnated. I provide therapeutic listening, spiritual guidance, gentle career counselor and prayer. Pt responds well and shows signs of reduced stress.
--- NOTE | 2022-08-13 14:17 | NUR ---
LOUD NOISES HEARD BY OSMIN RN COMING FROM THIS PATIENTS ROOM WHILE THIS RN WAS AT LUNCH. 4 OR 5 LOUD BANGS FROM ROOM. UPON ENTRY IT WAS NOTED THAT LARGE AMOUNT OF BLOOD IN 4 OR 5 PLACES ON FLOOR AND A LONG STREAK OF BLOOD FROM BED TOWARDS DOOR. WHEN THIS RN ARRIVES IT IS NOTED THAT PATIENT IS SITTING IN CHAIR AND DENIES HE DID ANYTHING TO HIS FOOT CLAIMS "IT JUST STARTED BLEEDING" LJ FROM WOUND CENTER IS NOTIFIED AND SHE COMES TO ROOM TO UNWRAPS WILBERT WRAP FROM HIS FOOT AND SHE NOTES BRUISING AND OPEN AREA ON FOOT THAT WAS NOT SEEN WHEN SHE DID A WOUND DRESSING CHANGE EARLIER IN THIS SHIFT. NOTIFIED AND NO NEW ORDERS RECEIVED. WILFRED STARR CHARGE NOTIFIED AND PATIENT WILL MOVE TO BACK BHANDARI 353 FOR CAMERA MONITORING TO ASSIST IN KEEPING PATIENT SAFE FROM SELF HARM.
--- NOTE | 2022-08-13 14:44 | NUR ---
TRANSFER PATIENT TRANSFERRED FROM ROOM 312AT [id number]. PATIENT SETTLED INTO ROOM. PATIENT ORIENTED TO CALL LIGHT AND TV CONTROL. PATIENT IN ISOLATION FOR MRSA IN WOUND. DRESSING TO LEFT FOOT C/D/I. PATIENT STATES HE DOES NOT KNOW WHAT HAPPENED, HIS FOOT JUST STARTED BLEEDING. PATIENT WATCHING TV, STATES NO ADDITIONAL NEEDS.
--- NOTE | 2022-08-13 15:10 | NUR ---
THIS RN NOTIFIED THAT PT WOUND WAS BLEEDING. NOTED WILBERT WRAP HEAVILY SATURATED WITH BLOOD, WITH BLOOD SMEARS IN MULTIPLE SPOTS ON FLOOR. PT STATES HE DOES NOT KNOW WHAT HAPPENED. WOUND DRESSING REMOVED, WOUND CLEANSED, BLEEDING EASILY STOPPED WITH PRESSURE. NOTED THAT FOOT IS RED/PURPLE AND EDEMATOUS. THIS WAS NOT NOTED DURING EARLIER ASSESSMENT. CALCIUM ALGINATE TO OPEN WOUND, COVERED ABD, ROLLED GAUZE, AND WILBERT. PT TOLERATED CHANGE WELL HE REPEATEDLY STATED HE DID NOT KNOW WHAT HAPPEND. WC RN WILL CHANGE DRESSING REASSESS WOUND TOMORROW
--- NOTE | 2022-08-13 18:02 | NUR ---
SHIFT SUMMARY PATIENT MEDICATED X1 FOR PAIN, DENIES PAIN AND SHORTNESS OF BREATH. PATIENT IND TRANSFERS TO WHEELCHAIR. PATIENT IS SUPPOSED TO BE NWB, BUT REFUSES TO FOLLOW DIRECTIONS. PATIENT IS WHEELCHAIR BOUND AT BASELINE. PATIENT IS A&O X4, BUT HAS TANGENTIAL SPEECH AND RANDOM OUTBURTS OF ANGER. DR. DIEHL SAW PATIENT, GUARDIANSHIP LETTER IN CHART, 2MD HOLD PLACED. THIS RN READ PATIENT CIVIL RIGHTS, PATIENT YELLED AT THIS RN, REFUSED TO SIGN. PLACED IN CHART. TALKED WITH PATIENT, HE IS VERY UPSET ABOUT THE HOLD AND GUARDIAN RECOMMENDATION. PATIENT VENTED TO THIS RN, THEN CALMED DOWN AND APOLOGIZED FOR YELLING. PATIENT IS ON CAMERA DUE TO HOLD. PATIENT IS EATING AND DRINKING WELL. PATIENT IS PLEASANT AND COOPERATIVE WITH CARE.
--- NOTE | 2022-08-14 06:26 | NUR ---
A/OX3-4; IRRITABLE/AGITATED AT TIMES. VERY ILLOGICAL. VERBALLY THREATENING THE DOCTOR HE SAW ON DAY SHIFT (UPSET ABOUT INVOLUNTARY MD HOLD). DOES NOT FOLLOW INSTRUCTION R/T MOBILITY AND WEIGHTBEARING. THIS RN REQUESTED THAT HE DISCONTINUE HIS SCREAMING OF EXPLATIVES AT SHIFT START AND EXPLAINED THAT IT MAY UPSET THE OTHER PATIENTS NEARBY. PATIENT APOLOGETIC AND WAS QUIETER T/O REMAINDER OF SHIFT. PATIENT STATED HE HAS A WEAPON IN HIS BAG; AGREEABLE TO HAVING RN SEARCH BELONGINGS. LARGE KNIFE AND HEAVY SHARPENING STONE REMOVED AND LOCKED IN DRAWER OUTSIDE OF ROOM. SLEEP PROMOTED. BED ALARM SET. CALL LIGHT WITHIN REACH; ENCOURAGED TO MAKE NEEDS KNOWN.
--- NOTE | 2022-08-14 14:06 | NUR ---
TRANSMET DRESSING CHANGED. FOOT IS SLIGHTLY EDEMATOUS, BUT IMPROVED FROM YESTERDAY. FOOT CLEANSED WITH DERMAL WOUND, CALCOIUM ALGINATE TO OPEN WOUND ON DORSAL FOOT, COVERED ABD, ROLLED GAUZE, WILBERT. PT REPORTS HE "FEELS BAD" FOR WHAT HAPPENED YESTERDAY AND "WANTS TO APOLOGIZE TO THE DOCTOR" HE REPORTS THAT HE "DID NOT KNOW HE WAS TRYING TOO HELP" THIS RN USED ACTIVE LISTENING AND ASSURED PT THAT WE ALL HAVE A BAD DAY, AND THAT EVERYDAY IS A NEW DAY TO START AGAIN. PT HAS NO CONCERNS AT THIS TIME. BED LOW AND CALL LIGHT IN REACH
--- NOTE | 2022-08-14 16:47 | NUR ---
SHIFT SUMMARY PT IND IN ROOM T/O DAY. PT TRANSFERS SELF TO HIS WHEELCHAIR. REFUSES ASSISTANCE. PT REPORTED THAT THE "BLONDE WOUND NURSE" CAME TO CHANGE HIS DRESSING ON HIS L FOOT. NO ACUTE CHANGES IN ASSESSMENT AT THIS TIME. PT REMAINS ON A MD HOLD. VS REVIEWED. PT RESTING IN BED. SNACK PROVIDED. CALL LIGHT IN REACH. DENIES OTHER NEEDS AT THIS TIME.
--- NOTE | 2022-08-15 05:39 | NUR ---
SHIFT SUMMARY ALERT AND ORIENTED, VSS. ABLE TO MAKE NEEDS KNOWN. TALKS TO HIMSELF IN THE ROOM. DRSG TO LEFT FOOT C/D/I. NWB TO LEFT FOOT. PT PLACED ON MEDICAL HOLD BY DR. HANSON BECAUSE PT WANTED TO LEAVE THE HOSPITAL BUT UNABLE TO TAKE CARE OF HIMSELF. PLAN IS FOR GUARDIANSHIP AND PRISON PLACEMENT. WILL CONTINUE WITH PLAN OF CARE.
--- NOTE | 2022-08-15 18:32 | NUR ---
PT IS A/OX3, PLEASANT AND COOPERATIVE THIS SHIFT. THE PT HAS BEEN UP IND TO HIS WHEELCHAIR AND TO THE BATHROOM. THE PT APPEARS TO BE BREATHING EASILY ON RA AT THIS TIME. PT WAS MEDICATED FOR PAIN WITH TYLENOL X1 AND WITH NORCO X1 TODAY. PTS LEFT FOOT DRESSING IS C/D/I NEXT DRESSING CHANGE IS TOMARROW. PTS OLIVER WAS IN TO SEE HIM TODAY AND BROUGHT HIM LUNCH. CALL LIGHT IN REACH. WILL CONTINUE TO MONITOR AND ASSESS FOR CHANGES
--- NOTE | 2022-08-16 07:25 | NUR ---
SHIFT SUMMARY A&O X 3-4. VSS. CONTINUES TO TALK TO HIMSELF WHEN STAFF NOT AROUND. CALLS APPROPRIATELY. PAIN MANAGED WITH PRN NORCO. DRSG TO LEFT FOOT C/D/I. SLEPT OFF AND ON BETWEEN CARE. BED ALARM AND VIDEO MONITOR ON. WILL CONTINUE WITH PLAN OF CARE.
--- NOTE | 2022-08-16 11:02 | NUR ---
COATER OPERATOR INSULATION BOARD FROM [employer] IS AT BEDSIDE TO CONTINUE THEIR ASSESSMENT FOR DISPOSITION.
--- NOTE | 2022-08-16 16:00 | NUR ---
WOUND CARE PREFORMED, PER WOUND CARE ORDERS. CLEANSED WITH NS, PAT DRY, APPLY ABD BANDAGE, WRAPPED WITH KERLEX AND WILBERT BANDAGE. PT TOLERATED PROCEDURE WELL.
--- NOTE | 2022-08-16 18:45 | NUR ---
SHIFT SUMMARY PT WAS SERVED GUARDIANSHIP PAPERS TODAY BY A COURT APPOINTED HARNESS REPAIRER. RN AND PT REVIEWED THE PAPERWORK, DISCUSSING GUARDIANSHIP. PT STATED HE DOESNOT WANT TO CHALLENGE THE GUARDIANSHIP, BECAUSE HE WANTS TO GET THE ASSISTANCE FROM THE GUARDIAN FOR SECURE HOUSING. WOUND CARE TO PT'S LEFT FOOT. PT ATE MEALS WELL. ROOM AIR. INDEPENDENT IN ROOM.
--- NOTE | 2022-08-17 04:43 | NUR ---
SHIFT SUMMARY ALERT AND ORIENTED. VSS. PLEASANT AND COOPERATIVE WITH STAFF. PT SITTING IN WHEELCHIAR COLORING MOST OF THE NIGHT AND REQUESTING LOTS OF SNACKS TO EAT. PT ABLE TO TRANSFER HIMSELF FROM WHEELCHAIR TO BED. PT CONTINUES TO TALK TO HIMSELF WHEN STAFF OUT OF ROOM.
--- NOTE | 2022-08-17 17:47 | NUR ---
SHIFT SUMMARY A/OX3, TALKS TO SELF OFTEN, VISUAL/AUDITORY HALLUCINATIONS NOTED. STAND/PIVOT TO W/C. NWB TO LLE, DRESSING C/D/I. C/O PAIN TO R. HIP X1, MEDICATED PER EMAR. VSS, NO ACUTE CHANGES AT THIS TIME. BED IN LOWEST POSITION WITH CALL LIGHT IN REACH. WILL CONTINUE TO MONITOR AND REPORT TO ONCOMING RN.
--- NOTE | 2022-08-18 03:59 | NUR ---
SUMMARY: NO ACUTE EVENTS OVERNIGHT. PATIENT AOX3-4. TALKS TO SELF IN ROOM. VSS. PATIENT TRANSFERS INDEPENDENTLY TO WHEELCHAIR. PATIENT MEDICATED FOR PAIN PER EMAR. AWAITING GUARDIANSHIP FOR PLACEMENT. PLEASANT WITH STAFF. COMPLIANT WITH CARE. CALLS APPROPRIATELY.
--- NOTE | 2022-08-18 17:49 | NUR ---
SHIFT SUMMARY A/OX3, IND WITH TRANSFERS TO W/C. DENIED PAIN OR SOB THIS SHIFT. VSS, NO ACUTE CHANGES AT THIS TIME. BED IN LOWEST POSITION WITH CALL LIGHT IN REACH. WILL CONTINUE TO MONITOR AND REPORT TO ONCOMING RN.
--- NOTE | 2022-08-19 04:14 | NUR ---
SUMMARY: NO ACUTE EVENTS OVERNIGHT. PATIENT AOX3-4. TALKS TO SELF IN ROOM. VSS. PATIENT TRANSFERS INDEPENDENTLY TO WHEELCHAIR. AWAITING GUARDIANSHIP FOR PLACEMENT. PLEASANT WITH STAFF. COMPLIANT WITH CARE. CALLS APPROPRIATELY.
--- NOTE | 2022-08-19 09:27 | NUR ---
DRESSING TO L TRANSMET CHANGED. WOUND CLEANSED WITH DERMAL WOUND, RINSED NS, CALCIUM ALGINATE TO OPEN WOUND ON DORSAL ASPECT, COVERED ABD, ROLLED GAUZE, WILBERT WRAP. NEW PHOTO AND ASSESSMENT IN HARD CHART. WOUND ORDERS UPDATED IN [facility]. PT TOLERATED WELL
--- NOTE | 2022-08-19 15:29 | NUR ---
Spiritual care visit conducted. Pt is sitting on his wheel chair and alert. He immediately tells me about his major life decision. 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 He also states that he is hopeful about the new direction about receiving a Gaurdian and thinks that it might be a step towards getting some permanent housing. He also vows to be much more kind to the staff stating that "they already have enough to deal with, they don't need to have to deal with me too." I applaud pt for his new attitudes and aggressive steps toward a more positve direction in life and I provide a prayer and blessing these new steps forward. I will continue to remain available to pt and family.
--- NOTE | 2022-08-19 15:35 | NUR ---
SHIFT SUMMARY PT AWAKE AT START OF SHIFT. PLEASANT AND CO-OP WITH CARE TODAY. WOUND CARE NURSE HERE TO SEE PT THIS AM AND CHANGED DRSG TO L FOOT. NEW ORDERS PLACED. PT LATER UP TO SHOWER AND ABLE TO WASH HIMSELF. SITTING IN W/C AT BS AFTER SHOWER. DR PERSON IN TO SEE PT THIS AM AND DISCUSSED PLAN OF CARE. GUARDIANSHIP COMPLETE TODAY, PAPER WORK ON FRONT OF CHART. CARE MANAGEMENT WORKING ON MEDICADE AND PLACEMENT. DENIED FURTHER NEEDS AT THIS TIME. CALL LT IN REACH.
--- NOTE | 2022-08-20 04:24 | NUR ---
SUMMARY: NO ACUTE EVENTS OVERNIGHT. PATIENT AOX3-4. TALKS TO SELF IN ROOM. VSS. PATIENT TRANSFERS INDEPENDENTLY TO WHEELCHAIR. AWAITING PLACEMENT, GUARDIANSHIP GRANTED. PLEASANT WITH STAFF. COMPLIANT WITH CARE. CALLS APPROPRIATELY. DRESSING CHANGED TO WOUND ON ,,.
--- NOTE | 2022-08-20 05:47 | NUR ---
SUMMARY: NO ACUTE EVENTS OVERNIGHT. PATIENT AOX3-4. TALKS TO SELF IN ROOM. VSS. PATIENT TRANSFERS INDEPENDENTLY TO WHEELCHAIR. AWAITING PLACEMENT, GUARDIANSHIP GRANTED. PLEASANT WITH STAFF. COMPLIANT WITH CARE. CALLS APPROPRIATELY. DRESSING CHANGED TO WOUND / AND IS CLEAN DRY AND INTACT.
--- NOTE | 2022-08-20 15:02 | NUR ---
SHIFT SUMMARY NO ACUTE CHANGES TO PRESENT THIS SHIFT. PT UP IN W/C AT START OF SHIFT, SITTING AT BS CLEANING HIS TABLE. PT HAS BEEN PLEASANT AND CO-OP. ABLE TO GET AROUND IN RM. UP TO SHOWER AGAIN TODAY. NO C/O PAIN. CALLS FOR SNACKS FREQUENTLY. DENIES FURTHER NEEDS AT THIS TIME. CALL LT IN REACH.
--- NOTE | 2022-08-21 07:56 | NUR ---
LEAD TANK MECHANIC SUMMARY NO ACUTE CHANGES. PT PLEASANT AND COOPERATIVE W/CARE AND STAFF. EPISODES OF SPONTANEOUSLY YELLING OUT OBSCENITIES IN REPSONSE T/AUDITORY HALLUCINATIONS. PT ABLE T/MAKE NEEDS KNOWN AND USES CALL LIGHT APPROPRIATELY. PT C/O PAIN R/T FX HIP. MED P/EMAR. PT SLEPT WELL T/O THE NIGHT. CALL LIGHT IN REACH.
--- NOTE | 2022-08-21 13:25 | NUR ---
LLE DRESSING CHANGED PER ORDER. PT TOLERATED WELL
--- NOTE | 2022-08-21 16:53 | NUR ---
SHIFT SUMMARY: NO NEW CHANGES THIS SHIFT. PATIENT STILL ON CONTACT ISOLATION FOR MRSA IN WOUND. PATIENT IS CALM, PLEASANT AND COOPERATIVE WITH CARE. USES CALL LIGHT APPROPRIATELY AND ABLE TO ADVOCATE FOR HIS NEEDS. DENIES VISUAL/AUDITORY HALLUCINATION THIS SHIFT. NO IV ACCESS. LLE DRESSING CHANGED PER ORDER BY REFRACTORY TECHNICIANROBBI THIS AM. PATIENT WAS TOLERATING WELL. RECEIVED SHOWER THIS SHIFT AND LINEN CHANGED. PATIENT HAS BEEN SITTING UP IN WHEELCHAIR T/O THE DAY. VITAL SIGNS REVIEWED. CALL LIGHT IN REACH.
--- NOTE | 2022-08-22 04:19 | NUR ---
SHEEPSKIN PICKLER SUMMARY NO ACUTE CHANGES. PT A/OX4; INDPENDENT IN ROOM W/WHEEL CHAIR. NOTED MULTIPLE EPISODES OF SPONTANEOUS OUTBURSTS WITH OBSCENE/AGGRESSIVE LANGUAGE NOT DIRECTED AT ANYTHING VISIBLE. PT DENIES HALLUCINATIONS BUT OFTEN TALKS TO HIMSELF. PT EXITING ROOM TO SIT LOOK OUT THE WINDOW AT THE END OF THE HALLWAY. PT HEARD AIRCRAFT MAGNETO MECHANIC CALL AND STATE "WE DON'T HAVE EYES ON PT IN 53"; PT UNDERSTOOD THIS TO BE ABOUT HIM AND HE BECAME VERY AGITATED. PT WAS REDIRECTABLE. PT C/OF RT HIP PAIN 06/24. MED P/EMAR. PT HAS BEEN PLEASANT AND COOPERATIVE [facility] STAFF. ABLE TO MAKE NEEDS KNOWN AND USES CALL LIGHT APPROPRIATELY. CALL LIGHT IN REACH.
--- NOTE | 2022-08-22 17:36 | NUR ---
SHIFT SUMMARY: NO NEW CHANGES THIS SHIFT. PATIENT PLEASANT AND COOPERATIVE WITH CARE. USES CALL LIGHT APPROPRIATELY AND ABLE TO ADVOCATE FOR HIS NEEDS. DENIES PAIN THIS SHIFT. SITTING UP IN THE WHEELCHAIR T/O THE SHIFT. PATIENT NO LONGER ON CAMERA MONITORING. PATIENT HAS BEEN IN AND OUT HIS ROOM AND SITTING IN HIS WHEELCHAIR BY THE WINDOW T/O THE DAY. [address] APPOINTED VISITOR CAME BY TODAY AND BROUGHT FOOD FROM [employer]. PLAN AWAITING GUARDIANSHIP TO PROVIDE SAFE PLACEMENT. VITAL SIGNS REVIEWED. CALL LIGHT IN REACH.
--- NOTE | 2022-08-23 05:22 | NUR ---
ENGLISH INSTRUCTOR SUMMARY NO ACUTE CHANGES. PT INDEPENDENT IN ROOM W/WHEEL CHAIR. A/OX3-4. CAN ANSWER OREINTATION QUESTIONS W/FORGETFULLNESS. PT EXHIBITS SIGNS OF PARANOIA. CONT T/HAVE LOUD SUDDEN AGGRESSIVE OUTBURSTS FOR NO APPARENT REASON IN RESPONSE TO SOME TYPE OF AUDIBLE HALLUCINATIONS. PT IS PLEASANT W/STAFF. PT A LITTLE MORE AGITATED THIS EVENING THAN IN PREVIOUS 2 NIGHTS. ACCORDING T/DAY SHIFT NURSE; THESE EPISODES ARE NOT HAPPENING. PT ALCO COMPLAINS OF PAIN R/T HIP FX. HE STATES PAIN IS HIGH AND CONSTANT. MED W/5MG OF NORCO. CAN ADVOCATE FOR NEEDS. CALL LIGHT IN REACH.
--- NOTE | 2022-08-23 10:44 | NUR ---
WOUND CARE LLE DRESSING CHANGED PER ORDER. PT TOLERATED WELL
--- NOTE | 2022-08-23 17:39 | NUR ---
SHIFT SUMMARY- PT HAS HAD NO ACUTE EVENTS T/O THE DAY MEDICATED ONCE FOR PAIN WITH TYLENOL. PT HAS BEEN DROWSY AND SLEEPING T/O THE SHIFT. PT CURRENTLY LAYING IN BED, CALL LIGHT IN REACH, CALLS APPROPRIATELY. PER REPORT FROM NIGHT RN HE HAS AUDITORY HALLUCINATIONS AND YELLS OUT AT THEM IN THE NIGHT. PT HAS BEEN SLEEPY AND QUIET AND INTERACTIVE WHEN PROMPTED T/O THE DAY.
--- NOTE | 2022-08-24 04:12 | NUR ---
SHIFT SUMMARY NOC PT A/OX4. PT PLEASANT AND COOPERATIVE TO CARE. VSS. NO ACUTE CHANGES. PT HAD C/O OF PN IN R HIP AND WAS MEDICATED PER EMAR WITH NORCO WITH PN GOING FROM 05/25 TO 01/22. PT SLEPT MOST OF SHIFT. PT USES CALL LIGHT APPROPRIATELY AND COMMUNICATES NEEDS. PT IS AWAIING GUARDIANSHIP WITH LETTER IN CHART. PT IS CURRENTLY RESTING WITH BED RAILS UP, BED IN LOWEST POSITION, AND CALL LIGHT WITHIN REACH.
--- NOTE | 2022-08-24 19:25 | NUR ---
END OF SHIFT SUMMARY: PATIENT CALM AND COOPERATIVE WITH STAFF. PATIENT UP TO THE SHOWER AND PUT CLEANS LINENS ON INDEPENDENTLY. PATIENT WILL MUMBLE AND TALK TO HIMSELF IN THE ROOM WHEN ALONE. THIS STOPS SOON STAFF COMES INTO THE ROOM. PATIENT MEDICATED ONCE FOR PAIN IN THE RIGHT HIM WITH ACCEPTABLE RESULTS TO THE PATIENT. PATIENT REPORTED THAT HE HAS NO DESIRE TO LEAVE THE HOSPITAL AMA AND THAT HE RELIZES BEING HER IS THE BEST FOR HIM AND HIS FOOT. PATIENT REQUESTED THAT HE BE MOVED TO A ROOM OUTSIDE OF THE SCU. NOTIFIED CHARGE. NO BEDS AVAILABLE TODAY.
--- NOTE | 2022-08-25 04:20 | NUR ---
SHIFT SUMMARY NOC PT A/OX4. PT WAS HAVING A SCHIZOPHRENIC EPISODE AT THE BEGGINING OF SHIFT TALKING NON SENSICALLY IN BED. OTHERWISE PT WAS PLEASANT AND COOPERATIVE TO CARE. VSS. 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 PT ASKED DAY SHIFT ON 08/24/22 IF THEY COULD MOVE OUT OF LOCKED UNIT BECAUSE HOLD IS OVER, BUT THERE WERE NO EMPTY BEDS TO PUT PT. PT IS CURRENTLY ON WAIT LIST TO MOVE INTO EMPTY ROOM ON REGULAR MED FLOOR. PT IS CURRENTLY RESTING WITH BED RAILS UP, BED IN LOWEST POSITION, AND CALL LIGHT WITHIN REACH.
--- NOTE | 2022-08-25 17:38 | NUR ---
DAYSHIFT SUMMARY No acute changes to patient status this shift. Patient doing well, no behaviors observed today. MD reported patient no longer on MD hold, has guardianship & awaiting placement. Dressing on left foot CDI, covered with WILBERT wrap. Vitals stable. Will continue plan of care, awaiting discharge planning.
--- NOTE | 2022-08-26 05:59 | NUR ---
SHIFT SUMMARY PATIENT ALERT AND ORIENTED X3. MEDICATED PER EMAR FOR PAIN. HAD NO COMPLAINTS OF SHORTNESS OF BREATH. NO ACUTE ISSUES NOTED OVERNIGHT. CALL LIGHT WITHIN REACH. REPORT GIVEN TO ONCOMING RN.
--- NOTE | 2022-08-26 16:29 | NUR ---
WOUND CARE PRIMARY DRESSING CHANGED TO HYDROFERA BLUE. NEW PHOTO AND ASSESSMENT IN HARD CHART. PT TOLERATED WELL. OKAY FOR PT TO SHOWER DAY OF DRESSING CHANGE
--- NOTE | 2022-08-26 18:30 | NUR ---
DAYSHIFT SUMMARY Patient doing well, no acute changes to patient status. PRN Hydrocodone given for leg pain, PRN effective. WOCN RN at bedside, changed dressing on stump. No other concerns at this time. Will continue plan of care, awaiting placement.
--- NOTE | 2022-08-27 05:05 | NUR ---
SHIFT SUMMARY: Pt A/Ox4. He slept well overnight. Had some pain in his R hip but did not want any PRN medications. He otherwise denies SOB, nausea, dizziness. Does state he has some numbness/tingling in both hands and legs. Pulses palpable on radial wrists bilateraly and bilateral pedal pulses.
--- NOTE | 2022-08-27 16:23 | NUR ---
Patient is sitting on his wheelchair and alert. He tells me wild stories of how he is a [employer] and is taking down drug dealers, evil accults and rappists. He talks abut his turn from evil to good and how he was so high for so many days and no on ever knew. 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 I applauad his decisions and reinforce any movement in his life toward what is kind, healthy, generous and giving to others. We talk about ways he can communicate goodness and kindness out in the world. He talks about how anxious he is getting because of being stuck in one place after living outside and having total freedom. We explore options of how to view the safety, warmth and well supplied world he has and the temporary nature of it. We also reaffirm the beautiful potential of having housing security very soon and that it is worth waiting for. I provide therapeutic listening, gentle counseling center director and prayer. I provide coloringbooks, colored pencils and a Rosary for patient. He expresses thankfulness and a greater sense of peace. I will continue to remain available to patient and family.
--- NOTE | 2022-08-27 17:57 | NUR ---
DAYSHIFT SUMMARY Patient c/o pain, stated his right hip is sore. He spent more time resting in bed this shift d/t pain. Hydrocodone given for pain, PRN effective. No changes in patient status. Will continue plan of care, awaiting discharge planning.
--- NOTE | 2022-08-28 06:30 | NUR ---
SHIFT SUMMARY - NO ACUTE CHANGES THROUGHOUT THIS SHIFT. PT WAS SITTING UP IN HIS WC THROUGHOUT MOST OF THE NIGHT DRAWING. PT TRANSFERRED SELF TO BED AROUND 3 AM, AND HAS BEEN SLEEPING SINCE THEN - NO S/S OF DISTRESS. PT IS AWAITING PLACEMENT. CALL LIGHT WITHIN REACH. PT HAS BEEN APPROPRIATE WITH STAFF THROUGHOUT THE NIGHT.
--- NOTE | 2022-08-28 12:53 | NUR ---
WOUND CARE LLE DRESSING CHANGED PER ORDER. PT TOLERATED WELL
--- NOTE | 2022-08-28 18:02 | NUR ---
SUMMARY- PT ALERT AND ORIENTED X4. INDEPENDANT IN ROOM, GETS UP TO WHEELCHAIR INDEPENDANT. PT HAD A SHOWER TODAY WITH SET UP. WOUND RN CHANGED DRESSINGS. 2 LADIES CAME BY TO [facility] FOR THEIR FACILITY, [facility]. PT PAIN CONTROLLED WITH VICODIN APPROX Q8, R HIP PAIN. PT NAPPED ON/OFF DURIG THE DAY. WILL REPORT TO NOC RN.
--- NOTE | 2022-08-29 07:30 | NUR ---
SHIFT SUMMARY A&O X 4. VSS. C/O PAIN 04/24. PRN NORCO GIVEN AND PAIN DECREASED TO 6. PT SLEPT WELL INTO THE NIGHT. NOTHING EVENTFUL THIS SHIFT. WILL CONTINUE TO MONITOR AND CONTINUE WITH PLAN OF CARE.
--- NOTE | 2022-08-29 15:08 | NUR ---
PT TRANSFERRED FROM ED TO ROOM 347 AT 1430, STRETCHER TO BED TX. PT WAS SOILED AND SATURATED WITH URINE- ORIENTED TO ROOM AND SAFETY, GIVEN CALL LIGHT, INSTSRUCTED PT TO NOT GET UP UNATTENDED. SET BED ALARM. CLEANED PT AND GIVEN CLEAN GOWN, ATTENDS AND LINEN
--- NOTE | 2022-08-29 19:52 | NUR ---
SUMMARY- PT INDEPENDANT, UP IN WHEELCHAIR MOST OF THE DAY. TOLERATING FOOD AND FLUIDS. MEDICATED FOR PAIN ONCE THIS AM WITH VICODIN 1, STATES RELEIF. AWAITING PLACEMENT TO KIKE NI NEXT WEEK. NO CHANGES OR CONCERNS TO DISCUSS
--- NOTE | 2022-08-30 07:39 | NUR ---
SHIFT SUMMARY ALERT AND ORIENTED. VSS. INDEPENDENT IN ROOM WITH WHEELCHAIR. NO NEW EVENTS TO REPORT. PT PLEASANT AND COOPERATIVE. AWAITING [facility] PLACEMENT.
--- NOTE | 2022-08-30 10:34 | NUR ---
WOUND CARE LLE DRESSING CHANGED PER ORDER. NO ISSUES NOTED. PT TOLERATED WELL
--- NOTE | 2022-08-30 17:21 | NUR ---
SHIFT SUMMARY: PT A/OX 4, IND IN ROOM TX TO WC. PLEASANT AND COOPERATIVE WITH CARE. PT HAD NO CONCERNS THROUGHOUT THE DAY. 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 PT DID NOT COMPLAIN OF PAIN TODAY. PT EATING AND DRINKING WELL. PLAN IS FOR DISCHARGE FRIDAY OR FRIDAY TO [facility]. PT WILL GET NEW WHEELCHAIR DELIVERED ON FRIDAY.
--- NOTE | 2022-08-31 07:14 | NUR ---
SHIFT SUMMARY A&O X 3-4. VSS. INDEPENDENT WITH WHEELCHAIR. PT AWAKE MOST OF THE NIGHT. PLEASANT WITH STAFF, AND MAKE NEEDS KNOWN.
--- NOTE | 2022-08-31 16:56 | NUR ---
DAYSHIFT SUMMARY Patient doing well this shift, complained of pain in hip. Medicated with Hydrocodone & Tylenol, PRN effective. No acute changes to patient status, awaiting placement.
--- NOTE | 2022-08-31 22:17 | NUR ---
TRANFER OF CARE PT TRANFERRED TO RM 336. REPORT GIVEN TO RN, GAGE GASCA. PT AGREEABLE, CALM AND COOPERATIVE WITH MOVE. PT SELF PACKED ALL BELONGINGS
--- NOTE | 2022-09-01 05:44 | NUR ---
Shift Summary Pt transfered from SCU room 353 at approx 2230. pt independent on wheelechair, AOx4, pleasant and cooperative with care. Pt worked on art until around 0000 and then slept well t/o the night. VSS, no acute events.
--- NOTE | 2022-09-01 17:40 | NUR ---
SHIFT SUMMARY PT AxOx4. PLEASANT AND COOPERATIVE WITH CARE. PT IS INDEPENDENT TO TRANSFER IN HIS WHEELCHAIR. PT REPORTED PAIN IN R HIP x1 THIS SHIFT. MEDICATED PER EMAR WITH REPORTED RELIEF. PT APPEARS TO HAVE AUDITORY HALLUCINATIONS HE IS WITNESSED SEVERAL TIMES T/O THE DAY CURSING DIRECTED AT SOMEONE, YET HE IS ALONE IN HIS ROOM. PT HAS HX OF SCHIZOPHRENIA. PT IS EXPECTED TO DC TOMORROW TO [facility]. VITALS REVIEWED. PT DENIES ANY NEEDS AT THIS TIME. CALL LIGHT IN REACH.
--- NOTE | 2022-09-02 04:31 | NUR ---
SHIFT SUMMARY A/OX3, IND WITH TRANSFERS TO W/C. C/O R. HIP PAIN, MEDICATED PER EMAR X1. VSS, NO ACUTE CHANGES AT THIS TIME. BED IN LOWEST POSITION WITH CALL LIGHT IN REACH. WILL CONTINUE TO MONITOR AND REPORT TO ONCOMING RN.
--- NOTE | 2022-09-02 10:34 | NUR ---
WOUND CARE LLE WOUND CARE PER ORDER. NEW PHOTO AND ASSESSMENT IN HAERD CHART. PT TOLERATED WELL
--- NOTE | 2022-09-02 16:13 | NUR ---
SHIFT SUMMARY PATIENT IS ALERT AND ORIENTED X3. PATIENT HAS HAD NO ACUTE EVENTS THIS SHIFT. VITAL SIGNS REVIEWED. PATIENT HAS HAD NO COMPLAINTS OF PAIN, NAUSEA, SOB OR VOMITTING THIS SHIFT. PATIENT HAS COMPLAINED OF PAIN IN BEGINNING OF SHIFT BUT NONE SINCE, MEDICATED PER EMAR. PATIENT HAS BEEN INDEP IN ROOM. PATIENT IS WHEELCHAIR AT BASELINE AND IS INDEP FOR TRANSFERS. BED IN LOCKED AND LOWEST POSITION. CALL LIGHT IN PLACE. WILL MONITOR UNTIL SHIFT CHANGE.
--- NOTE | 2022-09-03 07:20 | NUR ---
SHIFT SUMMARY PATIENT ALERT AND ORIENTED. MEDICATED PER EMAR FOR PAIN. PATIENT GOT THE DRESSING ON HIS FOOT WET. WOUND CLEANED AND REDRESSED. NO OTHER ISSUES NOTED OVERNIGHT. CALL LIGHT WITHIN REACH. REPORT GIVEN TO ONCOMING RN.
[2022-09-03] MEDS ORDERED: Acetaminophen650 M1 PO (11:00)
[2022-09-03] MEDS ORDERED: ATOR80 PO (11:01)
[2022-09-03] MEDS ORDERED: ASPI81CH PO (11:01)
[2022-09-03] MEDS ORDERED: DOCUZEN 8.6-501 EACH PO (11:02)
[2022-09-03] MEDS ORDERED: FLUTICASONE-SA1 EAC2 INH (11:02)
[2022-09-03] MEDS ORDERED: MIRALAX17 GM PO (11:03)
[2022-09-03] MEDS ORDERED: METO50ER PO (11:03)
[2022-09-03] MEDS ORDERED: QUET200 PO (11:04)
[2022-09-03] MEDS ORDERED: Norco 5-325 Ta1 EACH PO (11:04)
--- NOTE | 2022-09-03 11:12 | NUR ---
DISCHARGE NOTE PT DISCHARGED TO [facility]. REPORTED CALLED TO TERESA AT [facility]. PT BELONGINGS, 3 LIGHTERS AND 1 SHARPENING STONE, GIVEN TO THE W/C OFFICE SPECIALIST TO GIVE TO [facility] STAFF. HARD SCRIPT FOR PAIN MEDICATION IN PACKET. PT WENT OUT IN HIS OWN W/C. NO IV TO REMOVE. CONTINUE POC.
== END 2022-09-03 10:57 | disposition home or self-care (01) | DRG 463 ==
LOC: ER 18:44 → MEDS 23:14 → SURS 23:14 → MEDS 07-31 10:17
PROVIDERS: Emergency Medicine; Internal Medicine; ADMIT Internal Medicine
PROC: 3E02340 Introduction of Influenza Vaccine into Muscle, Percutaneous Approach (ICD-10-PCS; 2022-07-28)
PROC: 0JBR0ZZ Excision of Left Foot Subcutaneous Tissue and Fascia, Open Approach (ICD-10-PCS; principal; 2022-07-31)
DX: S72.091A Other fracture of head and neck of right femur, initial encounter for closed fracture (principal); G92.8 Other toxic encephalopathy; F03.918 Unspecified dementia, unspecified severity, with other behavioral disturbance; E87.1 Hypo-osmolality and hyponatremia; T87.89 Other complications of amputation stump; I25.10 Atherosclerotic heart disease of native coronary artery without angina pectoris; Z23 Encounter for immunization; I10 Essential (primary) hypertension; S81.802A Unspecified open wound, left lower leg, initial encounter; J44.9 Chronic obstructive pulmonary disease, unspecified; E78.5 Hyperlipidemia, unspecified; D72.828 Other elevated white blood cell count; M62.40 Contracture of muscle, unspecified site; F17.210 Nicotine dependence, cigarettes, uncomplicated; S91.311A Laceration without foreign body, right foot, initial encounter; T43.655A Adverse effect of methamphetamines, initial encounter; F15.10 Other stimulant abuse, uncomplicated; Z86.73 Personal history of transient ischemic attack (TIA), and cerebral infarction without residual deficits; Z98.52 Vasectomy status; I25.2 Old myocardial infarction; Z79.899 Other long term (current) drug therapy; Z99.3 Dependence on wheelchair; Z59.00 Homelessness unspecified; V00.818A Other accident with wheelchair (powered), initial encounter
CPT/HCPCS: 36415; 73502; 73620; 80048; 80053; 85025; 85027; 90686; 93005; 93010; 93306; 94640; 94664; 94760; 96374; 96375; 97110; 97129-GO-CO; 97161; 97164; 97165; 97168; 97530; 98960; 99285-25; A9270; G0008; J0690; J1650; J2270; J2405; J2704; J2795; J3010; J7030; J7120

== ENCOUNTER → 2022-10-21 | Outpatient (CLI) | payer OTHER ==
[~2022-10-21] MED LIST changes: +ATOR80 PO; +Acetaminophen650 M1 PO; +DOCUZEN 8.6-501 EACH PO; +FLUTICASONE-SA1 EAC2 INH; +METO50ER PO; +QUET200 PO
[2022-10-21 12:38] LABS: BASOPHILS ABSOLUTE AUTO 0.07 K/mm3 (0.00-0.23); BASOPHILS PERCENT AUTO 1 % (0-2); EOSINOPHILS ABSOLUTE AUTO 0.54 K/mm3 (0.00-0.68); EOSINOPHILS PERCENT AUTO 6 % (0-6); Hematocrit 40.1 % (37.0-53.0); Hemoglobin 13.4 g/dL (13.5-17.5); IMMATURE GRAN ABSOLUTE AUTO 0.07 K/mm3 (0.00-0.10); IMMATURE GRAN PERCENT AUTO 1 % (0-1); LYMPHOCYTES ABSOLUTE AUTO 1.68 K/mm3 (0.84-5.20); LYMPHOCYTES PERCENT AUTO 19 % (21-46); MONOCYTES ABSOLUTE AUTO 1.15 K/mm3 (0.16-1.47); MONOCYTES PERCENT AUTO 13 % (4-13); Mean Corpuscular HGB 31.3 pg (26.0-34.0); Mean Corpuscular HGB Conc 33.4 g/dL (31.5-36.5); Mean Corpuscular Volume 94 fL (80-100); NEUTROPHILS ABSOLUTE AUTO 5.16 K/mm3 (1.96-9.15); NEUTROPHILS PERCENT AUTO 60 % (41-73); Platelet Count 264 K/mm3 (150-400); RDW Coefficient Variation 15.3 % (11.7-14.2); RDW Standard Deviation 52.4 fL (35.1-46.3); Red Blood Cell Count 4.28 M/mm3 (4.30-5.90); White Blood Cell Count 8.67 K/mm3 (4.00-11.30)
== END | disposition home or self-care (01) ==
LOC: LAB SHORT 12:31 → LAB 12:31
PROVIDERS: Emergency Medicine
DX: R22.42 Localized swelling, mass and lump, left lower limb (principal)
CPT/HCPCS: 85025; 85651; 86140

== ENCOUNTER 2022-11-20 02:33 | Day surgery (SDC) | payer OTHER | END 2022-11-20 23:16 | disposition home or self-care (01) | LOC: WOUND 02:33 | DX: T87.81 Dehiscence of amputation stump (principal); L97.522 Non-pressure chronic ulcer of other part of left foot with fat layer exposed; I73.9 Peripheral vascular disease, unspecified; J44.9 Chronic obstructive pulmonary disease, unspecified; I10 Essential (primary) hypertension; I25.10 Atherosclerotic heart disease of native coronary artery without angina pectoris; Z95.5 Presence of coronary angioplasty implant and graft; I25.2 Old myocardial infarction; Z86.73 Personal history of transient ischemic attack (TIA), and cerebral infarction without residual deficits | CPT/HCPCS: 99406; A9270; G0463 ==

== ENCOUNTER 2022-11-26 00:56 | Day surgery (SDC) | payer OTHER | END 2022-11-26 22:43 | disposition home or self-care (01) | LOC: WOUND 00:56 | DX: T87.81 Dehiscence of amputation stump (principal); L97.522 Non-pressure chronic ulcer of other part of left foot with fat layer exposed; Z72.0 Tobacco use | CPT/HCPCS: 99406; A9270; G0463 ==

== ENCOUNTER → 2022-11-28 | Outpatient (CLI) | payer OTHER ==
[2022-11-28 16:12] LABS: Alanine Aminotransfer (ALT/SGP 56 U/L (12-78); Albumin, Blood 3.7 g/dL (3.4-5.0); Albumin/Globulin Ratio 0.9 (0.8-1.8); Alk Phos 90 U/L (50-136); Aspartate Aminotrans (AST/SGOT 24 U/L (12-37); Bilirubin, Direct <0.1 mg/dL (0.0-0.3); Bilirubin, Indirect Unable to Calculate mg/dL (0.1-0.7); Bilirubin, Total 0.2 mg/dL (0.1-1.0); CHOL/HDL RATIO 3.9; Cholesterol 122 mg/dL (50-200); HDL Cholesterol 31 mg/dL (>39); LDL/HDL RATIO 1.9; Low Density Lipoprotein Chol 58 mg/dL (0-110); Total Protein, Blood 7.7 g/dL (6.4-8.2); Triglycerides 166 mg/dL (30-160); Very Low Density Lipoprot Chol 33 mg/dL (6-32)
== END | disposition home or self-care (01) ==
LOC: LAB SHORT 11:00 → LAB 11:00
PROVIDERS: Nurse Practitioner Family
DX: Z13.1 Encounter for screening for diabetes mellitus (principal); Z13.220 Encounter for screening for lipoid disorders; Z13.6 Encounter for screening for cardiovascular disorders; T87.89 Other complications of amputation stump
CPT/HCPCS: 80061; 80076; 83036

== ENCOUNTER 2022-12-03 01:59 | Day surgery (SDC) | payer OTHER | END 2022-12-03 22:47 | disposition home or self-care (01) | LOC: WOUND 01:59 | DX: T87.81 Dehiscence of amputation stump (principal); L97.522 Non-pressure chronic ulcer of other part of left foot with fat layer exposed; Z72.0 Tobacco use; I73.9 Peripheral vascular disease, unspecified | CPT/HCPCS: 99406; A9270; G0463 ==

== ENCOUNTER 2022-12-17 02:27 | Day surgery (SDC) | payer OTHER | END 2022-12-17 22:48 | disposition home or self-care (01) | LOC: WOUND 02:27 | DX: L97.522 Non-pressure chronic ulcer of other part of left foot with fat layer exposed (principal); I73.9 Peripheral vascular disease, unspecified; M25.552 Pain in left hip; Z72.0 Tobacco use | CPT/HCPCS: 99406; A9270; G0463 ==

== ENCOUNTER 2022-12-24 02:38 | Day surgery (SDC) | payer OTHER | END 2022-12-24 22:56 | disposition home or self-care (01) | LOC: WOUND 02:38 | DX: T87.81 Dehiscence of amputation stump (principal); L97.522 Non-pressure chronic ulcer of other part of left foot with fat layer exposed; I73.9 Peripheral vascular disease, unspecified; Z72.0 Tobacco use | CPT/HCPCS: 99406; A9270; G0463 ==

== ENCOUNTER 2022-12-31 01:47 | Day surgery (SDC) | payer OTHER | END 2022-12-31 22:47 | disposition home or self-care (01) | LOC: WOUND 01:47 | DX: T87.81 Dehiscence of amputation stump (principal); L97.522 Non-pressure chronic ulcer of other part of left foot with fat layer exposed; I87.2 Venous insufficiency (chronic) (peripheral); Z72.0 Tobacco use; I73.9 Peripheral vascular disease, unspecified | CPT/HCPCS: A9270 ==

== ENCOUNTER → 2023-01-07 | Outpatient (CLI) | payer OTHER ==
[2023-01-07 13:52] LABS: BASOPHILS ABSOLUTE AUTO 0.05 K/mm3 (0.00-0.23); BASOPHILS PERCENT AUTO 1 % (0-2); EOSINOPHILS ABSOLUTE AUTO 0.42 K/mm3 (0.00-0.68); EOSINOPHILS PERCENT AUTO 6 % (0-6); Hematocrit 41.1 % (37.0-53.0); IMMATURE GRAN ABSOLUTE AUTO 0.03 K/mm3 (0.00-0.10); IMMATURE GRAN PERCENT AUTO 0 % (0-1); LYMPHOCYTES ABSOLUTE AUTO 2.19 K/mm3 (0.84-5.20); LYMPHOCYTES PERCENT AUTO 29 % (21-46); MONOCYTES PERCENT AUTO 8 % (4-13); Mean Corpuscular HGB 31.8 pg (26.0-34.0); Mean Corpuscular HGB Conc 34.1 g/dL (31.5-36.5); Mean Corpuscular Volume 93 fL (80-100); Mean Platelet Volume 9.9 fL (9.1-12.4); NEUTROPHILS ABSOLUTE AUTO 4.29 K/mm3 (1.96-9.15); NEUTROPHILS PERCENT AUTO 57 % (41-73); Platelet Count 267 K/mm3 (150-400); RDW Coefficient Variation 13.9 % (11.7-14.2); RDW Standard Deviation 47.6 fL (35.1-46.3); White Blood Cell Count 7.58 K/mm3 (4.00-11.30)
[2023-01-07 15:18] LABS: Albumin, Blood 3.7 g/dL (3.4-5.0); Albumin/Globulin Ratio 0.8 (0.8-1.8); Bilirubin, Total 0.2 mg/dL (0.1-1.0); Bun/Creatinine Ratio 25.5 (12.0-20.0); Calcium, Blood 9.3 mg/dL (8.5-10.1); Creatinine, Blood 1.02 mg/dL (0.60-1.20); Globulin, Blood 4.6 g/dL (2.2-4.0); Potassium, Blood 4.5 mmol/L (3.5-5.5); Total Protein, Blood 8.3 g/dL (6.4-8.2)
== END | disposition home or self-care (01) ==
LOC: LAB 11:45 → LAB SHORT 11:45
PROVIDERS: Surgery
DX: L97.522 Non-pressure chronic ulcer of other part of left foot with fat layer exposed (principal)
CPT/HCPCS: 80053; 85025

== ENCOUNTER 2023-02-07 02:44 | Day surgery (SDC) | payer OTHER | END 2023-02-09 22:51 | disposition home or self-care (01) | LOC: WOUND 02:44 | DX: T87.81 Dehiscence of amputation stump (principal); L97.522 Non-pressure chronic ulcer of other part of left foot with fat layer exposed; I73.9 Peripheral vascular disease, unspecified; M79.672 Pain in left foot; M25.552 Pain in left hip; Z72.0 Tobacco use; I10 Essential (primary) hypertension; J44.9 Chronic obstructive pulmonary disease, unspecified; I25.2 Old myocardial infarction; Z95.5 Presence of coronary angioplasty implant and graft; Z86.73 Personal history of transient ischemic attack (TIA), and cerebral infarction without residual deficits | CPT/HCPCS: G0463 ==

== ENCOUNTER 2023-02-28 01:03 | Day surgery (SDC) | payer OTHER | END 2023-02-28 22:55 | disposition home or self-care (01) | LOC: WOUND 01:03 | DX: L97.522 Non-pressure chronic ulcer of other part of left foot with fat layer exposed (principal); I73.9 Peripheral vascular disease, unspecified; Z72.0 Tobacco use; M25.552 Pain in left hip | CPT/HCPCS: 99406; G0463 ==

== ENCOUNTER 2023-03-21 00:53 | Day surgery (SDC) | payer OTHER | END 2023-03-21 22:38 | disposition home or self-care (01) | LOC: WOUND 00:53 | DX: T81.31XD Disruption of external operation (surgical) wound, not elsewhere classified, subsequent encounter (principal); L97.522 Non-pressure chronic ulcer of other part of left foot with fat layer exposed; I73.9 Peripheral vascular disease, unspecified; Z72.0 Tobacco use; Y83.8 Other surgical procedures as the cause of abnormal reaction of the patient, or of later complication, without mention of misadventure at the time of the procedure | CPT/HCPCS: 99406; A9270; G0463 ==

== ENCOUNTER 2023-04-23 02:31 | Day surgery (SDC) | payer OTHER | END 2023-04-23 23:07 | disposition home or self-care (01) | LOC: WOUND 02:31 | DX: T87.81 Dehiscence of amputation stump (principal); I10 Essential (primary) hypertension; J44.9 Chronic obstructive pulmonary disease, unspecified; Z95.5 Presence of coronary angioplasty implant and graft; I25.10 Atherosclerotic heart disease of native coronary artery without angina pectoris; I25.2 Old myocardial infarction; Z86.73 Personal history of transient ischemic attack (TIA), and cerebral infarction without residual deficits; L97.522 Non-pressure chronic ulcer of other part of left foot with fat layer exposed; I73.9 Peripheral vascular disease, unspecified; Z72.0 Tobacco use ==

== ENCOUNTER 2023-05-01 04:00 | Day surgery (SDC) | payer OTHER | END 2023-05-01 23:19 | disposition home or self-care (01) | LOC: WOUND 04:00 | DX: L97.522 Non-pressure chronic ulcer of other part of left foot with fat layer exposed (principal); I73.9 Peripheral vascular disease, unspecified; I25.10 Atherosclerotic heart disease of native coronary artery without angina pectoris; I25.2 Old myocardial infarction; I10 Essential (primary) hypertension; J44.9 Chronic obstructive pulmonary disease, unspecified; Z72.0 Tobacco use | CPT/HCPCS: 99406; A9270 ==

== ENCOUNTER 2023-05-29 01:38 | Day surgery (SDC) | payer OTHER | END 2023-05-29 22:50 | disposition home or self-care (01) | LOC: WOUND 01:38 | DX: T81.31XA Disruption of external operation (surgical) wound, not elsewhere classified, initial encounter (principal); Y83.8 Other surgical procedures as the cause of abnormal reaction of the patient, or of later complication, without mention of misadventure at the time of the procedure; L97.522 Non-pressure chronic ulcer of other part of left foot with fat layer exposed; I73.9 Peripheral vascular disease, unspecified; I25.2 Old myocardial infarction; I25.10 Atherosclerotic heart disease of native coronary artery without angina pectoris; I10 Essential (primary) hypertension; J44.9 Chronic obstructive pulmonary disease, unspecified | CPT/HCPCS: 99406; A9270; G0463 ==

== ENCOUNTER 2023-06-05 02:13 | Day surgery (SDC) | payer OTHER | END 2023-06-05 22:39 | disposition home or self-care (01) | LOC: WOUND 02:13 | DX: T81.31XA Disruption of external operation (surgical) wound, not elsewhere classified, initial encounter (principal); L97.522 Non-pressure chronic ulcer of other part of left foot with fat layer exposed; I73.9 Peripheral vascular disease, unspecified; J44.9 Chronic obstructive pulmonary disease, unspecified; I10 Essential (primary) hypertension; I25.10 Atherosclerotic heart disease of native coronary artery without angina pectoris; Z95.5 Presence of coronary angioplasty implant and graft; I25.2 Old myocardial infarction; Z72.0 Tobacco use | CPT/HCPCS: 99406; A9270; G0463 ==

== ENCOUNTER 2023-06-19 08:00 | Day surgery (SDC) | payer OTHER | END 2023-06-19 23:59 | disposition home or self-care (01) | LOC: WOUND | DX: T81.31XA Disruption of external operation (surgical) wound, not elsewhere classified, initial encounter (principal); L97.522 Non-pressure chronic ulcer of other part of left foot with fat layer exposed; I73.9 Peripheral vascular disease, unspecified; J44.9 Chronic obstructive pulmonary disease, unspecified; I10 Essential (primary) hypertension; I25.10 Atherosclerotic heart disease of native coronary artery without angina pectoris; I25.2 Old myocardial infarction; Z72.0 Tobacco use; Z95.5 Presence of coronary angioplasty implant and graft; Y83.8 Other surgical procedures as the cause of abnormal reaction of the patient, or of later complication, without mention of misadventure at the time of the procedure | CPT/HCPCS: A9270; G0463 ==

== ENCOUNTER 2023-07-10 03:20 | Day surgery (SDC) | payer OTHER | END 2023-07-10 22:35 | disposition home or self-care (01) | LOC: WOUND 03:20 | PROC: 0JBR0ZZ Excision of Left Foot Subcutaneous Tissue and Fascia, Open Approach (ICD-10-PCS; principal; 2023-07-10) | DX: T87.81 Dehiscence of amputation stump (principal); I70.25 Atherosclerosis of native arteries of other extremities with ulceration; L98.492 Non-pressure chronic ulcer of skin of other sites with fat layer exposed; I10 Essential (primary) hypertension; I25.10 Atherosclerotic heart disease of native coronary artery without angina pectoris; J44.9 Chronic obstructive pulmonary disease, unspecified; Z95.5 Presence of coronary angioplasty implant and graft; Z72.0 Tobacco use; Y83.5 Amputation of limb(s) as the cause of abnormal reaction of the patient, or of later complication, without mention of misadventure at the time of the procedure | CPT/HCPCS: A9270 ==

== ENCOUNTER 2023-08-06 02:27 | Day surgery (SDC) | payer OTHER | END 2023-08-06 22:44 | disposition home or self-care (01) | LOC: WOUND 02:27 | DX: T81.31XD Disruption of external operation (surgical) wound, not elsewhere classified, subsequent encounter (principal); L97.522 Non-pressure chronic ulcer of other part of left foot with fat layer exposed; I73.9 Peripheral vascular disease, unspecified; Z72.0 Tobacco use; Y83.8 Other surgical procedures as the cause of abnormal reaction of the patient, or of later complication, without mention of misadventure at the time of the procedure | CPT/HCPCS: A9270; G0463 ==

== ENCOUNTER 2023-08-11 20:08 | Emergency (ER) | payer OTHER ==
[~2023-08-11] VITALS: Ht 175.3 cm; Wt 124.7 kg
[2023-08-11 20:30] VITALS: BP 135/99
[2023-08-11 20:58] LABS: BASOPHILS ABSOLUTE AUTO 0.09 K/mm3 (0.00-0.23); BASOPHILS PERCENT AUTO 1 % (0-2); EOSINOPHILS ABSOLUTE AUTO 0.31 K/mm3 (0.00-0.68); EOSINOPHILS PERCENT AUTO 3 % (0-6); Hematocrit 45.2 % (37.0-53.0); Hemoglobin 15.3 g/dL (13.5-17.5); IMMATURE GRAN ABSOLUTE AUTO 0.17 K/mm3 (0.00-0.10); IMMATURE GRAN PERCENT AUTO 2 % (0-1); LYMPHOCYTES ABSOLUTE AUTO 2.51 K/mm3 (0.84-5.20); LYMPHOCYTES PERCENT AUTO 22 % (21-46); MONOCYTES ABSOLUTE AUTO 0.98 K/mm3 (0.16-1.47); MONOCYTES PERCENT AUTO 9 % (4-13); Mean Corpuscular HGB 31.5 pg (26.0-34.0); Mean Corpuscular HGB Conc 33.8 g/dL (31.5-36.5); Mean Corpuscular Volume 93 fL (80-100); Mean Platelet Volume 10.5 fL (9.1-12.4); NEUTROPHILS ABSOLUTE AUTO 7.36 K/mm3 (1.96-9.15); NEUTROPHILS PERCENT AUTO 64 % (41-73); Platelet Count 298 K/mm3 (150-400); RDW Coefficient Variation 15.6 % (11.7-14.2); RDW Standard Deviation 53.6 fL (35.1-46.3); Red Blood Cell Count 4.85 M/mm3 (4.30-5.90); White Blood Cell Count 11.42 K/mm3 (4.00-11.30)
[2023-08-11 21:17] LABS: Albumin, Blood 3.6 g/dL (3.4-5.0); Albumin/Globulin Ratio 0.7 (0.8-1.8); Bilirubin, Total 0.3 mg/dL (0.1-1.0); Creatinine, Blood 1.25 mg/dL (0.60-1.20); Globulin, Blood 5.2 g/dL (2.2-4.0); Total Protein, Blood 8.8 g/dL (6.4-8.2)
[2023-08-11] MEDS ORDERED: K-Dur10 MEQ PO (23:40)
[2023-08-11] MEDS ORDERED: Zithromax250 MG PO (23:40)
[2023-08-11] MEDS ORDERED: Lasix40 MG PO (23:40)
== END 2023-08-11 23:59 | disposition home or self-care (01) ==
LOC: ER 20:08
PROVIDERS: Physician Assistant
DX: I11.0 Hypertensive heart disease with heart failure (principal); I50.9 Heart failure, unspecified; I25.2 Old myocardial infarction; J44.9 Chronic obstructive pulmonary disease, unspecified; F17.210 Nicotine dependence, cigarettes, uncomplicated; Z79.82 Long term (current) use of aspirin; Z79.899 Other long term (current) drug therapy; Z86.73 Personal history of transient ischemic attack (TIA), and cerebral infarction without residual deficits; Z95.5 Presence of coronary angioplasty implant and graft
CPT/HCPCS: 71046; 80053; 83880; 85025; 99285-25; A9270

== ENCOUNTER 2023-09-06 01:10 | Emergency (ER) | payer OTHER ==
[~2023-09-06] VITALS: Ht 175.3 cm; Wt 104.3 kg
[~2023-09-06 01:10] MED LIST changes: +K-Dur10 MEQ PO; +Lasix40 MG PO; +Zithromax250 MG PO
[2023-09-06 01:20] VITALS: BP 153/78
[2023-09-06 04:28] LABS: BASOPHILS ABSOLUTE AUTO 0.09 K/mm3 (0.00-0.23); BASOPHILS PERCENT AUTO 1 % (0-2); EOSINOPHILS PERCENT AUTO 3 % (0-6); Hematocrit 44.2 % (37.0-53.0); Hemoglobin 14.5 g/dL (13.5-17.5); IMMATURE GRAN ABSOLUTE AUTO 0.22 K/mm3 (0.00-0.10); IMMATURE GRAN PERCENT AUTO 2 % (0-1); LYMPHOCYTES ABSOLUTE AUTO 2.37 K/mm3 (0.84-5.20); LYMPHOCYTES PERCENT AUTO 18 % (21-46); MONOCYTES ABSOLUTE AUTO 0.91 K/mm3 (0.16-1.47); MONOCYTES PERCENT AUTO 7 % (4-13); Mean Corpuscular HGB 31.4 pg (26.0-34.0); Mean Corpuscular HGB Conc 32.8 g/dL (31.5-36.5); Mean Corpuscular Volume 96 fL (80-100); NEUTROPHILS ABSOLUTE AUTO 8.97 K/mm3 (1.96-9.15); NEUTROPHILS PERCENT AUTO 69 % (41-73); Platelet Count 355 K/mm3 (150-400); RDW Coefficient Variation 15.3 % (11.7-14.2); Red Blood Cell Count 4.62 M/mm3 (4.30-5.90); White Blood Cell Count 12.96 K/mm3 (4.00-11.30)
[2023-09-06 04:48] LABS: Albumin, Blood 3.4 g/dL (3.4-5.0); Albumin/Globulin Ratio 0.6 (0.8-1.8); Bilirubin, Total 0.2 mg/dL (0.1-1.0); Bun/Creatinine Ratio 19.5 (12.0-20.0); Calcium, Blood 9.2 mg/dL (8.5-10.1); Creatinine, Blood 1.23 mg/dL (0.60-1.20); Globulin, Blood 5.3 g/dL (2.2-4.0); Potassium, Blood 4.5 mmol/L (3.5-5.5); Total Protein, Blood 8.7 g/dL (6.4-8.2)
[2023-09-06] MEDS ORDERED: CEPH500 PO (05:05)
[2023-09-06] MEDS ORDERED: Lasix40 MG PO (05:05)
== END 2023-09-06 06:42 | disposition home or self-care (01) ==
LOC: ER 01:10
PROVIDERS: Student in an Organized Health Care Education/Training Program
DX: L03.115 Cellulitis of right lower limb (principal); L03.116 Cellulitis of left lower limb; F17.210 Nicotine dependence, cigarettes, uncomplicated; J44.9 Chronic obstructive pulmonary disease, unspecified; I25.2 Old myocardial infarction; F20.9 Schizophrenia, unspecified; Z79.82 Long term (current) use of aspirin; Z79.51 Long term (current) use of inhaled steroids; Z79.899 Other long term (current) drug therapy
CPT/HCPCS: 80053; 83605; 83880; 85025; 96365; 96375; 99283-25; J0690; J1885; J1940

== ENCOUNTER 2023-09-18 05:03 | Day surgery (SDC) | payer OTHER | END 2023-09-18 22:51 | disposition home or self-care (01) | LOC: WOUND 05:03 | DX: T81.31XA Disruption of external operation (surgical) wound, not elsewhere classified, initial encounter (principal); Y83.8 Other surgical procedures as the cause of abnormal reaction of the patient, or of later complication, without mention of misadventure at the time of the procedure; L97.522 Non-pressure chronic ulcer of other part of left foot with fat layer exposed; I73.9 Peripheral vascular disease, unspecified; Z72.0 Tobacco use; M79.672 Pain in left foot; M25.552 Pain in left hip; I10 Essential (primary) hypertension; J44.9 Chronic obstructive pulmonary disease, unspecified; I25.10 Atherosclerotic heart disease of native coronary artery without angina pectoris; Z95.5 Presence of coronary angioplasty implant and graft | CPT/HCPCS: A9270; G0463 ==

== ENCOUNTER 2023-09-25 16:07 | Emergency (ER) | payer OTHER ==
[~2023-09-25] VITALS: Ht 175.3 cm; Wt 104.3 kg
[2023-09-25 18:43] LABS: Albumin, Blood 3.1 g/dL (3.4-5.0); Albumin/Globulin Ratio 0.6 (0.8-1.8); Bilirubin, Total 0.2 mg/dL (0.1-1.0); Bun/Creatinine Ratio 20.2 (12.0-20.0); Calcium, Blood 9.2 mg/dL (8.5-10.1); Creatinine, Blood 1.19 mg/dL (0.60-1.20); Potassium, Blood 4.7 mmol/L (3.5-5.5); Total Protein, Blood 8.1 g/dL (6.4-8.2)
[2023-09-25 19:40] LABS: BASOPHILS ABSOLUTE AUTO 0.09 K/mm3 (0.00-0.23); BASOPHILS PERCENT AUTO 1 % (0-2); EOSINOPHILS ABSOLUTE AUTO 0.39 K/mm3 (0.00-0.68); EOSINOPHILS PERCENT AUTO 3 % (0-6); Hematocrit 42.4 % (37.0-53.0); Hemoglobin 13.7 g/dL (13.5-17.5); IMMATURE GRAN ABSOLUTE AUTO 0.28 K/mm3 (0.00-0.10); IMMATURE GRAN PERCENT AUTO 2 % (0-1); LYMPHOCYTES ABSOLUTE AUTO 2.12 K/mm3 (0.84-5.20); LYMPHOCYTES PERCENT AUTO 17 % (21-46); MONOCYTES ABSOLUTE AUTO 1.04 K/mm3 (0.16-1.47); MONOCYTES PERCENT AUTO 9 % (4-13); Mean Corpuscular HGB 31.2 pg (26.0-34.0); Mean Corpuscular HGB Conc 32.3 g/dL (31.5-36.5); Mean Corpuscular Volume 97 fL (80-100); Mean Platelet Volume 10.1 fL (9.1-12.4); NEUTROPHILS ABSOLUTE AUTO 8.24 K/mm3 (1.96-9.15); NEUTROPHILS PERCENT AUTO 68 % (41-73); Platelet Count 301 K/mm3 (150-400); RDW Coefficient Variation 15.1 % (11.7-14.2); RDW Standard Deviation 53.1 fL (35.1-46.3); Red Blood Cell Count 4.39 M/mm3 (4.30-5.90); White Blood Cell Count 12.16 K/mm3 (4.00-11.30)
[2023-09-25 21:29] LABS: International Normalized Ratio 0.91; Prothrombin Time Results 9.6 Sec (9.7-11.5)
[2023-09-25 22:00] VITALS: BP 165/101
[2023-09-25] MEDS ORDERED: GABA300 PO (22:10)
== END 2023-09-25 22:55 | disposition home or self-care (01) ==
LOC: ER 16:07
PROVIDERS: Emergency Medicine; Physician Assistant
DX: R07.9 Chest pain, unspecified (principal); G89.29 Other chronic pain; R42 Dizziness and giddiness; I25.2 Old myocardial infarction; I10 Essential (primary) hypertension; J44.9 Chronic obstructive pulmonary disease, unspecified; F20.9 Schizophrenia, unspecified; Z86.73 Personal history of transient ischemic attack (TIA), and cerebral infarction without residual deficits; I25.10 Atherosclerotic heart disease of native coronary artery without angina pectoris; Z95.9 Presence of cardiac and vascular implant and graft, unspecified; Z79.82 Long term (current) use of aspirin; Z79.51 Long term (current) use of inhaled steroids; Z79.899 Other long term (current) drug therapy
CPT/HCPCS: 71046; 80053; 83880; 84484; 85025; 85610; 85730; 93005; 93010; 96374; 99284-25; J1885

== ENCOUNTER 2023-10-02 02:02 | Day surgery (SDC) | payer OTHER ==
[~2023-10-02 02:02] MED LIST changes: +GABA300 PO
== END 2023-10-02 22:56 | disposition home or self-care (01) ==
LOC: WOUND 02:02
DX: T81.31XD Disruption of external operation (surgical) wound, not elsewhere classified, subsequent encounter (principal); I89.0 Lymphedema, not elsewhere classified; E11.51 Type 2 diabetes mellitus with diabetic peripheral angiopathy without gangrene; M25.552 Pain in left hip; I10 Essential (primary) hypertension; J44.9 Chronic obstructive pulmonary disease, unspecified; I25.10 Atherosclerotic heart disease of native coronary artery without angina pectoris; I25.2 Old myocardial infarction; Z95.5 Presence of coronary angioplasty implant and graft; Z86.73 Personal history of transient ischemic attack (TIA), and cerebral infarction without residual deficits; Z72.0 Tobacco use; Y83.8 Other surgical procedures as the cause of abnormal reaction of the patient, or of later complication, without mention of misadventure at the time of the procedure
CPT/HCPCS: G0463

== ENCOUNTER 2023-10-06 03:41 | Day surgery (SDC) | payer OTHER | END 2023-10-06 22:54 | disposition home or self-care (01) | LOC: WOUND 03:41 | DX: I89.0 Lymphedema, not elsewhere classified (principal); L97.522 Non-pressure chronic ulcer of other part of left foot with fat layer exposed; I73.9 Peripheral vascular disease, unspecified; Z72.0 Tobacco use; T81.30XD Disruption of wound, unspecified, subsequent encounter | CPT/HCPCS: A9270 ==

== ENCOUNTER 2023-10-08 02:56 | Day surgery (SDC) | payer OTHER | END 2023-10-08 23:02 | disposition home or self-care (01) | LOC: WOUND 02:56 | DX: L97.522 Non-pressure chronic ulcer of other part of left foot with fat layer exposed (principal); L97.819 Non-pressure chronic ulcer of other part of right lower leg with unspecified severity; I73.9 Peripheral vascular disease, unspecified; M79.672 Pain in left foot; M25.552 Pain in left hip; Z72.0 Tobacco use | CPT/HCPCS: G0463 ==

== ENCOUNTER 2023-10-15 02:53 | Day surgery (SDC) | payer OTHER ==
[2023-10-15] MEDS ORDERED: Bactrim Ds Tab1 EACH PO (17:08)
== END 2023-10-15 23:18 | disposition home or self-care (01) ==
LOC: WOUND 02:53
DX: T87.81 Dehiscence of amputation stump (principal); I89.0 Lymphedema, not elsewhere classified; L97.522 Non-pressure chronic ulcer of other part of left foot with fat layer exposed; L97.819 Non-pressure chronic ulcer of other part of right lower leg with unspecified severity; I73.9 Peripheral vascular disease, unspecified; S91.302A Unspecified open wound, left foot, initial encounter; L03.116 Cellulitis of left lower limb; D72.829 Elevated white blood cell count, unspecified; I25.2 Old myocardial infarction; I25.10 Atherosclerotic heart disease of native coronary artery without angina pectoris; I10 Essential (primary) hypertension; J44.9 Chronic obstructive pulmonary disease, unspecified; F20.9 Schizophrenia, unspecified; F17.210 Nicotine dependence, cigarettes, uncomplicated; X58.XXXA Exposure to other specified factors, initial encounter; Z89.422 Acquired absence of other left toe(s); Z89.412 Acquired absence of left great toe; Z79.899 Other long term (current) drug therapy; Z79.82 Long term (current) use of aspirin; Z79.51 Long term (current) use of inhaled steroids
CPT/HCPCS: 80053; 83605; 85025; 96365; 96375; 99283; G0463; J0696; J1885

== ENCOUNTER 2023-10-15 14:15 | Emergency (ER) | payer OTHER ==
[~2023-10-15] VITALS: Ht 175.3 cm; Wt 104.3 kg
[2023-10-15 14:39] LABS: BASOPHILS ABSOLUTE AUTO 0.09 K/mm3 (0.00-0.23); BASOPHILS PERCENT AUTO 1 % (0-2); EOSINOPHILS ABSOLUTE AUTO 0.36 K/mm3 (0.00-0.68); EOSINOPHILS PERCENT AUTO 3 % (0-6); Hematocrit 41.9 % (37.0-53.0); Hemoglobin 13.4 g/dL (13.5-17.5); IMMATURE GRAN PERCENT AUTO 2 % (0-1); LYMPHOCYTES ABSOLUTE AUTO 1.73 K/mm3 (0.84-5.20); LYMPHOCYTES PERCENT AUTO 15 % (21-46); MONOCYTES ABSOLUTE AUTO 0.96 K/mm3 (0.16-1.47); MONOCYTES PERCENT AUTO 8 % (4-13); Mean Corpuscular HGB 30.5 pg (26.0-34.0); Mean Corpuscular Volume 95 fL (80-100); Mean Platelet Volume 9.9 fL (9.1-12.4); NEUTROPHILS ABSOLUTE AUTO 8.46 K/mm3 (1.96-9.15); NEUTROPHILS PERCENT AUTO 72 % (41-73); Platelet Count 336 K/mm3 (150-400); Red Blood Cell Count 4.39 M/mm3 (4.30-5.90)
[2023-10-15 15:04] LABS: Albumin, Blood 2.9 g/dL (3.4-5.0); Albumin/Globulin Ratio 0.5 (0.8-1.8); Bilirubin, Total 0.2 mg/dL (0.1-1.0); Bun/Creatinine Ratio 15.7 (12.0-20.0); Calcium, Blood 9.2 mg/dL (8.5-10.1); Creatinine, Blood 1.21 mg/dL (0.60-1.20); Globulin, Blood 5.5 g/dL (2.2-4.0); Potassium, Blood 4.4 mmol/L (3.5-5.5); Total Protein, Blood 8.4 g/dL (6.4-8.2)
[2023-10-15 17:05] VITALS: BP 164/96
[2023-10-15] MEDS ORDERED: Bactrim Ds Tab1 EACH PO (17:08)
== END 2023-10-15 17:53 | disposition home or self-care (01) ==
LOC: ER 14:15
PROVIDERS: Physician Assistant
DX: S91.302A Unspecified open wound, left foot, initial encounter (principal); L03.116 Cellulitis of left lower limb; D72.829 Elevated white blood cell count, unspecified; I25.2 Old myocardial infarction; I25.10 Atherosclerotic heart disease of native coronary artery without angina pectoris; I10 Essential (primary) hypertension; J44.9 Chronic obstructive pulmonary disease, unspecified; F20.9 Schizophrenia, unspecified; F17.210 Nicotine dependence, cigarettes, uncomplicated; X58.XXXA Exposure to other specified factors, initial encounter; Z89.422 Acquired absence of other left toe(s); Z89.412 Acquired absence of left great toe; Z79.899 Other long term (current) drug therapy; Z79.82 Long term (current) use of aspirin; Z79.51 Long term (current) use of inhaled steroids
CPT/HCPCS: 80053; 83605; 85025; 96365; 96375; 99283; J0696; J1885

== ENCOUNTER 2023-10-22 01:29 | Day surgery (SDC) | payer OTHER | END 2023-10-22 23:28 | disposition home or self-care (01) | LOC: WOUND 01:29 | DX: I89.0 Lymphedema, not elsewhere classified (principal); J44.9 Chronic obstructive pulmonary disease, unspecified; I10 Essential (primary) hypertension; I25.10 Atherosclerotic heart disease of native coronary artery without angina pectoris; I25.2 Old myocardial infarction; T81.31XD Disruption of external operation (surgical) wound, not elsewhere classified, subsequent encounter; L97.522 Non-pressure chronic ulcer of other part of left foot with fat layer exposed; L97.819 Non-pressure chronic ulcer of other part of right lower leg with unspecified severity; I73.9 Peripheral vascular disease, unspecified; Z86.73 Personal history of transient ischemic attack (TIA), and cerebral infarction without residual deficits; Z72.0 Tobacco use; Y83.8 Other surgical procedures as the cause of abnormal reaction of the patient, or of later complication, without mention of misadventure at the time of the procedure | CPT/HCPCS: A6213; G0463 ==

== ENCOUNTER 2023-10-29 00:07 | Day surgery (SDC) | payer OTHER | END 2023-10-29 22:41 | disposition home or self-care (01) | LOC: WOUND 00:07 | DX: I89.0 Lymphedema, not elsewhere classified (principal); J44.9 Chronic obstructive pulmonary disease, unspecified; I10 Essential (primary) hypertension; I25.10 Atherosclerotic heart disease of native coronary artery without angina pectoris; Z95.5 Presence of coronary angioplasty implant and graft; I25.2 Old myocardial infarction; Z86.73 Personal history of transient ischemic attack (TIA), and cerebral infarction without residual deficits; L97.522 Non-pressure chronic ulcer of other part of left foot with fat layer exposed; L97.819 Non-pressure chronic ulcer of other part of right lower leg with unspecified severity; I73.9 Peripheral vascular disease, unspecified; Z72.0 Tobacco use | CPT/HCPCS: A6213; G0463 ==

== ENCOUNTER 2023-10-31 15:42 | Inpatient (IN) | payer OTHER ==
[~2023-10-31] VITALS: Ht 175.3 cm; Wt 141.5 kg
[2023-10-31 16:24] LABS: BASOPHILS ABSOLUTE AUTO 0.06 K/mm3 (0.00-0.23); BASOPHILS PERCENT AUTO 1 % (0-2); EOSINOPHILS ABSOLUTE AUTO 0.22 K/mm3 (0.00-0.68); EOSINOPHILS PERCENT AUTO 3 % (0-6); Hematocrit 45.3 % (37.0-53.0); Hemoglobin 14.3 g/dL (13.5-17.5); IMMATURE GRAN PERCENT AUTO 1 % (0-1); LYMPHOCYTES ABSOLUTE AUTO 1.54 K/mm3 (0.84-5.20); LYMPHOCYTES PERCENT AUTO 18 % (21-46); MONOCYTES ABSOLUTE AUTO 0.56 K/mm3 (0.16-1.47); MONOCYTES PERCENT AUTO 7 % (4-13); Mean Corpuscular HGB 30.2 pg (26.0-34.0); Mean Corpuscular HGB Conc 31.6 g/dL (31.5-36.5); Mean Corpuscular Volume 96 fL (80-100); Mean Platelet Volume 9.6 fL (9.1-12.4); NEUTROPHILS ABSOLUTE AUTO 6.11 K/mm3 (1.96-9.15); NEUTROPHILS PERCENT AUTO 71 % (41-73); Platelet Count 320 K/mm3 (150-400); RDW Coefficient Variation 15.8 % (11.7-14.2); RDW Standard Deviation 55.5 fL (35.1-46.3); Red Blood Cell Count 4.73 M/mm3 (4.30-5.90); White Blood Cell Count 8.59 K/mm3 (4.00-11.30)
[2023-10-31 16:42] LABS: Albumin, Blood 3.3 g/dL (3.4-5.0); Albumin/Globulin Ratio 0.5 (0.8-1.8); Bilirubin, Total 0.3 mg/dL (0.1-1.0); Bun/Creatinine Ratio 18.5 (12.0-20.0); Calcium, Blood 9.1 mg/dL (8.5-10.1); Creatinine, Blood 1.08 mg/dL (0.60-1.20); Globulin, Blood 6.1 g/dL (2.2-4.0); Potassium, Blood 4.3 mmol/L (3.5-5.5); Total Protein, Blood 9.4 g/dL (6.4-8.2)
[2023-10-31 17:42] LABS: Base Excess Venous -1.8 mmol/L; Bicarbonate Venous 23.8 mmol/L (24.0-30.0); PCO2 Venous 30.7 mmHg (38-42); pH Blood Venous 7.46 (7.34-7.37)
[2023-10-31 18:49] LABS: Influenza A, PCR NEGATIVE (NEGATIVE); Influenza B, PCR NEGATIVE (NEGATIVE); Resp Syncytial Virus, PCR NEGATIVE (NEGATIVE); SARS-Cov-2 (COVID-19) PCR, MMC NEGATIVE (NEGATIVE)
[2023-10-31] MEDS ORDERED: NS 1,000 ML IV SCH (21:05)
[2023-10-31] MEDS ORDERED: Ondansetron HCl 2 MG / ML 2ML Vial IV PRN (21:10)
[2023-10-31] MEDS ORDERED: Ipratropium/Albuterol SulF 2.5-0.5MG/3 ML Amp INH SCH (21:10)
[2023-10-31] MEDS ORDERED: FLU VACC QS2023-24(6MOS UP)/PF 60 MCG/0.5 ML SYRINGE IM SCH (21:15)
[2023-10-31] MEDS ORDERED: Albuterol 2.5 MG/3 ML VIAL INH PRN (21:15)
[2023-10-31] MEDS ORDERED: Acetaminophen 325 MG TABLET PO PRN (21:15)
[2023-10-31] MEDS ORDERED: Albuterol 2.5 MG/3 ML VIAL INH ONE (22:00)
[2023-10-31] MEDS ORDERED: Ketorolac Tromethamine 15mg Vial IV ONE (22:00)
[2023-10-31] MEDS ORDERED: Gabapentin 300 MG Cap PO SCH (22:00)
[2023-10-31] MEDS ORDERED: Azithromycin 500 MG in NS 250 ML IV SCH (22:00)
[2023-10-31] MEDS ORDERED: Metoprolol Succinate 50 MG TABCR PO SCH (22:00)
[2023-11-01] VITALS (7 sets, daily range): BP systolic 99–152; BP diastolic 62–95
[2023-11-01] MEDS ORDERED: MethylPREDNISolone Sod Succ 125 MG Vial IV SCH
[2023-11-01] MEDS ORDERED: Ketorolac Tromethamine 15mg Vial IV PRN ×2 (01:15→04:00)
[2023-11-01] MEDS ORDERED: OXYM.05NI ×2 (02:03)
[2023-11-01] MEDS ORDERED: TORSE20 PO ×2 (02:10)
[2023-11-01] MEDS ORDERED: IBUP600 PO ×2 (02:13)
[2023-11-01] MEDS ORDERED: ATOR80 PO (02:14)
[2023-11-01] MEDS ORDERED: NITR.4SL SL ×3 (02:15→02:16)
[2023-11-01] MEDS ORDERED: ALBU90OI INH (02:17)
[2023-11-01 03:41] LABS: Hemoglobin 11.9 g/dL (13.5-17.5); Mean Corpuscular HGB 30.9 pg (26.0-34.0); Mean Corpuscular HGB Conc 33.1 g/dL (31.5-36.5); Mean Corpuscular Volume 94 fL (80-100); Mean Platelet Volume 9.7 fL (9.1-12.4); Platelet Count 309 K/mm3 (150-400); RDW Coefficient Variation 15.8 % (11.7-14.2); RDW Standard Deviation 53.9 fL (35.1-46.3); Red Blood Cell Count 3.85 M/mm3 (4.30-5.90); White Blood Cell Count 12.24 K/mm3 (4.00-11.30)
[2023-11-01 03:57] LABS: Bun/Creatinine Ratio 17.7 (12.0-20.0); Calcium, Blood 8.3 mg/dL (8.5-10.1); Creatinine, Blood 1.13 mg/dL (0.60-1.20); Magnesium, Blood 1.9 mg/dL (1.6-2.4); Potassium, Blood 4.2 mmol/L (3.5-5.5)
--- NOTE | 2023-11-01 07:21 | NUR ---
SHIFT SUMMARY PATIENT ARRIVED TO PCU 09 VIA STRETCHER. PATIENT ALERT AND ORIENTED X4, CONVERSATIONS DON'T MAKE MUCH SENSE HE HAS FLIGHT OF IDEAS. THE IV IN PATIENT'S RIGHT SHOULDER INFILTRATED WITH AZITHROMYCIN, AREA MARKED WITH A PEN, IT IS NOW SOFT AND NON-TENDER. PATIENT WAS ABLE TO STAND AND PIVOT TO THE BED WITH ASSISTANCE, HAS TRANS METATARSAL AMPUTATION TO LEFT FOOT. WOUNDS TO BOTH LOWER EXTREMITES, WOUNDS WERE CLEANSED, PHOTOGRAPHED, AND REDRESSED. PATIENT ON ROOM AIR, APPEARS TO HAVE SOME SLEEP APNEA. VITAL SIGNS STABLE, SINUS TACH ON TELE. WILL CONTINUE TO MONITOR. CALL LIGHT WITHIN REACH.
[2023-11-01] MEDS ORDERED: Trimethoprim/Sulfamethoxazole DS Tab PO SCH (09:00)
[2023-11-01] MEDS ORDERED: Lactobacil 2-S.Thermo-Bifido 1 1 Cap PO SCH (09:00)
[2023-11-01] MEDS ORDERED: Aspirin 81 MG Chew PO SCH (09:00)
[2023-11-01] MEDS ORDERED: Enoxaparin 40 MG/0.4 ML SYR SC SCH (09:00)
[2023-11-01] MEDS ORDERED: Nitroglycerin 0.4 MG SUBL SL PRN ×2 (11:35)
[2023-11-01] MEDS ORDERED: Miconazole Nitrate 2% 85 GM PWD TOP SCH (14:15)
[2023-11-01 16:11] LABS: Source, Urine Foley catheter
[2023-11-01 16:14] LABS: Appearance, Urine Clear (Clear); Bilirubin, Urine Neg (Neg); Blood, Urine 1+ (Neg); Color, Urine Yellow (P-Yellow); Glucose Qualitative, Urine 2+ (Neg); Ketones, Urine 1+ (Neg); Leukocyte Esterase, Urine Neg (Neg); Nitrite, Urine Neg (Neg); Protein, Urine 2+ (Neg); Urobilinogen, Urine 2+ (Normal)
[2023-11-01 16:31] LABS: Bacteria Few /hpf; Squamous Epithelial Cells Few /hpf (Few); White Blood Cells, Urine 0-2 /hpf (0-5)
--- NOTE | 2023-11-01 16:59 | NUR ---
SHIFT SUMMARY: PATIENT A/OX3, PLEASANT AND COOPERATIVE c CARE. PATIENT DENIES CP/PRESSURE, SOB, N/V AND DIZZINESS. PATIENT ON TELE, ST HR IN THE LOW 100'S TO 110'S BPM. PATIENT RA, LUNGS WHEEZY/DIM T/O TO AUSCULTIONS. PATIENT TRIED MULTIPLE TIMES TO VOID BUT UNSUCCESSFUL, BLADDER SCAN WERE PERFORMED AND APPEARS 534 MLS IN BLADDER. NOTIFIED DR. CABRERA DURING PATIENT ROUNDING THIS PM, RECEIVED ORDER TO PLACED MUSA CATHETER. MUSA PLACED FOR ACUTE RETENTION, PATENT AND DRAINING ALLISON COLOR c 600 MLS TOTAL URINE OUTPUT THIS SHIFT. PATIENT WAS ABLE TO GET OOB c 2 MAX ASSIST STAND/PIVOT TO RECLINER CHAIR AND STAYED FOR 5 HRS IN THE CHAIR. PATIENT HAS ECHO ORDER, AWAITING TO GET IT DONE. PATIENT IS EATING AND DRINKING WELL. PATIENT RECEIVED SCHEDULED MEDS PER EMAR. VITAL SIGNS REVIEWED. BED ALARM ON FOR SAFETY. CALL LIGHT IN REACH.
[2023-11-01] MEDS ORDERED: Metoprolol Succinate 50 MG TABCR PO SCH (21:00)
[2023-11-01] MEDS ORDERED: Atorvastatin 40 MG Tab PO SCH (21:00)
[2023-11-01] MEDS ORDERED: QUEtiapine Fumarate 200 MG Tab PO SCH (21:00)
[2023-11-01] MEDS ORDERED: NS 250 ML IV PRN (22:25)
[2023-11-01 23:03] LABS: U Amphetamine Screen Not Detected; U Barbituate Screen Not Detected; U Benzodiazapine Screen Not Detected; U Buprenorphine Screen Not Detected; U Cannabinoids Screen Not Detected; U Cocaine Screen Not Detected; U Methadone Screen Not Detected; U Methamphetamine Screen Not Detected; U Opiates Screen Not Detected; U Oxycodone Screen Not Detected; U Phencyclidine Screen Not Detected
[2023-11-02 03:29] LABS: Base Excess Venous -0.5 mmol/L; Bicarbonate Venous 23.6 mmol/L (24.0-30.0); PCO2 Venous 46.9 mmHg (38-42); pH Blood Venous 7.34 (7.34-7.37)
[2023-11-02 03:33] VITALS: BP 128/95
[2023-11-02 03:36] LABS: BASOPHILS ABSOLUTE AUTO 0.03 K/mm3 (0.00-0.23); BASOPHILS PERCENT AUTO 0 % (0-2); EOSINOPHILS PERCENT AUTO 0 % (0-6); Hematocrit 34.7 % (37.0-53.0); Hemoglobin 11.4 g/dL (13.5-17.5); IMMATURE GRAN ABSOLUTE AUTO 0.18 K/mm3 (0.00-0.10); IMMATURE GRAN PERCENT AUTO 1 % (0-1); LYMPHOCYTES ABSOLUTE AUTO 1.34 K/mm3 (0.84-5.20); LYMPHOCYTES PERCENT AUTO 8 % (21-46); MONOCYTES ABSOLUTE AUTO 0.97 K/mm3 (0.16-1.47); MONOCYTES PERCENT AUTO 6 % (4-13); Mean Corpuscular HGB 31.1 pg (26.0-34.0); Mean Corpuscular HGB Conc 32.9 g/dL (31.5-36.5); Mean Corpuscular Volume 95 fL (80-100); Mean Platelet Volume 9.8 fL (9.1-12.4); NEUTROPHILS ABSOLUTE AUTO 14.23 K/mm3 (1.96-9.15); NEUTROPHILS PERCENT AUTO 85 % (41-73); Platelet Count 305 K/mm3 (150-400); RDW Coefficient Variation 15.7 % (11.7-14.2); RDW Standard Deviation 54.2 fL (35.1-46.3); Red Blood Cell Count 3.67 M/mm3 (4.30-5.90); White Blood Cell Count 16.75 K/mm3 (4.00-11.30)
[2023-11-02 04:04] LABS: Albumin, Blood 2.7 g/dL (3.4-5.0); Albumin/Globulin Ratio 0.5 (0.8-1.8); Bilirubin, Total 0.2 mg/dL (0.1-1.0); Bun/Creatinine Ratio 21.1 (12.0-20.0); Calcium, Blood 8.4 mg/dL (8.5-10.1); Creatinine, Blood 0.99 mg/dL (0.60-1.20); Potassium, Blood 4.6 mmol/L (3.5-5.5); Total Protein, Blood 7.7 g/dL (6.4-8.2)
--- NOTE | 2023-11-02 05:14 | NUR ---
END OF SHIFT NOTE: PT A/OX3 AND USES CALL LIGHT APPROPRIATLEY TO MAKE NEEDS KNOWN. PT TALKATIVE WITH FLIGHT OF IDEAS. HE HAS A MUSA DRAINING TO GRAVITY. PT IS WC BOUND AT BASELINE BUT HAS TRANSFERED WITH 2P MAX ASSIST STAND PIVOT TO CHAIR/BSC. HIS LUNG SOUNDS ARE WHEEZING AND DIMINISHED. HIS O2 DEMAND HAS INCREASED FROM RA TO 6L NC. PT DECLINED CPAP OVERNIGHT AND BREATHING TX IN AM. HIS GROIN IS RED, MEDICATED PER NOV. BED ALARM IS ON AND 3 SIDE RAILS UP DUE TO FALL RISK. HE PULLED HIS UPPER ARM IV, LEFT WRIST IV STILL PATENT. HE DENIES NEEDS AT THIS TIME. WILL REPORT TO ONCOMING RN.
[2023-11-02] MEDS ORDERED: Omeprazole 20 MG CapCR PO SCH (06:00)
[2023-11-02 07:22] VITALS: BP 114/75
[2023-11-02] MEDS ORDERED: Torsemide 20 MG TAB PO SCH (09:00)
[2023-11-02] MEDS ORDERED: CefTRIAXone Sodium 1,000 MG in NS 50 ML IV SCH (09:10)
[2023-11-02] MEDS ORDERED: Furosemide 10 MG/ML 4ML Vial IV SCH (10:00)
[2023-11-02] MEDS ORDERED: Mometasone/Formoterol MDI 200/5 mcg 13 GM INH SCH (10:10)
[2023-11-02 12:36] VITALS: BP 135/93
[2023-11-02 16:09] VITALS: BP 123/73
--- NOTE | 2023-11-02 17:33 | NUR ---
SHIFT SUMMARY PT AOX3, CALLS APPROPRIATELY AND OBEYS COMMANDS. PT DENIES CHEST PAIN/PRESSURE TELE SINUS RATE IN 90s. SPO2>90% ON 3 LITERS O2 VIA NC. PT GIVEN BED BATH BY PCT SONIA AND BLE WOUNDS CLEANED USING WOUND CLEANSER AND REDRESSED WITH NON ADHERENT PADS,ABD PADS, KERLEX AND WILBERT WRAP. PREVIOUS DRESSING NOTED TO HAVE MODERATE AMOUNT OF YELLOW DRAINING ON ABD PADS. PT ABLE TO REPOSITION IN BED INDEPENDENTLY. MUSA CATHETER IN PLACE D/T ACUTE RETENTION DRAINING TO GRAVITY. PT SLEPT ON AND OFF T/O DAY NOTED TO HAVE OCCASIONAL APNEIC PAUSES IN BREATHING. PT COOPERATIVE AND PLEASANT DEMEANOR. NO ACUTE CHANGES.
[2023-11-02 19:35] VITALS: BP 113/92
[2023-11-02] MEDS ORDERED: QUEtiapine Fumarate 200 MG Tab PO SCH (21:00)
[2023-11-02] MEDS ORDERED: NS 250 ML IV PRN (22:05)
[2023-11-03 00:15] VITALS: BP 111/74
[2023-11-03 03:08] VITALS: BP 117/104
--- NOTE | 2023-11-03 03:28 | NUR ---
END OF SHIFT NOTE: PT A/OX4 WITH FLIGHT OF IDEAS AND TANGETS. HE IS ABLE TO MAKE HIS NEEDS KNOWN APPROPRIATELY. CALL LIGHT IN REACH. MUSA IN FOR RETENTION DRAINING YELLOW URNINE TO GRAVITY. HE STAND-PIVOTS TO TRANSFER WITH 2P MAX ASSIST WITH GAITBELT AND FWW. WHEN AWAKE HIS SPO2>90% ON RA. WHEN SLEEPING HE IS ON 2L NC TO MAINTAIN SPO2 >90%. TELE HAS BEEN READING NSR T/O SHIFT WITH NO ACUTE CHANGES. HE DENIES PAIN. PT RESTING IN BED WITH BED IN LOWEST POSITION AND CALL LIGHT IN REACH. WILL REPORT TO ONCOMING RO
[2023-11-03 04:08] LABS: BASOPHILS ABSOLUTE AUTO 0.07 K/mm3 (0.00-0.23); BASOPHILS PERCENT AUTO 0 % (0-2); EOSINOPHILS ABSOLUTE AUTO 0.01 K/mm3 (0.00-0.68); EOSINOPHILS PERCENT AUTO 0 % (0-6); Hematocrit 36.2 % (37.0-53.0); Hemoglobin 11.6 g/dL (13.5-17.5); IMMATURE GRAN ABSOLUTE AUTO 0.73 K/mm3 (0.00-0.10); IMMATURE GRAN PERCENT AUTO 4 % (0-1); LYMPHOCYTES ABSOLUTE AUTO 2.03 K/mm3 (0.84-5.20); LYMPHOCYTES PERCENT AUTO 10 % (21-46); MONOCYTES ABSOLUTE AUTO 1.55 K/mm3 (0.16-1.47); MONOCYTES PERCENT AUTO 8 % (4-13); Mean Corpuscular HGB 30.5 pg (26.0-34.0); Mean Corpuscular Volume 95 fL (80-100); Mean Platelet Volume 10.1 fL (9.1-12.4); NEUTROPHILS ABSOLUTE AUTO 16.01 K/mm3 (1.96-9.15); NEUTROPHILS PERCENT AUTO 79 % (41-73); NRBC ABSOLUTE 0.05 K/mm3 (0.00-0.02); NRBC Auto 0.2 /100 WBC (0.0-0.2); Platelet Count 319 K/mm3 (150-400); RDW Coefficient Variation 15.9 % (11.7-14.2); RDW Standard Deviation 54.7 fL (35.1-46.3)
[2023-11-03 04:28] LABS: Albumin, Blood 2.9 g/dL (3.4-5.0); Albumin/Globulin Ratio 0.6 (0.8-1.8); Bilirubin, Total 0.2 mg/dL (0.1-1.0); Bun/Creatinine Ratio 24.5 (12.0-20.0); Calcium, Blood 8.5 mg/dL (8.5-10.1); Creatinine, Blood 1.02 mg/dL (0.60-1.20); Globulin, Blood 5.2 g/dL (2.2-4.0); Potassium, Blood 4.7 mmol/L (3.5-5.5); Total Protein, Blood 8.1 g/dL (6.4-8.2)
[2023-11-03 07:27] VITALS: BP 138/82
[2023-11-03] MEDS ORDERED: Tamsulosin HCl 0.4 MG Cap PO SCH (12:00)
[2023-11-03 14:48] VITALS: BP 117/78
--- NOTE | 2023-11-03 17:55 | NUR ---
SHIFT SUMMARY NO ACUTE CHANGES THIS SHIFT. PT A&OX4, IRRITABLE. SP02>90% ON RA. TELEMETRY SHOWS NSR HR 80'S. PT MED W/ TELE STATUS. MUSA CATHETER DRAINING TO GRAVITY. DENIES PAIN. UP IN CHAIR MOST OF DAY. 1 PERSON SBA W/ FWW TO BED TO GET ECHO THIS AFTERNOON. PT UP TO BSC TO HAVE LARGE FORMED/SOFT BROWN BM. PT STATES HE WISHES TO GO HOME. CARE MANAGEMENT NOTIFED TOMORROW WILL BE THE DAY. PT HAD PT EVAL THIS SHIFT. PT SITTING IN ROOM AGRESSIVELY TALKING TO SOMEONE ON PHONE. CALL LIGHT IN REACH.
[2023-11-03 20:20] VITALS: BP 135/90
[2023-11-03] MEDS ORDERED: MethylPREDNISolone Sod Succ 125 MG Vial IV SCH (21:00)
[2023-11-04 05:11] VITALS: BP 146/99
--- NOTE | 2023-11-04 05:15 | NUR ---
SHIFT SUMMARY A/Ox3-4 AND MOSTLY COOPERATIVE WITH CARE. ABLE TO ANSWER QUESTIONS APPROPRIATELY AND ABLE TO MAKE HIS NEEDS KNOWN. EMOTIONALLY LABILE FOR PT CAN BE VERY IRRITABLE WITH STAFF. HX OF SCHIZOPHRENIA WITH INTERMITTENT FLIGHT OF IDEAS NOTED. NO ACUTE EVENTS OVERNIGHT. CARDIAC, REMAINS SR-ST 80-100'S WITH NO REPORTS OF CP OR PRESSURE REPORTED. SBP HAS BEEN STABLE RANGING 130-140'S. RESPIRATORY, MAINTAINS SPO2 >90% ON RA WITH NO REPORTS OF SOB OR DYSPNEA NOTED AT REST. LS REMAIN TIGHT WITH INCREASED WORK OF BREATHING NOTED WITH MINIMAL EXERTION. OVERNIGHT SLEEP STUDY PERFORMED. GI/, MUSA CATH REMAINS PATENT AND DRAINING YELLOW URINE TO GRAVITY. NO BM THIS SHIFT. PT SCHEDULED TO BE D/C d THIS AM. NO NEW ORDERS AT THIS TIME, WILL REPORT TO ONCOMING RN. GRISELDA PITTS OF THIS NOTE.
[2023-11-04 07:04] LABS: BASOPHILS ABSOLUTE AUTO 0.13 K/mm3 (0.00-0.23); BASOPHILS PERCENT AUTO 1 % (0-2); EOSINOPHILS ABSOLUTE AUTO 0.02 K/mm3 (0.00-0.68); EOSINOPHILS PERCENT AUTO 0 % (0-6); Hematocrit 39.1 % (37.0-53.0); Hemoglobin 12.9 g/dL (13.5-17.5); IMMATURE GRAN ABSOLUTE AUTO 0.89 K/mm3 (0.00-0.10); IMMATURE GRAN PERCENT AUTO 5 % (0-1); LYMPHOCYTES ABSOLUTE AUTO 2.87 K/mm3 (0.84-5.20); LYMPHOCYTES PERCENT AUTO 15 % (21-46); MONOCYTES ABSOLUTE AUTO 1.33 K/mm3 (0.16-1.47); MONOCYTES PERCENT AUTO 7 % (4-13); Mean Corpuscular HGB 30.9 pg (26.0-34.0); Mean Corpuscular Volume 94 fL (80-100); Mean Platelet Volume 9.5 fL (9.1-12.4); NEUTROPHILS ABSOLUTE AUTO 14.55 K/mm3 (1.96-9.15); NEUTROPHILS PERCENT AUTO 74 % (41-73); NRBC ABSOLUTE 0.09 K/mm3 (0.00-0.02); NRBC Auto 0.5 /100 WBC (0.0-0.2); Platelet Count 347 K/mm3 (150-400); RDW Coefficient Variation 15.8 % (11.7-14.2); RDW Standard Deviation 54.2 fL (35.1-46.3); Red Blood Cell Count 4.17 M/mm3 (4.30-5.90); White Blood Cell Count 19.79 K/mm3 (4.00-11.30)
[2023-11-04 07:21] LABS: Albumin, Blood 3.2 g/dL (3.4-5.0); Albumin/Globulin Ratio 0.6 (0.8-1.8); Bilirubin, Total 0.2 mg/dL (0.1-1.0); Bun/Creatinine Ratio 23.7 (12.0-20.0); Calcium, Blood 8.9 mg/dL (8.5-10.1); Creatinine, Blood 1.18 mg/dL (0.60-1.20); Globulin, Blood 5.3 g/dL (2.2-4.0); Potassium, Blood 4.7 mmol/L (3.5-5.5); Total Protein, Blood 8.5 g/dL (6.4-8.2)
[2023-11-04 07:25] VITALS: BP 133/98
[2023-11-04 15:11] LABS: Hemoglobin 13.5 g/dL (13.5-17.5)
--- NOTE | 2023-11-04 15:14 | NUR ---
Patient is sitting on a chair and alert. 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 Patient immediately goes into a rant about the state of [place] Government and their attempt to control him. He talks about his disinterest in having home health visit to give him extra support because of the plan to spy on him and invade his privacy. I then talk to him about his [employer] beliefs and I provide prayer for him and he softens quite a bit. He apologizes for his poor behavior and states that he will do better tomorrow and that he is in a poor mood this day. Patient shows signs of a healthier perspective and hopefully this will result in a kinder treatment of staff. I will continue to remain available to patient and family.
[2023-11-04 16:33] VITALS: BP 130/98
--- NOTE | 2023-11-04 17:04 | NUR ---
SHIFT SUMMARY: PT HAS BEEN A&Ox4, COOPERATIVE W/CARE, ABLE TO MAKE NEEDS KNOWN. PT DENIES SOB, O2 SATS MAINTAINED >92% ON RA. PT DENIES CP, SR ON MONITOR W/RATE 80s. INDWELLING MUSA CATHETER PATENT, DRAINING TO GRAVITY. PT WORKS W/PT TODAY. BLE DRY, SCALEY, DISCOLORED. DRESSINGS TO BLE ARE C/D/I, PLAN IS FOR INSTRUCTIONAL SYSTEMS DESIGNER TO REDRESS PER WOUND CENTER ORDERS PRIOR TO PT DC TOMORROW. PT AND [facility] HAVE BEEN UPDATED ON WOUND CARE PLAN WELL PLAN FOR DC HOME W/ [facility]. PT HAS BEEN SITTING IN RECLINER, TOLERATING WELL. WILL CONTINUE TO MONITOR AND TREAT ACCORDINGLY UNTIL CHANGE OF SHIFT.
[2023-11-04 20:07] VITALS: BP 130/82
[2023-11-04 23:34] VITALS: BP 115/71
[2023-11-05 04:40] VITALS: BP 124/84
--- NOTE | 2023-11-05 05:27 | NUR ---
SHIFT SUMMARY A/Ox3-4 AND MOSTLY COOPERATIVE WITH CARE. ABLE TO ANSWER QUESTIONS APPROPRIATELY AND ABLE TO MAKE HIS NEEDS KNOWN. EMOTIONALLY LABILE FOR PT CAN BE VERY IRRITABLE WITH STAFF. HX OF SCHIZOPHRENIA WITH INTERMITTENT FLIGHT OF IDEAS NOTED. NO ACUTE EVENTS OVERNIGHT. CARDIAC, REMAINS IN SR 80-90'S WITH NO REPORTS OF CP OR PRESSURE REPORTED. SBP HAS BEEN STABLE RANGING 110-130'S. RESPIRATORY, MAINTAINS SPO2 >90% ON RA WITH NO REPORTS OF SOB WHILE AWAKE. WHEN ASLEEP, PT S SPO2 NOTED TO DECREASE INTO THE 82-84 RANGE WITH FREQUENT SNORING AND APNEIC EPISODES. PT WORE CPAP OFF AND ON T/O THE NIGHT WITH SPO2 MAINTAINING >90% WHEN WORN. PT PLACED ON 2L NC WHEN SLEEPING AND CPAP NOT IN USE TO MAINTAIN SPO2 >90%. GI/, MUSA CATH REMAINS PATENT AND DRAINING YELLOW URINE TO GRAVITY. NO BM THIS SHIFT. BED BATH GIVEN EARLY ON IN THE SHIFT. PT SCHEDULED TO BE D/C d THIS AM. NO NEW ORDERS AT THIS TIME, WILL REPORT TO ONCOMING RN. GRISELDA PITTS OF THIS NOTE.
[2023-11-05 07:58] VITALS: BP 131/89
[2023-11-05] MEDS ORDERED: PredniSONE 20 MG Tab PO SCH (09:00)
[2023-11-05] MEDS ORDERED: FURO80 PO ×2 (12:45)
[2023-11-05] MEDS ORDERED: METO50ER PO (12:46)
[2023-11-05] MEDS ORDERED: MICONAZOLE NITR85 GM TOP ×2 (12:49)
[2023-11-05] MEDS ORDERED: OMEP20ER PO ×2 (12:50)
[2023-11-05] MEDS ORDERED: Prednisone10 MG PO ×2 (12:51)
[2023-11-05] MEDS ORDERED: SULTRIDS PO (12:52)
[2023-11-05] MEDS ORDERED: TAMS.4ER PO ×2 (12:52)
[2023-11-05] MEDS ORDERED: VISBIOME 112.51 EACH PO ×2 (12:54)
--- NOTE | 2023-11-05 14:27 | NUR ---
DISCHARGE SUMMARY PT ALERT, ORIENTED. ABLE TO AMKE NEEDS KNOWN. VSS. IV REMOVED. DRESSED IN HOME CLOTHING. MEDICATIONS FAXED TO [facility] PER PT'S REQUEST. MEDICATIONS AND DISCHARGE ORDERS REVIEWED WITH PT. COPY FAXED TO [facility]. CARE GIVERS SET UP TO BE AT PT'S HOUSE UPON PATIENT ARRIVAL. TRANSPORT ARRIVED APPROX 1300. PT PIVOT TRANSFERRED FROM RECLINER TO TRANSPORT WHEELCHAIR.
[2023-11-06] MEDS ORDERED: MethylPREDNISolone Sod Succ 125 MG Vial IV SCH (09:00)
== END 2023-11-05 13:19 | disposition home or self-care (01) | DRG 191 ==
LOC: ER 15:42 → PCU 15:43
PROVIDERS: Emergency Medicine; Family Medicine; Family Medicine Adult Medicine; Nurse Practitioner Acute Care; Student in an Organized Health Care Education/Training Program; ADMIT Internal Medicine
DX: J44.1 Chronic obstructive pulmonary disease with (acute) exacerbation (principal); J81.1 Chronic pulmonary edema; I25.10 Atherosclerotic heart disease of native coronary artery without angina pectoris; K21.9 Gastro-esophageal reflux disease without esophagitis; F17.210 Nicotine dependence, cigarettes, uncomplicated; R09.02 Hypoxemia; N40.1 Benign prostatic hyperplasia with lower urinary tract symptoms; R33.8 Other retention of urine; N13.9 Obstructive and reflux uropathy, unspecified; I73.9 Peripheral vascular disease, unspecified; I11.0 Hypertensive heart disease with heart failure; I50.9 Heart failure, unspecified; E78.5 Hyperlipidemia, unspecified; F20.9 Schizophrenia, unspecified; Z86.73 Personal history of transient ischemic attack (TIA), and cerebral infarction without residual deficits; Z79.899 Other long term (current) drug therapy; Z79.01 Long term (current) use of anticoagulants; Z79.82 Long term (current) use of aspirin; I25.2 Old myocardial infarction; Z95.5 Presence of coronary angioplasty implant and graft; Z98.52 Vasectomy status; Z89.432 Acquired absence of left foot; Z11.52 Encounter for screening for COVID-19
CPT/HCPCS: 0241U; 36415; 51702; 71045; 71046; 71260; 80048; 80053; 81001; 82803; 83690; 83735; 83880; 84145; 84484; 85014; 85018; 85025; 85027; 85379; 93005; 93010; 93306; 94640; 94660; 94664; 94760; 94762; 96372; 96374; 96375; 96376; 97110; 97161; 97530; 99285-25; A9270; G0378; J0456; J0696; J1650; J1885; J1940; J2930; J7030; J7050; Q9967

== ENCOUNTER 2023-11-12 02:04 | Day surgery (SDC) | payer OTHER ==
[~2023-11-12 02:04] MED LIST changes: +FURO80 PO; +MICONAZOLE NITR85 GM TOP; +OMEP20ER PO; +OXYM.05NI; +Prednisone10 MG PO; +TAMS.4ER PO; +TORSE20 PO; +VISBIOME 112.51 EACH PO
== END 2023-11-12 22:51 | disposition home or self-care (01) ==
LOC: WOUND 02:04
DX: I89.0 Lymphedema, not elsewhere classified (principal); J44.9 Chronic obstructive pulmonary disease, unspecified; I10 Essential (primary) hypertension; I25.10 Atherosclerotic heart disease of native coronary artery without angina pectoris; I25.2 Old myocardial infarction; T81.31XD Disruption of external operation (surgical) wound, not elsewhere classified, subsequent encounter; L97.522 Non-pressure chronic ulcer of other part of left foot with fat layer exposed; L97.819 Non-pressure chronic ulcer of other part of right lower leg with unspecified severity; I73.9 Peripheral vascular disease, unspecified; Z72.0 Tobacco use; Z98.61 Coronary angioplasty status; Z86.73 Personal history of transient ischemic attack (TIA), and cerebral infarction without residual deficits; Y83.8 Other surgical procedures as the cause of abnormal reaction of the patient, or of later complication, without mention of misadventure at the time of the procedure
CPT/HCPCS: A6196; G0463

== ENCOUNTER 2023-12-24 02:21 | Day surgery (SDC) | payer OTHER | END 2023-12-24 23:30 | disposition home or self-care (01) | LOC: WOUND 02:21 | DX: L97.522 Non-pressure chronic ulcer of other part of left foot with fat layer exposed (principal); L97.819 Non-pressure chronic ulcer of other part of right lower leg with unspecified severity; I89.0 Lymphedema, not elsewhere classified; I73.9 Peripheral vascular disease, unspecified; M79.672 Pain in left foot; M25.552 Pain in left hip; Z72.0 Tobacco use; J44.9 Chronic obstructive pulmonary disease, unspecified; I10 Essential (primary) hypertension; I25.10 Atherosclerotic heart disease of native coronary artery without angina pectoris; I25.2 Old myocardial infarction; Z95.5 Presence of coronary angioplasty implant and graft; Z86.73 Personal history of transient ischemic attack (TIA), and cerebral infarction without residual deficits | CPT/HCPCS: A6213; G0463 ==

== ENCOUNTER 2024-01-07 03:22 | Day surgery (SDC) | payer OTHER ==
[2024-01-07] MEDS ORDERED: Lidocaine HCl 4% Cream 5 GM ONE (11:17)
== END 2024-01-07 22:54 | disposition home or self-care (01) ==
LOC: WOUND 03:22
DX: T81.31XD Disruption of external operation (surgical) wound, not elsewhere classified, subsequent encounter (principal); J44.9 Chronic obstructive pulmonary disease, unspecified; I10 Essential (primary) hypertension; I25.10 Atherosclerotic heart disease of native coronary artery without angina pectoris; I25.2 Old myocardial infarction; L97.522 Non-pressure chronic ulcer of other part of left foot with fat layer exposed; I89.0 Lymphedema, not elsewhere classified; L97.819 Non-pressure chronic ulcer of other part of right lower leg with unspecified severity; I73.9 Peripheral vascular disease, unspecified; Z95.5 Presence of coronary angioplasty implant and graft; Z72.0 Tobacco use; Y83.8 Other surgical procedures as the cause of abnormal reaction of the patient, or of later complication, without mention of misadventure at the time of the procedure
CPT/HCPCS: A6213; A9270

== ENCOUNTER 2024-01-14 03:03 | Day surgery (SDC) | payer OTHER ==
[2024-01-14] MEDS ORDERED: Lidocaine HCl 4% Cream 5 GM ONE (11:09)
== END 2024-01-14 22:42 | disposition home or self-care (01) ==
LOC: WOUND 03:03
DX: T81.31XA Disruption of external operation (surgical) wound, not elsewhere classified, initial encounter (principal); L97.522 Non-pressure chronic ulcer of other part of left foot with fat layer exposed; L97.819 Non-pressure chronic ulcer of other part of right lower leg with unspecified severity; I89.0 Lymphedema, not elsewhere classified; I73.9 Peripheral vascular disease, unspecified; Z72.0 Tobacco use; I10 Essential (primary) hypertension; J44.9 Chronic obstructive pulmonary disease, unspecified; I25.10 Atherosclerotic heart disease of native coronary artery without angina pectoris; Z95.5 Presence of coronary angioplasty implant and graft
CPT/HCPCS: A6213; A9270; G0463

== ENCOUNTER → 2024-01-22 | Outpatient (CLI) | payer OTHER ==
[2024-01-22 15:26] LABS: Hemoglobin 13.1 g/dL (13.5-17.5); Mean Corpuscular HGB 30.8 pg (26.0-34.0); Mean Corpuscular HGB Conc 32.8 g/dL (31.5-36.5); Mean Corpuscular Volume 94 fL (80-100); Mean Platelet Volume 10.9 fL (9.1-12.4); Platelet Count 290 K/mm3 (150-400); RDW Coefficient Variation 16.1 % (11.7-14.2); RDW Standard Deviation 55.9 fL (35.1-46.3); Red Blood Cell Count 4.25 M/mm3 (4.30-5.90); White Blood Cell Count 8.52 K/mm3 (4.00-11.30)
[2024-01-22 15:35] LABS: Alanine Aminotransfer (ALT/SGP 81 U/L (12-78); Albumin, Blood 3.4 g/dL (3.4-5.0); Albumin/Globulin Ratio 0.7 (0.8-1.8); Alk Phos 123 U/L (50-136); Anion Gap 9 mmol/L (3-11); Aspartate Aminotrans (AST/SGOT 69 U/L (12-37); Bilirubin, Total 0.3 mg/dL (0.1-1.0); Blood Urea Nitrogen 16 mg/dL (8-24); Bun/Creatinine Ratio 14.7 (12.0-20.0); CO2, Blood 27 mmol/L (21-32); Calcium, Blood 8.8 mg/dL (8.5-10.1); Chloride, Blood 103 mmol/L (98-108); Creatinine, Blood 1.09 mg/dL (0.60-1.20); Glomerular Filtration Rate 80 (60-); Glucose, Blood 147 mg/dL (70-99); Potassium, Blood 4.1 mmol/L (3.5-5.5); Sodium, Blood 135 mmol/L (136-145); Total Protein, Blood 8.4 g/dL (6.4-8.2)
== END ==
LOC: LAB SHORT 10:30 → LAB 10:30
PROVIDERS: Nurse Practitioner Family
DX: E78.2 Mixed hyperlipidemia (principal); R60.0 Localized edema
CPT/HCPCS: 80053; 85027; G0103

== ENCOUNTER → 2024-02-24 | Outpatient (CLI) | payer OTHER ==
[~2024-02-24] MED LIST changes: +CLIN150 PO
== END | disposition home or self-care (01) ==
LOC: LAB SHORT 13:14 → LAB 13:14
DX: I25.10 Atherosclerotic heart disease of native coronary artery without angina pectoris (principal); I50.9 Heart failure, unspecified; Z89.439 Acquired absence of unspecified foot; Z91.148 Patient's other noncompliance with medication regimen for other reason
CPT/HCPCS: 87070; 87075; 87077; 87186; 87205

== ENCOUNTER 2024-02-26 14:39 | Emergency (ER) | payer OTHER ==
[~2024-02-26] VITALS: Ht 175.3 cm; Wt 104.3 kg
[~2024-02-26 14:39] MED LIST changes: -CLIN150 PO
[2024-02-26 15:44] LABS: BASOPHILS ABSOLUTE AUTO 0.04 K/mm3 (0.00-0.23); BASOPHILS PERCENT AUTO 0 % (0-2); EOSINOPHILS ABSOLUTE AUTO 0.18 K/mm3 (0.00-0.68); EOSINOPHILS PERCENT AUTO 2 % (0-6); Hematocrit 40.2 % (37.0-53.0); Hemoglobin 13.3 g/dL (13.5-17.5); IMMATURE GRAN ABSOLUTE AUTO 0.07 K/mm3 (0.00-0.10); IMMATURE GRAN PERCENT AUTO 1 % (0-1); LYMPHOCYTES ABSOLUTE AUTO 1.81 K/mm3 (0.84-5.20); LYMPHOCYTES PERCENT AUTO 19 % (21-46); MONOCYTES PERCENT AUTO 8 % (4-13); Mean Corpuscular HGB 31.4 pg (26.0-34.0); Mean Corpuscular HGB Conc 33.1 g/dL (31.5-36.5); Mean Corpuscular Volume 95 fL (80-100); Mean Platelet Volume 11.4 fL (9.1-12.4); NEUTROPHILS PERCENT AUTO 70 % (41-73); Platelet Count 303 K/mm3 (150-400); RDW Coefficient Variation 15.7 % (11.7-14.2); RDW Standard Deviation 54.4 fL (35.1-46.3); Red Blood Cell Count 4.24 M/mm3 (4.30-5.90)
[2024-02-26 16:06] LABS: Albumin, Blood 3.3 g/dL (3.4-5.0); Albumin/Globulin Ratio 0.6 (0.8-1.8); Bilirubin, Total 0.6 mg/dL (0.1-1.0); Bun/Creatinine Ratio 20.4 (12.0-20.0); Calcium, Blood 8.9 mg/dL (8.5-10.1); Creatinine, Blood 0.88 mg/dL (0.60-1.20); Globulin, Blood 5.1 g/dL (2.2-4.0); Potassium, Blood 5.2 mmol/L (3.5-5.5); Total Protein, Blood 8.4 g/dL (6.4-8.2)
[2024-02-26] MEDS ORDERED: CefTRIAXone Sodium 1,000 MG in NS 50 ML IV ONE (18:20)
[2024-02-26] MEDS ORDERED: Clindamycin HCl 150 MG Cap PO ONE (18:20)
[2024-02-26] MEDS ORDERED: CLIN150 PO (19:27)
[2024-02-26 19:48] VITALS: BP 197/85
== END 2024-02-26 19:52 | disposition home or self-care (01) ==
LOC: ER 14:39
PROVIDERS: Student in an Organized Health Care Education/Training Program
DX: L03.116 Cellulitis of left lower limb (principal); I10 Essential (primary) hypertension; J44.9 Chronic obstructive pulmonary disease, unspecified; E78.5 Hyperlipidemia, unspecified; J45.909 Unspecified asthma, uncomplicated; F17.210 Nicotine dependence, cigarettes, uncomplicated; Z86.73 Personal history of transient ischemic attack (TIA), and cerebral infarction without residual deficits; Z79.51 Long term (current) use of inhaled steroids; Z79.899 Other long term (current) drug therapy; Z79.82 Long term (current) use of aspirin
CPT/HCPCS: 80053; 83605; 85025; 96365; 99283-25; A9270; J0696

== ENCOUNTER 2024-03-08 03:55 | Day surgery (SDC) | payer OTHER ==
[~2024-03-08 03:55] MED LIST changes: +CLIN150 PO
[2024-03-08] MEDS ORDERED: CefTRIAXone Sodium 1,000 MG in NS 100 ML IV SCH (06:00)
[2024-03-08] MEDS ORDERED: Lidocaine HCl 1% 20 ML MDV INFIL ONE (11:00)
[2024-03-08 11:26] VITALS: BP 119/95
--- NOTE | 2024-03-08 12:31 | NUR ---
PT CAME TO ROOM IN WHEELCHAIR. PT VERY SLEEPY AND NODS OFF EASILY. ATTEMPTED TO DO POWER GLIDE WHILE PT WAS IN CHAIR. WAS UNABLE TO PLACE LINE D/T TIME FRAME. IV WAS STARTED IN SANDRA.
== END 2024-03-08 11:30 | disposition home or self-care (01) ==
LOC: ATC 03:55
DX: L03.90 Cellulitis, unspecified (principal); I25.2 Old myocardial infarction; I10 Essential (primary) hypertension; J44.9 Chronic obstructive pulmonary disease, unspecified; E78.5 Hyperlipidemia, unspecified; F20.9 Schizophrenia, unspecified; F17.210 Nicotine dependence, cigarettes, uncomplicated
CPT/HCPCS: 96365; J0696

== ENCOUNTER 2024-03-09 00:47 | Day surgery (SDC) | payer OTHER ==
[2024-03-09] MEDS ORDERED: CefTRIAXone Sodium 1,000 MG in NS 100 ML IV SCH (07:00)
[2024-03-09] MEDS ORDERED: CefTRIAXone 1000 MG Vial IM SCH (07:20)
[2024-03-09] MEDS ORDERED: Lidocaine HCl/Pf 1% 5 ML VIAL ONE (11:06)
[2024-03-09] MEDS ORDERED: Lidocaine HCl/Pf 1% 5 ML VIAL INFIL SCH (11:20)
[2024-03-09 11:30] VITALS: BP 116/75
== END 2024-03-09 11:39 | disposition home or self-care (01) ==
LOC: ATC 00:47
DX: L03.90 Cellulitis, unspecified (principal); I25.2 Old myocardial infarction; J44.9 Chronic obstructive pulmonary disease, unspecified; I10 Essential (primary) hypertension; J45.909 Unspecified asthma, uncomplicated; E78.5 Hyperlipidemia, unspecified; F20.9 Schizophrenia, unspecified; F17.210 Nicotine dependence, cigarettes, uncomplicated
CPT/HCPCS: 96372; J0696; J2001

== ENCOUNTER 2024-03-10 02:49 | Day surgery (SDC) | payer OTHER ==
[2024-03-10] MEDS ORDERED: CefTRIAXone 1000 MG Vial IM SCH (06:00)
[2024-03-10] MEDS ORDERED: Lidocaine HCl/Pf 1% 5 ML VIAL INFIL SCH (06:55)
[2024-03-10 10:40] VITALS: BP 110/75
== END 2024-03-10 10:47 | disposition home or self-care (01) ==
LOC: ATC 02:49
DX: L03.90 Cellulitis, unspecified (principal); I25.2 Old myocardial infarction; J44.9 Chronic obstructive pulmonary disease, unspecified; E78.5 Hyperlipidemia, unspecified; F20.9 Schizophrenia, unspecified; J45.909 Unspecified asthma, uncomplicated; F17.210 Nicotine dependence, cigarettes, uncomplicated
CPT/HCPCS: 96372; J0696; J2001

== ENCOUNTER 2024-03-11 03:05 | Day surgery (SDC) | payer OTHER ==
[2024-03-11] MEDS ORDERED: CefTRIAXone 1000 MG Vial IM SCH (06:00)
[2024-03-11] MEDS ORDERED: Lidocaine HCl/Pf 1% 5 ML VIAL INFIL SCH (06:45)
== END 2024-03-11 10:45 | disposition home or self-care (01) ==
LOC: ATC 03:05
DX: L03.116 Cellulitis of left lower limb (principal); I10 Essential (primary) hypertension; J44.9 Chronic obstructive pulmonary disease, unspecified; E78.5 Hyperlipidemia, unspecified; I25.10 Atherosclerotic heart disease of native coronary artery without angina pectoris; I25.2 Old myocardial infarction; F17.210 Nicotine dependence, cigarettes, uncomplicated; Z95.5 Presence of coronary angioplasty implant and graft; Z79.82 Long term (current) use of aspirin; Z79.899 Other long term (current) drug therapy
CPT/HCPCS: 96372; J0696; J2001

== ENCOUNTER 2024-03-12 03:12 | Day surgery (SDC) | payer OTHER ==
[2024-03-12] MEDS ORDERED: CefTRIAXone 1000 MG Vial IM SCH (06:00)
[2024-03-12] MEDS ORDERED: Lidocaine HCl/Pf 1% 5 ML VIAL XX SCH (06:00)
[2024-03-12 10:15] VITALS: BP 113/85
== END 2024-03-12 10:17 | disposition home or self-care (01) ==
LOC: ATC 03:12
DX: L03.90 Cellulitis, unspecified (principal); I25.2 Old myocardial infarction; J44.9 Chronic obstructive pulmonary disease, unspecified; E78.5 Hyperlipidemia, unspecified; F20.9 Schizophrenia, unspecified; I10 Essential (primary) hypertension; F17.210 Nicotine dependence, cigarettes, uncomplicated; Z79.899 Other long term (current) drug therapy
CPT/HCPCS: 96372; J0696; J2001

== ENCOUNTER 2024-03-13 02:21 | Day surgery (SDC) | payer OTHER ==
[2024-03-13] MEDS ORDERED: CefTRIAXone 1000 MG Vial IM SCH (06:00)
[2024-03-13] MEDS ORDERED: Lidocaine HCl/Pf 1% 5 ML VIAL XX SCH (06:00)
[2024-03-13 10:19] VITALS: BP 121/89
== END 2024-03-13 10:24 | disposition home or self-care (01) ==
LOC: ATC 02:21
DX: L03.116 Cellulitis of left lower limb (principal); I10 Essential (primary) hypertension; E78.5 Hyperlipidemia, unspecified; J44.9 Chronic obstructive pulmonary disease, unspecified; I25.10 Atherosclerotic heart disease of native coronary artery without angina pectoris; Z95.5 Presence of coronary angioplasty implant and graft; F17.210 Nicotine dependence, cigarettes, uncomplicated; Z79.82 Long term (current) use of aspirin; Z79.899 Other long term (current) drug therapy
CPT/HCPCS: 96372; J0696; J2001

== ENCOUNTER 2024-03-14 09:05 | Day surgery (SDC) | payer OTHER ==
[2024-03-14 08:55] VITALS: BP 110/90
[~2024-03-14 09:05] MED LIST changes: +CefTRIAXone 1000 MG Vial IM SCH; +Lidocaine HCl/Pf 1% 5 ML VIAL XX SCH
== END 2024-03-14 09:06 | disposition home or self-care (01) ==
LOC: ATC 09:05
DX: L03.116 Cellulitis of left lower limb (principal); I10 Essential (primary) hypertension; E78.5 Hyperlipidemia, unspecified; J44.9 Chronic obstructive pulmonary disease, unspecified; F17.210 Nicotine dependence, cigarettes, uncomplicated; Z79.82 Long term (current) use of aspirin; Z79.899 Other long term (current) drug therapy
CPT/HCPCS: 96372; J0696; J2001

== ENCOUNTER 2024-09-18 18:28 | Emergency (ER) | payer OTHER ==
[~2024-09-18] VITALS: Ht 175.3 cm; Wt 145.2 kg
[~2024-09-18 18:28] MED LIST changes: -CefTRIAXone 1000 MG Vial IM SCH; +Isosorbide Mono30 MG PO; -Lidocaine HCl/Pf 1% 5 ML VIAL XX SCH
[2024-09-18 18:33] VITALS: BP 162/103
[2024-09-18 19:09] LABS: BASOPHILS ABSOLUTE AUTO 0.04 K/mm3 (0.00-0.23); BASOPHILS PERCENT AUTO 1 % (0-2); EOSINOPHILS ABSOLUTE AUTO 0.31 K/mm3 (0.00-0.68); EOSINOPHILS PERCENT AUTO 4 % (0-6); Hematocrit 38.9 % (37.0-53.0); IMMATURE GRAN ABSOLUTE AUTO 0.05 K/mm3 (0.00-0.10); IMMATURE GRAN PERCENT AUTO 1 % (0-1); LYMPHOCYTES ABSOLUTE AUTO 1.79 K/mm3 (0.84-5.20); LYMPHOCYTES PERCENT AUTO 21 % (21-46); MONOCYTES ABSOLUTE AUTO 0.82 K/mm3 (0.16-1.47); MONOCYTES PERCENT AUTO 10 % (4-13); Mean Corpuscular HGB 31.4 pg (26.0-34.0); Mean Corpuscular HGB Conc 33.4 g/dL (31.5-36.5); Mean Corpuscular Volume 94 fL (80-100); Mean Platelet Volume 10.6 fL (9.1-12.4); NEUTROPHILS ABSOLUTE AUTO 5.34 K/mm3 (1.96-9.15); NEUTROPHILS PERCENT AUTO 64 % (41-73); Platelet Count 227 K/mm3 (150-400); RDW Coefficient Variation 14.6 % (11.7-14.2); RDW Standard Deviation 50.3 fL (35.1-46.3); Red Blood Cell Count 4.14 M/mm3 (4.30-5.90); White Blood Cell Count 8.35 K/mm3 (4.00-11.30)
[2024-09-18 19:41] LABS: Albumin, Blood 3.4 g/dL (3.4-5.0); Albumin/Globulin Ratio 0.7 (0.8-1.8); Bilirubin, Total 0.3 mg/dL (0.1-1.0); Bun/Creatinine Ratio 16.9 (12.0-20.0); Calcium, Blood 9.4 mg/dL (8.5-10.1); Creatinine, Blood 0.95 mg/dL (0.60-1.20); Globulin, Blood 4.8 g/dL (2.2-4.0); Potassium, Blood 3.7 mmol/L (3.5-5.5); Total Protein, Blood 8.2 g/dL (6.4-8.2)
[2024-09-18] MEDS ORDERED: Trimethoprim/Sulfamethoxazole DS Tab PO ONE (20:40)
[2024-09-18] MEDS ORDERED: SULTRIDS PO ×2 (20:51→21:02)
== END 2024-09-18 22:07 | disposition home or self-care (01) ==
LOC: ER 18:28
PROVIDERS: Student in an Organized Health Care Education/Training Program
DX: I73.9 Peripheral vascular disease, unspecified (principal); I87.2 Venous insufficiency (chronic) (peripheral); L03.115 Cellulitis of right lower limb; I10 Essential (primary) hypertension; I25.2 Old myocardial infarction; J44.89 Other specified chronic obstructive pulmonary disease; E78.5 Hyperlipidemia, unspecified; F17.210 Nicotine dependence, cigarettes, uncomplicated; Z79.899 Other long term (current) drug therapy; Z79.82 Long term (current) use of aspirin
CPT/HCPCS: 80053; 83605; 85025; 99284; A9270

== ENCOUNTER 2024-10-18 11:27 | Emergency (ER) | payer OTHER ==
[~2024-10-18] VITALS: Ht 175.3 cm; Wt 127.5 kg
[2024-10-18 13:16] LABS: BASOPHILS ABSOLUTE AUTO 0.07 K/mm3 (0.00-0.23); BASOPHILS PERCENT AUTO 1 % (0-2); EOSINOPHILS ABSOLUTE AUTO 0.25 K/mm3 (0.00-0.68); EOSINOPHILS PERCENT AUTO 2 % (0-6); Hematocrit 42.1 % (37.0-53.0); IMMATURE GRAN ABSOLUTE AUTO 0.12 K/mm3 (0.00-0.10); IMMATURE GRAN PERCENT AUTO 1 % (0-1); LYMPHOCYTES ABSOLUTE AUTO 2.17 K/mm3 (0.84-5.20); LYMPHOCYTES PERCENT AUTO 21 % (21-46); MONOCYTES PERCENT AUTO 7 % (4-13); Mean Corpuscular HGB 31.2 pg (26.0-34.0); Mean Corpuscular HGB Conc 33.3 g/dL (31.5-36.5); Mean Corpuscular Volume 94 fL (80-100); NEUTROPHILS ABSOLUTE AUTO 7.12 K/mm3 (1.96-9.15); NEUTROPHILS PERCENT AUTO 68 % (41-73); RDW Coefficient Variation 15.3 % (11.7-14.2); RDW Standard Deviation 52.4 fL (35.1-46.3); Red Blood Cell Count 4.49 M/mm3 (4.30-5.90); White Blood Cell Count 10.43 K/mm3 (4.00-11.30)
[2024-10-18 13:43] LABS: Albumin, Blood 3.5 g/dL (3.4-5.0); Albumin/Globulin Ratio 0.6 (0.8-1.8); Bilirubin, Total 0.5 mg/dL (0.1-1.0); Bun/Creatinine Ratio 15.2 (12.0-20.0); Calcium, Blood 9.5 mg/dL (8.5-10.1); Creatinine, Blood 0.99 mg/dL (0.60-1.20); Globulin, Blood 5.4 g/dL (2.2-4.0); Potassium, Blood 4.3 mmol/L (3.5-5.5); Total Protein, Blood 8.9 g/dL (6.4-8.2)
[2024-10-18 13:48] LABS: Platelet Count 259 K/mm3 (150-400)
[2024-10-18] MEDS ORDERED: Clindamycin HCl 150 MG Cap PO ONE (15:15)
[2024-10-18] MEDS ORDERED: Clindamycin HC300 MG PO (15:18)
[2024-10-18 15:53] VITALS: BP 149/98
== END 2024-10-18 15:52 | disposition home or self-care (01) ==
LOC: ER 11:27
PROVIDERS: Student in an Organized Health Care Education/Training Program
DX: L03.115 Cellulitis of right lower limb (principal); I87.2 Venous insufficiency (chronic) (peripheral); I25.10 Atherosclerotic heart disease of native coronary artery without angina pectoris; I25.2 Old myocardial infarction; I10 Essential (primary) hypertension; E78.5 Hyperlipidemia, unspecified; J44.89 Other specified chronic obstructive pulmonary disease; F17.210 Nicotine dependence, cigarettes, uncomplicated; Z95.5 Presence of coronary angioplasty implant and graft; Z79.82 Long term (current) use of aspirin; Z79.899 Other long term (current) drug therapy; Z59.89 Other problems related to housing and economic circumstances
CPT/HCPCS: 80053; 85025; 99284; A9270